=== PATIENT | male | born 1955 | race Caucasian/White ===

== ENCOUNTER → 2016-07-12 | Outpatient (REF) | payer OTHER ==
[2016-07-12 17:51] LABS: MEAN CORPUSCULAR HEMOGLOBIN 31.7 pg (27.0-33.0); MEAN CORPUSCULAR HGB CONC 34.3 g/dl (32.0-36.5); MEAN CORPUSCULAR VOLUME 92.5 fl (80.0-96.0); RED CELL DISTRIBUTION WIDTH 12.3 % (11.5-14.5); WHITE BLOOD COUNT 4.9 K/mm3 (4.0-10.0)
[2016-07-12 17:54] LABS: ALBUMIN 4.1 GM/DL (3.2-5.2); ALBUMIN/GLOBULIN RATIO 1.17 (1.00-1.93); ALKALINE PHOSPHATASE 70 U/L (45-117); ALT/SGPT 24 U/L (12-78); ANION GAP 6 MEQ/L (8-16); AST/SGOT 20 U/L (15-37); BILIRUBIN,TOTAL 0.4 MG/DL (0.2-1.0); BLOOD UREA NITROGEN 12 MG/DL (7-18); CALCIUM LEVEL 8.7 MG/DL (8.8-10.2); CARBON DIOXIDE LEVEL 27 MEQ/L (21-32); CHLORIDE LEVEL 104 MEQ/L (98-107); CHOLESTEROL LEVEL 200 MG/DL (<200); CREATININE FOR GFR 0.99 MG/DL (0.70-1.30); FREE T4 0.88 NG/DL (0.76-1.46); GLOMERULAR FILTRATION RATE > 60.0 (>49); GLUCOSE, FASTING 85 MG/DL (80-110); POTASSIUM SERUM 4.9 MEQ/L (3.5-5.1); SODIUM LEVEL 137 MEQ/L (136-145); TOTAL PROTEIN 7.6 GM/DL (6.4-8.2); TRIGLYCERIDES LEVEL 90 MG/DL (<150)
== END ==
LOC: M SFHCLERA 14:40
PROVIDERS: ATTEND Family Medicine
DX: I10 Essential (primary) hypertension (principal)

== ENCOUNTER → 2016-07-12 | Outpatient (CLI) | payer OTHER ==
--- NOTE | 2016-07-12 15:31 | REP ---
Clinical: Lower back pain. Technique: AP, lateral, bilateral oblique and coned-down views. Findings: AP view demonstrates chronic dextroconvex scoliosis with asymmetric multilevel disc space narrowing and osteophytosis (left greater than right). No acute fracture / compression injury. Chronic retrolisthesis at the L3-4 level of approximately 7 mm is appreciated. Impression: Advanced multilevel degenerative changes. Signed by Sterling Albright MD 07/12/2016 03:24 P
== END ==
LOC: M LRY 14:43
PROVIDERS: ATTEND Family Medicine
DX: M51.36 Other intervertebral disc degeneration, lumbar region (principal)

== ENCOUNTER → 2016-08-19 | Outpatient (CLI) | payer OTHER ==
--- NOTE | 2016-08-19 09:10 | REP ---
MR LUMBAR SPINE WITHOUT CONTRAST: HISTORY: Back pain. Decreased signal on T2-weighted images is present in the lumbar intervertebral discs. The discs are decreased in height. These findings are consistent with disc degeneration. A diffuse disc bulge is present at the L1-2 level. There is minimal compression of the thecal sac. There is hypertrophy of the posterior articulating facets. The L1 nerves exit the neural foramina without compression. A diffuse disc bulge is present at the L2-3 level. There is minimal compression of the thecal sac. There is hypertrophy of the posterior articulating facets. The L2 nerves exit the neural foramina without compression. A diffuse disc bulge is present at the L3-4 level. There are 4 mm of retrolisthesis of L3 on 4. There is minimal compression of the thecal sac. There is hypertrophy of the posterior articulating facets. The L3 nerves exit the neural foramina without compression. A diffuse disc bulge is present at the L4-5 level. There is hypertrophy of the ligamenta flava and posterior articulating facets. There are 3 mm of grade 1 spondylolisthesis of L4 and 5. These findings produce minimal central canal stenosis. There is compression of the left L4 nerve in the neural foramen. The right L4 nerve exits the neural foramen without compression. A diffuse disc bulge is present at the L5-S1 level. There is minimal compression of the thecal sac. There is hypertrophy of the posterior articulating facets. There are 2 mm of grade 1 spondylolisthesis of L5 on S1. There is compression of the right L5 nerve in the neural foramen. The left L5 nerve exits the neural foramen without compression. The conus medullaris is normal in appearance terminating at the level of the T12-L1 intervertebral disc. Increased signal intensity on T2-weighted images is present in the endplates of the L2-S1 vertebral bodies. This represents degenerative change. There is scoliosis convex to the right. IMPRESSION: 1. Diffuse disc bulges at the L1-2 and L2-3 levels with minimal thecal sac compression. 2. Diffuse disc bulge and retrolisthesis at the L3-4 level with minimal thecal sac compression. 3. Minimal central canal stenosis at the L4-5 level secondary to disc bulge, ligamentous and facet hypertrophy and grade 1 spondylolisthesis. There is compression of the left L4 nerve in the neural foramen. 4. Diffuse disc bulge at the L5-S1 level with minimal thecal sac compression. There is grade 1 spondylolisthesis of L5 on S1. There is compression of the right L5 nerve in the neural foramen. Signed by Abel Jimenez MD 08/19/2016 09:15 A
== END ==
LOC: M RAD 06:46
PROVIDERS: ATTEND Family Medicine
DX: M51.36 Other intervertebral disc degeneration, lumbar region (principal); M51.37 Other intervertebral disc degeneration, lumbosacral region; M43.10 Spondylolisthesis, site unspecified

== ENCOUNTER → 2016-10-25 | Outpatient (REF) | payer OTHER ==
[2016-10-25 12:10] LABS: BASO # 0.1 K/mm3 (0.0-0.2); BASO % 1.1 % (0.0-1.0); EOS # 0.4 K/mm3 (0.0-0.50); EOS % 7.1 % (0.0-3.0); LARGE UNSTAINED CELL # 0.1 K/mm3 (0.0-0.4); LYMPH # 1.6 K/mm3 (1.5-4.5); LYMPH % 30.8 % (24.0-44.0); MEAN CORPUSCULAR HEMOGLOBIN 32.4 pg (27.0-33.0); MEAN CORPUSCULAR HGB CONC 34.6 g/dl (32.0-36.5); MEAN CORPUSCULAR VOLUME 93.7 fl (80.0-96.0); MONO # 0.4 K/mm3 (0.0-0.8); MONO % 7.3 % (0.0-5.0); NEUTROPHILS # 2.7 K/mm3 (1.8-7.7); NEUTROPHILS % 51.7 % (36.0-66.0); PLATELET COUNT, AUTOMATED 229 k/mm3 (150-450); RED CELL DISTRIBUTION WIDTH 12.6 % (11.5-14.5); WHITE BLOOD COUNT 5.2 K/mm3 (4.0-10.0)
[2016-10-25 12:43] LABS: ALBUMIN 3.8 GM/DL (3.2-5.2); ALBUMIN/GLOBULIN RATIO 1.19 (1.00-1.93); ALKALINE PHOSPHATASE 67 U/L (45-117); ALT/SGPT 24 U/L (12-78); ANION GAP 7 MEQ/L (8-16); AST/SGOT 16 U/L (15-37); BILIRUBIN,TOTAL 0.3 MG/DL (0.2-1.0); BLOOD UREA NITROGEN 11 MG/DL (7-18); CALCIUM LEVEL 8.7 MG/DL (8.8-10.2); CARBON DIOXIDE LEVEL 26 MEQ/L (21-32); CHLORIDE LEVEL 106 MEQ/L (98-107); CREATININE FOR GFR 0.93 MG/DL (0.70-1.30); GLOMERULAR FILTRATION RATE > 60.0 (>49); GLUCOSE, FASTING 143 MG/DL (80-110); POTASSIUM SERUM 4.2 MEQ/L (3.5-5.1); SODIUM LEVEL 139 MEQ/L (136-145)
== END ==
LOC: M LABDRAW1 10:54
PROVIDERS: ATTEND Orthopaedic Surgery
DX: M47.896 Other spondylosis, lumbar region (principal)

== ENCOUNTER → 2017-06-20 | Outpatient (REF) | payer OTHER ==
[2017-06-20 12:00] LABS: BASO # 0.1 10^3/uL (0.0-0.2); EOS # 0.2 10^3/uL (0.0-0.50); EOS % 3.6 % (0.0-3.0); HEMATOCRIT 45.3 % (42.0-52.0); HEMOGLOBIN 15.5 g/dl (14.0-18.0); IMMATURE GRANULOCYTE # 0.1 10^3/uL (0-0); LYMPH # 1.4 10^3/uL (1.5-4.5); LYMPH % 24.3 % (24.0-44.0); MEAN CORPUSCULAR HEMOGLOBIN 31.3 pg (27.0-33.0); MEAN CORPUSCULAR HGB CONC 34.2 g/dl (32.0-36.5); MEAN CORPUSCULAR VOLUME 91.3 fl (80.0-96.0); MONO # 0.5 10^3/uL (0.0-0.8); MONO % 9.1 % (0.0-5.0); NEUTROPHILS # 3.5 10^3/uL (1.8-7.7); PLATELET COUNT, AUTOMATED 252 10^3/uL (150-450); RED BLOOD COUNT 4.96 10^6/uL (4.30-6.10); RED CELL DISTRIBUTION WIDTH 12.2 % (11.5-14.5); WHITE BLOOD COUNT 5.8 10^3/uL (4.0-10.0)
[2017-06-20 12:21] LABS: BLOOD UREA NITROGEN 7 MG/DL (7-18)
[2017-06-20 12:21] LABS: GLOMERULAR FILTRATION RATE > 60.0 (>49)
== END ==
LOC: M LABDRAW1 09:56
DX: M47.896 Other spondylosis, lumbar region (principal)

== ENCOUNTER → 2017-08-01 | Outpatient (CLI) | payer OTHER | LOC: M PAIN 09:30 | DX: M53.3 Sacrococcygeal disorders, not elsewhere classified (principal); G89.29 Other chronic pain; M48.061 Spinal stenosis, lumbar region without neurogenic claudication; I10 Essential (primary) hypertension; Z79.899 Other long term (current) drug therapy | CPT/HCPCS: G0463 ==

== ENCOUNTER → 2017-09-19 | Outpatient (CLI) | payer OTHER | LOC: M PAIN 09:30 | DX: M47.817 Spondylosis without myelopathy or radiculopathy, lumbosacral region (principal); G89.29 Other chronic pain; I10 Essential (primary) hypertension; Z79.899 Other long term (current) drug therapy | CPT/HCPCS: G0463 ==

== ENCOUNTER → 2017-10-31 | Outpatient (CLI) | payer OTHER | LOC: M PAIN 08:45 | DX: M47.817 Spondylosis without myelopathy or radiculopathy, lumbosacral region (principal); G89.29 Other chronic pain; I10 Essential (primary) hypertension; Z79.891 Long term (current) use of opiate analgesic; Z79.899 Other long term (current) drug therapy | CPT/HCPCS: G0463 ==

== ENCOUNTER → 2018-02-13 | Outpatient (CLI) | payer OTHER | LOC: M PAIN 09:00 | DX: M47.817 Spondylosis without myelopathy or radiculopathy, lumbosacral region (principal); G89.29 Other chronic pain; I10 Essential (primary) hypertension; Z79.899 Other long term (current) drug therapy | CPT/HCPCS: G0463 ==

== ENCOUNTER → 2018-04-17 | Outpatient (CLI) | payer OTHER | LOC: M PAIN 08:30 | DX: M47.817 Spondylosis without myelopathy or radiculopathy, lumbosacral region (principal); G89.29 Other chronic pain; I10 Essential (primary) hypertension; Z79.899 Other long term (current) drug therapy | CPT/HCPCS: G0463 ==

== ENCOUNTER → 2018-08-21 | Outpatient (REF) | payer OTHER ==
[2018-08-21 11:29] LABS: HEMOGLOBIN 15.5 g/dl (13.5-17.5); MEAN CORPUSCULAR HGB CONC 33.7 g/dl (32.0-36.5); PLATELET COUNT, AUTOMATED 266 10^3/uL (150-450); WHITE BLOOD COUNT 4.2 10^3/uL (4.0-10.0)
[2018-08-21 12:05] LABS: HEMOGLOBIN A1c 5.9 %
[2018-08-21 12:09] LABS: ALBUMIN 4.3 GM/DL (3.2-5.2); ALT/SGPT 26 U/L (12-78); BILIRUBIN,TOTAL 0.5 MG/DL (0.2-1.0); BLOOD UREA NITROGEN 10 MG/DL (7-18); CALCIUM LEVEL 8.7 MG/DL (8.8-10.2); CARBON DIOXIDE LEVEL 29 MEQ/L (21-32); CHLORIDE LEVEL 104 MEQ/L (98-107); CHOLESTEROL LEVEL 222 MG/DL (<200); CHOLESTEROL RISK RATIO 4.625 (<5); CREATININE FOR GFR 0.84 MG/DL (0.70-1.30); GLOMERULAR FILTRATION RATE > 60.0 (>49); GLUCOSE, FASTING 92 MG/DL (70-100); HDL CHOLESTEROL 48 MG/DL (>40); LDL CHOLESTEROL 142 MG/DL (<100); NON-HDL-C 174 MG/DL; POTASSIUM SERUM 4.3 MEQ/L (3.5-5.1); SODIUM LEVEL 139 MEQ/L (136-145); THYROID STIMULATING HORMONE 0.764 uIU/ML (0.358-3.740); TOTAL PROTEIN 7.6 GM/DL (6.4-8.2); TRIGLYCERIDES LEVEL 160 MG/DL (<150)
[2018-08-21 12:45] LABS: CREATININE, URINE 39.7 MG/DL; MALB URINE SIEMENS < 5.0 MG/L; MAU/CREAT RATIO 12.5 MCG/MG (0.0-30.0)
== END ==
LOC: M SFHCLERA 09:46
PROVIDERS: ATTEND Family Medicine
DX: I10 Essential (primary) hypertension (principal)

== ENCOUNTER → 2019-03-05 | Outpatient (REF) | payer OTHER ==
[2019-03-05 21:18] LABS: ALBUMIN 4.2 GM/DL (3.2-5.2); BILIRUBIN,DIRECT 0.2 MG/DL (0.0-0.2); BILIRUBIN,TOTAL 0.6 MG/DL (0.2-1.0); CHOLESTEROL RISK RATIO 3.153 (<5); TOTAL PROTEIN 7.4 GM/DL (6.4-8.2)
== END ==
LOC: M SFHCLERA 16:39
PROVIDERS: ATTEND Family Medicine
DX: E78.5 Hyperlipidemia, unspecified (principal)

== ENCOUNTER → 2020-04-14 | Outpatient (CLI) | payer OTHER ==
[2020-04-14 12:28] LABS: BASO # 0.1 10^3/uL (0.0-0.2); BASO % 0.6 % (0.0-1.0); EOS # 0.1 10^3/uL (0.0-0.5); EOS % 1.8 % (0.0-3.0); HEMATOCRIT 47.2 % (42.0-52.0); HEMOGLOBIN 15.8 g/dl (13.5-17.5); LYMPH # 1.4 10^3/uL (1.5-5.0); LYMPH % 17.3 % (24.0-44.0); MEAN CORPUSCULAR HEMOGLOBIN 30.9 pg (27.0-33.0); MEAN CORPUSCULAR HGB CONC 33.5 g/dl (32.0-36.5); MEAN CORPUSCULAR VOLUME 92.4 fl (80.0-96.0); MONO # 0.8 10^3/uL (0.0-0.8); MONO % 10.4 % (0.0-5.0); NEUTROPHILS # 5.4 10^3/uL (1.5-8.5); NEUTROPHILS % 69.5 % (36.0-66.0); PLATELET COUNT, AUTOMATED 277 10^3/uL (150-450); RED BLOOD COUNT 5.11 10^6/uL (4.30-6.10); WHITE BLOOD COUNT 7.8 10^3/uL (4.0-10.0)
[2020-04-14 13:03] LABS: BLOOD UREA NITROGEN 10 MG/DL (7-18); CALCIUM LEVEL 9.7 MG/DL (8.8-10.2); CARBON DIOXIDE LEVEL 31 MEQ/L (21-32); CHLORIDE LEVEL 100 MEQ/L (98-107); CHOLESTEROL LEVEL 169 MG/DL (<200); CHOLESTEROL RISK RATIO 2.283 (<5); GLOMERULAR FILTRATION RATE > 60.0 (>49); GLUCOSE, FASTING 99 MG/DL (70-100); HDL CHOLESTEROL 74 MG/DL (>40); LDL CHOLESTEROL 79 MG/DL (<100); NON-HDL-C 95 MG/DL; POTASSIUM SERUM 3.9 MEQ/L (3.5-5.1); SODIUM LEVEL 137 MEQ/L (136-145); TRIGLYCERIDES LEVEL 79 MG/DL (<150)
[2020-04-14 14:19] LABS: HEMOGLOBIN A1c 5.5 %
== END ==
LOC: M WUC 10:23
PROVIDERS: ATTEND Family Medicine
DX: R73.01 Impaired fasting glucose (principal); E78.5 Hyperlipidemia, unspecified; I10 Essential (primary) hypertension

== ENCOUNTER → 2020-09-04 | Outpatient (CLI) | payer OTHER ==
[2020-09-04 13:21] LABS: BASO # 0.1 10^3/uL (0.0-0.2); BASO % 1.1 % (0.0-1.0); EOS # 0.2 10^3/uL (0.0-0.5); EOS % 2.3 % (0.0-3.0); HEMATOCRIT 45.1 % (42.0-52.0); HEMOGLOBIN 15.5 g/dl (13.5-17.5); LYMPH # 1.2 10^3/uL (1.5-5.0); LYMPH % 13.7 % (24.0-44.0); MEAN CORPUSCULAR HEMOGLOBIN 32.8 pg (27.0-33.0); MEAN CORPUSCULAR HGB CONC 34.4 g/dl (32.0-36.5); MEAN CORPUSCULAR VOLUME 95.3 fl (80.0-96.0); MONO # 0.7 10^3/uL (0.0-0.8); MONO % 7.6 % (2.0-8.0); NEUTROPHILS # 6.4 10^3/uL (1.5-8.5); NEUTROPHILS % 73.7 % (36.0-66.0); PLATELET COUNT, AUTOMATED 360 10^3/uL (150-450); RED BLOOD COUNT 4.73 10^6/uL (4.30-6.10); WHITE BLOOD COUNT 8.7 10^3/uL (4.0-10.0)
[2020-09-04 16:31] LABS: ALBUMIN 3.8 GM/DL (3.2-5.2); ALT/SGPT 34 U/L (12-78); BILIRUBIN,TOTAL 0.5 MG/DL (0.2-1.0); BLOOD UREA NITROGEN 8 MG/DL (7-18); CALCIUM LEVEL 9.7 MG/DL (8.8-10.2); CARBON DIOXIDE LEVEL 25 MEQ/L (21-32); CHLORIDE LEVEL 97 MEQ/L (98-107); CREATININE FOR GFR 0.82 MG/DL (0.70-1.30); FOLATE > 24.0 NG/ML; GLOMERULAR FILTRATION RATE > 60.0 (>49); GLUCOSE, FASTING 97 MG/DL (70-100); POTASSIUM SERUM 4.3 MEQ/L (3.5-5.1); SODIUM LEVEL 133 MEQ/L (136-145); VITAMIN B12 LEVEL 712 PG/ML
[2020-09-12 11:09] LABS: VITAMIN B1 LEVEL WHOLE BLOOD 269.7 nmol/L (66.5-200.0)
== END ==
LOC: M WUC 09:42
PROVIDERS: ATTEND Family Medicine
DX: R56.9 Unspecified convulsions (principal); Z09 Encounter for follow-up examination after completed treatment for conditions other than malignant neoplasm; Z72.89 Other problems related to lifestyle; F43.21 Adjustment disorder with depressed mood; Z63.4 Disappearance and death of family member; Z86.79 Personal history of other diseases of the circulatory system; Z86.39 Personal history of other endocrine, nutritional and metabolic disease

== ENCOUNTER → 2020-12-23 | Outpatient (CLI) | payer OTHER ==
[~2020-12-23] MED LIST: ATOR1TAB21 PO; B-1100TA2 PO; B12-1CHW PO; FOLI1TAB11 PO; HYDR-3490 PO; KEPP1TAB2 PO
== END ==
LOC: M RAD 09:00
PROVIDERS: ATTEND Nurse Practitioner Family
DX: K40.90 Unilateral inguinal hernia, without obstruction or gangrene, not specified as recurrent (principal)

== ENCOUNTER → 2021-02-23 | Outpatient (CLI) | payer OTHER ==
[~2021-02-23] MED LIST changes: -KEPP1TAB2 PO
--- NOTE | 2021-02-24 16:53 | ECGEPIP ---
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 Electronically Signed on 02-24-2021 16:53:02 EDT by Moises Kevin
== END ==
LOC: M EKG 14:39
PROVIDERS: ATTEND Anesthesiology
DX: Z01.818 Encounter for other preprocedural examination (principal); E78.00 Pure hypercholesterolemia, unspecified

== ENCOUNTER → 2021-02-27 | Outpatient (CLI) | payer OTHER | LOC: M LABSMTC 09:27 | PROVIDERS: ATTEND Anesthesiology | DX: Z01.812 Encounter for preprocedural laboratory examination (principal); Z20.822 Contact with and (suspected) exposure to COVID-19 ==

== ENCOUNTER 2021-03-04 11:29 | Day surgery (SDC) | payer OTHER ==
[~2021-03-04] VITALS: Ht 180.3 cm; Wt 74.8 kg
[~2021-03-04 11:29] MED LIST changes: +CelecoXIB 400 MG CAP PO ONE; +LIDOCAINE 1% MDV 20ML VIAL SQ PRN; +LIDOCAINE 2% 100MG/5ML SDV (FOR ANES.) As Ordered ONE; +LR 1,000 ML IV ONE; +MIDAZOLAM INJ 2MG/2ML VIAL (J2250 PER 1MG) As Ordered ONE; +ONDANSETRON 4MG/2ML VIAL As Ordered ONE; +ROCURONIUM BROMIDE 50 MG/5 ML VIAL As Ordered ONE; +SUGAMMADEX SODIUM 500 MG/5 ML VIAL (BRIDION) As Ordered ONE; +ceFAZolin SOD 2 GM in IV 1 EA IV ONE; +dexameTHASONE 4 MG/ML 1ML VIAL (J1100 PER 1MG) As Ordered ONE; +fentaNYL 250 MCG/5 ML INJECTION (J3010) As Ordered ONE; +propofoL 200 MG/20 ML VIAL As Ordered ONE
--- OUTSIDE RECORDS SUMMARY | 2021-03-04 11:34 | CCD | Continuity of Care Document ---
Author Author SIMÓN ELENA, Narciso SMITH Organization Unknown Address [address] [facility] [address] [place] [address] Phone [phone] Care Team Providers Care Youth Worker Name Role Phone Ruthy Chakraborty AUTM AUTM Unavailable Abel Infante M.D. AUTM [phone] Problems Active Problems Provider Date Essential hypertension Tony Rainey MD Onset: 021 Social History Type Date Description Comments Sex Unknown ETOH Use Currently consumes alcohol on we ekends Tobacco Use Start: Unknown Denies Smoking Recreational Drug Use Current Drug User marijuan a 1-4 times a week for pain management Allergies and adverse reactions Description No Known Drug Allergies Medications Active Medications SIG Qnty Indications Ordering Provide r Date Stanton 5-325mg Tablets 1 tabs by mouth every 6 hours as needed for pain after surgery 14tabs K40.90 Tony Rainey MD 02/27/2021 Atorvastatin Calcium 20mg Tablets Take 1 Tablet By Mouth Once A Day Unknown Folic Acid 1mg Tablets Take One Tablet By Mouth Every Day Unknown Hydrochlorothiazide 25mg Tablets Take One Tablet By Mouth Every Day Unknown HM Super Vitamin B12 2500mcg Chewt abs 1 qd Unknown Vitamin B1 100mg Tablets 1 by mouth every day Unknown Immunizations Description No Information Available Vital Signs Date Vital Result Comment 01/01/2021 1:32pm BP Systolic 137 mmHg BP Diastolic 82 mmHg Heart Rate 79 /min Body Temperature 98.3 F Height 71 inches 5'11" Weight 159.38 lb BMI (Body Mass Index) 22.2 kg/m2 [place] Body Weight 172 lb Weight 72.293 kg BSA (Body Surface Area) 1.91 m2 Results Description No Information Available Procedures Date Code Description Status 01/01/2021 65023 Office/Outpatient New Moderate M DM 45-59 Minutes Completed Medical Devices Description No Information Available Encounters Type Date Location Provider Dx Diagnosis Office Visit 01/01/2021 1:30p [facility] Blaze Rainey MD K40.90 Unil inguinal hernia, w/o ob st or gangr, not spcf as recur Assessments Date Code Description Provider 01/01/2021 K40.90 Left inguinal hernia Tony mahan MD Plan of Treatment Future Appointment(s):* 03/18/2021 10:15 am - TEJAS Mcdaniel at [facility] * 03/04/2021 1:45 pm - Tony Rainey MD at [facility] 01/01/2021 - Tony Rainey MD* K40.90 Left inguinal hernia* Comments:* 1. Discussed with patient the pathophysiology of hernia formation as well as the rationale for operative repair: prevent incarceration and avoid emergent surgery. His imaging study shows (pelvic ultrasound) shows a reducible fat- containing inguinal hernia on the left side. He desires repair of the hernia. He has minimal numbness mostly discomfort when it protrudes out but there is no documented episodes of incarceration. We discussed operative therapy and nonoperative therapy (watchful waiting). Likewise, we discussed the different options for repair including laparoscopic and open hernia repair.2. Recommend robotic assisted laparosocopic repair of the inguinal hernia via transabdominal preperitoneal approach. Risks and benefits discussed with patient including risks of bleeding, recurrence, postop pain, and injury to nearby structures including blood vessels and spermatic structures. All concerns and questions addressed at this time including postoperative care. He has agreed to proceed. Our plan is to perform a robotic-assisted laparoscopic inguinal hernia repair in hisright side via transabdominal preperitoneal approach (EMERSON). This is expected as outpatient surgery. This done under general anesthesia. My experience with the repair is that this minimizes postoperative pain and time to recovery for full activity. Patient has agreed to proceed. Functional Status Description No Information Available Mental Status Description No Information Available Referrals Refer to Reason for Referral Status Appt Date Tony Rainey MD LEFT INGUINAL HERNIA Scheduled 12/21 6 [facility] [address] [place], [place] [address] [phone]
--- OUTSIDE RECORDS SUMMARY | 2021-03-04 11:34 | CCD ---
Author Author [facility] Organization [facility] Address Unknown Phone Unavailable Care Team Providers Care Freight Clerk Name Role Phone Zina, Ruthy Unavailable PROBLEMS Type Condition ICD9-CM Code OYV84-ES Code Onset Dates Condition S tatus W/U Status Risk SNOMED Code Notes Problem Other chronic pain G89.29 Active confirmed 8 9943524 Problem Essential hypertension I10 Active confirmed 13239860 Problem Sacroiliac joint pain M53.3 Active confirmed 784133763 Problem Spondylosis of lumbosacral joint M47.817 Active confirmed 900999507 Problem Influenza vaccination declined by patient Z28.21 Active confirmed 184017928 Problem Erectile dysfunction, unspecified erectile dysfunction typ e N52.9 Active confirmed 733373084 Problem Degenerative lumbar spinal stenosis M48.061 Acti ve confirmed 497911464 Problem Grief F43.21 Active confirmed 271567680 Problem 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 Active confirmed 582241054 Problem Colon cancer screening Z12.11 Active confirmed 845958560 Problem Dyslipidemia E78.5 Active confirmed 6205891 07 Problem Grieving F43.21 Active confirmed 172726275 Problem Adjustment disorder, unspecified type F43.20 Ac tive confirmed 54437585 ALLERGIES No Known Allergies ENCOUNTERS from 1955 to 2020-12-24 Encounter Location Date Provider Diagnosis [facility] [address] [phone] [place] [address] Dec, Ruthy Izaguirre Unilateral recurrent inguina l hernia without obstruction or gangrene K40.91 IMMUNIZATIONS Vaccine Route Administration Date Status Influenza 18 yrs & older Flublok IM Intramuscular Mar 05, 2019 Administered Influenza Pharmacy Given Unknown Apr 03, 2018 Adminis tered Zoster 50mcg/0.5mL Shingrix Unknown May 27, 2019 Admi nistered Zoster 50mcg/0.5mL Shingrix Unknown Mar 12, 2019 Admi nistered TDAP 0.5mL (Boostrix) IM Intramuscular Mar 05, 2019 Administe red Influenza 6mo & up Fluzone Unknown Mar 21, 2017 Admin istered SOCIAL HISTORY Tobacco Use: Social History Observation Description Date Details (start date - stop date) Never Smoker Sex Assigned At : Social History Observation Description Sex Assigned At Unknown Audit Question Answer Notes Total Score: 4 Interpretation: Alcohol Education Language: Question Answer Notes Languages spoken: Yakut Evangelical: Question Answer Notes Evangelical 33 None Drug and Alcohol Question Answer Notes Total Score: 0 Interpretation: No problems reported Alcohol Screening: Question Answer Notes Did you have a drink containing alcohol in the past year? Ye s Points 0 Interpretation Negative How often did you have six or more drinks on one occas ion in the past year? Never (0 points) How many drinks did you have on a typica l day when you were drinking in the past year? 1 or 2 (0 points) How often did you have a drink containing alcohol in t he past year? Never (0 points) Tobacco Use: Question Answer Notes Are you a: never smoker REASON FOR REFERRAL from 1955 to 2020-12-24 Reason left inguinal hernia Diagnosis 1 Unilateral recurrent inguina l hernia without obstruction or gangrene (K40.91) Referral Organization [facility] Referring Provider First Name Ruthy Referring Provider Last Name Zina Referring Provider Specialty Family Medicine Referred Provider Tha Friedman Eduardo Referred Provider Specialty General Surgery Referral Priority Routine VITAL SIGNS No information MEDICATIONS Medication SIG (Take, Route, Frequency, Duration) Notes Start Da te End Date Status Atorvastatin Calcium 20 MG 1 tablet Orally Once a day for 90 Active Folic Acid 1 MG 1 tablet Orally Daily Active Tylenol Arthritis Pain Orally As needed Active Viagra 50 MG 1 tablet as needed Orally Once a day for 14 days May, Not-Taking Hydrochlorothiazide 25 MG TAKE 1 TABLET BY MOUTH ONCE DAILY for 90 Active hydroCHLOROthiazide 25 mg 1 tablet Orally Once a day Active Vitamin B Complex 100mg-1000mg 1 tab Orally Daily Active PROCEDURES No Information RESULTS No Results REASON FOR VISIT US results MEDICAL (GENERAL) HISTORY Type Description Date Medical History HTN, goal 140/90 Medical History low back pain s/p injury Medical History hyperlipidemia Medical History seizure secondary to alcohol Medical History grief, passed Surgical History No Surgical history information Hospitalization History seizure, dehydration 08/27/2020 Goals Section No Information Health Concerns No Information MEDICAL EQUIPMENT No Information MENTAL STATUS No Information FUNCTIONAL STATUS No Information ASSESSMENTS Encounter Date Diagnosis Assessment Notes Treatment Notes Treatm ent Clinical Notes Dec, Unilateral recurrent inguina l hernia without obstruction or gangrene (ICD-10 - K40.91) PLAN OF TREATMENT Referrals Referral Date Details left inguinal hernia, Daniel Rainey SMP Next Appt Details Provider Name:Abel Infante, 2020-12-29 07:30:00 AM, [address] [facility], , [place], [address], Insurance Providers Payer Name Payer Address Payer Phone Insured Name Patient Relati onship to Insured Coverage Start Date Coverage End Date [facility] [address] [place] [id number] Ana DUTTA I self
--- OUTSIDE RECORDS SUMMARY | 2021-03-04 11:34 | CCD ---
Author Author [facility] Organization [facility] Address Unknown Phone Unavailable Care Team Providers Care Furnace Room Supervisor Name Role Phone Ruthy Izaguirre Unavailable PROBLEMS Type Condition ICD9-CM Code BKL31-OH Code Onset Dates Condition S tatus W/U Status Risk SNOMED Code Notes Problem Other chronic pain G89.29 Active confirmed 8 7089891 Problem Essential hypertension I10 Active confirmed 53938011 Problem Sacroiliac joint pain M53.3 Active confirmed 137944986 Problem Spondylosis of lumbosacral joint M47.817 Active confirmed 335415579 Problem Influenza vaccination declined by patient Z28.21 Active confirmed 500866118 Problem Erectile dysfunction, unspecified erectile dysfunction typ e N52.9 Active confirmed 868061452 Problem Degenerative lumbar spinal stenosis M48.061 Acti ve confirmed 118673715 Problem Grief F43.21 Active confirmed 108520319 Problem 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 Active confirmed 713450518 Problem Colon cancer screening Z12.11 Active confirmed 222887194 Problem Dyslipidemia E78.5 Active confirmed 9970660 07 Problem Grieving F43.21 Active confirmed 189018468 Problem Adjustment disorder, unspecified type F43.20 Ac tive confirmed 20537250 ALLERGIES No Known Allergies ENCOUNTERS from 1955 to 2020-12-03 Encounter Location Date Provider Diagnosis [facility] [address] [phone] [place] [address] Nov, 2020 Ruthy De Guzmanllister Mass of left inguinal region R19.09 IMMUNIZATIONS Vaccine Route Administration Date Status Influenza Pharmacy Given Unknown Apr 03, 2018 Adminis tered Influenza 18 yrs & older Flublok IM Intramuscular Mar 05, 2019 Administered Zoster 50mcg/0.5mL Shingrix Unknown May 27, 2019 [...] Education Language: Question Answer Notes Languages spoken: Azerbaijani Buddhism: Question Answer Notes Buddhism 33 None Drug and Alcohol Question Answer [...] you a: never smoker REASON FOR REFERRAL No Information VITAL SIGNS Weight 160.2 lbs Nov, Height 71 in Nov, BMI 22.34 kg/m2 Nov, Heart Rate 75 /min Nov, Respiratory Rate 17 /min Nov, Temperature 98.8 degrees Fahrenheit Nov, Oximetry 96 Nov, Blood pressure systolic 154 mm Hg Nov, Blood pressure diastolic 93 mm Hg Nov, MEDICATIONS Medication SIG (Take, Route, Frequency, Duration) [...] Information RESULTS No Results REASON FOR VISIT bump just below waist MEDICAL (GENERAL) HISTORY Type Description Date Medical [...] Notes Treatment Notes Treatm ent Clinical Notes Nov, Mass of left inguinal region (ICD-10 - R19.09) Patients exam and sxs consistent with left inguinal hernia. Will get US to further eval. If hernia discovered will send to gen surg for further eval. Discussed supportive care. ER for new or worsening sxs. Patient educated on diagnosis, medications, treatments, and expected outcomes. Patient educated on risks, SE/AE, benefits, alternatives of regimen. Discussed emergent signs and symptoms and to seek emergency medical attention if they occur. Patient voiced understanding and had all questions answered. PLAN OF TREATMENT Treatment Notes Assessment Notes Clinical Notes Mass of left inguinal region Patients exam and sxs con sistent with left inguinal hernia. Will get US to further eval. If hernia discovered will send to gen surg for further eval. Discussed supportive care. ER for new or worsening sxs. Patient educated on diagnosis, medications, treatments, and expected outcomes. Patient educated on risks, SE/AE, benefits, alternatives of regimen. Discussed emergent signs and symptoms and to seek emergency medical attention if they occur. Patient voiced understanding and had all questions answered. Treatment Notes Test Name Order Date [facility] NON-OB COMPLETE 2020-12-02 Next Appt Details Provider Name:Abel Romo Infante, 2020-12-29 07:30:00 AM, [address] [facility], , [place], [address], Insurance Providers Payer Name Payer Address Payer Phone Insured Name Patient Relati onship to Insured Coverage Start Date Coverage End Date [facility] [address] [place] [address] Ana DUTTA I self
--- OUTSIDE RECORDS SUMMARY | 2021-03-04 11:34 | CCD ---
Author Author [facility] Organization [facility] Address Unknown Phone Unavailable Care Team Providers Care Home Health Travel Ot Name Role Phone Arelis Abel Unavailable PROBLEMS Type Condition ICD9-CM Code MCU18-CE Code Onset Dates Condition S tatus W/U Status Risk SNOMED Code Notes Problem Other chronic pain G89.29 Active confirmed 8 1371307 Problem Essential hypertension I10 Active confirmed 19557835 Problem Sacroiliac joint pain M53.3 Active confirmed 240593127 Problem Spondylosis of lumbosacral joint M47.817 Active confirmed 418209325 Problem Influenza vaccination declined by patient Z28.21 Active confirmed 010308097 Problem Erectile dysfunction, unspecified erectile dysfunction typ e N52.9 Active confirmed 008349209 Problem Degenerative lumbar spinal stenosis M48.061 Acti ve confirmed 281213708 Problem Grief F43.21 Active confirmed 464560445 Problem 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 Active confirmed 663300804 Problem Colon cancer screening Z12.11 Active confirmed 609578432 Problem Dyslipidemia E78.5 Active confirmed 5640635 07 Problem Grieving F43.21 Active confirmed 271628836 Problem Adjustment disorder, unspecified type F43.20 Ac tive confirmed 38714409 ALLERGIES No Known Allergies ENCOUNTERS from 1955 to 2021-01-01 Encounter Location Date Provider Diagnosis [facility] [id number] [place] [address] [place] [address] Dec, Abel Infante IMMUNIZATIONS Vaccine Route Administration Date Status Influenza [...] Education Language: Question Answer Notes Languages spoken: Northern Irish Moravian: Question Answer Notes Moravian 33 None Drug and Alcohol Question Answer [...] REASON FOR REFERRAL No Information VITAL SIGNS No information MEDICATIONS Medication SIG [...] Information RESULTS No Results REASON FOR VISIT Call Back MEDICAL (GENERAL) HISTORY Type Description Date Medical History HTN, goal 140/90 Medical History low back pain s/p injury Medical History hyperlipidemia Medical History seizure secondary to alcohol Medical History grief, passed Surgical History No Surgical history information Hospitalization History seizure, dehydration 08/27/2020 Goals Section No Information Health Concerns No Information MEDICAL EQUIPMENT No Information MENTAL STATUS No Information FUNCTIONAL STATUS No Information ASSESSMENTS No Information PLAN OF TREATMENT No Information Insurance Providers Payer Name Payer Address Payer Phone Insured Name Patient Relati onship to Insured Coverage Start Date Coverage End Date [facility] [address] [place] [id number] Ana DUTTA I self
--- OUTSIDE RECORDS SUMMARY | 2021-03-04 11:34 | CCD ---
Author Author [facility] Organization [facility] Address Unknown Phone Unavailable Care Team Providers Care Accountant Cost Name Role Phone Abel Infante Unavailable PROBLEMS Type Condition ICD9-CM Code [id number] Code Onset Dates Condition S tatus W/U Status Risk SNOMED Code Notes Problem Other chronic pain G89.29 Active confirmed 8 5571942 Problem Essential hypertension I10 Active confirmed 98186918 Problem Sacroiliac joint pain M53.3 Active confirmed 148840094 Problem Spondylosis of lumbosacral joint M47.817 Active confirmed 191773378 Problem Influenza vaccination declined by patient Z28.21 Active confirmed 022718883 Problem Erectile dysfunction, unspecified erectile dysfunction typ e N52.9 Active confirmed 201277160 Problem Degenerative lumbar spinal stenosis M48.061 Acti ve confirmed 928123257 Problem Grief F43.21 Active confirmed 354671912 Problem 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 Active confirmed 723414832 Problem Colon cancer screening Z12.11 Active confirmed 879862171 Problem Dyslipidemia E78.5 Active confirmed 4403399 07 Problem Grieving F43.21 Active confirmed 696923500 Problem Adjustment disorder, unspecified type F43.20 Ac tive confirmed 12071082 ALLERGIES No Known Allergies ENCOUNTERS from 1955 to 2021-03-02 Encounter Location Date Provider Diagnosis [facility] [address] [address] [phone] [place] [address] 27 Jan, 2021 Abel Infante Pre-op exam Z01.818 ; Left i nguinal hernia K40.90 and Encounter for immunization Z23 IMMUNIZATIONS Vaccine Route Administration Date Status Influenza Pharmacy Given Unknown Apr 03, 2018 Adminis tered Influenza 18 yrs & older Flublok IM Intramuscular Feb 16, 2021 Administered Influenza 18 yrs & older Flublok IM [...] Education Language: Question Answer Notes Languages spoken: Nepali Orthodox: Question Answer Notes Orthodox 33 None Drug and Alcohol Question Answer [...] FOR REFERRAL No Information VITAL SIGNS Weight 162.8 lbs Jan, Height 71 in Jan, BMI 22.70 kg/m2 Jan, Heart Rate 46 /min Jan, Respiratory Rate 17 /min Jan, Temperature 98.0 degrees Fahrenheit Jan, Oximetry 99 Jan, Blood pressure systolic 132 mm Hg Jan, Blood pressure diastolic 83 mm Hg Jan, MEDICATIONS Medication SIG (Take, Route, Frequency, Duration) Notes Start Da te End Date Status Vitamin B Complex 100mg-1000mg 1 tab Orally Daily Active Viagra 50 MG 1 tablet as needed Orally Once a day for 14 days May, Not-Taking Atorvastatin Calcium 20 MG 1 tablet Orally Once a day for 90 Active hydroCHLOROthiazide 25 mg 1 tablet Orally Once a day Active Folic Acid 1 MG 1 tablet Orally Daily Active Tylenol Arthritis Pain Orally As needed Active PROCEDURES from 1955 to 2021-03-02 Procedure Date Ordered Result Body Site Imm: Flublok Quadrivalent 18 years & older 0.5mL IM Influenza 10-02-27 N/A RESULTS No Results REASON FOR VISIT RA LIH Repair, surgery 03/04/21 MEDICAL (GENERAL) HISTORY Type Description Date Medical History HTN, goal 140/90 Medical History low back pain s/p injury Medical History hyperlipidemia Medical 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 Cardiovascular: Able to perform 4 METS without any symptoms, chest pain, shortness of breath. Patient's overal cardiac risk low and surgery low cardiac risk. No further recommendations at this time. Respiratory: No history of asthma/ COPD, inhaler use. No further recommendations at this time. Renal: No history of chronic kidney disease/ renal disease. No further recommendations at this time. Pysch: Denies any feeling down/ depressed, loss of interest. No history of depression. No further recommendations at this time. Medications: Discussed to hold hydrochlorothiazide on the day of surgery. Can resume the next day unless recommended by surgeon. Does not take low dose aspirin on daily basis, no need to hold/ resume at this time. No further recommendations at this time. Labs/ tests: No labs/ tests to review at this time. Chronic pain: No history of chronic pain. No further recommendations at this time. Patient has been optimized for sugery at this time. Jan, Left inguinal hernia (ICD-10 - K40.90) see preop exam Jan, Encounter for immunization (ICD-10 - Z23) Patient Educated with: Flu Recombinant [id number] (Flu Recombinant [id number]) Asked about flu shot for this season. Have available. Consented. Administered. PLAN OF TREATMENT Treatment Notes Assessment Notes Clinical Notes Pre-op exam Patient preop for Ro bot assisted left inguinal hernia repair.Cardiovascular: Able to perform 4 METS without any symptoms, chest pain, shortness of breath. Patient's overal cardiac risk low and surgery low cardiac risk. No further recommendations at this time.Respiratory: No history of asthma/ COPD, inhaler use. No further recommendations at this time.Renal: No history of chronic kidney disease/ renal disease. No further recommendations at this time.Pysch: Denies any feeling down/ depressed, loss of interest. No history of depression. No further recommendations at this time.Medications: Discussed to hold hydrochlorothiazide on the day of surgery. Can resume the next day unless recommended by surgeon. Does not take low dose aspirin on daily basis, no need to hold/ resume at this time. No further recommendations at this time.Labs/ tests: No labs/ tests to review at this time.Chronic pain: No history of chronic pain. No further recommendations at this time.Patient has been optimized for sugery at this time. Left inguinal hernia see preop exam Encounter for immunization Patient Educated with: Flu Recombinant [id number] (Flu Recombinant [id number]) Asked about flu shot for this season. Shaw ve available. Consented. Administered. Next Appt Details 2-3 mth after surgery Reason: Insurance Providers Payer Name Payer Address Payer Phone Insured Name Patient Relati onship to Insured Coverage Start Date Coverage End Date [facility] [address] [place] [address] Ana DUTTA I self
--- OUTSIDE RECORDS SUMMARY | 2021-03-04 11:34 | CCD ---
Author Author [facility] Organization [facility] Address Unknown Phone Unavailable Care Team Providers Care Cv Rn Name Role Phone Arelis Abel Unavailable PROBLEMS Type Condition ICD9-CM Code CUK99-CU Code Onset Dates Condition S tatus W/U Status Risk SNOMED Code Notes Problem Other chronic pain G89.29 Active confirmed 8 5492192 Problem Essential hypertension I10 Active confirmed 64487711 Problem Sacroiliac joint pain M53.3 Active confirmed 168208451 Problem Spondylosis of lumbosacral joint M47.817 Active confirmed 212959182 Problem Influenza vaccination declined by patient Z28.21 Active confirmed 447497354 Problem Erectile dysfunction, unspecified erectile dysfunction typ e N52.9 Active confirmed 182050355 Problem Degenerative lumbar spinal stenosis M48.061 Acti ve confirmed 080426370 Problem Grief F43.21 Active confirmed 004915717 Problem 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 Active confirmed 111275348 Problem Colon cancer screening Z12.11 Active confirmed 141937902 Problem Dyslipidemia E78.5 Active confirmed 0564865 07 Problem Grieving F43.21 Active confirmed 873778355 Problem Adjustment disorder, unspecified type F43.20 Ac tive confirmed 64647910 ALLERGIES No Known Allergies ENCOUNTERS from 1955 to 2021-01-01 Encounter Location Date Provider Diagnosis [facility] [id number] [place] [address] [place] [address] Dec, Abel Infante IMMUNIZATIONS Vaccine Route Administration [...] Education Language: Question Answer Notes Languages spoken: [place] Faith: Question Answer Notes Faith 33 None Drug and Alcohol Question Answer [...] Information RESULTS No Results REASON FOR VISIT n/s appt 12/29 MEDICAL (GENERAL) HISTORY Type Description Date Medical [...] Insured Coverage Start Date Coverage End Date [facility] [address] [place] [id number] Ana DUTTA I self
--- OUTSIDE RECORDS SUMMARY | 2021-03-04 11:34 | CCD ---
Author Author [facility] Organization [facility] Address Unknown Phone Unavailable Care Team Providers Care Supervisor Edging Name Role Phone Abel Infante Unavailable PROBLEMS Type Condition ICD9-CM Code DNL29-JY Code Onset Dates Condition S tatus W/U Status Risk SNOMED Code Notes Problem Other chronic pain G89.29 Active confirmed 8 2538788 Problem Essential hypertension I10 Active confirmed 23129457 Problem Sacroiliac joint pain M53.3 Active confirmed 767321769 Problem Spondylosis of lumbosacral joint M47.817 Active confirmed 639753590 Problem Influenza vaccination declined by patient Z28.21 Active confirmed 240042665 Problem Erectile dysfunction, unspecified erectile dysfunction typ e N52.9 Active confirmed 490905097 Problem Degenerative lumbar spinal stenosis M48.061 Acti ve confirmed 283369936 Problem Grief F43.21 Active confirmed 790045646 Problem 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 Active confirmed 631771227 Problem Colon cancer screening Z12.11 Active confirmed 705214306 Problem Dyslipidemia E78.5 Active confirmed 2978711 07 Problem Grieving F43.21 Active confirmed 082759654 Problem Adjustment disorder, unspecified type F43.20 Ac tive confirmed 28664340 ALLERGIES No Known Allergies ENCOUNTERS from 1955 to 2020-12-29 Encounter Location Date Provider Diagnosis [facility] [id number] [place] [address] [place] [address] Aug, Abel Infante IMMUNIZATIONS Vaccine Route Administration Date [...] Education Language: Question Answer Notes Languages spoken: Bruneian Mandaen: Question Answer Notes Mandaen 33 None Drug and Alcohol Question Answer [...] Information RESULTS No Results REASON FOR VISIT [place] MEDICAL (GENERAL) HISTORY Type Description Date Medical [...] Insured Coverage Start Date Coverage End Date [facility] [address] [place] [id number] Ana DUTTA I self
--- OUTSIDE RECORDS SUMMARY | 2021-03-04 11:34 | CCD | Continuity of Care Document ---
Author Author SIMÓN ELENA, Narciso SMITH Organization Unknown Address [address] [facility] [address] [place] [address] Phone [phone] Care Team Providers Care Catalyst Concentration Operator Name Role Phone Ruthy Chakraborty AUTM AUTM Unavailable Abel Infante M.D. AUTM [phone] Problems Active Problems Provider Date Essential hypertension Tony Rainey MD Onset: 021 Social History Type Date Description Comments Sex Unknown ETOH Use Currently consumes alcohol on we ekends Tobacco Use Start: Unknown Denies Smoking Recreational Drug Use Current Drug User marijuan a 1-4 times a week for pain management Allergies, Adverse Reactions, Alerts Description No Known Drug Allergies Medications Active Medications SIG Qnty Indications Ordering Provide r Date Atorvastatin Calcium 20mg Tablets Take 1 Tablet [...] lb BMI (Body Mass Index) 22.2 kg/m2 [place] Body Weight 172 lb Weight 72.293 kg BSA (Body Surface Area) 1.91 m2 Results Description No Information Available Procedures Description No Information Available Medical Devices Description No Information Available Encounters Description No Information Available Assessments Description No Information Available Plan of Treatment No Information Available Functional Status Description No Information Available Mental Status Description No Information Available Referrals Refer to Reason for Referral Status Appt Date Tony Rainey MD LEFT INGUINAL HERNIA Scheduled 12/[address] [place], [place] [id number] [phone]
--- OUTSIDE RECORDS SUMMARY | 2021-03-04 11:36 | CCD ---
Author Author [facility] Organization [facility] Address Unknown Phone Unavailable Care Team Providers Care Boat Joiner Name Role Phone Steff Yang MD Unavailable Unavailable Steff Yang MD Unavailable Unavailable Steff Yang MD Unavailable Unavailable SimvazquezscSteff naqvi MD Unavailable Unavailable SimvazquezscSteff naqvi MD Unavailable Unavailable ValentinscSteff naqvi MD Unavailable Unavailable Steff Yang MD Unavailable Unavailable Steff Yang MD Unavailable Unavailable Steff Yang MD Unavailable Unavailable SimSteff hoyt MD Unavailable Unavailable SimioneSteff mackenzie MD Unavailable Unavailable SimioneSteff mackenzie MD Unavailable Unavailable Steff Yang MD Unavailable Unavailable Steff Yang MD Unavailable Unavailable Steff Yang MD Unavailable Unavailable Steff Yang MD Unavailable Unavailable Steff Yang MD Unavailable Unavailable SengioneSteff mackenzie MD Unavailable Unavailable Steff Yang MD Unavailable Unavailable Steff Yang MD Unavailable Unavailable Steff Yang MD Unavailable Unavailable SimionescSteff naqvi MD Unavailable Unavailable SimionescSteff naqvi MD Unavailable Unavailable Steff Yang MD Unavailable Unavailable Steff Yang MD Unavailable Unavailable Steff Yang MD Unavailable Unavailable Steff Yang MD Unavailable Unavailable Steff Yang MD Unavailable Unavailable Steff Yagn MD Unavailable Unavailable Steff Yang MD Unavailable Unavailable Steff Yang MD Unavailable Unavailable Steff Yang MD Unavailable Unavailable Steff Yang MD Unavailable Unavailable Steff Yang MD Unavailable Unavailable Steff Yang MD Unavailable Unavailable BARTha ABRAHAM MD Unavailable Unavailable BARFATMATAUGATha MD Unavailable Unavailable BARFATMATAUGATha MD Unavailable Unavailable BARFATMATAUGATha MD Unavailable Unavailable Tha GR MD Unavailable Unavailable Tha GR MD Unavailable Unavailable JULIETUGATha MD Unavailable Unavailable Tha GR MD Unavailable Unavailable JULIETUGATha MD Unavailable Unavailable JULIETUGATha MD Unavailable Unavailable Tha GR MD Unavailable Unavailable Tha GR MD Unavailable Unavailable BARFATMATAUGATha MD Unavailable Unavailable BARTha ABRAHAM MD Unavailable Unavailable JULIETUGATha MD Unavailable Unavailable Tha GR MD Unavailable Unavailable Tha GR MD Unavailable Unavailable Tha GR MD Unavailable Unavailable Tha GR MD Unavailable Unavailable Tha GR MD Unavailable Unavailable Tha GR MD Unavailable Unavailable Tha GR MD Unavailable Unavailable Tha GR MD Unavailable Unavailable Tha GR MD Unavailable Unavailable Tha GR MD Unavailable Unavailable Tha GR MD Unavailable Unavailable Tha GR MD Unavailable Unavailable Tha GR MD Unavailable Unavailable Tha GR MD Unavailable Unavailable Tha GR MD Unavailable Unavailable Tha GR MD Unavailable Unavailable Tha GR MD Unavailable Unavailable BARFATMATAUGATha MD Unavailable Unavailable BARAYUGATha MD Unavailable Unavailable YENNI RUSSELL MD Unavailable Unavailable YENNI RUSSELL MD Unavailable Unavailable YENNI RUSSELL MD Unavailable Unavailable YENNI RUSSELL MD Unavailable Unavailable Otite, Deng Alfaro Unavailable Unavailable Otite, Deng Alfaro Unavailable Unavailable Otite, Deng Dominic Unavailable Unavailable Re-disclosure Warning The records that you are about to access may contain information from federally-assisted alcohol or drug abuse programs. If such information is present, then the following federally mandated warning applies: This information has been disclosed to you from records protected by federal confidentiality rules (42 CFR part 2). The federal rules prohibit you from making any further disclosure of this information unless further disclosure is expressly permitted by the written consent of the person to whom it pertains or as otherwise permitted by 42 CFR part 2. A general authorization for the release of medical or other information is NOT sufficient for this purpose. The Federal rules restrict any use of the information to criminally investigate or prosecute any alcohol or drug abuse patient.The records that you are about to access may contain highly sensitive health information, the redisclosure of which is protected by Article 27-F of the [facility] Public Health law. If you continue you may have access to information: Regarding HIV / AIDS; Provided by facilities licensed or operated by the [facility] Office of Mental Health; or Provided by the [facility] Office for People With Developmental Disabilities. If such information is present, then the following [facility] mandated warning applies: This information has been disclosed to you from confidential records which are protected by state law. State law prohibits you from making any further disclosure of this information without the specific written consent of the person to whom it pertains, or as otherwise permitted by law. Any unauthorized further disclosure in violation of state law may result in a fine or intermediate sentence or both. A general authorization for the release of medical or other information is NOT sufficient authorization for further disc losure. Allergies and Adverse Reactions Type Description Substance Reaction Status Data Source(s ) Propensity to adverse reactions NO KNOWN ALLERGIES NO KNOWN ALLERGIES [facility] Family History Family Member Name Family Member Gender Family Member Status Date o f Status Description Data Source(s) Unknown Male Problem MEDENT ([facility]) Encounters Encounter Providers Location Date Indications Data Source(s ) [place] [address] [facility] [address] 02/16/2021 12:00:00 AM EDT eCW1 ([facility]) Outpatient Attender: SARAH Mcclure/Srinivasa/ Dwaine 01/01/2021 01:30:00 PM EDT [facility] ([facility]) Unknown [address] [facility] [address] 12/31/2020 12:00:00 AM EDT eCW1 ([facility]) Unknown [address] [facility] [address] 12/30/2020 12:00:00 AM EDT eCW1 ([facility]) Unknown [address] [facility] [address] 12/24/2020 12:00:00 AM EDT eCW1 ([facility]) Outpatient [address] [facility] [address] 12/02/2020 12:00:00 AM EDT eCW1 ([facility]) Unknown [address] [facility] [address] 11/28/2020 12:00:00 AM EDT eCW1 ([facility]) Outpatient [address] [facility] [address] 09/29/2020 12:00:00 AM EDT eCW1 ([facility]) Unknown [address] [facility] [address] 09/10/2020 12:00:00 AM EDT eCW1 ([facility]) Outpatient [address] [facility] [address] 09/04/2020 12:00:00 AM EDT eCW1 ([facility]) Unknown [address] [facility] [address] 09/04/2020 12:00:00 AM EDT eCW1 ([facility]) Unknown [address] [facility] [address] 08/28/2020 12:00:00 AM EDT eCW1 ([facility]) Inpatient Attender: Claudine Escudero DAttender: YENNI RUSSELL MDAttender: Dominic OtiteAdmitter: Dominic OtiteReferrer: Dominic Otite A-2020 12:00:00 AM EDT - 08/27/2020 02:48:00 PM EDT Unspecified convulsions [facility] Unspecified convulsions Patient discharged. Unknown [address] [facility] [address] 06/18/2020 12:00:00 AM EST eCW1 ([facility]) Outpatient [address] [facility] [address] 06/16/2020 12:00:00 AM EST eCW1 ([facility]) Outpatient [address] [facility] [address] 04/14/2020 12:00:00 AM EST eCW1 ([facility]) Unknown [address] [facility] [address] 03/24/2020 12:00:00 AM EST eCW1 ([facility]) Immunizations Vaccine Date Status Description Data Source(s) influenza, recombinant, quadrIvalent,injectable, prese rvative free 02/16/2021 09:27:00 AM EDT completed eCW1 ([facility]) COVID-19 VACCINE Moderna 10/03/2020 12:00:00 AM EDT completed [facility] Vaccine Series Complete: YESThis Data wa s Submitted to [facility] Via [employer] [place]. COVID-19 VACCINE Moderna 09/05/2020 12:00:00 AM EDT completed [facility] Vaccine Series Complete: NOThis Data was Submitted to [facility] [employer] [place]. INFLUENZA VIRUS VACCINE QUADRIVALENT (6 MOS AN D UP) 02/25/2020 12:00:00 AM EDT completed [facility] Medications Medication Brand Name Start Date Product Form Dose Route Admi nistrative Instructions Pharmacy Instructions Status Indications Reaction Description Data Source(s) Acetaminophen 325 MG / Hydrocodone Bitartrate 5 MG Ora l Tablet 5-325 mg HYDROCODONE/ACETAMINOPHEN 02/27/2021 12:00:00 AM EDT tablet 14 TAKE ONE TABLET BY MOUTH EVERY 6 HOURS NEEDED FOR PAIN AFTER SURGERY MAXIMUM DAILY DOSE = 4 TABLETS TAKE ONE TABLET BY MOUTH EVERY 6 HOURS A S NEEDED FOR PAIN AFTER SURGERY MAXIMUM DAILY DOSE = 4 TABLETS SOLD: 03/02/2021 [facility] Acetaminophen 325 MG / Hydrocodone Bitartrate 5 MG Oral Tabl et [Mission] Mission 02/27/2021 12:00:00 AM EDT ORAL active MEDENT ([facility], ) 25 mg 01/27/2021 12:00:00 AM EDT tablet 30 TAKE ONE TABLET BY MOUTH EVERY DAY TAKE ONE TABLET BY MOUTH EVERY DAY SOLD: 01/30/2021 [facility] 25 mg 01/27/2021 12:00:00 AM EDT tablet 30 TAKE ONE TABLET BY MOUTH EVERY DAY TAKE ONE TABLET BY MOUTH EVERY DAY SOLD: 03/02/2021 [facility] 1 mg 12/26/2020 12:00:00 AM EDT tablet 30 TAKE ONE TABLET BY MOUTH EVERY DAY TAKE ONE TABLET BY MOUTH EVERY DAY SOLD: 03/02/2021 [facility] 1 mg 12/26/2020 12:00:00 AM EDT tablet 30 TAKE ONE TABLET BY MOUTH EVERY DAY TAKE ONE TABLET BY MOUTH EVERY DAY SOLD: 01/30/2021 [facility] 1 mg 12/26/2020 12:00:00 AM EDT tablet 30 TAKE ONE TABLET BY MOUTH EVERY DAY TAKE ONE TABLET BY MOUTH EVERY DAY SOLD: 12/29/2020 [facility] atorvastatin 20 MG Oral Tablet ATORVASTATIN CALCIUM 11/28/2020 1 2:00:00 AM EDT tablet 30 TAKE 1 TABLET BY MOUTH ONCE A DAY TAKE 1 TABLET BY MOUTH ONCE A DAY SOLD: 12/29/2020 [facility] atorvastatin 20 MG Oral Tablet ATORVASTATIN CALCIUM 11/28/2020 1 2:00:00 AM EDT tablet 30 TAKE 1 TABLET BY MOUTH ONCE A DAY TAKE 1 TABLET BY MOUTH ONCE A DAY SOLD: 03/02/2021 [facility] atorvastatin 20 MG Oral Tablet ATORVASTATIN CALCIUM 11/28/2020 1 2:00:00 AM EDT tablet 30 TAKE 1 TABLET BY MOUTH ONCE A DAY TAKE 1 TABLET BY MOUTH ONCE A DAY SOLD: 01/30/2021 [facility] atorvastatin 20 MG Oral Tablet ATORVASTATIN CALCIUM 11/28/2020 1 2:00:00 AM EDT tablet 30 TAKE 1 TABLET BY MOUTH ONCE A DAY TAKE 1 TABLET BY MOUTH ONCE A DAY SOLD: 12/01/2020 [facility] 25 mg 10/27/2020 12:00:00 AM EDT tablet 30 TAKE ONE TABLET BY MOUTH EVERY DAY TAKE ONE TABLET BY MOUTH EVERY DAY SOLD: 12/29/2020 [facility] 25 mg 10/27/2020 12:00:00 AM EDT tablet 30 TAKE ONE TABLET BY MOUTH EVERY DAY TAKE ONE TABLET BY MOUTH EVERY DAY SOLD: 10/28/2020 [facility] 25 mg 10/27/2020 12:00:00 AM EDT tablet 30 TAKE ONE TABLET BY MOUTH EVERY DAY TAKE ONE TABLET BY MOUTH EVERY DAY SOLD: 11/27/2020 [facility] 50 mg 09/29/2020 12:00:00 AM EDT tablet 4 TAKE 1 TABLET BY MOUTH ONCE A DAY NEEDED FOR 14 DAYS TAKE 1 TABLET BY MOUTH ONCE A DAY NEEDED FOR 14 DAY S SOLD: 09/30/2020 [facility] 1 mg 08/28/2020 12:00:00 AM EDT tablet 30 TAKE ONE TABLET BY MOUTH EVERY DAY TAKE ONE TABLET BY MOUTH EVERY DAY SOLD: 11/27/2020 [facility] 1 mg 08/28/2020 12:00:00 AM EDT tablet 30 TAKE ONE TABLET BY MOUTH EVERY DAY TAKE ONE TABLET BY MOUTH EVERY DAY SOLD: 09/26/2020 [facility] Folic Acid 1 MG Oral Tablet Folic Acid 1 MG Oral Table t (FOLVITE) Folic Acid 1 MG Oral Tablet (FOLVITE) 08/28/2020 12:00:00 AM EDT 1 mg Oral active Take 1 tablet by mouth daily [facility] 1 mg 08/28/2020 12:00:00 AM EDT tablet 30 TAKE ONE TABLET BY MOUTH EVERY DAY TAKE ONE TABLET BY MOUTH EVERY DAY SOLD: 10/28/2020 [facility] 1 mg 08/28/2020 12:00:00 AM EDT tablet 30 TAKE ONE TABLET BY MOUTH EVERY DAY TAKE ONE TABLET BY MOUTH EVERY DAY SOLD: 08/28/2020 [facility] Vitamin B 12 1 MG Oral Tablet Cyanocobalamin 1000 MCG Oral Tablet Cyanocobalamin 1000 MCG Oral Tablet 08/28/2020 12:00:00 AM EDT 1000 ug Oral active Take 1 tablet by mouth daily [facility] Thiamine 100 MG Oral Tablet Thiamine HCl 100 MG Oral T ablet (B-1) Thiamine HCl 100 MG Oral Tablet (B-1) 08/27/2020 12:00:00 AM EDT 100 mg Oral active Take 1 tablet by mouth daily [facility] atorvastatin 20 MG Oral Tablet atorvastatin (LIPITOR) tablet 20 mg atorvastatin (LIPITOR) tablet 20 mg 08/26/2020 09:00:00 PM EDT 20 mg Oral active 20 mg, Oral, Every evening, First dose on Tue08/26/20 at 2100, For 30 days [facility] Medication administered onsite gadobutrol (GADAVIST) contrast injection 7.5 mL [id number] 08/26/2020 06:00:00 PM EDT 0.1 mL/kg Intravenous completed 7.5 mL (rounded from 7.92 mL = 0.1 mL/kg 79.2 kg), Intravenous, 1 TIME IMAGING, Tue08/26/20 at 1800, For 1 dose
Do not mix or administer in the same IV line with other medications.
[facility] Medication administered onsite Hydrochlorothiazide 25 MG Oral Tablet hy drochlorothiazide (HYDRODIURIL) tablet 25 mg hydrochlorothiazide (HYDRODIURIL) tablet 25 mg 08/26/2020 10 :00:00 AM EDT 25 mg Oral active 25 mg, Oral, Elly ly Standard, First dose on Tue08/26/20 at 1000, For 30 days [facility] Medication administered onsite thiamine (B-1) 500 mg in sodium chloride 0.9 % 50 mL IVPB 08/25/2020 06:00:00 PM EDT 500 mg Intravenous completed 50 0 mg, Intravenous, Administer over 30 Minutes, Every 8 hours, First dose (after last reorder) on Tue08/25/20 at 1800, For 2 doses [facility] Medication administered onsite Levetiracetam 750 MG Oral Tablet levETIRAcetam (KEPPRA ) tablet 1,500 mg levETIRAcetam (KEPPRA) tablet 1,500 mg 08/25/2020 09:00:00 AM EDT 1500 mg Oral aborted 1,500 mg, Oral , 2 Times Daily, First dose on Tue08/25/20 at 0900, For 30 days [facility] Medication administered onsite Folic Acid 1 MG Oral Tablet folic acid (FOLVITE) table t 1 mg folic acid (FOLVITE) tablet 1 mg 08/25/2020 09:00:00 AM EDT 1 mg Oral active 1 mg, Oral, Daily Standard, First dose on Tue08/25/20 at 0900, For 30 days [facility] Medication administered onsite Vitamin B 12 1 MG Oral Tablet vitamin B-12 (CYANOCOBAL ALANIS) tablet 1,000 mcg vitamin B-12 (CYANOCOBALAMIN) tablet 1,000 mcg 08/25/2020 09:00:00 AM EDT 1000 ug Oral active 1,000 mcg, Oral, Daily Standard, First dose on Tue08/25/20 at 0900, For 30 days [facility] Medication administered onsite thiamine (B-1) 500 mg in sodium chloride 0.9 % 50 mL IVPB 08/25/2020 09:00:00 AM EDT 500 mg Intravenous completed 50 0 mg, Intravenous, Administer over 30 Minutes, Once, Tue08/25/20 at 0900, For 1 dose [facility] Medication administered onsite potassium chloride (K-DUR) dissolvable tablet 40 mEq [id number] 08/25/2020 06:00:00 AM EDT 40 meq Oral completed 40 mEq, Oral, Once, Tue08/25/20 at 0600, For 1 dose
May be dissolved in water for patients with a G-Tube or unable to swallow. If concern for clogging G-Tube, may contact Pharmacy to switch formulation to a powder packet.
[facility] Medication administered onsite sodium chloride 0.9 % bolus 1,000 mL 8462-1858-10 08/24/2020 11:15: 00 AM EDT 1000 mL Intravenous completed 1,000 mL , Intravenous, Once, [place] 08/24/20 at 1115, For 1 dose [facility] Medication administered onsite pantoprazole 4 MG/ML Injectable Solution pantoprazole (PROTONIX) injection 40 mg pantoprazole (PROTONIX) injection 40 mg 08/24/2020 09:00:00 AM EDT 40 mg Intravenous active 40 mg, Intrav enous, Daily Standard, First dose on 08/24/20 at 0900, For 30 days [facility] Medication administered onsite 0.4 ML Enoxaparin sodium 100 MG/ML Prefi lled Syringe enoxaparin sodium (LOVENOX) injection 40 mg enoxaparin sodium (LOVENOX) injection 40 mg 08/24/2020 09:00:00 AM EDT 40 mg Subcutaneous active 40 mg, Subcutaneous, Daily Standard, First dose on 08/24/20 at 0900, For 30 days [facility] Medication administered onsite dexmedetomidine (PRECEDEX) in NaCl 0.9 % infusion 4 mcg/mL 1 [id number] 08/24/2020 08:15:00 AM EDT ug/kg/h Intravenous aborted 0.1-1.5 mcg/kg/hr 75.3 kg (1.8825-28.2375 mL/hr, rounded to 1.9-28.2 mL/hr), Intravenous, at 1.9- 28.2 mL/hr, Continuous, Starting 08/24/20 at 0815, For 30 days
Starting dose = 0.2 mcg/kg/hrTitrate to maintain RASS of 0 to -1
[facility] Medication administered onsite fentaNYL (SUBLIMAZE) (PF) injection 25 mcg [id number] 08/24/2020 07:30:00 AM EDT 25 ug Intravenous completed 25 mcg, Intravenous, Once, 08/24/20 at 0730, For 1 dose [facility] Medication administered onsite Potassium Chloride 0.1 MEQ/ML Injectable Solution potassium chloride 10 mEq in 100 mL IVPB (premix) potassium chloride 10 mEq in 100 mL IVPB (premix) 08/24/2020 06:00:00 AM EDT 10 meq Intravenous completed 10 mEq, Intravenous, Administer over 60 Minutes, Every 1 hour, First dose on 08/24/20 at 0600, For 4 doses [facility] Medication administered onsite dextrose 5 %-0.9 % sodium chloride infusion [id number] 08/24/2020 12:00:00 AM EDT Intravenous aborted at 1 00 mL/hr, Intravenous, Continuous, Starting 08/24/20 at 0000, For 30 days [facility] Medication administered onsite fentaNYL (SUBLIMAZE) (PF) injection 25 mcg [id number] 08/23/2020 09:04:39 PM EDT 25 ug Intravenous aborted 25 m cg, Intravenous, Every 3 hours PRN, Sedation, Starting 08/23/20 at 2104, For 1 day [facility] Medication administered onsite Levetiracetam 15 MG/ML Injectable Soluti on levETIRAcetam (KEPPRA) 1,500 mg in sodium chloride 100 mL (15 mg/mL) infusion (premix) levETIRAcetam (KEPPRA) 1,500 mg in sodium chloride 100 mL (15 mg/mL) infusion (premix) 08/23/2020 09:00:00 PM EDT 1500 mg Intravenous aborted 1,50 0 mg, Intravenous, at 400 mL/hr, 2 Times Daily, First dose on 08/23/20 at 2100, For 30 days [facility] Medication administered onsite dextrose 50 % IV solution 25 mL [id number] 08/23/2020 08:38:54 PM E DT 25 mL Intravenous active 25 mL, Intrav enous, PRN, Other, blood glucose <55, Starting 08/23/20 at 2037, For 30 days
Not for midline administration.
[facility] Medication administered onsite Glucagon 1 MG Injection glucagon (human recombinant) ( GLUCAGEN) injection 1 mg glucagon (human recombinant) (GLUCAGEN) injection 1 mg 08/23/2020 08:38:54 PM EDT 1 mg Intramuscular active 1 mg, Intramuscular, PRN, for glucose <55 without IV access, Starting 08/23/20 at 2037, For 30 days [facility] Medication administered onsite Glucose 0.417 MG/MG Oral Gel glucose (GLUTOSE) 40 % or al gel 15 g glucose (GLUTOSE) 40 % oral gel 15 g 08/23/2020 08:38:54 PM EDT 15 g Oral active 15 g, Oral, PRN, Low blood s ugar, for gluose 55-69 mg/dl and able to take PO, Starting 08/23/20 at 2037, For 30 days [facility] Medication administered onsite NaCl infusion 0.9 % [id number] 08/23/2020 07:00:00 PM EDT Intravenous aborted at 75 mL/hr, Intrave nous, Continuous, Starting 08/23/20 at 1900, For 30 days [facility] Medication administered onsite iohexol (OMNIPAQUE) 300 MG/ML contrast injection 100 mL [id number] 08/23/2020 05:15:00 PM EDT 100 mL Given by IV completed 100 mL, Given by IV, 1 TIME IMAGING, 08/23/20 at 1715, For 1 dose [facility] Medication administered onsite iohexol (OMNIPAQUE) 350 MG/ML contrast injection 75 mL [id number] 08/23/2020 05:15:00 PM EDT 75 mL Given by IV completed 75 mL, Given by IV, 1 TIME IMAGING, 08/23/20 at 1715, For 1 dose [facility] Medication administered onsite fentaNYL (SUBLIMAZE) (PF) injection 50 mcg [id number] 08/23/2020 04:45:00 PM EDT 50 ug Intravenous completed 50 mcg, Intravenous, Once, 08/23/20 at 1645, For 1 dose [facility] Medication administered onsite propofol (DIPRIVAN) infusion 1,000 mg/100 mL [id number] 08/23/2020 04:45:00 PM EDT ug/kg/min Intravenous aborted 1 0-80 mcg/kg/min 77.1 kg (4.626-37.008 mL/hr, rounded to 4.6-37 mL/hr), Intravenous, at 4.6-37 mL/hr, Continuous, Starting 08/23/20 at 1645, For 30 days
Starting dose = 10 mcg/kg/minIncrease by 5-10 mcg/kg/minMax Dose = 80 mcg/kg/minStart dose at 20, notify if drop in BP
[facility] Medication administered onsite 50 ML Magnesium Sulfate 40 MG/ML Injecti on magnesium sulfate infusion 2 g/50 mL (premix) magnesium sulfate infusion 2 g/50 mL (premix) 08/24/19 04:45:00 PM EDT 2 g Intravenous completed 2 g, Intravenous, Administer over 30 Minutes, Once, 08/23/20 at 1645, For 1 dose [facility] Medication administered onsite 25 mg 08/01/2020 12:00:00 AM EST tablet 30 TAKE 1 TABLET BY MOUTH ONCE DAILY TAKE 1 TABLET BY MOUTH ONCE DAILY SOLD: 09/30/2020 [facility] 25 mg 08/01/2020 12:00:00 AM EST tablet 30 TAKE 1 TABLET BY MOUTH ONCE DAILY TAKE 1 TABLET BY MOUTH ONCE DAILY SOLD: 09/02/2020 [facility] 25 mg 08/01/2020 12:00:00 AM EST tablet 30 TAKE 1 TABLET BY MOUTH ONCE DAILY TAKE 1 TABLET BY MOUTH ONCE DAILY SOLD: 08/03/2020 [facility] 50 mg 06/19/2020 12:00:00 AM EST tablet 3 TAKE ONE TABLET BY MOUTH EVERY DAY NEEDED TAKE ONE TABLET BY MOUTH EVERY DAY NEEDED SOLD: 06/21/2020 [facility] sildenafil 50 MG Oral Tablet [Viagra] Viagra 50 MG Viagra 50 MG 06/16/2020 12:00:00 AM EST 1.0 {tablet_as_needed} suspended Viagra 50 MG eCW1 ([facility]) sildenafil 50 MG Oral Tablet [Viagra] Viagra 50 MG Viagra 50 MG 06/16/2020 12:00:00 AM EST 1.0 {tablet_as_needed} active Viagra 50 MG eCW1 ([facility]) sildenafil 50 MG Oral Tablet [Viagra] Viagra 50 MG Viagra 50 MG 06/16/2020 12:00:00 AM EST 1.0 {tablet_as_needed} suspended Viagra 50 MG eCW1 ([facility]) sildenafil 50 MG Oral Tablet [Viagra] Viagra 50 MG Viagra 50 MG 06/16/2020 12:00:00 AM EST 1.0 {tablet_as_needed} suspended Viagra 50 MG eCW1 ([facility]) sildenafil 50 MG Oral Tablet [Viagra] Viagra 50 MG Viagra 50 MG 06/16/2020 12:00:00 AM EST 1.0 {tablet_as_needed} active Viagra 50 MG eCW1 ([facility]) sildenafil 50 MG Oral Tablet [Viagra] Viagra 50 MG Viagra 50 MG 06/16/2020 12:00:00 AM EST 1.0 {tablet_as_needed} suspended Viagra 50 MG eCW1 ([facility]) sildenafil 50 MG Oral Tablet [Viagra] Viagra 50 MG Viagra 50 MG 06/16/2020 12:00:00 AM EST 1.0 {tablet_as_needed} active Viagra 50 MG eCW1 ([facility]) sildenafil 50 MG Oral Tablet [Viagra] Viagra 50 MG Viagra 50 MG 06/16/2020 12:00:00 AM EST 1.0 {tablet_as_needed} active Viagra 50 MG eCW1 ([facility]) sildenafil 50 MG Oral Tablet [Viagra] Viagra 50 MG Viagra 50 MG 06/16/2020 12:00:00 AM EST 1.0 {tablet_as_needed} suspended Viagra 50 MG eCW1 ([facility]) sildenafil 50 MG Oral Tablet [Viagra] Viagra 50 MG Viagra 50 MG 06/16/2020 12:00:00 AM EST 1.0 {tablet_as_needed} suspended Viagra 50 MG eCW1 ([facility]) sildenafil 50 MG Oral Tablet [Viagra] Viagra 50 MG Viagra 50 MG 06/16/2020 12:00:00 AM EST 1.0 {tablet_as_needed} suspended Viagra 50 MG eCW1 ([facility]) sildenafil 50 MG Oral Tablet [Viagra] Viagra 50 MG Viagra 50 MG 06/16/2020 12:00:00 AM EST 1.0 {tablet_as_needed} active Viagra 50 MG eCW1 ([facility]) sildenafil 50 MG Oral Tablet [Viagra] Viagra 50 MG Viagra 50 MG 06/16/2020 12:00:00 AM EST 1.0 {tablet_as_needed} suspended Viagra 50 MG eCW1 ([facility]) 25 mg 05/05/2020 12:00:00 AM EST tablet 30 TAKE 1 TABLET BY MOUTH ONCE DAILY TAKE 1 TABLET BY MOUTH ONCE DAILY SOLD: 07/04/2020 [facility] 25 mg 05/05/2020 12:00:00 AM EST tablet 30 TAKE 1 TABLET BY MOUTH ONCE DAILY TAKE 1 TABLET BY MOUTH ONCE DAILY SOLD: 05/05/2020 [facility] 25 mg 05/05/2020 12:00:00 AM EST tablet 30 TAKE 1 TABLET BY MOUTH ONCE DAILY TAKE 1 TABLET BY MOUTH ONCE DAILY SOLD: 06/02/2020 [facility] atorvastatin 20 MG Oral Tablet ATORVASTATIN CALCIUM 03/06/2020 1 2:00:00 AM EDT tablet 30 TAKE ONE TABLET BY MOUTH EVERY D AY TAKE ONE TABLET BY MOUTH EVERY DAY SOLD: 05/05/2020 [facility] atorvastatin 20 MG Oral Tablet ATORVASTATIN CALCIUM 03/06/2020 1 2:00:00 AM EDT tablet 30 TAKE ONE TABLET BY MOUTH EVERY D AY TAKE ONE TABLET BY MOUTH EVERY DAY SOLD: 03/07/2020 [facility] atorvastatin 20 MG Oral Tablet ATORVASTATIN CALCIUM 03/06/2020 1 2:00:00 AM EDT tablet 30 TAKE ONE TABLET BY MOUTH EVERY D AY TAKE ONE TABLET BY MOUTH EVERY DAY SOLD: 09/30/2020 [facility] atorvastatin 20 MG Oral Tablet ATORVASTATIN CALCIUM 03/06/2020 1 2:00:00 AM EDT tablet 30 TAKE ONE TABLET BY MOUTH EVERY D AY TAKE ONE TABLET BY MOUTH EVERY DAY SOLD: 06/02/2020 [facility] atorvastatin 20 MG Oral Tablet ATORVASTATIN CALCIUM 03/06/2020 1 2:00:00 AM EDT tablet 30 TAKE ONE TABLET BY MOUTH EVERY D AY TAKE ONE TABLET BY MOUTH EVERY DAY SOLD: 04/07/2020 [facility] atorvastatin 20 MG Oral Tablet ATORVASTATIN CALCIUM 03/06/2020 1 2:00:00 AM EDT tablet 30 TAKE ONE TABLET BY MOUTH EVERY D AY TAKE ONE TABLET BY MOUTH EVERY DAY SOLD: 08/03/2020 [facility] atorvastatin 20 MG Oral Tablet ATORVASTATIN CALCIUM 03/06/2020 1 2:00:00 AM EDT tablet 30 TAKE ONE TABLET BY MOUTH EVERY D AY TAKE ONE TABLET BY MOUTH EVERY DAY SOLD: 09/02/2020 [facility] atorvastatin 20 MG Oral Tablet ATORVASTATIN CALCIUM 03/06/2020 1 2:00:00 AM EDT tablet 30 TAKE ONE TABLET BY MOUTH EVERY D AY TAKE ONE TABLET BY MOUTH EVERY DAY SOLD: 10/28/2020 [facility] atorvastatin 20 MG Oral Tablet ATORVASTATIN CALCIUM 03/06/2020 1 2:00:00 AM EDT tablet 30 TAKE ONE TABLET BY MOUTH EVERY D AY TAKE ONE TABLET BY MOUTH EVERY DAY SOLD: 07/04/2020 [facility] 25 mg 01/31/2020 12:00:00 AM EDT tablet 30 TAKE 1 TABLET BY MOUTH ONCE DAILY TAKE 1 TABLET BY MOUTH ONCE DAILY SOLD: 02/04/2020 [facility] 25 mg 01/31/2020 12:00:00 AM EDT tablet 30 TAKE 1 TABLET BY MOUTH ONCE DAILY TAKE 1 TABLET BY MOUTH ONCE DAILY SOLD: 04/07/2020 [facility] 25 mg 01/31/2020 12:00:00 AM EDT tablet 30 TAKE 1 TABLET BY MOUTH ONCE DAILY TAKE 1 TABLET BY MOUTH ONCE DAILY SOLD: 03/04/2020 [facility] atorvastatin 20 MG Oral Tablet ATORVASTATIN CALCIUM 09/01/2019 1 2:00:00 AM EDT tablet 30 TAKE ONE TABLET BY MOUTH EVERY D AY TAKE ONE TABLET BY MOUTH EVERY DAY SOLD: 01/03/2020 [facility] atorvastatin 20 MG Oral Tablet ATORVASTATIN CALCIUM 09/01/2019 1 2:00:00 AM EDT tablet 30 TAKE ONE TABLET BY MOUTH EVERY D AY TAKE ONE TABLET BY MOUTH EVERY DAY SOLD: 02/04/2020 [facility] 25 mg 08/03/2019 12:00:00 AM EDT tablet 30 TAKE 1 TABLET BY MOUTH ONCE A DAY TAKE 1 TABLET BY MOUTH ONCE A DAY SOLD: 01/03/2020 [facility] Insurance Providers Payer name Policy type / Coverage type Policy ID Covered democrat ID Covered democrat's relationship to brady Policy Brady Plan Information [facility] [id number] Self [id number] ANSI-Not a Secondary Insurance [id number] ANSI-Not a Secondary Insurance [id number] ANSI-Not a Secondary Insurance [id number] ANSI-Not a Secondary Insurance [id number] ANSI-Not a Secondary Insurance [id number] ANSI-Not a Secondary Insurance [id number] ANSI-Not a Secondary Insurance [id number] ANSI-Not a Secondary Insurance [id number] ANSI-Not a Secondary Insurance [id number] ANSI-Not a Secondary Insurance [id number] ANSI-Not a Secondary Insurance [id number] ANSI-Not a Secondary Insurance [id number] ANSI-Not a Secondary Insurance [id number] MVP (pr) Commercial [id number] Self [id number] MVP (pr) Commercial [id number] Self [id number] MVP (pr) Commercial [id number] Self [id number] MVP (pr) Commercial [id number] Self [id number] [facility] [id number] SP [id number] [employer] WORK COMP [id number] SP [id number] [employer] LUIS ALBERTO WORK COMP [id number] SP [id number] SELF PAY UNAVAILABLE SP UNAVAILA BLE [employer] WORK COMP [id number] SP [id number] [facility] [id number] SP [id number] [facility] [id number] SP [id number] Problems, Conditions, and Diagnoses Code Display Name Description Problem Type Effective Dates Data Source(s) R56.9 Unspecified convulsions Unspecified convulsions Diagno sis 08/23/2020 04:13:00 PM EDT [facility] [id number] Essential hypertension Essential hypertension Problem 01/01/2021 12:00:00 AM EDT MEDENT ([facility], ) F43.21 [id number] Grief Problem 09/04/2020 12:00:00 AM ED T eCW1 ([facility]) N52.9 [id number] Erectile dysfunction, unspecifie d erectile dysfunction type Problem 06/16/2020 12:00:00 AM EST eCW1 ([facility]) Surgeries/Procedures Procedure Description Date Indications Data Source(s) Imm: Flublok Quadrivalent 18 years & older 0.5mL IM Influenz a 02/16/2021 12:00:00 AM EDT eCW1 ([facility]) OFFICE OUTPATIENT NEW 45 MINUTES 01/01/2021 12:00:00 A M EDT MEDENT ([facility], ) BLOOD COUNT COMPLETE AUTO&AUTO DIFRNTL WBC COUNT <td>C BC AND DIFFERENTIAL</td><td>Routine</td><td>08/27/2020 3:15 AM EDT</td><td></td><td> </td> 08/27/2020 03:15:00 AM [facility] MRI SPINAL CANAL CERVICAL W/O & W/CONTR MATRL <td>MR C ERVICAL SPINE WITH AND WITHOUT CONTRAST 35123</td><td>Routine</td><td>08/26/2020 6:46 PM EDT</td><td></td><td></td> 08/26/2020 06:46:56 PM EDT [facility] MRI BRAIN BRAIN STEM W/O &W/CONTRAST MATERIAL <td>MR B RAIN WITH AND WITHOUT CONTRAST 48382</td><td>Pending Discharge</td><td>08/26/2020 6:46 PM EDT</td><td></td><td> </td> 08/26/2020 06:46:08 PM [facility] BLOOD COUNT COMPLETE AUTO&AUTO DIFRNTL WBC COUNT <td>C BC AND DIFFERENTIAL</td><td>Routine</td><td>08/26/2020 4:19 AM EDT</td><td></td><td> </td> 08/26/2020 04:19:00 AM [facility] BASIC METABOLIC PANEL CALCIUM TOTAL <td>BASIC METABOLI C PANEL</td><td>Routine</td><td>08/26/2020 4:19 AM EDT</td><td></td><td> </td> 08/26/2020 04:19:00 AM [facility] BLOOD COUNT COMPLETE AUTO&AUTO DIFRNTL WBC COUNT <td>C BC AND DIFFERENTIAL</td><td>Routine</td><td>08/25/2020 3:43 AM EDT</td><td></td><td> </td> 08/25/2020 03:43:00 AM [facility] PHOSPHORUS INORGANIC <td>PHOSPHORUS LEVEL</td><td >Routine</td><td>08/25/2020 3:43 AM EDT</td><td></td><td> </td> 08/25/2020 03:43:00 AM [facility] MAGNESIUM <td>MAGNESIUM LEVEL</td><td> Routine</td><td>08/25/2020 3:43 AM EDT</td><td></td><td> </td> 08/25/2020 03:43:00 AM [facility] CYANOCOBALAMIN VITAMIN B-12 <td>VITAMIN B12</td><td>Ro utine</td><td>08/25/2020 3:43 AM EDT</td><td></td><td> </td> 08/25/2020 03:43:00 AM [facility] BASIC METABOLIC PANEL CALCIUM TOTAL <td>BASIC METABOLI C PANEL</td><td>Routine</td><td>08/25/2020 3:43 AM EDT</td><td></td><td> </td> 08/25/2020 03:43:00 AM [facility] POCT GLUCOSE, DOCKED <td>POCT GLUCOSE, DOCKED</td ><td>Routine</td><td>08/24/2020 3:32 PM EDT</td><td></td><td> </td> 08/24/2020 03:32:00 PM [facility] GLUCOSE QUANTITATIVE BLOOD XCPT REAGENT STRIP <td>POCT GLUCOSE, DOCKED</td><td>Routine</td><td>08/24/2020 1:40 PM EDT</td><td></td><td> </td> 08/24/2020 01:40:00 PM [facility] CREATINE KINASE TOTAL <td>CK</td><td>Routine</td>< td>08/24/2020 11:34 AM EDT</td><td></td><td> </td> 08/24/2020 11:34:00 AM [facility] EKG 12-LEAD - CMAXX REPORT <td>EKG 12-LEAD - CMAXX REPORT</td><td></td><td>08/24/2020 10:40 AM EDT</td><td></td><td></td> 08/24/2020 10:40:45 AM [facility] EKG 12-LEAD - CMAXX REPORT <td>EKG 12-LEAD - CMAXX REPORT</td><td></td><td>08/24/2020 10:40 AM EDT</td><td></td><td></td> 08/24/2020 10:40:45 AM [facility] EKG 12-LEAD <td>EKG 12-LEAD</td><td>Rout ine</td><td>08/24/2020 10:40 AM EDT</td><td></td><td> </td> 08/24/2020 10:40:45 AM [facility] GLUCOSE QUANTITATIVE BLOOD XCPT REAGENT STRIP <td>POCT GLUCOSE, DOCKED</td><td>Routine</td><td>08/24/2020 8:53 AM EDT</td><td></td><td> </td> 08/24/2020 08:53:00 AM [facility] XR CHEST FRONTAL ONLY 80094 <td>XR CHEST FRONTAL ONLY 44116</td><td>Routine</td><td>08/24/2020 4:37 AM EDT</td><td></td><td> </td> 08/24/2020 04:37:00 AM [facility] GLUCOSE QUANTITATIVE BLOOD XCPT REAGENT STRIP <td>POCT GLUCOSE, DOCKED</td><td>Routine</td><td>08/24/2020 4:06 AM EDT</td><td></td><td> </td> 08/24/2020 04:06:00 AM [facility] BLOOD COUNT COMPLETE AUTO&AUTO DIFRNTL WBC COUNT <td>C BC AND DIFFERENTIAL</td><td>Routine</td><td>08/24/2020 3:49 AM EDT</td><td></td><td> </td> 08/24/2020 03:49:00 AM [facility] PHOSPHORUS INORGANIC <td>PHOSPHORUS LEVEL</td><td >Routine</td><td>08/24/2020 3:49 AM EDT</td><td></td><td> </td> 08/24/2020 03:49:00 AM [facility] MAGNESIUM <td>MAGNESIUM LEVEL</td><td> Routine</td><td>08/24/2020 3:49 AM EDT</td><td></td><td> </td> 08/24/2020 03:49:00 AM [facility] BASIC METABOLIC PANEL CALCIUM TOTAL <td>BASIC METABOLI C PANEL</td><td>Routine</td><td>08/24/2020 3:49 AM EDT</td><td></td><td> </td> 08/24/2020 03:49:00 AM [facility] GLUCOSE QUANTITATIVE BLOOD XCPT REAGENT STRIP <td>POCT GLUCOSE, DOCKED</td><td>Routine</td><td>08/24/2020 2:12 AM EDT</td><td></td><td> </td> 08/24/2020 02:12:00 AM [facility] GLUCOSE QUANTITATIVE BLOOD XCPT REAGENT STRIP <td>POCT GLUCOSE, DOCKED</td><td>Routine</td><td>08/23/2020 11:46 PM EDT</td><td></td><td> </td> 08/23/2020 11:46:00 PM [facility] HEMOGLOBIN GLYCOSYLATED A1C <td>HEMOGLOBIN A1C</td><td>Routine</td><td>08/23/2020 8:56 PM EDT</td><td></td><td> </td> 08/23/2020 08:56:00 PM [facility] GLUCOSE QUANTITATIVE BLOOD XCPT REAGENT STRIP <td>POCT GLUCOSE, DOCKED</td><td>Routine</td><td>08/23/2020 8:43 PM EDT</td><td></td><td> </td> 08/23/2020 08:43:00 PM [facility] DRUGS OF ABUSE, URINE <td>DRUGS OF ABUSE, URINE</t d><td>STAT</td><td>08/23/2020 5:29 PM EDT</td><td></td><td> </td> 08/23/2020 05:29:00 PM [facility] URNLS DIP STICK/TABLET REAGENT AUTO MICROSCOPY <td>URI NALYSIS WITH MICROSCOPIC</td><td>STAT</td><td>08/23/2020 5:29 PM EDT</td><td></td><td> </td> 08/23/2020 05:29:00 PM [facility] EKG 12-LEAD - CMAXX REPORT <td>EKG 12-LEAD - CMAXX REPORT</td><td></td><td>08/23/2020 5:24 PM EDT</td><td></td><td></td> 08/23/2020 05:24:40 PM [facility] EKG 12-LEAD - CMAXX REPORT <td>EKG 12-LEAD - CMAXX REPORT</td><td></td><td>08/23/2020 5:24 PM EDT</td><td></td><td></td> 08/23/2020 05:24:40 PM [facility] EKG 12-LEAD <td>EKG 12-LEAD</td><td>STAT </td><td>08/23/2020 5:24 PM EDT</td><td></td><td> </td> 08/23/2020 05:24:40 PM [facility] CALCIUM IONIZED <td>CALCIUM, IONIZED</td><td >Routine</td><td>08/23/2020 5:20 PM EDT</td><td></td><td> </td> 08/23/2020 05:20:00 PM [facility] AMMONIA <td>AMMONIA LEVEL</td><td>Ro utine</td><td>08/23/2020 5:20 PM EDT</td><td></td><td> </td> 08/23/2020 05:20:00 PM [facility] CT ANGIOGRAPHY NECK W/CONTRAST/NONCONTRAST <td>CT JAKI OGRAPHY NECK 87594</td><td>CODE</td><td>08/23/2020 5:15 PM EDT</td><td></td><td> </td> 08/23/2020 05:15:00 PM [facility] CT ANGIOGRAPHY HEAD W/CONTRAST/NONCONTRAST <td>CT JAKI OGRAPHY HEAD 61433</td><td>CODE</td><td>08/23/2020 5:15 PM EDT</td><td></td><td> </td> 08/23/2020 05:15:00 PM [facility] CT THORAX W/CONTRAST MATERIAL <td>CT THORAX WITH CONTR AST 49667</td><td>CODE</td><td>08/23/2020 5:15 PM EDT</td><td></td><td> </td> 08/23/2020 05:15:00 PM [facility] CT MAXILLOFACIAL W/O CONTRAST MATERIAL <td>CT MAXILLOF ACIAL WITHOUT CONTRAST 44511</td><td>CODE</td><td>08/23/2020 5:15 PM EDT</td><td></td><td> </td> 08/23/2020 05:15:00 PM [facility] CT ABDOEN & PELVIS W/CONTRAST MATERIAL <td>CT ABDOMEN PELVIS WITH CONTRAST 36921</td><td>CODE</td><td>08/23/2020 5:15 PM EDT</td><td></td><td> </td> 08/23/2020 05:15:00 PM [facility] CT LUMBAR SPINE W/O CONTRAST MATERIAL <td>CT LUMBAR SP INE WITHOUT CONTRAST 85099</td><td>STAT</td><td>08/23/2020 5:15 PM EDT</td><td></td><td> </td> 08/23/2020 05:15:00 PM [facility] CT THORACIC SPINE W/O CONTRAST MATERIAL <td>CT THORACI C SPINE WITHOUT CONTRAST 27458</td><td>CODE</td><td>08/23/2020 5:15 PM EDT</td><td></td><td> </td> 08/23/2020 05:15:00 PM [facility] CT CERVICAL SPINE W/O CONTRAST MATERIAL <td>CT CERVICA L SPINE WITHOUT CONTRAST 86019</td><td>CODE</td><td>08/23/2020 5:15 PM EDT</td><td></td><td> </td> 08/23/2020 05:15:00 PM [facility] RESPIRATORY PATHOGEN PANEL <td>RESPIRATORY PATHOGEN PANEL</td><td>Routine</td><td>08/23/2020 4:43 PM EDT</td><td></td><td> </td> 08/23/2020 04:43:00 PM [facility] COVID-19 PCR <td>COVID-19 PCR</td><td>Rou brenda</td><td>08/23/2020 4:43 PM EDT</td><td></td><td> </td> 08/23/2020 04:43:00 PM [facility] XR CHEST FRONTAL ONLY 80591 <td>XR CHEST FRONTAL ONLY 65214</td><td>STAT</td><td>08/23/2020 4:40 PM EDT</td><td></td><td> </td> 08/23/2020 04:40:30 PM [facility] THROMBOPLASTIN TIME PARTIAL PLASMA/WHOLE BLOOD <td>PAR TIAL THROMBOPLASTIN TIME (PTT)</td><td>STAT</td><td>08/23/2020 4:33 PM EDT</td><td></td><td> </td> 08/23/2020 04:33:00 PM [facility] ACETAMINOPHEN, RANDOM <td>ACETAMINOPHEN, RANDOM</t d><td>STAT</td><td>08/23/2020 4:33 PM EDT</td><td></td><td> </td> 08/23/2020 04:33:00 PM [facility] ETHYL ALCOHOL LEVEL <td>ETHYL ALCOHOL LEVEL</td> <td>STAT</td><td>08/23/2020 4:33 PM EDT</td><td></td><td> </td> 08/23/2020 04:33:00 PM [facility] TROPONIN QUANTITATIVE <td>POCT ISTAT TROPONIN</td> <td>Routine</td><td>08/23/2020 4:33 PM EDT</td><td></td><td> </td> 08/23/2020 04:33:00 PM [facility] PROTHROMBIN TIME <td>PROTIME INR</td><td>STAT </td><td>08/23/2020 4:33 PM EDT</td><td></td><td> </td> 08/23/2020 04:33:00 PM [facility] BLOOD COUNT COMPLETE AUTO&AUTO DIFRNTL WBC COUNT <td>C BC AND DIFFERENTIAL</td><td>Routine</td><td>08/23/2020 4:33 PM EDT</td><td></td><td> </td> 08/23/2020 04:33:00 PM [facility] TROPONIN QUANTITATIVE <td>TROPONIN T</td><td>Routi ne</td><td>08/23/2020 4:33 PM EDT</td><td></td><td> </td> 08/23/2020 04:33:00 PM [facility] THYROID STIMULATING HORMONE TSH <td>TSH</td><td>Routin e</td><td>08/23/2020 4:33 PM EDT</td><td></td><td> </td> 08/23/2020 04:33:00 PM [facility] THYROXINE TOTAL <td>T4</td><td>Routine</td>< td>08/23/2020 4:33 PM EDT</td><td></td><td> </td> 08/23/2020 04:33:00 PM [facility] MAGNESIUM <td>MAGNESIUM LEVEL</td><td> Routine</td><td>08/23/2020 4:33 PM EDT</td><td></td><td> </td> 08/23/2020 04:33:00 PM [facility] SALICYLATE LEVEL <td>SALICYLATE LEVEL</td><td >STAT</td><td>08/23/2020 4:33 PM EDT</td><td></td><td> </td> 08/23/2020 04:33:00 PM [facility] HEPATIC FUNCTION PANEL <td>HEPATIC FUNCTION PANEL A</td><td>STAT</td><td>08/23/2020 4:33 PM EDT</td><td></td><td> </td> 08/23/2020 04:33:00 PM [facility] BASIC METABOLIC PANEL CALCIUM TOTAL <td>BASIC METABOLI C PANEL</td><td>STAT</td><td>08/23/2020 4:33 PM EDT</td><td></td><td> </td> 08/23/2020 04:33:00 PM [facility] BASIC METABOLIC PANEL CALCIUM IONIZED <td>POCT ISTAT CHEM8</td><td>Routine</td><td>08/23/2020 4:31 PM EDT</td><td></td><td> </td> 08/23/2020 04:31:00 PM [facility] BLOOD GASES ANY COMBINATION PH PCO2 PO2 CO2 HCO3 <td>P OCT ISTAT VBG/LAC</td><td>Routine</td><td>08/23/2020 4:28 PM EDT</td><td></td><td> </td> 08/23/2020 04:28:00 PM [facility] EKG 12 LEAD (UNSOLICITED COMPUTER ORDER) <td>EKG 12 LE AD (UNSOLICITED COMPUTER ORDER)</td><td>Routine</td><td>08/23/2020 4:22 PM EDT</td><td></td><td></td> 08/23/2020 04:22:38 PM [facility] EKG 12-LEAD - CMAXX REPORT <td>EKG 12-LEAD - CMAXX REPORT</td><td></td><td>08/23/2020 4:22 PM EDT</td><td></td><td></td> 08/23/2020 04:22:38 PM [facility] EKG 12-LEAD - CMAXX REPORT <td>EKG 12-LEAD - CMAXX REPORT</td><td></td><td>08/23/2020 4:22 PM EDT</td><td></td><td></td> 08/23/2020 04:22:38 PM [facility] EKG 12-LEAD <td>EKG 12-LEAD</td><td>Rout ine</td><td>08/23/2020 4:22 PM EDT</td><td></td><td> </td> 08/23/2020 04:22:38 PM [facility] Results ID Date Data Source [id number] 09/04/2020 08:50:20 AM [facility] Name Value Range Interpretation Code Description Data Aylin rce(s) Supporting Document(s) Discharge Summary [facility] KCZCKv1qHcGKVcXw99/YQZhoDAQts0JmBXyaRSx1ZZhcLXVlY6ZoEJP8aV3oNLR2HTrTFhFjPyZfMAK8 lbm [file] DI/HAeBySBL/Elie/J4CetULlh/6lQH68irFaZGMuVqup6nFskGyvAMGc6YiVIMyFSpXKIi78jgSSAXYi +cxXgQWCC8quVh5IRhpdVhj11JMOvpF5bJc4kUwiOIJrm8xfFhaHVXMppFKXGcKCuxIhwn0eEUTGKeW5 QrzjCl7TDr5xDvDzcOPOKyEdwGLk+7JrmFf9Me0X55 Gfu3qGRwyT9K/8MNle1Fqumjn0nARBO5JRZ9T90w+U8hD6Tm0D9p+6jF47sMf5Ywyx/Mgjtlw6j5dAvM O9Vg7iv/8BP0C55VdPI5rVFXJBhyHZk6jrwlcSqVOPa525dpxByrywf56O2/Ymt4sslCmM2+aDMnBqV8 zdu6D0jFH3XGzveInMFHpL+kryqdtjJyHmfLd8G [file] UodvRaMgQRa0KgVgNgNkDF7LWu9IAgW7ACP4aJQeBv7OZbUlEPXFDnRnSJ2WWRs= ID Date Data Source VITAMIN B1 LEVEL WHOLE BLOOD 09/04/2020 12:00:00 AM EDT eCW1 ([facility]) Name Value Range Interpretation Code Description Data Aylin rce(s) Supporting Document(s) 269.7 66.5-200.0 VITAMIN B1 LEVEL WHOLE BL OOD eCW1 ([facility]) ID Date Data Source VITB12 & FOL 09/04/2020 12:00:00 AM EDT eCW1 ([facility]) Name Value Range Interpretation Code Description Data Aylin rce(s) Supporting Document(s) 712 VITAMIN B12 LEVEL eCW1 ([facility]) > 24.0 FOLATE eCW1 ([facility]) ID Date Data Source METHYLMALONIC ACID 09/04/2020 12:00:00 AM EDT eCW1 ([facility]) Name Value Range Interpretation Code Description Data Aylin rce(s) Supporting Document(s) METHYLMALONIC ACID eCW1 ([facility]) ID Date Data Source HOMOCYSTEINE SERUM 09/04/2020 12:00:00 AM EDT eCW1 ([facility]) Name Value Range Interpretation Code Description Data Aylin rce(s) Supporting Document(s) HOMOCYSTEINE SERUM eCW1 ([facility]) ID Date Data Source Comprehensive Metabolic Profile (CMP) 09/04/2020 12:00:00 AM EDT eCW1 ([facility]) Name Value Range Interpretation Code Description Data Aylin rce(s) Supporting Document(s) 97 70-100 GLUCOSE, FASTING eCW1 ([facility]) > 60.0 >49 GLOMERULAR FILTRATION RATE eCW 1 ([facility]) 0.82 0.70-1.30 CREATININE FOR GFR eCW1 ([facility]) 8 7-18 BLOOD UREA NITROGEN eCW1 ([facility]) 133 136-145 SODIUM LEVEL eCW1 ([facility]) 97 98-107 CHLORIDE LEVEL eCW1 ([facility]) 4.3 3.5-5.1 POTASSIUM SERUM eCW1 ([facility]) 25 21-32 CARBON DIOXIDE LEVEL eCW1 ([facility]) 20 7-37 AST/SGOT eCW1 ([facility]) 9.7 8.8-10.2 CALCIUM LEVEL eCW1 ([facility]) 0.5 0.2-1.0 BILIRUBIN,TOTAL eCW1 ([facility]) 7.0 6.4-8.2 TOTAL PROTEIN eCW1 ([facility]) 70 45-117 ALKALINE PHOSPHATASE eCW1 ([facility]) 34 12-78 ALT/SGPT eCW1 ([facility]) 3.8 3.2-5.2 ALBUMIN eCW1 ([facility]) 1.2 ALBUMIN/GLOBULIN RATIO eCW1 ([facility]) ID Date Data Source CBC with Differential 09/04/2020 12:00:00 AM EDT eCW1 ([facility] Name Value Range Interpretation Code Description Data Aylin rce(s) Supporting Document(s) 8.7 4.0-10.0 WHITE BLOOD COUNT eCW1 ([facility]) 4.73 4.30-6.10 RED BLOOD COUNT eCW1 ([facility]) 15.5 13.5-17.5 HEMOGLOBIN eCW1 ([facility]) 45.1 42.0-52.0 HEMATOCRIT eCW1 ([facility]) 95.3 80.0-96.0 MEAN CORPUSCULAR VOLUME e CW1 ([facility]) 34.4 32.0-36.5 MEAN CORPUSCULAR HGB CONC eCW1 ([facility]) 32.8 27.0-33.0 MEAN CORPUSCULAR HEMOGLOB IN eCW1 ([facility]) 360 150-450 PLATELET COUNT, AUTOMATED eCW1 ([facility]) 11.8 11.5-14.5 RED CELL DISTRIBUTION WID TH eCW1 ([facility]) 13.7 24.0-44.0 LYMPH % eCW1 ([facility]) 7.6 2.0-8.0 MONO % eCW1 ([facility]) 73.7 36.0-66.0 NEUTROPHILS % eCW1 ([facility]) 2.3 0.0-3.0 EOS % eCW1 ([facility]) 1.1 0.0-1.0 BASO % eCW1 ([facility]) 6.4 1.5-8.5 NEUTROPHILS # eCW1 ([facility]) 0.7 0.0-0.8 MONO # eCW1 ([facility]) 1.2 1.5-5.0 LYMPH # eCW1 ([facility]) 0.2 0.0-0.5 EOS # eCW1 ([facility]) 0.1 0.0-0.2 BASO # eCW1 ([facility]) ID Date Data Source [id number] 08/27/2020 04:22:50 PM EDT [facility] MR CERVICAL SPINE WITH AND WITHOUT CONTR AST [id number] RESULTInterpreted by:Umesh Matthew MD08/26/2020 5:52 PM MR CERVICAL SPINE WITH AND WITHOUT CONTRAST [id number] CLINICAL INFORMATION: [facility] findings concerning for cervical spinal lesion ADDITIONAL CLINICAL INFORMATION: None.TECHNIQUE: Multiplanar multi-sequential imaging of the cervical spine was performed with and without intravenous administration of contrast.COMPARISON: CT cervical spine dated 08/23/2020.FINDINGS: Reversal of the normal cervical lordosis. There are severe multilevel degenerative changes throughout the cervical spine, worst at the levels of C5-C6 and C6-C7, including facet arthropathy and disc bulging, causing multilevel spinal canal stenosis and neuroforaminal narrowing as described below. There is grade 1 anterolisthesis of C2 on C3, measuring 2 mm, and C4 on C5. There is diffuse decrease of height of the cervical vertebrae. Discogenic bone marrow changes at the levels of C5-C6.INDIVIDUAL LEVELS:C2-C3: Mild spinal canal stenosis and mild left neuroforaminal narrowing.C3-C4: Mild spinal canal stenosis, mild right and moderate left neuroforaminal narrowing. C4-C5: Moderate spinal canal stenosis and [id number] bilateral neuroforaminal narrowing.C5-C6: Moderate spinal canal stenosis and moderate to severe bilateral neural foraminal narrowing.C6-C7: Mild spinal canal stenosis, severe right and moderate left neuroforaminal narrowing.C7-T1: No disc herniation, spinal canal or neuroforaminal narrowing.The spinal cord is normal in signal and morphology. There is no abnormal enhancement within the spinal cord.IMPRESSION:1. Moderate multilevel degenerative changes throughout the cervical spine, worst at the level of C5-C6.2. Moderate spinal canal stenosis at the level of C5-C6, less severe at the other levels.3. Multilevel neuroforaminal narrowing as described above.4. No abnormal spinal cord signal.This document has been electronically signed by ANT Matthew on 08/27/2020 4:20 PM Name Value Range Interpretation Code Description Data Aylin rce(s) Supporting Document(s) ID Date Data Source [id number] 08/27/2020 10:59:22 AM EDT [facility] Name Value Range Interpretation Code Description Data Aylin rce(s) Supporting Document(s) Consultation [facility] PKLLVb0fUnDEWjTh73/FHRzuJNChk0EbVNevZPt1YPrwTNXjO8AyBVZ8fB3uUHG5PPcEYsDmZlHhRJY2 lbm [file] REVIVAL CLERK+NTVXrV7Wt6ggnL8iSo4BhUh2x49P3g7FYIoo84g [file] TWnwjPUkqVihDJEDGcC0TJm5RBelVCYVCt7Z ID Date Data Source [id number] 08/27/2020 03:46:43 AM EDT [facility] Name Value Range Interpretation Code Description Data Aylin e(s) Supporting Document(s) Leukocytes [#/volume] in Blood by Automated count 9.2 10*3/uL 4-10 [facility] Erythrocytes [#/volume] in Blood by Automated count 4.64 10*6/uL 4.6- 6.1 [facility] Hemoglobin [Mass/volume] in Blood 15.3 g/dL 13.5-18 [facility] Hematocrit [Volume Fraction] of Blood by Automated count 45.1 % 4 1-53 [facility] Erythrocyte mean corpuscular volume [Entitic volume] by Auto mated count 97.1 fL 80-96 H [facility] Erythrocyte mean corpuscular hemoglobin [Entitic mass] by Automated count 32.9 pg 27-33 [facility] Erythrocyte mean corpuscular hemoglobin concentration [Mass/volume] by Autom[facility] 33.9 g/[facility].0[facility] width [Ratio] by Automated count 13.2 % 11.5-14.5 [facility] Platelets [#/volume] in Blood by Automated count 204 10*3/uL 150-400 [facility] Differential cell count method - Blood [facility] Neutrophils/100 leukocytes in Blood by Automated count 79 % [facility] Lymphocytes/100 leukocytes in Blood by Automated count 8 % [facility] Monocytes/100 leukocytes in Blood by Automated count 10 % [facility] Eosinophils/100 leukocytes in Blood by Automated count 1 % [facility] Basophils/100 leukocytes in Blood by Automated count 2 % [facility] Neutrophils [#/volume] in Blood by Automated count 7.26 10*3/uL 1.8-7 .0 H [facility] Lymphocytes [#/volume] in Blood by Automated count 0.78 10*3/uL 1.2-4 .0 L [facility] Monocytes [#/volume] in Blood by Automated count 0.96 10*3/uL 0-0.8 H [facility] Eosinophils [#/volume] in Blood by Automated count 0.09 10*3/uL 0-0.5 [facility] Basophils [#/volume] in Blood by Automated count 0.15 10*3/uL 0-0.2 [facility] Nucleated erythrocytes/100 leukocytes [Ratio] in Blood by Automated count 0 /100{WBCs} 0-0 [facility] ID Date Data Source [id number] 08/26/2020 10:05:58 PM EDT [facility] MR BRAIN WITH AND WITHOUT CONTRAST [id number] FINAL RESULTInterpreted by:Sosa Lamar MDINDICATION: Apnea, unresponsive, seizure, evaluation for meningeal enhancement requested.COMPARISONS: CTA head and neck 08/23/2020.TECHNIQUE: Multiplanar, multisequence MR evaluation of the brain was performed both before and after the administration of IV gadolinium contrast. FINDINGS: No midline shift. Midline structures are intact. No extra-axial fluid collection or hematoma. Increased T2 and FLAIR signal radiating from the periventricular white matter along the medullary venules appears linear in mo rphology. Scattered subcortical T2 and FLAIR changes are also noted.The ventricles, cisterns, and subarachnoid spaces are normal in size. No areas of restricted diffusion to suggest acute infarct. No areas of abnormal susceptibility. Normal intracranial vascular flow voids. The regions of the sella, pituitary, and pontomedullary junctions are normal.Following the administration of IV contrast, there are no areas of abnormal enhancement. The left maxillary sinus is smaller than the right and opacified, and the left orbital floor is prolapsed inferiorly. The findings are suggestive of silent sinus syndrome. There is partial opacification of the anterior ethmoid air cells bilaterally. There is partial opacification of the right mastoid air cells.IMPRESSION:1. No imaging evidence of acute intracranial pathology. There is no evidence of meningeal enhancement or elsewhere within the brain.2. Nonspecific periventricular and subcortical white matter changes. Clinical correlation to exclude demyelinating disease is recommended.3. Sinus and mastoid disease.This document has been electronically signed by Zoila Mills MD on 08/26/2020 10:03 PM Name Value Range Interpretation Code Description Data Aylin rce(s) Supporting Document(s) ID Date Data Source [id number] 08/26/2020 01:11:12 PM EDT [facility] Name Value Range Interpretation Code Description Data Aylin rce(s) Supporting Document(s) Consultation [facility] XTGJEf2qVmEGOhUz89/JKApvWQJtw6MwNVvoJLp2QFqoYBIdC8FvYLL8tD2uADK3NOcWDyWiHzCtATE8 lbm [file] AgICAgICAgICAgICAgICAgICAgICAgICAgICAgICAgICAgICAgICAgICAgICAgICAgICAgICAgICAgIC LnJSWqRBKqQFOqWFTtCDSrYBBnWLNfKUYiPWBlQVSnFKUxAFFeKZ6BCSDsJGScNCMlQWHeFAKoHZOzAE AgICAgICAgICAgICAgICAgICAgICAgICAgICAgICAg UKRsQJRvEAZuBIGcTBZrRAHaNOMwUPKgGBTnIHZsCEIrOXZcYUDxZECbNXSpCTZuNF5STSMyJZEsBVCa ICAgICAgICAgICAgICAgICAgICAgICAgICAgICAgICAgICAgICAgICAgICAgICAgICAgICAgICAgICAg ICAgICAgICAgICAgICAgICAgICAgICAgICAgICAgIA 0KICAgICAgICAgICAgICAgICAgICAgICAgICAgICAgICAgICAgICAgICAgICAgICAgICAgICAgICAgIC AaPNKtSOCvUNUxQYIvHRFgHLUmLLYyOMJqPPBnZBChQSVpAGKlNZNcMQ9AKJWeQZJiXXDnDTGiVDKoDG AgICAgICAgICAgICAgICAgICAgICAgICAgICAgICAg GEGpJVLlGWWuGPPmAWPlGCFqCGKaZOLlKOFvBOBuGRCsPHAyWLShORLhPBZzWDFrQVWbEK8TBSSjZDWx ICAgICAgICAgICAgICAgICAgICAgICAgICAgICAgICAgICAgICAgICAgICAgICAgICAgICAgICAgICAg ICAgICAgICAgICAgICAgICAgICAgICAgICAgICAgIC KlCI6NCKNgBWErCQAjAEBgFKNhNASsRUUuULFiJPWbWGBxJZZiFSOfZJVnORAhGXRoCHRiUIWhHBGaZR AaBJDzCDYzUPGeIGGjDTTrIAEaHZByKAWdAUSeXSUgZPFvBJVhAPHgBVPmDB6QOSUnIKYqBFCaJDZkEE AgICAgICAgICAgICAgICAgICAgICAgICAgICAgICAg EVCoBMRnGSKeCALaHZKnCHIwDZVlACPgYDNeXZDlDMOrKDFbDVBgOJHyHZJkNOYoUDSdSMBhQF4YNQTw ICAgICAgICAgICAgICAgICAgICAgICAgICAgICAgICAgICAgICAgICAgICAgICAgICAgICAgICAgICAg ICAgICAgICAgICAgICAgICAgICAgICAgICAgICAgIC FhBTLlIX3RZXTeNJXeEZAsOPXrGYJrULXtATKjPIRqCXOkZEEdETHeHNRvMGAtHOWvDQZjXJZcKAQiTQ AvOWCeSSNuDJEoYKFvYEFqXTLqRYCgJKKqVQAzJMRaTRDqBKRmCKKcSOOcDGGvGL1BKX61iDTym9Q7HC YwLB9bkwy/Da8OSRuynvDuuMMzFV5HQvEsFN3svt9V MeAePK6qpm3YSGnJSfUmJ3M7pRYiNQBsAWYKBmGyY66bICjeBq03BClpXNVaSmJcCDw0Vg4EEbCfH5bw ICLfThJ2KXClQhJzHUfrYE5Je0KfkQXvUZr+Bl6HFB0bn9JuSPsuBKEvYH3zzk8CVOfKBiPnA5QiyiS4 IXR7DLRzYj5WKUOlCWPyhADbZLWuMIJJBqEcC9SwyS 75APXCCe3+ZBxgisLvJzyRRbJ2ZBWmv8VzKYp5EO0AZVFnHJh0nCYrM72tv1MypIDpGlrpZuFuirIeHG NWeVSmrpQvXU0XPTX2GCVpEf7vCXDcZSEkJpZ5XUMFSR5XUUKsGXKqiTJlHDLuYWHVYY6UHRclADK0TZ PdaoEtxYFgVLrePU3HSAQjxbPrSBVxYMONHMy+Pg0K UW0vw2NtWNibTiFgGM5lsi4XYOjKDmJpB9C6nBQbM5H4ETbwEt2KVUJtPYRyPSQzMDVIKZqsFC5PQK4j epC3QY3KnQNkBFGcMBYzsIYqRGs3I00awKUcNVwvEI5ESBD+Sameer+Pb0DLMBuHXBwGOSnBcGnVUJQVpRd G0JjB1PHr6BoP2OpRE19wDjmrfJkGUwfEP6WMI9bKR UnOFOVVH2JdSBynU3hzvKcWTZjXJYHQnWeU84fwGBuYGByZMIsXVVhJt9ZCKOvQ6CttiFgwCbfxmZfRF OnIXTPFY6QOOujlzGjtFXihSotLQ12aHrmCI9BKh3OZwFdVO2grx3NfHXvFq4FJEKzXy6AIUYzTIShVM DtMWH8XMDjByWjDUwiJCPyDDPwARH9JIQzNPXpKD0D FnVgRGMnJGD0OSVzEVWwRCMjxi7UPIDtHULsZhK4RpEqNHAcYLRdQHvuKZRgOGCnZBW0KQNnVFUsZK2Q OeCdCGXiQSQaFpQdFTSoUQCejg9ZWLBmIFRnEvW9CQGgGPAyTIAeXEbkELZvRRBuDDa1ZSPtPBAbFP6S LpPpCQZjGAYrFSMfFGTtIZLcfj1YLIVsBJUbVoU4WY HkBBGtGHYdFYcvPQReGIO2NBPoGBScXMCbSR5QBkMtYDGuTSX6OmQgCMOmBVVrwf5JLKOcJCKwPZhoYs EcWWWyIVDySGemIIPrYEP9NeA6GHTtCPGoLB3RAtQuWZPeASA1GcFjAVGkWLQokq6KHQBdTQHzKbcsRT VuTUEuFJEmAPbxKLPsLKL5FJf8IPSmEIAkJF8DSgWq ZCloTQXTMps8ZFlqX5u8EFSkGp7UJ4Yem1CrEQUzZRSLPKnnEX1eivEuAUUcNz5GD0kIMss8VfKrHmvl LQr2CaarHjP5QnJqMTQ1HaMkF7Y1AQN1He9gKMJxPDSgT7L3PqGaF9L4EaBbVOK0BOFuEbTqEpdpKah7 SuMaCA5IWk0MXbF9XCH4zKNwGq7GZkAtXK2ZGAERO7LQMz== ID Date Data Source [id number] 08/26/2020 05:14:47 AM EDT [facility] Name Value Range Interpretation Code Description Data Aylin rce(s) Supporting Document(s) Leukocytes [#/volume] in Blood by Automated count 7.2 10*3/uL 4-10 [facility] Erythrocytes [#/volume] in Blood by Automated count 4.18 10*6/uL 4.6- 6.1 L [facility] Hemoglobin [Mass/volume] in Blood 13.8 g/dL 13.5-18 [facility] Hematocrit [Volume Fraction] of Blood by Automated count 40.9 % 4 1-53 L [facility] Erythrocyte mean corpuscular volume [Entitic volume] by Auto mated count 97.9 fL 80-96 H [facility] Erythrocyte mean corpuscular hemoglobin [Entitic mass] by Automated count 33.0 pg 27-33 [facility] Erythrocyte mean corpuscular hemoglobin concentration [Mass/volume] by Automated count 33.7 g/dL 32.0-36.0 [facility] width [Ratio] by Automated count 13.4 % 11.5-14.5 [facility] Platelets [#/volume] in Blood by Automated count 190 10*3/uL 150-400 [facility] Differential cell count method - Blood [facility] Neutrophils/100 leukocytes in Blood by Automated count 75 % [facility] Lymphocytes/100 leukocytes in Blood by Automated count 13 % [facility] Monocytes/100 leukocytes in Blood by Automated count 10 % [facility] Eosinophils/100 leukocytes in Blood by Automated count 2 % [facility] Basophils/100 leukocytes in Blood by Automated count 0 % [facility] Neutrophils [#/volume] in Blood by Automated count 5.47 10*3/uL 1.8-7 .0 [facility] Lymphocytes [#/volume] in Blood by Automated count 0.92 10*3/uL 1.2-4 .0 L [facility] Monocytes [#/volume] in Blood by Automated count 0.69 10*3/uL 0-0.8 [facility] Eosinophils [#/volume] in Blood by Automated count 0.12 10*3/uL 0-0.5 [facility] Basophils [#/volume] in Blood by Automated count 0.03 10*3/uL 0-0.2 [facility] Nucleated erythrocytes/100 leukocytes [Ratio] in Blood by Automated count 0 /100{WBCs} 0-0 [facility] ID Date Data Source [id number] 08/26/2020 05:29:53 AM EDT [facility] Name Value Range Interpretation Code Description Data Aylin rce(s) Supporting Document(s) Bicarbonate [Moles/volume] in Serum 23 mmol/L 22-29 [facility] Chloride [Moles/volume] in Serum or Plasma 103 mmol/L 98-107 [facility] Creatinine [Mass/volume] in Serum or Plasma 0.68 mg/dL 0.70-1.20 [facility] Glucose [Mass/volume] in Serum or Plasma 91 mg/dL 70-140 [facility] Potassium [Moles/volume] in Serum or Plasma 3.5 mmol/L 3.4-5.1 [facility] Sodium [Moles/volume] in Serum or Plasma 136 mmol/L 136-145 [facility] Urea nitrogen [Mass/volume] in Serum or Plasma 8 mg/dL 8-23 [facility] Anion gap 3 in Serum or Plasma 10 mmol/L 8-15 [facility] Osmolality of Serum or Plasma by calculation 281 mosm/kg 275-300 [facility] Creatinine/Urea nitrogen [Mass Ratio] in Serum or Plasma 12 [facility] Calcium [Mass/volume] in Serum or Plasma 8.6 mg/dL 8.8-10.2 L [facility] Glomerular filtration rate/1.73 sq M pre dicted among non-blacks [Volume Rate/Area] in Serum or Plasma by Creatinine-based formula (MDRD) >6 0 [facility] Glomerular filtration rate/1.73 sq M pre dicted among blacks [Volume Rate/Area] in Serum or Plasma by Creatinine-based formula (MDRD) >60 [facility] ID Date Data Source [id number] 08/25/2020 06:37:02 PM EDT [facility] Name Value Range Interpretation Code Description Data Aylin rce(s) Supporting Document(s) Consultation [facility] SFNVPi9mWcPFUgGr59/RJTroGMSos1VjTOkqYXj3UGmsMUNcE2HfIGM8jQ7eENP4UOoNFeThOhPbFBL9 [facility] YdYxfGIbZkHHLeXibZVdWyVKshDlsdtOGmIY0QoOK8AVWaE48tGZQiHPRhR2UvZSNlQkj+Jh3RZZQouR HpTF8CUlmV6U4fM+NIEv9+7a1KZy49m7vjqY205nupQhLALnVF9MBr8Y+AQZcdKcvZ1Xhecc8/E6rW/E og5oYkEbmoAFf0C2M2j7cxInL/09uL1HjOAJJ69+JAKE [file] [id number]+UnyDubxWS/[place]+rD2APkMq0NZuIB1d11FxqsS2l/82VKynOfgqIdBpwyIz+0W7OvZ xPtY3NIBLimvwy7oO7btPFs2jnT/DLyVrykMy/yGMT XrHSiDJoSsgZtO0dmi0NdlKSsVqHgVCHO+a7be3rcq6Vxc2qZcwkKacNMSf1AaeeL2tSXt8PGyeJaZJT PTP7su94Iy+ARsHiqLrt3gd1FEfs543V0xq59lbqTLnLYcqaLeLXiXWP3t1Q33o7kVwRX/npj46l9fob 8yeXguoXlyAkPUB908w6FEr3d8/xSAnXPYpH0Db2Dk dpGkBhlxCmZOalBcJh+uFzyhKVmOe9C+3cg3ASlT5egWSgQpCCFZppwDrBnR+kMykwsIyx53+kBEhyDa kCS8IE9htzfIcnNNOMi0DCG9auNr71Rehi4E9vGPlLmvk7he/QOkZU3k8aqFSszpMFRKknEabKt2LV0J eH0ebuljuEvyD6rJlT1hmsKN91dx6EmyqVR9I3ni0j KAd0BLPlRTXyqONVZyUVg3uJEPbHv54uiggXshnfiu789IkzEElTUYW9KrOsSfQuz8CbrNM2b83PwIKA i/eQFSiKNDxEV+3t82dwalfkRblMKFvUoRg5yMQGpteoVfirWG1OhbAvO/WM0JDlD6OC5b3VBaMMrNhV EpxuCmohrUALa+AE0dQKHwGVGEPIMNhnEKMU2nTNya nRsnBoHdzhhAzSqEKT6UFCDaUrhoRCK3uTD/gzut82J5OqLq2Sa0bj//Gdk+c++/LOD0Jenoynm2H8q/ 7PL1/wm8nogG303Umf28/f+9TqSwYC+fvVLzqFfjL3B/0OAlQcI6SFodVSFghPRrPuFfLYI74eKYBoLO J5IYGYJq2TdfQEJVZJCG5ek3hdVZSQVTVrGFOJBSwH [file] KOMVXsL9ZdR6PIkmVJCLAa4D ID Date Data Source [id number] 08/25/2020 02:46:05 PM EDT [facility] Name Value Range Interpretation Code Description Data Aylin rce(s) Supporting Document(s) Consultation [facility] ACPHSg2kEaQQSiCy07/YDBooLIXxk5NjYGioQZf4FUkiLKWyA2ZcSER3lL1zJGY5ZYqGTrRiPtVbHFV7 lbm [file] carter+U6+/9N2/J+2y3/amB6W0kU8b/Grlng7zVoLgpHM+WhYmJxhMzX6KTViTcI7I/sd3M/FJVwdl7uwLB Snqeq+Yl2a8/iVWiuIHM7xlS8nqbIpOZi8PCG5Qmvp9QG235hn9x8YL8to1T3e1/b6HO/QeQyeC67EnG 5uUpIwsr2IZ+xZxVt8aowfA5Q3z81+k4inP2ogHJ3r 2X3qlYZY+br1W+Fg3ZNA2p+T02NOFXphYwb8LRq4rO6bj9UQ2pZ0bEpL5+XM6hZHi6mrnfT6dhP55T20 hkaeSOa2zBiy7kT+unz2CUlimrwZnd0A0DRsya2HwwgCjEc3hOaZ6tQhd6JOxfytP23un1S5U9t4Os+B 4hoHtbrxkGau06b/hu/MELuENcsNh8mNxU19yh1o13 dT+0uzoMc/IJ+6+9M7cfbMafWeY1lBEUlwuNVwZhMQM1N2m9ZyrRKSlzZTJW9oHXIpVP08vUzZxrv1Mb 1s3dBf4J1FaXHPmUpK38uzAo+FfvIT+AFNh/4OPOQjlpGfUa9aqZTjha12ghroV2huI0ryrRwpd8Pm5W pjl2lNHS8qo7suryUdzClOxMJ+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 [file] AgICAgICAgICAgICAgICAgICAgICAgICAgICAgICAg ICAgICAgICAgICAgICAgICAgDQogICAgICAgICAgICAgICAgICAgICAgICAgICAgICAgICAgICAgICAg ICAgICAgICAgICAgICAgICAgICAgICAgICAgICAgICAgICAgICAgICAgICAgICAgICAgICAgICAgICAg DQogICAgICAgICAgICAgICAgICAgICAgICAgICAgIC AgICAgICAgICAgICAgICAgICAgICAgICAgICAgICAgICAgICAgICAgICAgICAgICAgICAgICAgICAgIC AgICAgICAgICAgDQogICAgICAgICAgICAgICAgICAgICAgICAgICAgICAgICAgICAgICAgICAgICAgIC AgICAgICAgICAgICAgICAgICAgICAgICAgICAgICAg ICAgICAgICAgICAgICAgICAgICAgDQogICAgICAgICAgICAgICAgICAgICAgICAgICAgICAgICAgICAg ICAgICAgICAgICAgICAgICAgICAgICAgICAgICAgICAgICAgICAgICAgICAgICAgICAgICAgICAgICAg ICAgDQogICAgICAgICAgICAgICAgICAgICAgICAgIC AgICAgICAgICAgICAgICAgICAgICAgICAgICAgICAgICAgICAgICAgICAgICAgICAgICAgICAgICAgIC AgICAgICAgICAgICAgDQogICAgICAgICAgICAgICAgICAgICAgICAgICAgICAgICAgICAgICAgICAgIC AgICAgICAgICAgICAgICAgICAgICAgICAgICAgICAg ICAgICAgICAgICAgICAgICAgICAgICAgDQogICAgICAgICAgICAgICAgICAgICAgICAgICAgICAgICAg ICAgICAgICAgICAgICAgICAgICAgICAgICAgICAgICAgICAgICAgICAgICAgICAgICAgICAgICAgICAg ICAgICAgDQogICAgICAgICAgICAgICAgICAgICAgIC AgICAgICAgICAgICAgICAgICAgICAgICAgICAgICAgICAgICAgICAgICAgICAgICAgICAgICAgICAgIC AgICAgICAgICAgICAgICAgDQogICAgICAgICAgICAgICAgICAgICAgICAgICAgICAgICAgICAgICAgIC AgICAgICAgICAgICAgICAgICAgICAgICAgICAgICAg UFFlJAAmODNtCPYqXNGhSVSyROElYRWcQXWaPNl1Z8ahRAAyQJUfUO8zSYl3Uk7+IOgQKqVqLAK2yxOg jD3ZDL4np4ZjUTtfDYFpu8LvFYv9IC3VAIRiCRavMK0OTTxeac7WSCUbYPNyhZLNm1aqQtHnZDZ8ZCIv OgxwAP1MSKSaX5svpmMmYFUlLZQVONtcSRMQGPpwES KLHLHdNKYpYvMrHyKjHPBlNJ8QFHVcK711tuJmNK7ZDj3KJdAeLD5jyi0LClKfAKGuLmzAVly2OSaeWV 7DeDRkvCPnISIvYNKUSkCjR6mwf4ZpZpCnJYWAHEpvDE1Cg7DmbOEtDUr+Ql0KOL8ta1NvPSxkWANyPC 2ylo2QUImYWwWfZ1ZooQfgODTlarW2oZRiNZU9EVKw eE9ugVNgEPDLkMDdIFGUSAACHNE5SDJtAC6dWUTkFIArHvM0DQFASK2VTJVxTSUbbVQwCONkYSCUHT9M OXkwVLW5AZVylmZtaWBhYIdgUN8UDAKhlsMhEyAtHSOFQEu+Pm3WDA1pf5HhQYpuQdPfYX5hbz3MMLoR HyZzL8P9aFOwP3R2ACteVm0KGTFlLVQyRnobNBJUHZ diWL5MSX6rygC2WH3IbKWqUSEpBDJcvPWoYLk8V23hnZZpVOzrPW2BAOZ+Sameer+Rf5BEPAwLFXaZIIqDy VkFJROQfUiO1ZqU6VBn0XxQ6OhSV87tUjiawEwBQvaZL5QNO9gUGRhZCFEKP4YbTArdS4tkgOyYZIhJP PRCtVdP08ebDVoPUWcARM6TWErBk2CKZUqF3XxhoBm lYxlchOrETBuMPHAON4HEQfmrkGecKNqyCyrUX19hJlzOS9WHd7UMeAfTI9ltu5RjPGtEm2UQEHwQc1L NLDfMUFxXRLuXBY2JTMhOdDjWWvkELEuHGCtOHJ1OVXbNOCgMU0NYyJaBCSqHnPdILEkOCVeFRWfyh6K GPKrIEOjBrw8LyKtLRTtRUCuMJjfSHQeWKYwJEF1RR AmUIWoBB6ISdXuERFfUEAuOAFnHGWjPZCqcw2WEQMbSUEaXSTqWXXoHIJzSWQsVYauPRFkUKO6ZBSqRT UbWXRpSR3IOiKdVZKbCGnrXBFeHDJeNFBzhz8KTFSvAABiEUjyTHOtPCTyRVTnGBlpSYEwNTNtKYB9UZ TyUANcGG9TReLmVVNhHMPdCObdYHYpBQVuxh9RXIJi VGKvEgTsOQYtHPUrZDNxCBsvLLWaFTG0OxhrSQKhJANqJE6OLgJdXEVyZEs1VRHaRMGfSXEzkn3SRTUk LBGxUDf4TyFlOCStYFLcGXepQESeKPWwSLEtKWVdREZoDP2FJhSvAVJrMjMmHtCqESUgDFKvcf3VBCYz APUcDyN1RWOkBKCdHYNuTAljYKQbFTViVbu2JDYsBS WkLV8IPpDmARDdNcS5OHOjLKWdIMCgyu3RSALwVAScHyy7RHYvOPFeTCHgDMuzWYKcGKQ6Kph0RREzCR IsLT4BPyWuRAKeRqN7AKjtHKSgUIApgj2OANHgYMEuROvcHdMmXQVhXUMxRIydAWIgLQP9TPxlDVJwOI ZtDO7HKlJeHRLvEqO0XaApLHLsYNQavf9WAEHhXFPr KrPdKBSoRWNjWQIsCEwyPPAtEVR1KTv6OJXxOBSxEV1TWqWxAXLhLvQ9TMTyEDAbIOXqnh1JESFaBUWk JKN6KCEtCJBnBNZiXBtzNCDeBYZ7FYBdFOReCFAxET3MKcVkHJFbQykqYSYtHEUiVOIerj9TjOSvkBpg ar5TYNyUWa7UwAheUZDmXWkgTb3grIFlWeOjMFWYTw 2KhcByZALiMXUREAcyROOvUDL0FxniNWp0MlKkRFtcZ2XkHYRaLeXtYeDkSBEqVbLtLeD8GjHiKCGaOg UwJMTgXND6JKX3YLGoB3IyBKG2DYF0M0R+PE1rMNs+Ya0Lp5VrowF2yuVfNJrsNRKyDR9IRGQHX5BKSm == ID Date Data Source [id number] 08/25/2020 01:45:12 PM EDT [facility] Name Value Range Interpretation Code Description Data Aylin rce(s) Supporting Document(s) Consultation [facility] QQKCXl7fFgTAXjQv35/CRPzyVKWye5XrMWygKBp3VRycSFCuQ9JsXOE8dS6tBGH8ZPqLIpXdSoLtRNY1 lbm [file] kpJKN1UsM3SQWmTZCdS3TpNaH6YX0vABLZTn2+QYodeBWfvBndQPEPQkI3ZHD0HGejUYCZZb3G ID Date Data Source [id number] 08/25/2020 09:09:53 AM EDT [facility] Name Value Range Interpretation Code Description Data Aylin rce(s) Supporting Document(s) [facility] BVSCEx7vMuODXjTac2WlOvJrSDSlBG4dime2N4O0fYWoS9BowKFma0wfL9KpG6JbLZRqKTLFZG7QfBDc jb2 [file] swIVN4Rr1NiuOkMCHkICJBKl8Nu677YHElQMXWHgb+UemexBJjlRfbTCILIeCvZzQSSQHMM0O= ID Date Data Source [id number] 08/25/2020 09:09:43 AM EDT [facility] Name Value Range Interpretation Code Description Data Aylin rce(s) Supporting Document(s) [facility] CJWEWi5xGxLDVyMyt8TzLeNyMARcZZ2rdqx7F4G4lNQfB7JrmCVig3kmG2DgS2OdOTMbDPOPPK1EhHWb jb2 [file] B/7+++e/fwv/17/+2//413/zH//TP0Off/7j//zXf/cf/5K/zSTp81/Sandie//2677n//5v/+X+/OPxN8/ /+mfU/T59++///lf/cFVJREincsCqgA3JX9lDo3JkZ UiUtONTcOhSY7Z32dsqiAvCI1M69rsfhJ/TE4j90mdi6l/LP9k32qzw7e/JH4t88rbh9x/FN3u95tav6 a/Qduk3n1Hy6t4r0Mb6k7y3Ea7zox5Cs7kCd6K55uIw0Q4GrFonO4Cgsb8o+HGin9Dfsx2n+ZEvw2Xhn n3y+TUpl9Dpzp7i+EQwl4ykih0b+NZe11cjkx6d+GX d7+8DRgdwS/tibi26x0Muv/etmO5lb7UxY/htgU5to7EbX/fevP6uf+TkYOn2whpF5N/Mt7L94eVp4h0 idManl5r/Jrdrwm/Zvdrwq/Z/Zrwa/8M9Lgwy34Uxv5r59Ujc/k89Kcxig93yzoiY50a5uoHI2s0kwJE 6n4t+LV+Kd7RC97mWh5597uKp9345lWpb233/Nrdrw 2//d/drwa3e/Nvzav/Nym5h/ZuaHU/PzMzc/nVxjp0o36lU1/TzUHfsh46pKugaYNb7r9NVZ+v aKhR3C49+Pn02A/GcKpEmQHz+hLIzGDO3C/OqQJkR+zLwIBl6ntUzOGsFP1ApIEaWNZkbSWQNVVkhwcA rY+vGTskR+dIlQmMiPMhFKE/nRJkJxIj/oWTwV1Uzm CAWK/EfHdJJGD48yINeoguCyk2Y/tzNovP9CVFzU+xIwAwGnZ9lNWZfjZ87ZKRk1TYseZITieIWSGoFk DxNaFU55g1A3dJ8nIKmA+dEuQvEiP+pFKF/lP89MLMv7KSlbjKQzSZLGMaOdEeHuQqm/u08g/PGTUkZ+ iLzQeNbHsbEXPveLJ2ZOEb+QPmya8ZhLVUFR/Kgaoa rSE34jGFOAi7yU4NCW1grRzffsI6O7vJ73KcO93oXioAYWflFCLAQNq5ySjgr61UtLhIH/BalsaeOA5j jFjvyoHaHckR+8PmK91fR0dPTBuwYARXMSk+tGps343V0H8ZE/ykcofeRH+wjFj/gpX7G3eN/5TzTY1l RXmTHMqyXOKIITeycJmtU22EAZZWJ/SkgoheRHCwnF nYtkBzWgao14qKUX+qOHlHpIf/SQUg/kxg2W3uO45GZZDsC/ekiph/VPWsj5jN3wMbKf8x36lNXS+qOH lHpIf/SQUg/uue8U9hW41AFPLzD/ekiph/HDKwm2lZ8mBlFt1o/8TEvQ/PCyTafsV2oMtWFPh70tNkMq u2bEqu0GEFxX/MLoUvLsS4kZ8cZ/ekiph/TSFwu4yI 8qVwSv8f27zNTQ+qOHlHpIf/SQUg/qnd3U4uS92AKJYcC/ekiph/CIWhn5zT7iLwGc2d77gMDE+qOHlH pIf/SQUg/ovo4Z3uE78KXNTaW/ekiph/XRWqs2iR1gJfMk0f20cBEM+qOHlHpIf/SQUg/iwp4N1vB25S NKPaQ/ekiph/KULbp4xG8wVoTw0p40bJBS+qOHlHpI f/SQUg/kbg7J2oP37EPOUcV/ekiph/STXuj7tF0gKrfEm6G+xpcskkWySTbIGQVfcowvURIlGSSDxEiM sPankE5l/VH6o/RH6Y/Sn0F/Lo7G4QwPd1R/Ax4R2CnVl5B/Gt8C4UlJp4D/Ft3V7LzFW9B/Rn+M/hj9 Zakb0Phek4Wugo5Og1y+GP0x+mP0x+iP0R+nP05/svp digital ad sales 44/XH64/TH6Y/TH6c/Tn+c/dKr5fAG5C/TH6c/QX+C/hU6KiwL4LmmT3HclM1Di3C+BP0J+hP0J+hP0J +gP5P+TPoz6c+kP5P+TPoz6c+kP5P+TPoz6c+kP5P+TPoz6c+kP4v+LPqz6M+iP4v+LPqz6M+iP4v+LP qz6M+iP4v+LPqz6M+iP5v+bPqz6c+mP5v+bPqz6c+m P5v+bPqz6c+mP5v+bPqz6c+mP5lm/i2Qe2PTAbeOjrSZO1wQNvhFpZPfyr7v4Jb8qrTtk+vTpten+SfN P2n+SfNPmn/S/JPmnzT/lSwfhZ4l/dTy2RRNQo7oHSS38QDPOENxJHSHacXZGDI9MGJNUZjZHzQ3xWKx HL6ZWXPH8iUGVVQcWU2HggDM7HL1IYCTZMeETUS8gR ZFJI7RAVNB5jHYGYJmQSbMczaWcNI8uANNCPrOY2P9nTLVAQ5qPKFE4qMIWNQrPNEPlbzXdQQ4pLLLkY [file] /2u4+utkt43pP3o3/30CVm8z8//+Op84579usU//ir dx++/vTz79/r1w615/3HL9+/e/gw9kGJM3/93cUcfhPn4197K/zyq4kvE8T54OB6+p07061+fPGPH7/4 +i/02H5Sj2/ff/bN199+9e51SR++/OupMd980kl5g8/13e69Gl26/9kXb7/56pvP/vPbt59+/Pjuw/u/ cJiWffvNNx8+f/fhq/tw466587/8odflun/5G9897/ 0lLcCfE558/aHvsij6ek6Dp7/+6w1H1sFuZo/tQb9xDxt0Gr1o++++/LSQ6DH2//wwi0vA5t0hu/P21T fv//6sn5ahN9a52v77y8/hALftfh/gsz/99K+///Mff/yXt3/+P2+//f0f/vDDn//84w9/+Ju3z3/46f c//uHtn/5TW//0129/+ult/Fp/6Pf4T4u0E8+5/unX /+F+eFrSfVDRP/7x1//Gs+8TMn6EG/6es6W88MuZWh4wZ/9mQZ26ZhZ+2+gkVqvk9mEy1dwiPE/nto7r Dd7ic87Vt5cb+uw13d+sQz5I46/cP/jw47/++Bqee6w+eXv7x0+/++Lt/qz5288S7e1bg0Rh/ub+Sw5q jTP/6onrNXF/9p2Z29vwDIt1O6m7dAw/9sef/v1v3/ 78w7//+EHvv45lm5HL1/5FK2j2KIoL8/XLox/w2w9vv//p33/88//5Wobmkx6J+ZcOX7d//PLwB/yHD9 +9/cv/fF387//00y+I24RkiyU8BFJM/cPHX//Dx9/nMs2ZgFa2ze6r/ezoPrpeJvL+xRy/ZXcJN0uXuY RZYWa/vKqDffurD7/6+PbD//7x3/7jU/PcuN5+9en3 f/+ru+2V20n2zpm/58//9Ne/+PW5EV//9Smp7rP3X/SzH/6x7483x2//8NMv/w7Q8k2i//TL/z83ya4/ /PN//O8zhB/+9Kc/vfWhx7Xevw54x849pnaT/N4NBw/BjX/88Xf//aff/+51eZ+8tTuaY//se653Qz/9 t39/Tbl/+eTDu2/vxseXb5ce0G1+0xsqU5lfu9/wdX a/I///X3c8WDJktDa/+8N/+/Eynl7lB95gl4iBetPsxGOi5htHbluo6y6My9Iz9fEUi4EbRyrsJm7I7O 3Zr5fDxldddpi3+tln33z//aNzCrjf4lgnnXM/H/DPqY0FFD9xr6OiDKCyScBtIA1cmmpqGZGvBV7jev w2P1OimNfuNXdXMHCqLq6ljVUeZY4KDHG7UExcARMw QEEnS1QivF0oR37xyMTzPmDgMPMUMR6WcpD4LVY3HWQ4CVAkDuOmOVCbHA20GXPzDPDOOk5sjwXhFvkV HqVqQO4euak2S1U3kONaY053gAhsfdByHS2Rx3UkhHSjAV4HzNLjwQHoNACaNNDgO4wwn7PfIMwgMCIM Bz1nthOeKwyQMrOtCC3skrj1T0V3qEmfusTmVOWWAC esTcfzKI9usVfiwulbH1SegQSjSQJkY8GvIOWbj00GZDOzLHsLRtBnGkPkBCM0CButWUbmWiRmZKTrGP UmZOCvRM2DjOCtUVEdJBGUZPknCtlbHHVqrT9xmOECt0LxXLTIJgPWBJVJOE6YOGTKENN1SOS0QYsfVD 1WfMJdQHE5PSfJLLGGLNvDFEaoAfCwq3E7LXUjE2Ik PYPfbmHlRFFCJUtfJvxrZO9jfOtyqyvvM8ZzxZPqZWQCEOMcRTXxLBSrHOLyZ0Soy7T5Q8HvMHgQBMLB DCwWGKbrHxM7w94bmbOLIHAoGDAmPR4+QG5wb6QkUn0HHMOhZS9wquh5DU1DvBLoVA6EBHagucGfP9yl btJlDmJjDHXMIS3pJ5FwfQ93TWT+RzIzMN7zsfp9ws YoIjTrKDTcSCFyPGUyTZigVDPvYQOsPWXgETJ1PPS2XKHwXhIzVEUbExxjUHhkZXDbQJJqfaBZXCBqPI L5VvRmIlGqYGHlWBJrNUmjGSOzUDF4WDxdPSNpQBRlIP8rDwSqAENjNOTgNBOdBzI1ChNaBmCZFNWyKW AzVNFaWoBtIBQnHQHyWRxaLAXzAUTmIJr6GSUfTKTg XZ6vHnLgPOWcXUKiLSWxAGLqTCCkjxUDLLAaBQKpIXJ5VYLxTRCvDFZoJSmaRFEcVDBnHPQ7OQJkILCg NE3sLbMxIXLkMZB5DeCfLOTrQYTfrwINUIEtKKWcSGE1HLAwGOHtAUGlQXqcWVCvRGWfKjB2SIUxZUGr SL3wCkDjKDMmRWL4IQVoRQSqLWCvviOZYYStSQAlZH d1VbNhAMNvIBKbQMkbVLBzCFGaBLerPMTyLBAeLR5oOqKaDOKtNKRdEJChERSsRHPekzXNGJXxIWWuGH N2AgRiMJNcNNZuJVesBCIkGNQpJDJ7XCHoBTAcOD9fCaNeBCZtMlS3YtIjCJGxLMNybcKXQWLeTOMnQE SyUQKhDYAaFDMgPPovHIJpCPAbQlE6YNZtJDXyOD6l WmUrDNNwYWX1WHUdESCmDUHjqpXIGUPfUEWsKIAfDKO5EMBzLWHhEAz2loAviHGwJcp0Rp3FxAtpQCN7 Ab7PulRhDIEuNRZULu1Ov104WTVzRGGTKsi+LvzabKDxtBgfABXYWjc4DRMMEGPRR8E= ID Date Data Source [id number] 08/25/2020 09:09:29 AM EDT [facility] Name Value Range Interpretation Code Description Data Aylin rce(s) Supporting Document(s) [facility] QOOBLp9eJmSBPrEjf4ItOoYwLMMiWB4ucvd8P6P4pLLgN3CfkAVqz0jjK4AtI2QuHVPbUSTBTZ1GyAGx jb2 [file] AN/L7VllcU1kiT3fMu5JNaOJHyh9KLusNeAkR9yVoqup2zH2KKG+6JoTzf2k0Joa94R84J7lBgSX+Annamaria XIn7n8pBaUthQeRX9pv1bABo775MDsHecjpmlOb3XdrKPrAZIyycm8gZl9KXNyBOmNYkYnWSwHY9eycZ Pa4Qrd3JwNLLMIamFj7ozCx2b+cxB+PVnmTYMewYdg 1FqySZ8zNBxwHQ+h2ekv81m+9YoVVB87rvK12L7dbXBWj7av4y5Y0SajGuhDCDJRvMtL1LslIbVwZBxw Fplqr8ucLyEO+oKae2a4rnpWy/b6PuY954yHrii9j2gZI8R0bIqYJzirlpd6oH5/4KVa8s2oXl/9/Xuy ehngzVaoC9mL5bdMVJZV41SjmPNGUX2NARKDZAqYai XVxvanbQrex3mj944odOZ/54ROdgFjerkVRMtkJYZf7tmq+ox/7dR+J5sX+3ScMLtyelqokq0D9J04Q2 HfbOLkb/xv5u/1987onh4SwSUw2QtRaqipDnHM2sC041YK1QsxwdRnKqBT3g4+2V+4803LsNC067Kn9K 518U0+Kq3MKFf2xkw1gd3shR6+0vi/X88u7KlOVl45 cDLjZ6uxfvRS4jTY3W2Z/hZpiJFpG6F1ipw/0D7v+7tN9dz+2ctCKVpyqselJ7JEH9rbi+Kf+AqOXiu8 ezXXz3+WnC973TBzD3U9zFoMdFAhM++4UjVoCI1euCjdH8b0XQWvoIQ4uFzV8/d/HdmDlRTI+X4QPz+n I8zc9+jwi39lgpnlkbeosaqvzyllOnjfDDs0DiGRbY 0ImM0qTo+O6JTiO++0r0EomaRaSajx4LMVwiO4SIyje7IJuh0xNx6+cxnpoiTpAiu2e1Ut7nuzWH3dWg 9p5e2eY0x2i7uX0KZPxHukQ+G/Q8fmfAKp+H9WewbBdvswaSb++w+p152v4B0b63+f0FkgBZ9EoSoI/s Mt/ZEYm8ID/wGrdzkCAfiu9O88Dbq7RyRc26hM9yjx /wKb29BNB1z484b92jj/juU+Z6dy/24Z5maarxB3AHBbxPCvW0XWN+024h6vz4tH4+/1ibozevaw7s2X fp0b399iskpDMMa/t610+vd/48dz1C1UoF8flI24VvsOeS5xHRdRV4uyFWp6h8rpj3+zu+29/x3f6O7/ Z2vIeU555+direct sales representative/qSlaHfS38pU6/O0N0Cm6dk/jdZv+ [file] NjXewKvj1iI1xD0wpWoBMiTWANKXTdTfJz6xjB/Juan Pablo x3zeT4mTEgfgEXvOl3rRdS6ktw3dFP6pEoaJI6PLcpP3uuy/NcwMy0oLhiElFpN2wQ3EEmvIsCxcXsMR /ZLu5U8xsAEgh/XR7YwCF4RjdDXwPcZFtm14WdESgWJvIZa4FrxxSocRkq+Wc86z1zQNsMHLtJi9Y94S vmsgvOS7r5Qv0DaEKDoiJ0PRZ6s6m9G6Tymi45UD3d EVlENhHMKysfS/UfJy1Y6lNnvV4+xbgi40lgTy+UkjTwb174zgUNm8gEdaVkoppuW2jpM+xcd1Y+luje O+CiIWApfRZqLjR2DGH7n9epur9084qE+QilUhM9EDFyVPvIQf4L+ZzmjHvtMyP4NZNxrUgzQksWhSff QTNsHhsCblaW58G7ofvwK2g1uKj1HFqhl88nrbykuz XRh8VwlAgoBi7gPE996zrmxNxyrkQs1IcrjFw4dwslJeqR4gkKiNPTtKrlz+WJBXzchTt5JE3aQ/F+NJ 8YJ8O6Xaar1euYFGHnjXKVf7UqK9sOSQkgs7xezyQfLF2R+RmNqM4w76uKKclFmCwdoO33dCGtBmQdeX Pv6jAUTGw8SJ4n1XjfKw2QQSA5ipTyI+TeHY4ihXuq W+xCe8Z3KZmUDAdZjpaUr/L3GuUI4MG5I+OEWiihrrWSqGpITdwCEB4C17XQoVLnA4aDSyASGWSCjOum GvGWUxMe1gjP7ezwcPY575CgY7finK5pGP0bYA3c5aBWgURpMlgS5sWZXeHhRS4Ku0NX63azsjkrUDfP RMpCpZQuW2pWmPem3deT13oxD9H0LOmLcVXheQdxVl wDVsBNCGSYIQtWILJY2RX4eN5cBUhPHaGUST0LchLRI1ljrNsbw3OLSMPwP3J+llMpNvxcO/B7LXkaGe wV75bWh+GO9J5of6QzN3SDLmdU8HsMsEUpkDovKDFLeGZx8h7SQaSTNIcYbOtwHsVu2wUaidyodIK8G9 U+lkd4kO//3kgj40jZcduWci3Sa//0m/L292+f/++3 c06r3W7T2MZ8L3/+4fOnD7/6z2//3mEaMz2//xL/8win+cevv/jh3abKdH75x/h28/zTVX/24dff/ex2 Cn57K+MLsy/t6a5n07NR/7//4dM/v/3w6+8/f/y61b2AG9/6+rnL25e93Whg12s00yyqA//zzz5+96sP X/2y2cg93jt/gC1003r08u2+/u7rj7/10D8XIygxw8 eR7+7urlwKeeBX+/rTD9+/ff7w5S//+epX46961De3//b151++/Zcfvv/4486eG785k04/8/G/f/z+Py eo1u7uFI/9i1gsogv4J/0r36reitq94Hyy374r0HgHQ/2g3IvmoYerc9021QgWhi8+9+k/KKbEY3/69t P3v/745df/4xim187//Awv25cwa5/+74zkgVv15RmB 376e+ZvXw//0fI/k5S/tu2+/+kxYM9019b8kUv/5H/st3wh8mnbhz/v4m6+/fT32xy//8fu3D7/58PU3 H60ydee/4KS7+twnffnnP/3b7//yxx//9e1//K+33/z+D3/47V/+8uNv//Bz56157I8+/+Yc3g2vN0F0 L3//9uc/vbWf95/2g54wFJaOS6N58Su/qB5ktVNXpn 2Pf/z0Q6wUhAxY1BkUn/hD7IovVFpR1/XL/w+xD35ceU/H5X2QvYtVxvRv+29Y/prxFxlJvrltcnO4Vq /gd7ypq1i+aizPgnP/4bsf/+4Ak2xgW11y9tfYJ81/5dunj5/emdcj/iEEuh4y3HyHIwFXBTZ781U+/u YShE3Gbrxg6JxvwE3n+b/58U///g9vf/ntv//4rvhX H/bqrRs4b/7415+XitYU296MW+Cvv3v7/Z/+/ce//D9/c/cq/gemqeD2zMfeg1+WfrB/+u77t3/9n697 //2f//ST0i9f9D+TWmHG1d+ff/5Pn3/Fp6gaF69r+HgXP19e1P/Qo0Xe/5j9Jzf/YI7I12rV533v6nVE iu8c0600+e23/++Pf/3br+Y4k7V59LYC//izO/zP67 sb7e1//eVf/v4n/z7v4Ve//sB106eheL/+9n/+7rd//f1v//ST84+l5/X7P/30/OdDmtcf/rbkqmkV5Q s///aEB7xlo+DnYb/58+++7ELpz3FOIvYf//zj7/6vP/3+d6/b++Lle8gUb87jL8/9of/+2e7lWz7js/ j+49f/xw/rzcotgcfx3Jx+9le/+vjp8/dfsFu7+8r/ /V/xyTN7bwII/vb//OZxtN12519Tv11gXwI+FuO7x5HZ/lMfq7bwCcI5/Orzq/W751b3r4u/+K08B544 3jNtU41DN5026A+fXv+6i6xhQsM4GfL/Y03tMqWZKY7qu6PqNXPaUfLaVB9ttkwuPMKzQV8nnnf7R3Ky xKmwXDxBQDIeGc1kwDXdHR6SXQY1CDraUHXjMIJbF7 YlfO7qA33ssXKjIlRlLGYJJB0TbhK8NXD0AQW6JFXaLaObBBYoBT24EPWxZKZHJh1dgfUjLljKLwZkXF 5cstl8H1K1iJFqW972yKqnspHtXE2Lk1SikGGsYE0LqLNggLMlACZeKTMtT6tah5LwGXozYTRUFt7klp QlCryQSfZaNJ4ejrj1C6T4oKpadfYzCLVJOVybRlyd MF8utAsxxqcaC2GnaLOvJYTeN9MnHWXau49TPPAeOYfDBvLnCtNrDYI5AKxhNBgqTdZcVSOdWMNgSGMl CE9QsBGwCOVeGWXGSYsbYjifWOWavF5efLBUy1JfQBFYIaJPYANCNM3LLODHTEY6ECE6XAqaOZ1FxAFe QWS2SLqHUWDPSRyDHRavEzKvm1B2HZMoV1PcOUNatc IhWFYXUWarEnbwJO6qoHcfrmquM3CovKTxVXRISHUeEOGpAWHpREEqN8Lop4B3N7YzVGxKECGSDItWGW iiAnQ1k55lyiBEQESaUHCgNA5+TJ0nr1UlAd3AHVCfRT0gpro8TS3HvDWbZJ4CJTmuluBvK6ybwpMxMf DjWSPBMW4rY7GzgU17UFF+EzIiRG8sncs1gtHjXtUe BLBcVWLzIKPjEZdqTDRoGBXwXDQnJST3LLQ3FGPsUtRhEEWvZqPuKPQkCEQcCHYcqcFTOGZzXLF5PZfj WqPbFSGsJUHuYIwbEWMfTRtdVQi0XIKeTHJqAU5cSrWgKWIwZCCaEXXbVpY3XoJiGhWISUFtNMHsFISy DtRzAVLwNUIvFTzqLNMgTOQnGWy2YONbUUQhYU1yYk OoZJJgRDLuSIQzWNWzXYPredFYAYPeVKEpSFR3VTVdAISlKIRfYMitPAWuGDMvTVR1UVRmUFPbIX6cAn HvAHXkAJT6JsApMHSrEAEersWYRUDtAFEbQMV6XBWyLKPcJZBiJRvjLXHsICEeLwV9LHIcTPAyDD2uMt BaBEOaHFU1BQLbOLYxXTRlauNUONCxXMRoCSz9MmYy HQPhGIIcQWzfWJGjCCPpHUwtNULjTNFqAL0cMlBjMWTeQKUjAQAnUVKuHZCfhyHCCLKoHQUrQLO5QsBc FSZrRKHmABkuQBGfXWTjMHA3PBFgLERfFV8bEcZjCSPbDpU7FXKoXLWlXXMyrkYDHQWfAJOqUIZoFJAt IAErFZLjROwlFGDeOWNsYsE6XGKcZXVaKU8iHhInKJ HcDOZ4SMZdZZMsOFXdrdDFQKJlVZWzBQFtXCM3UUDzZMSnRTb0jsHzuFFzOuz8Hm5XlSwqERU1Ob1Dqb YkFYPhLEWLAh4Za092KMEoOJPUHvp+FchehIWueUhtBGEEOzLwQQyCFHJQT0O= ID Date Data Source [id number] 08/25/2020 04:05:00 AM EDT [facility] Name Value Range Interpretation Code Description Data Aylin e(s) Supporting Document(s) Leukocytes [#/volume] in Blood by Automated count 6.8 10*3/uL 4-10 [facility] Erythrocytes [#/volume] in Blood by Automated count 4.14 10*6/uL 4.6- 6.1 L [facility] Hemoglobin [Mass/volume] in Blood 13.7 g/dL 13.5-18 [facility] Hematocrit [Volume Fraction] of Blood by Automated count 40.8 % 4 1-53 L [facility] Erythrocyte mean corpuscular volume [Entitic volume] by Auto mated count 98.4 fL 80-96 H [facility] Erythrocyte mean corpuscular hemoglobin [Entitic mass] by Automated count 33.0 pg 27-33 [facility] Erythrocyte mean corpuscular hemoglobin concentration [Mass/volume] by Automated count 33.6 g/dL 32.0-36.0 [facility] Erythrocyte distribution width [Ratio] by Automated count 13.5 % 11.5-14.5 [facility] Platelets [#/volume] in Blood by Automated count 194 10*3/uL 150-400 [facility] Differential cell count method - Blood [facility] Neutrophils/100 leukocytes in Blood by Automated count 70 % [facility] Lymphocytes/100 leukocytes in Blood by Automated count 19 % [facility] Monocytes/100 leukocytes in Blood by Automated count 9 % [facility] Eosinophils/100 leukocytes in Blood by Automated count 1 % [facility] Basophils/100 leukocytes in Blood by Automated count 1 % [facility] Neutrophils [#/volume] in Blood by Automated count 4.80 10*3/uL 1.8-7 .0 [facility] Lymphocytes [#/volume] in Blood by Automated count 1.29 10*3/uL 1.2-4 .0 [facility] Monocytes [#/volume] in Blood by Automated count 0.59 10*3/uL 0-0.8 [facility] Eosinophils [#/volume] in Blood by Automated count 0.09 10*3/uL 0-0.5 [facility] Basophils [#/volume] in Blood by Automated count 0.04 10*3/uL 0-0.2 [facility] Nucleated erythrocytes/100 leukocytes [Ratio] in Blood by Automated count 0 /100{WBCs} 0-0 [facility] ID Date Data Source [id number] 08/25/2020 04:23:43 AM EDT [facility] Name Value Range Interpretation Code Description Data Aylin rce(s) Supporting Document(s) Magnesium [Mass/volume] in Serum or Plasma 2.3 mg/dL 1.6-2.4 [facility] ID Date Data Source [id number] 08/25/2020 04:23:43 AM [facility] Name Value Range Interpretation Code Description Data Aylin rce(s) Supporting Document(s) Phosphate [Mass/volume] in Serum or Plasma 2.7 mg/dL 2.5-4.5 [facility] ID Date Data Source [id number] 08/25/2020 05:07:43 AM [facility] Name Value Range Interpretation Code Description Data Aylin rce(s) Supporting Document(s) Bicarbonate [Moles/volume] in Serum 22 mmol/L 22-29 [facility] Chloride [Moles/volume] in Serum or Plasma 106 mmol/L 98-107 [facility] Confirmed Creatinine [Mass/volume] in Serum or Plasma 0.73 mg/dL 0.70-1.20 [facility] Glucose [Mass/volume] in Serum or Plasma 82 mg/dL 70-140 [facility] Potassium [Moles/volume] in Serum or Plasma 3.5 mmol/L 3.4-5.1 [facility] Confirmed Sodium [Moles/volume] in Serum or Plasma 136 mmol/L 136-145 [facility] Confirmed Urea nitrogen [Mass/volume] in Serum or Plasma 7 mg/dL 8-23 [facility] Anion gap 3 in Serum or Plasma 9 mmol/L 8-15 [facility] Confirmed Osmolality of Serum or Plasma by calculation 279 mosm/kg 275-300 [facility] Confirmed Creatinine/Urea nitrogen [Mass Ratio] in Serum or Plasma 9 [facility] Calcium [Mass/volume] in Serum or Plasma 8.3 mg/dL 8.8-10.2 [facility] Glomerular filtration rate/1.73 sq M pre dicted among non-blacks [Volume Rate/Area] in Serum or Plasma by Creatinine-based formula (MDRD) >6 0 [facility] Glomerular filtration rate/1.73 sq M pre dicted among blacks [Volume Rate/Area] in Serum or Plasma by Creatinine-based formula (MDRD) >60 [facility] ID Date Data Source [id number] 08/25/2020 07:02:34 AM [facility] Value Range Interpretation Code Description Data Aylin rce(s) Supporting Document(s) Cobalamin (Vitamin B12) [Mass/volume] in Serum or Plasma 190 pg/ml 2 11-946 L [facility] ID Date Data Source [id number] 08/30/2020 05:05:56 PM [facility] Value Range Interpretation Code Description Data Aylin rce(s) Supporting Document(s) Thiamine [Moles/volume] in Blood 125.9 nmol/L 66.5-200.0 [facility] (NOTE)This test was developed and its pe rformance characteristicsdetermined by [facility]. It has not been cleared or approvedby the Food and Drug Administration.Performed At: [facility] [id number] Sanjai MD Ph:[phone] ID Date Data Source [id number] 08/24/2020 03:35:09 PM EDT [facility] Name Value Range Interpretation Code Description Data Aylin rce(s) Supporting Document(s) Glucose [Mass/volume] in Capillary blood by Glucometer 94 mg/dL 70- 140 [facility] ID Date Data Source [id number] 08/24/2020 03:08:19 PM EDT [facility] Name Value Range Interpretation Code Description Data Aylin rce(s) Supporting Document(s) ED Provider Note [facility] YEALLz2hCtCQBpMf12/JCHmgSXIzh2OdEJwjHGe8LVybJRJjS5HsWHR3zZ7qCNS5LXzNXhQcBqFzABJ6 lbm [file] Sameer+Dz8AGFFlGNXzVEGcUvBqYIZBVsGtX8JhL3RRw3BmE8MuVO51vZkpukFdASiaQX8PMW9vRCVqMBUT ML4HoWRqyV5dyeZfBlRfWNZUDoSwQ26tkHEhATQnAUX9ZVXuYk0BHQHdK2TlsgNdmQnedaIjJDVwENCB BT1PQXtyxnQelJQdwKgbHG53qNwkWB7NYv5LAkSkTD 3zul6FsLBgUf7URLR1EO6PBOLsUFQhODXpQQG6ZKHeHxXsWKhlLBZyIMSjPKR5PSGaRIUwSG7EIeIgHW UqFQB1EMGbCCSsOYDrbg5QIAQuDBE3GwBhTVHmCGSrHFYcSIdqTFUwRFRkLGH6VJXmSPLbYT7TOgWzUN VsKXUdQSFcMJUpTZSvqv5HZPJdLNAbLpXpRfLnJAAn PILkTWlnNEGhPQL5BNWtOGOwMDBhSQ3ZCiPnPZMnASFiGZIvNFDnDPVzhd0OIDHyDDMrIIC3IKYiZOAb ALYcIDudPSSmFZD6Svs9RGSxVVEyID6BQaQwLUUaRNZ3JnnjXBPfGWAoic9CIFGrWNZaSnM7KTElQHHf KQMkBSlhUYBeFTL5NxIuRLDnAHUjXU1STnMxYJYjVR Z5PLzrNWZuSESxxo3EUYYsKTVlSDf6EPRfKGPhSANbMTevWQCwGLR0MNkzHCQfKJVdYG0PCoVlIAYrXo L2PwLeDYFqGCFwkn3RRXCkYQXjJGe3AbSqRJExACBbORzaLDGqJPEgYlt7RMLbUPWoYO3DXbLlSAYrNi V0LGHbXCDmUPHzhz9LYYZzCAIeDMu7MoKxXPHuDAGs KWnnCJZnQRT4WZVtFRSaDOYsGP8AUgIeUCOvSbBnKiIkYMNrPZXmvs3EOUCbZPKnJtO6JqTwTORwHMDc PBvrKSUlFJJ7LOr7QLCdMLImWR1CTyGiHSYcEsB3WTTnSQDdLYQtgx3VOIKpCOVzMyR9NhZkKQOlLKBh VYcbUTMdPOJ7TYH5PWDqIZIvMY6NLvMmMWZkTkljLo TsRFJzXHMrkl4TPHSnQMTwXIZ5UkWpQCHgQIBrGHdqHEVbAPG6Mzg2XZOtUABzII0FZlMcZWMpWst7BL QvNYSwYLPjtt0SEWBrSFZ0FSWuXhAtTTSkJIZfYRleQQKnPKFoWfctFVWcGVPyJQ2TDwGaATLkEME6MZ ppYRKdUBJkjn9ZERLeAZU6TnC5PNHpDOSxHNKlEAfe ORDmVEAzFyX8KFOzCSCwNZ6LPcOaCPAqPNW5VsVfVUOhNSIxup3JIAPnUEO1HtqoSDJsWDQbROBxDVlt NVJxWEVmTNq1PNBsQWGfDQ1YRqSoXHXkRYDrPwReLSCsHNOthk2EWYDoNJW5VzD7TRLfJZKfELFeAFey JTZlZJNtQAI6OSAcJADgUN3SNvKuMNBkIRT6UhWhYA PvBKEfhu7TIBBpMPA5DkagArAyBNByQBUzNHgrDRHgIJYqYIgdSFGxVTLdJI3YSrVxVSPnUUReURYrJQ VlZIVqri6SyMGirGpicf4WXCrQWl2GvUtsBFG7KUeoYy9tfYN6NmJxGGPXMw3VwvAhAUBtVGHMSYfgKF RtZMVbJeNfUKRuFRX6HGl7XoIuSnYhVCJjDVF7AHLn GrA4HrQ4JZPqDJC0QOR9CqUlSMTtFKGjWwSlHoT6INPtWwC2GJo+HF7uPZn+Aq3Wq3NzizE5gtHxRIw2 HEF0YM4TBSYTM8XGIm== ID Date Data Source [id number] 08/24/2020 06:02:16 AM T [facility] Name Value Range Interpretation Code Description Data Aylin rce(s) Supporting Document(s) Bicarbonate [Moles/volume] in Serum 24 mmol/L 22- [facility] Confirmed Chloride [Moles/volume] in Serum or Plasma 98 mmol/L 98-107 [facility] Creatinine [Mass/volume] in Serum or Plasma 0.89 mg/dL 0.70-1.20 [facility] Glucose [Mass/volume] in Serum or Plasma 96 mg/dL 70-140 [facility] Potassium [Moles/volume] in Serum or Plasma 3.0 mmol/L 3.4-5.1 L [facility] Sodium [Moles/volume] in Serum or Plasma 137 mmol/L 136-145 [facility] Urea nitrogen [Mass/volume] in Serum or Plasma 11 mg/dL 8-23 [facility] Anion gap 3 in Serum or Plasma 16 mmol/L 8-15 H [facility] Confirmed Osmolality of Serum or Plasma by calculation 284 mosm/kg 275-300 [facility] Creatinine/Urea nitrogen [Mass Ratio] in Serum or Plasma 12 [facility] Calcium [Mass/volume] in Serum or Plasma 8.8 mg/dL 8.8-10.2 [facility] QA FLAGS AND/OR RANGES MODIFIED BY DEMOG RAPHIC UPDATE ON 08/24 AT 1503 Glomerular filtration rate/1.73 sq M pre dicted among non-blacks [Volume Rate/Area] in Serum or Plasma by Creatinine-based formula (MDRD) >6 0 [facility] Glomerular filtration rate/1.73 sq M pre dicted among blacks [Volume Rate/Area] in Serum or Plasma by Creatinine-based formula (MDRD) >60 [facility] ID Date Data Source [id number] 08/24/2020 05:03:52 AM EDT [facility] Name Value Range Interpretation Code Description Data Aylin rce(s) Supporting Document(s) Leukocytes [#/volume] in Blood by Automated count 11.9 10*3/uL 4-10 H [facility] Erythrocytes [#/volume] in Blood by Automated count 4.47 10*6/uL 4.6- 6.1 L [facility] Hemoglobin [Mass/volume] in Blood 14.5 g/dL 13.5-18 [facility] Hematocrit [Volume Fraction] of Blood by Automated count 43.0 % 4 1-53 [facility] Erythrocyte mean corpuscular volume [Entitic volume] by Auto mated count 96.3 fL 80-96 H [facility] Erythrocyte mean corpuscular hemoglobin [Entitic mass] by Automated count 32.4 pg 27-33 [facility] Erythrocyte mean corpuscular hemoglobin concentration [Mass/volume] by Automated count 33.6 g/dL 32.0-36[facility] width [Ratio] by Automated count 13.6 % 11.5-14.5 [facility] Platelets [#/volume] in Blood by Automated count 219 10*3/uL 150-400 [facility] Differential cell count method - Blood [facility] Neutrophils/100 leukocytes in Blood by Automated count 78 % [facility] Lymphocytes/100 leukocytes in Blood by Automated count 11 % [facility] Monocytes/100 leukocytes in Blood by Automated count 10 % [facility] Eosinophils/100 leukocytes in Blood by Automated count 1 % [facility] Basophils/100 leukocytes in Blood by Automated count 0 % [facility] Neutrophils [#/volume] in Blood by Automated count 9.28 10*3/uL 1.8-7 .0 H [facility] Lymphocytes [#/volume] in Blood by Automated count 1.34 10*3/uL 1.2-4 .0 [facility] Monocytes [#/volume] in Blood by Automated count 1.21 10*3/uL 0-0.8 H [facility] Eosinophils [#/volume] in Blood by Automated count 0.06 10*3/uL 0-0.5 [facility] Basophils [#/volume] in Blood by Automated count 0.03 10*3/uL 0-0.2 [facility] Nucleated erythrocytes/100 leukocytes [Ratio] in Blood by Automated count 0 /100{WBCs} 0-0 [facility] ID Date Data Source [id number] 08/24/2020 08:07:47 AM [facility] Name Value Range Interpretation Code Description Data Aylin rce(s) Supporting Document(s) Magnesium [Mass/volume] in Serum or Plasma 2.8 mg/dL 1.6-2.4 [facility] QA FLAGS AND/OR RANGES MODIFIED BY DEMOG RAPHIC UPDATE ON 08/24 AT 1503 ID Date Data Source [id number] 08/24/2020 08:07:47 AM [facility] Name Value Range Interpretation Code Description Data Aylin rce(s) Supporting Document(s) Phosphate [Mass/volume] in Serum or Plasma 3.3 mg/dL 2.5-4.5 [facility] ID Date Data Source [id number] 08/23/2020 05:21:12 PM EDT [facility] Name Value Range Interpretation Code Description Data Aylin rce(s) Supporting Document(s) Acetaminophen [Mass/volume] in Serum or Plasma 5.7 ug/mL 10.0-30.0 L [facility] ID Date Data Source [id number] 08/23/2020 05:21:12 PM [facility] Name Value Range Interpretation Code Description Data Aylin rce(s) Supporting Document(s) Bicarbonate [Moles/volume] in Serum 16 mmol/L 22-29 L [facility] Chloride [Moles/volume] in Serum or Plasma 95 mmol/L 98-107 L [facility] Creatinine [Mass/volume] in Serum or Plasma 1.17 mg/dL 0.70-1.20 [facility] Glucose [Mass/volume] in Serum or Plasma 211 mg/dL 70-140 H [facility] Potassium [Moles/volume] in Serum or Plasma 4.7 mmol/L 3.4-5.1 [facility] Hemolyzed Sodium [Moles/volume] in Serum or Plasma 136 mmol/L 136-145 [facility] Urea nitrogen [Mass/volume] in Serum or Plasma 12 mg/dL 8-23 [facility] Anion gap 3 in Serum or Plasma 25 mmol/L 8-15 H [facility] Osmolality of Serum or Plasma by calculation 288 mosm/kg 275-300 [facility] Creatinine/Urea nitrogen [Mass Ratio] in Serum or Plasma 10 [facility] Calcium [Mass/volume] in Serum or Plasma 9.3 mg/dL 8.8-10.2 [facility] QA FLAGS AND/OR RANGES MODIFIED BY DEMOG RAPHIC UPDATE ON 08/24 AT 1503 Glomerular filtration rate/1.73 sq M pre dicted among non-blacks [Volume Rate/Area] in Serum or Plasma by Creatinine-based formula (MDRD) >6 0 [facility] Glomerular filtration rate/1.73 sq M pre dicted among blacks [Volume Rate/Area] in Serum or Plasma by Creatinine-based formula (MDRD) >60 [facility] ID Date Data Source [id number] 08/23/2020 05:21:12 PM [facility] Name Value Range Interpretation Code Description Data Aylin rce(s) Supporting Document(s) Ethanol [Mass/volume] in Serum or Plasma Negative [facility] ID Date Data Source [id number] 08/23/2020 05:21:12 PM [facility] Value Range Interpretation Code Description Data Aylin rce(s) Supporting Document(s) Magnesium [Mass/volume] in Serum or Plasma 2.5 mg/dL 1.6-2.4 H [facility] QA FLAGS AND/OR RANGES MODIFIED BY DEMOG RAPHIC UPDATE ON 08/24 AT 1503 ID Date Data Source [id number] 08/23/2020 05:10:52 PM [facility] Value Range Interpretation Code Description Data Aylin rce(s) Supporting Document(s) Prothrombin time (PT) 12.5 s 12.5-14.9 [facility] INR in Platelet poor plasma by Coagulation assay 0.93 [facility] Routine intensity oral anticoagulation I NR is typically 2.0-3.0. Target INR must be clinically individualized. ID Date Data Source [id number] 08/23/2020 05:10:52 PM [facility] Value Range Interpretation Code Description Data Aylin rce(s) Supporting Document(s) aPTT in Platelet poor plasma by Coagulation assay 23.4 s 24.0-33. 0 L [facility] ID Date Data Source [id number] 08/23/2020 05:21:12 PM [facility] Value Range Interpretation Code Description Data Aylin rce(s) Supporting Document(s) Salicylates [Mass/volume] in Serum or Plasma 3.0-30.0 L [facility] ID Date Data Source [id number] 08/23/2020 05:21:12 PM [facility] Value Range Interpretation Code Description Data Aylin rce(s) Supporting Document(s) Albumin [Mass/volume] in Serum or Plasma by Bromocresol green (BCG) dye binding method 4.8 g/[facility] Bil[facility].total [Mass/volume] in Serum or Plasma 0.9 mg/dL <1.2 [facility] Bilirubin.direct [Mass/volume] in Serum or Plasma <0.3 [facility] Hemolyzed Alkaline phosphatase [Enzymatic activity/volume] in Serum or Plasma 67 U/L 40-129 [facility] Aspartate aminotransferase [Enzymatic activity/volume] in Serum or Plasma 43 U/L <40 H [facility] Hemolyzed Alanine aminotransferase [Enzymatic activity/volume] in Seru m or Plasma 27 U/L <41 [facility] Hemolyzed Protein [Mass/volume] in Serum or Plasma 7.4 g/dL 6.4-8.3 [facility] ID Date Data Source [id number] 08/23/2020 05:21:12 PM [facility] Name Value Range Interpretation Code Description Data Aylin rce(s) Supporting Document(s) Thyroxine (T4) [Mass/volume] in Serum or Plasma 6.9 ug/dl 4.5-11.7 [facility] ID Date Data Source [id number] 08/23/2020 05:41:44 PM [facility] Value Range Interpretation Code Description Data Aylin rce(s) Supporting Document(s) Troponin T.cardiac [Mass/volume] in Serum or Plasma <0.01 [facility] ID Date Data Source [id number] 08/23/2020 05:21:12 PM [facility] Value Range Interpretation Code Description Data Aylin rce(s) Supporting Document(s) Thyrotropin [Units/volume] in Serum or Plasma 0.949 u[IU]/mL 0.270-4. 200 [facility] ID Date Data Source [id number] 08/23/2020 05:04:31 PM [facility] Value Range Interpretation Code Description Data Aylin rce(s) Supporting Document(s) Leukocytes [#/volume] in Blood by Automated count 12.0 10*3/uL 4-10 H [facility] Erythrocytes [#/volume] in Blood by Automated count 4.86 10*6/uL 4.6- 6.1 [facility] Hemoglobin [Mass/volume] in Blood 15.8 g/dL 13.5-18 [facility] Hematocrit [Volume Fraction] of Blood by Automated count 48.3 % 4 1-53 [facility] Erythrocyte mean corpuscular volume [Entitic volume] by Auto mated count 99.4 fL 80-96 H [facility] Erythrocyte mean corpuscular hemoglobin [Entitic mass] by Automated count 32.5 pg 27-33 [facility] Erythrocyte mean corpuscular hemoglobin concentration [Mass/volume] by Automated count 32.7 g/dL 32.0-36.0 [facility] width [Ratio] by Automated count 13.4 % 11.5-14.5 [facility] Platelets [#/volume] in Blood by Automated count 258 10*3/uL 150-400 [facility] Differential cell count method - Blood [facility] Neutrophils/100 leukocytes in Blood by Automated count 92 % [facility] Lymphocytes/100 leukocytes in Blood by Automated count 4 % [facility] Monocytes/100 leukocytes in Blood by Automated count 3 % [facility] Eosinophils/100 leukocytes in Blood by Automated count 0 % [facility] Basophils/100 leukocytes in Blood by Automated count 1 % [facility] Neutrophils [#/volume] in Blood by Automated count 11.05 10*3/uL 1.8- 7.0 H [facility] Lymphocytes [#/volume] in Blood by Automated count 0.42 10*3/uL 1.2-4 .0 L [facility] Monocytes [#/volume] in Blood by Automated count 0.41 10*3/uL 0-0.8 [facility] Eosinophils [#/volume] in Blood by Automated count 0.01 10*3/uL 0-0.5 [facility] Basophils [#/volume] in Blood by Automated count 0.06 10*3/uL 0-0.2 [facility] Nucleated erythrocytes/100 leukocytes [Ratio] in Blood by Automated count 0 /100{WBCs} 0-0 [facility] ID Date Data Source Basic Metabolic Profile (BMP) 04/14/2020 12:00:00 AM EST eCW 1 ([facility]) Name Value Range Interpretation Code Description Data Aylin rce(s) Supporting Document(s) 10 7-18 BLOOD UREA NITROGEN eCW1 ([facility]) 99 70-100 GLUCOSE, FASTING eCW1 ([facility]) 0.90 0.70-1.30 CREATININE FOR GFR eCW1 ([facility]) > 60.0 >49 GLOMERULAR FILTRATION RATE eCW 1 ([facility]) 137 136-145 SODIUM LEVEL eCW1 ([facility]) 31 21-32 CARBON DIOXIDE LEVEL eCW1 ([facility]) 100 98-107 CHLORIDE LEVEL eCW1 ([facility]) 3.9 3.5-5.1 POTASSIUM SERUM eCW1 ([facility]) 9.7 8.8-10.2 CALCIUM LEVEL eCW1 ([facility]) ID Date Data Source LIPID PANEL (CARDIAC RISK) 04/14/2020 12:00:00 AM EST eCW1 ( [facility]) Name Value Range Interpretation Code Description Data Aylin rce(s) Supporting Document(s) Cholesterol [Moles/volume] in Serum or Plasma 169 <200 CHOLESTEROL LEVEL eCW1 ([facility]) Cholesterol in HDL [Moles/volume] in Serum or Plasma 74 >40 HDL CHOLESTEROL eCW1 ([facility]) Triglyceride [Mass/volume] in Serum or Plasma by calculation 79 <150 TRIGLYCERIDES LEVEL eCW1 ([facility]) 2.283 <5 CHOLESTEROL RISK RATIO eCW1 ([facility] [facility] [place]) Cholesterol in LDL [Mass/volume] in Serum or Plasma by calculation 79 <100 LDL CHOLESTEROL eCW1 ([facility]) 95 NON-HDL-C eCW1 ([facility]) ID Date Data Source [id number] 04/14/2020 12:00:00 AM EST eCW1 ([facility]) Name Value Range Interpretation Code Description Data Aylin rce(s) Supporting Document(s) Hemoglobin A1c/Hemoglobin.total in Blood 5.5 HEMOGLOBIN A1c eCW1 ([facility]) Procedure Social History Code Duration Value Status Description Data Source(s ) Smoking 02/16/2021 12:00:00 AM EDT Never Smoker completed Never S moker eCW1 ([facility]) Smoking 12/02/2020 12:00:00 AM EDT Never Smoker completed Never S moker eCW1 ([facility]) Smoking 12/02/2020 12:00:00 AM EDT Never Smoker completed Never S moker eCW1 ([facility]) Smoking 12/02/2020 12:00:00 AM EDT Never Smoker completed Never S moker eCW1 ([facility]) Smoking 12/02/2020 12:00:00 AM EDT Never Smoker completed Never S moker eCW1 ([facility]) Smoking 12/02/2020 12:00:00 AM EDT Never Smoker completed Never S moker eCW1 ([facility]) Smoking 09/29/2020 12:00:00 AM EDT Never Smoker completed Never S moker eCW1 ([facility]) Smoking 09/29/2020 12:00:00 AM EDT Never Smoker completed Never S moker eCW1 ([facility]) Smoking 09/04/2020 12:00:00 AM EDT Never Smoker completed Never S moker eCW1 ([facility]) Smoking 09/04/2020 12:00:00 AM EDT Never Smoker completed Never S moker eCW1 ([facility]) Smoking 08/23/2020 12:00:00 AM EDT Unknown if ever smoked comp leted Unknown if ever smoked [facility] Smoking 06/16/2020 12:00:00 AM EST Never Smoker completed Never S moker eCW1 ([facility]) Smoking 06/16/2020 12:00:00 AM EST Never Smoker completed Never S moker eCW1 ([facility]) Smoking 06/16/2020 12:00:00 AM EST Never Smoker completed Never S moker eCW1 ([facility]) Smoking 04/14/2020 12:00:00 AM EST Never Smoker completed Never S moker eCW1 ([facility]) Vital Signs ID Date Data Source UNK Name Value Range Interpretation Code Description Data Source(s) Body weight 162.8 [lb_av] 162.8 [lb_av] eCW1 ([facility]) Respiratory rate 17 /min 17 /min eCW1 ([facility]) Body temperature 98.0 [degF] 98.0 [degF] eCW1 ( [facility]) Heart rate 46 /min 46 /min eCW1 ([facility]) Systolic blood pressure 132 mm[Hg] 132 mm[Hg] e CW1 ([facility]) Diastolic blood pressure 83 mm[Hg] 83 mm[Hg] eCW1 ([facility]) Body height 71 [in_i] 71 [in_i] eCW1 ([facility]) Body mass index (BMI) [Ratio] 22.70 kg/m2 22.70 kg/m2 eCW1 ([facility]) Systolic blood pressure 137 mm[Hg] 137 mm[Hg] M EDENT ([facility]) Diastolic blood pressure 82 mm[Hg] 82 mm[Hg] MEDENT ([facility]) Body temperature 98.3 [degF] 98.3 [degF] MEDENT ([facility]) Heart rate 79 /min 79 /min MEDENT (Health system) Body height 71 [in_i] 71 [in_i] MEDENT ([facility]) 5'11" Body weight 159.38 [lb_av] 159.38 [lb_av] MEDEN T ([facility]) Body mass index (BMI) [Ratio] 22.2 kg/m2 22.2 k g/m2 [facility] ([facility]) [place] body weight 172 [lb_av] 172 [lb_av] MEDEN T ([facility]) Body weight 72.293 kg 72.293 kg [facility] ([facility]) Body surface area Derived from formula 1.91 m2 1.91 m2 [facility] ([facility]) Body weight 160.2 [lb_av] 160.2 [lb_av] eCW1 ([facility]) Body height 71 [in_i] 71 [in_i] eCW1 ([facility]) Body mass index (BMI) [Ratio] 22.34 kg/m2 22.34 kg/m2 eCW1 ([facility]) Heart rate 75 /min 75 /min eCW1 ([facility]) Respiratory rate 17 /min 17 /min eCW1 ([facility]) Body temperature 98.8 [degF] 98.8 [degF] eCW1 ( [facility]) Systolic blood pressure 154 mm[Hg] 154 mm[Hg] e CW1 ([facility]) Diastolic blood pressure 93 mm[Hg] 93 mm[Hg] eCW1 ([facility]) Body weight 169.6 [lb_av] 169.6 [lb_av] eCW1 ([facility]) Body height 71 [in_i] 71 [in_i] eCW1 ([facility]) Body mass index (BMI) [Ratio] 23.65 kg/m2 23.65 kg/m2 eCW1 ([facility]) Heart rate 57 /min 57 /min eCW1 ([facility]) Respiratory rate 17 /min 17 /min eCW1 ([facility]) Body temperature 98.1 [degF] 98.1 [degF] eCW1 ( [facility]) Systolic blood pressure 129 mm[Hg] 129 mm[Hg] e CW1 ([facility]) Diastolic blood pressure 81 mm[Hg] 81 mm[Hg] eCW1 ([facility]) Body weight 175 [lb_av] 175 [lb_av] eCW1 ([facility]) Body height 71 [in_i] 71 [in_i] eCW1 ([facility]) Body mass index (BMI) [Ratio] 24.40 kg/m2 24.40 kg/m2 eCW1 ([facility]) Heart rate 61 /min 61 /min eCW1 ([facility]) Respiratory rate 16 /min 16 /min eCW1 ([facility]) Body temperature 97.9 [degF] 97.9 [degF] eCW1 ( [facility]) Systolic blood pressure 151 mm[Hg] 151 mm[Hg] e CW1 ([facility]) Diastolic blood pressure 81 mm[Hg] 81 mm[Hg] eCW1 ([facility]) Body weight 184 [lb_av] 184 [lb_av] eCW1 ([facility]) Body height 71 [in_i] 71 [in_i] eCW1 ([facility]) Heart rate 58 /min 58 /min eCW1 ([facility]) Respiratory rate 16 /min 16 /min eCW1 ([facility]) Body mass index (BMI) [Ratio] 25.66 kg/m2 25.66 kg/m2 eCW1 ([facility]) Body temperature 99.0 [degF] 99.0 [degF] eCW1 ( [facility]) Systolic blood pressure 128 mm[Hg] 128 mm[Hg] e CW1 ([facility]) Diastolic blood pressure 83 mm[Hg] 83 mm[Hg] eCW1 ([facility]) Body weight 185 [lb_av] 185 [lb_av] eCW1 ([facility]) Body height 71 [in_i] 71 [in_i] eCW1 ([facility]) Body mass index (BMI) [Ratio] 25.80 kg/m2 25.80 kg/m2 eCW1 ([facility]) Heart rate 65 /min 65 /min eCW1 ([facility]) Respiratory rate 16 /min 16 /min eCW1 ([facility]) Body temperature 97.7 [degF] 97.7 [degF] eCW1 ( [facility]) Systolic blood pressure 156 mm[Hg] 156 mm[Hg] e CW1 ([facility]) Diastolic blood pressure 93 mm[Hg] 93 mm[Hg] eCW1 ([facility]) ID Date Data Source [id number] 09/04/2020 08:50:20 AM [facility] Name Value Range Interpretation Code Description Data Source(s) WEIGHT RECORDED 174.6 lb 174.6 lb [facility] WEIGHT RECORDED 166.01 lb 166.01 lb [facility] Body height Measured 70 in 70 in [facility] Patient Treatment Plan of Care Planned Activity Planned Date Details Description Data Source (s) Vitamin B 12 1 MG Oral Tablet 08/28/2020 12:00:00 AM [facility] Folic Acid 1 MG Oral Tablet 08/28/2020 12:00:00 AM [facility] Thiamine 100 MG Oral Tablet 08/27/2020 12:00:00 AM [facility] dextrose 50 % IV solution 25 mL 08/23/2020 08:38:54 PM [facility] Glucagon 1 MG Injection 08/23/2020 08:38:54 PM [facility] Glucose 0.417 MG/MG Oral Gel 08/23/2020 08:38:54 PM [facility] sildenafil 50 MG Oral Tablet [Viagra] 06/16/2020 12:00:00 AM EST eCW1 ([facility]) sildenafil 50 MG Oral Tablet [Viagra] 06/16/2020 12:00:00 AM EST eCW1 ([facility]) sildenafil 50 MG Oral Tablet [Viagra] 06/16/2020 12:00:00 AM EST eCW1 ([facility]) sildenafil 50 MG Oral Tablet [Viagra] 06/16/2020 12:00:00 AM EST eCW1 ([facility]) sildenafil 50 MG Oral Tablet [Viagra] 06/16/2020 12:00:00 AM EST eCW1 ([facility])
[2021-03-04] MEDS ORDERED: LIDOCAINE 1% SDV 30ML VIAL As Ordered ONE (13:11)
[2021-03-04] MEDS ORDERED: BUPIVACAINE HCL 0.25% 30ML VIAL As Ordered ONE (13:12)
[2021-03-04] MEDS ORDERED: ACETAMINOPHEN 1000MG 100ML IV BTL (OFIRMEV) (J0131 PER 10MG) As Ordered ONE (13:49)
[2021-03-04] MEDS ORDERED: ROCURONIUM BROMIDE 50 MG/5 ML VIAL As Ordered ONE (14:38)
[2021-03-04] MEDS ORDERED: PHENYLephrine 500MCG 5ML (100MCG/ML) SYRINGE As Ordered ONE (14:42)
[2021-03-04] MEDS ORDERED: LR 1,000 ML IV SCH (15:50)
[2021-03-04] MEDS ORDERED: hydrALAZINE 20MG/ML 1ML VIAL (J0360 PER 20MG) IV PRN (15:50)
[2021-03-04] MEDS ORDERED: ONDANSETRON 4MG/2ML VIAL IV PRN (15:50)
[2021-03-04] MEDS ORDERED: PERCOCET 5MG/325MG TAB PO PRN (15:50)
[2021-03-04] MEDS ORDERED: fentaNYL 100 MCG/2 ML INJECTION (J3010) IV PRN (15:50)
[2021-03-04] MEDS: oxyCODONE 5MG TAB PO PRN ×2 (15:50→16:21)
[2021-03-04] MEDS ORDERED: KETOROLAC 30 MG/ML 1ML VIAL IV PRN (15:50)
[2021-03-04] MEDS ORDERED: METOCLOPRAMIDE INJ 10MG/2ML VIAL (J2765 PER 1) IV PRN (15:50)
[2021-03-04 18:00] VITALS: BP 136/77
--- NOTE | 2021-03-09 05:02 | ROOPDOC ---
[facility] Report Of Operation Report of Operation DATE OF PROCEDURE: 03/04/21 PREPROCEDURE DIAGNOSES: Left inguinal hernia. POSTPROCEDURE DIAGNOSES: Large Left Inguinal Hernia with incarcerated sigmoid colon. PROCEDURE PERFORMED: Robotic assisted laparoscopic transabdominal preperitoneal repair of indirect left inguinal hernia with placement of 17 x 12 cm mid weight polypropylene mesh (XL 3 DMax mid). SURGEON: Tony Rainey MD VENTILATING ENGINEER: ARCHANA Dorsey Ms. assisted me with placement of ports, management of the instruments and robotic arms on the field while I was at the surgeon's console including exchange of instruments, placement of mesh and sutures and the removal, closing of the port sites ANESTHESIA: General endotracheal anesthesia. ESTIMATED BLOOD LOSS: Approximately 20 mL. COMPLICATIONS: None. REMARKS: 66-year-old male with about a 3-month history of discomfort associated with the bulging on his left groin area. He desires repair of his left inguinal hernia. He has had no prior repairs. FINDINGS: Moderate to large sized opening at the internal ring over the left inguinal area containing sigmoid colon which was partially incarcerated at the outlet of the canal, easily reduced with external manipulation. SPECIMENS REMOVED: PROCEDURE NOTE: An extra large 17 x 12 cm mid weight polypropylene mesh (3D max mid XL) was used to cover the inguinal hernia. DESCRIPTION OF PROCEDURE: Patient received 2 g of Ancef IV preoperatively for wound prophylaxis. Patient was brought to the operating room, placed supine on the operating table. Compression boots placed in both lower extremities for DVT prophylaxis. After adequate general anesthesia started, he was positioned on the table with both arms tucked. A fitzgerald catheter placed without difficulty. His abdomen and groin/pelvic area then prepped and draped in the usual sterile fashion. We paused for a surgical timeout using both pre-incision safety checklist to verify correct patient, procedure site and additional clinical information prior to beginning the procedure Entry to the abdomen done through a small incision about 5 cms above the umbilical skin cleft. A Veress needle is inserted on a controlled fashion. CO2 insufflation started to pressure 15 mmHg. Using the same incision a 8 mm robotic trocar then placed under direct vision of laparoscope. The insertion site was inspected for injury and none was found. Patient was then positioned on a mild Trendelenburg position. Two working ports placed to the right and left of the camera trocar along the same line 10 -12 cms apart. The da Moiz robot tower was then positioned in place and the trocars docked to the robotic arms. I then unscrubbed and took control of the camera and the laparoscopic instruments at the surgeon's console. A Forced bipolar forceps with bipolar cautery and A laparoscopic scissor with unipolar cautery was used. An ilioinguinal nerve block was also performed. Operative Findings: On diagnostic laparoscopy, about a 3 cm opening noted over the internal ring on the left side containing sigmoid colon. The sigmoid colon was reduced back into the abdominal cavity but has multiple adhesions to the hernia sac that needed to be taken apart to fully reduce this into the abdomen. The peritoneum was opened up about 7 cms above the superior edge of the fascial defect of the inguinal hernia starting at the medial umbilical ligament (divided) going laterally towards the level of the anterior superior iliac spine. This was then dissected mostly bluntly away from the abdominal wall. Both the lateral side and medial side were bluntly opened up. Medially this was extended to past the symphysis pubis and 2 cms inferior to the pubic tubercle .A small but bulky cord lipoma is found and reduced. The fat within the canal was reduced into the preperitoneum and dissection was extended inferiorly to the femoral space. Laterally this was extended in the same plane and along the same depth as the space of Bogros. On approaching the inguinal hernia defect the hernia sac was completely dissected off the testicular structures with concommitant reduction of a bulky cord lipoma. The testicular vessels and vas deferens remained largely in placed with their investing fascia mostly intact with minimal manipulation of the cord structures. He has a large and redundant inguinal hernia sac which was fully reduced back into the abdomen. Both these structures were promptly identified and from the hernia sac. A After freeing up the hernia sac, the bridging fibrous structures off the medial space of retzius and lateral space of bogros were connected with parietalization of the vas deferens. I tested the flap to make sure there is adequate space for placement of mesh without lifting or clam shelling of the mesh. After fully dissecting the preperitoneal space, we checked for adequate hemostasis. I chose a 17 x 12 cms 3D max mid weight polypropylene mesh to cover the wide defect at the internal ring. This was then delivered intra-abdominally through one of the trochars. In a controlled fashion this was positioned into the preperitoneal space with the medial side towards the pubic tubercle past the sympyisis pubis and the marked center of the mesh abutting the inferior epigastric vessels as it approaches the internal ring. The mesh was then carefully unfolded and positioned in place with adequate overlap around the internal ring to cover the hernia defects. After proper placement, this was secured at several points at the symphysis pubis, Gee's ligament and superiorly at the medial portion to the rectus muscle/transversalis fascia. I again tested closing the flap making sure that the mesh remains intact without movement or clam shelling. The peritoneal flap was then closed with a running suture of 30V LOC starting laterally going medially with tacking of the extra hernia sac towards the umbilical ligament. I then surveyed the abdomen and pelvis for any signs of injury. Once satisfied I scrubbed back in. The instruments were removed. The abdomen was deflated. All ports were removed. The skin incisions were closed with 4-0 Monocryl in subcuticular fashion. The incisions were covered with Dermabond. The port sites were again infiltrated with local anesthesia. TONY RAINEY MD Mar 09, 2021 05:02
== END 2021-03-04 18:05 | disposition home or self-care (01) ==
LOC: M SDC 11:29
PROVIDERS: ATTEND Surgery
DX: K40.90 Unilateral inguinal hernia, without obstruction or gangrene, not specified as recurrent (principal); I10 Essential (primary) hypertension; E78.00 Pure hypercholesterolemia, unspecified; F12.10 Cannabis abuse, uncomplicated; Z79.899 Other long term (current) drug therapy
CPT/HCPCS: 49650; C1781; J0131; J0690; J1100; J1885; J2250; J2370; J2405; J3010; S2900

== ENCOUNTER 2021-03-28 06:46 | Emergency (ER) | payer OTHER ==
[~2021-03-28] VITALS: Ht 180.3 cm; Wt 86.4 kg
[~2021-03-28 06:46] MED LIST changes: -CelecoXIB 400 MG CAP PO ONE; -LIDOCAINE 1% MDV 20ML VIAL SQ PRN; -LIDOCAINE 2% 100MG/5ML SDV (FOR ANES.) As Ordered ONE; -LR 1,000 ML IV ONE; -MIDAZOLAM INJ 2MG/2ML VIAL (J2250 PER 1MG) As Ordered ONE; -ONDANSETRON 4MG/2ML VIAL As Ordered ONE; -ROCURONIUM BROMIDE 50 MG/5 ML VIAL As Ordered ONE; -SUGAMMADEX SODIUM 500 MG/5 ML VIAL (BRIDION) As Ordered ONE; -ceFAZolin SOD 2 GM in IV 1 EA IV ONE; -dexameTHASONE 4 MG/ML 1ML VIAL (J1100 PER 1MG) As Ordered ONE; -fentaNYL 250 MCG/5 ML INJECTION (J3010) As Ordered ONE; -propofoL 200 MG/20 ML VIAL As Ordered ONE
--- OUTSIDE RECORDS SUMMARY | 2021-03-28 06:52 | CCD | Continuity of Care Document ---
Author Author SIMÓN ELENA, Narciso SMITH Organization Unknown Address [address] [facility] [address] [place] [address] Phone [phone] Care Team Providers Care Slide Fastener Chain Assembler Name Role Phone Ruthy Chakraborty AUTM AUTM Unavailable Abel Infante M.D. AUTM [phone] Problems Active Problems Provider Date Essential hypertension [...] SIG Qnty Indications Ordering Provide r Date Malcolm 5-325mg Tablets 1 tabs by mouth every [...] Available Vital Signs Date Vital Result Comment 03/18/2021 10:31am BP Systolic 126 mmHg BP Diastolic 75 mmHg Heart Rate 47 /min Body Temperature 97.4 F Height 71 inches 5'11" Weight 168.12 lb BMI (Body Mass Index) 23.4 kg/m2 [place] Body Weight 172 lb Weight 76.261 kg BSA (Body Surface Area) 1.96 m2 01/01/2021 1:32pm BP Systolic 137 mmHg BP Diastolic 82 mmHg Heart Rate 79 /min Body Temperature 98.3 F Height 71 inches 5'11" Weight 159.38 lb BMI (Body Mass Index) 22.2 kg/m2 [place] Body Weight 172 lb Weight 72.293 kg BSA (Body Surface Area) 1.91 m2 Results Description No Information Available Procedures Date Code Description Status 03/04/2021 94029 Lap Inguinal Hernia Repair Compl eted 01/01/2021 45284 Office/Outpatient New Moderate M DM 45-59 Minutes Completed Medical Devices Description No Information Available Encounters Type Date Location Provider Dx Diagnosis Office Visit 03/18/2021 10:15a [facility] TEJAS Sewell K40.90 Unil inguinal hernia, w/o obst or gangr, not spcf as recur Z48.815 Encntr for surgical aftcr fo llowing surgery on the dgstv sys Office Visit 01/01/2021 1:30p [facility] Blaze Rainey MD K40.90 Unil inguinal hernia, w/o ob st or gangr, not spcf as recur Assessments Date Code Description Provider 03/18/2021 K40.90 Left inguinal hernia TEJAS Lindquist 03/18/2021 Z48.815 Encounter for surgic al aftercare following surgery on the digestive system TEJAS Mcdaniel 03/04/2021 K40.30 Unilateral inguinal hernia, with obstruction, without gangrene, not specified as recurrent Tony Rainey MD 01/01/2021 K40.90 Left inguinal hernia Tony mahan MD Plan of Treatment No Information Available Functional Status Description No Information Available Mental Status Description No Information Available Referrals Refer to Reason for Referral Status Appt Date Tony Rainey MD LEFT INGUINAL HERNIA Scheduled 12/21 [address] [id number] [phone]
--- OUTSIDE RECORDS SUMMARY | 2021-03-28 06:52 | CCD | Continuity of Care Document ---
Author Author Narciso HAMMOND SD Organization Unknown Address [address] [facility], [address] [place] [address] Phone [phone] Care Team Providers Care Snowmaker Name Role Phone Ruthy Chakraborty AUTM AUTM Unavailable Abel Infante M.D. AUTM [phone] Problems Active Problems Provider Date Essential hypertension [...] SIG Qnty Indications Ordering Provide r Date [place] 5-325mg Tablets 1 tabs by mouth every [...] lb BMI (Body Mass Index) 23.4 kg/m2 [place] Body Weight 172 lb Weight 76.261 kg BSA (Body Surface Area) 1.96 m2 01/01/2021 1:32pm BP Systolic 137 mmHg BP Diastolic 82 mmHg Heart Rate 79 /min Body Temperature 98.3 F Height 71 inches 5'11" Weight 159.38 lb BMI (Body Mass Index) 22.2 kg/m2 [place] Body Weight 172 lb Weight 72.293 kg BSA (Body Surface Area) 1.91 m2 Results Description No Information Available Procedures Date Code Description Status 01/01/2021 75617 Office/Outpatient New Moderate M DM 45-59 Minutes Completed Medical Devices Description No Information Available Encounters Type Date Location Provider Dx Diagnosis Office Visit 01/01/2021 1:30p [facility] Edu blanca Rainey MD K40.90 Unil inguinal hernia, w/o [...] MD LEFT INGUINAL HERNIA Scheduled 12/21 [address] [facility] [address] [place] [address] [phone]
--- OUTSIDE RECORDS SUMMARY | 2021-03-28 06:52 | CCD ---
Continuity of Care Document (CCD) Created on: 03/19/2021 LuzmariaNarciso landeros External Reference #: [id number] : [id number] Sex: Male Author Author Narciso HAMMOND [place] Organization Unknown Address [address] [facility], [address] [place] [address] Phone [phone] Care Team Providers Care Chief Innovation Officer Name Role Phone Ruthy Chakraborty AUTM [phone] AUTM Unavailable Abel Infante M.D. AUTM [phone] Problems Active Problems Provider Date Essential hypertension [...] SIG Qnty Indications Ordering Provide r Date [place] 5-325mg Tablets 1 tabs by mouth every [...] lb BMI (Body Mass Index) 23.4 kg/m2 [place] Body Weight 172 lb Weight 76.261 kg BSA (Body Surface Area) 1.96 m2 01/01/2021 1:32pm BP Systolic 137 mmHg BP Diastolic 82 mmHg Heart Rate 79 /min Body Temperature 98.3 F Height 71 inches 5'11" Weight 159.38 lb BMI (Body Mass Index) 22.2 kg/m2 [place] Body Weight 172 lb Weight 72.293 kg BSA (Body Surface Area) 1.91 m2 Results Description No Information Available Procedures Date Code Description Status 01/01/2021 85309 Office/Outpatient New Moderate M DM 45-59 Minutes Completed Medical Devices Description No Information Available Encounters Type Date Location Provider Dx Diagnosis Office Visit 03/18/2021 10:15a [facility] TEJAS Sewell K40.90 Unil inguinal hernia, w/o obst or gangr, not spcf as recur Z48.815 Encntr for surgical aftcr fo llowing surgery on the dgstv sys Office Visit 01/01/2021 1:30p [facility] Blaze Rainey MD K40.90 Unil inguinal hernia, w/o ob st or gangr, not spcf as recur Assessments Date Code Description Provider 03/18/2021 K40.90 Left inguinal hernia TEJAS Lindquist 03/18/2021 Z48.815 Encounter for surgic al aftercare following surgery on the digestive system TEJAS Mcdaniel 01/01/2021 K40.90 Left inguinal hernia Tony mahan MD Plan of Treatment No Information Available Functional Status Description No Information Available Mental Status Description No Information Available Referrals Refer to Reason for Referral Status Appt Date Tony Rainey MD LEFT INGUINAL HERNIA Scheduled 12/21 [address] [facility] [address] [place] [address] [phone]
--- OUTSIDE RECORDS SUMMARY | 2021-03-28 06:53 | CCD ---
Author Author [facility] Organization [facility] Address Unknown Phone Unavailable Care Team Providers Care Vacuum Tank Tender Name Role Phone Steff Yang MD Unavailable Unavailable SimionescSteff naqvi MD Unavailable Unavailable SimionescSteff naqvi MD Unavailable Unavailable SimionescSteff naqvi MD Unavailable Unavailable SimionescSteff naqvi MD Unavailable Unavailable SimionescSteff naqvi MD Unavailable Unavailable Steff Yang MD Unavailable Unavailable SimionescSteff naqvi MD Unavailable Unavailable SimioneSteff mackenzie MD Unavailable Unavailable SimionescSteff naqvi MD Unavailable Unavailable SimionescSteff naqvi MD Unavailable Unavailable SimionescSteff naqvi MD Unavailable Unavailable SimioneSteff mackenzie MD Unavailable Unavailable Steff Yang MD Unavailable Unavailable Steff Yang MD Unavailable Unavailable SimionescSteff naqvi MD Unavailable Unavailable SimioneSteff mackenzie MD Unavailable Unavailable SimionescSteff naqvi MD Unavailable Unavailable SimionescSteff naqvi MD Unavailable Unavailable SimionescSteff naqvi MD Unavailable Unavailable SimSteff hoyt MD Unavailable Unavailable SimionescSteff naqvi MD Unavailable Unavailable SimionescSteff naqvi MD Unavailable Unavailable Simionescu, E Claudine MD Unavailable Unavailable Steff Yang MD Unavailable Unavailable Steff Yang MD Unavailable Unavailable Steff Yang MD Unavailable Unavailable Steff Yang MD Unavailable Unavailable Steff Yang MD Unavailable Unavailable Steff Yang MD Unavailable Unavailable Steff Yang MD Unavailable Unavailable Steff Yang MD Unavailable Unavailable Steff Yang MD Unavailable Unavailable Steff Yang MD Unavailable Unavailable Steff Yang MD Unavailable Unavailable BARTha ABRAHAM MD Unavailable Unavailable Tha GR MD Unavailable [...] MD Unavailable Unavailable JULIETUGATha MD Unavailable Unavailable BARAYUGATha MD Unavailable Unavailable Tha GR MD Unavailable Unavailable YVONNEYENNI Artis MD Unavailable Unavailable YVONNEYENNI MD Unavailable Unavailable YVONNEYENNI Artis MD Unavailable Unavailable YVONNEYENNI MD Unavailable Unavailable Looney, L Enid RPA Unavailable Unavailable Looney, L Enid RPA Unavailable Unavailable Looney, L Enid RPA Unavailable Unavailable Looney, L Enid RPA Unavailable Unavailable Looney, L Enid RPA Unavailable Unavailable Looney, L Enid RPA Unavailable Unavailable Looney, L Enid RPA Unavailable Unavailable Looney, L Enid RPA Unavailable Unavailable Looney, L Enid RPA Unavailable Unavailable Looney, L Enid RPA Unavailable Unavailable Looney, L Enid RPA Unavailable Unavailable Looney, L Enid RPA Unavailable Unavailable Looney, L Enid RPA Unavailable Unavailable Looney, L Enid RPA Unavailable Unavailable Looney, L Enid RPA Unavailable Unavailable Looney, L Enid RPA Unavailable Unavailable Looney, L Enid RPA Unavailable Unavailable Looney, L Enid RPA Unavailable Unavailable Looney, L Enid RPA Unavailable Unavailable Looney, L Enid RPA Unavailable Unavailable Looney, L Enid RPA Unavailable Unavailable Looney, L Enid RPA Unavailable Unavailable Looney, L Enid RPA Unavailable Unavailable Looney, L Enid RPA Unavailable Unavailable Looney, L Enid RPA Unavailable Unavailable Looney, L Enid RPA Unavailable Unavailable Looney, L Enid RPA Unavailable Unavailable Looney, L Enid RPA Unavailable Unavailable Looney, L Enid RPA Unavailable Unavailable Looney, L Enid RPA Unavailable Unavailable Looney, L Enid RPA Unavailable Unavailable Looney, L Enid RPA Unavailable Unavailable Otite, Deng Fadar Unavailable Unavailable Otite, Deng Fadar Unavailable Unavailable Otite, Deng Fadar Unavailable Unavailable Re-disclosure Warning The records that [...] is protected by Article 27-F of the [facility] Public Health law. If you continue you may have access to information: Regarding HIV / AIDS; Provided by facilities licensed or operated by the [facility] Office of Mental Health; or Provided by the [facility] Office for People With Developmental Disabilities. If such information is present, then the following [facility] mandated warning applies: This information has been [...] law may result in a fine or assisted sentence or both. A general authorization for the release of medical or other information is NOT sufficient authorization for further disc losure. Allergies and Adverse Reactions Type Description Substance Reaction Status Data Source(s ) Propensity to adverse reactions NO KNOWN ALLERGIES NO KNOWN ALLERGIES [facility] Family History Family Member Name Family Member Gender Family Member Status Date o f Status Description Data Source(s) Unknown Male Problem MEDENT ([facility]) Encounters Encounter Providers Location Date Indications Data Source(s ) Office Visit Attender: Enid Mcclure/Kylee/Césra/R eindl 03/18/2021 10:15:00 AM EDT [facility] [place] [address] [address] 02/16/2021 12:00:00 AM EDT eCW1 (Critical access hospital) Outpatient Attender: SARAH Mcclure/Kylee/César/ Reindl 01/01/2021 01:30:00 PM EDT [facility] ([facility] [place] [address] [address] 12/31/2020 12:00:00 AM EDT eCW1 (Critical access hospital) [place] [address] [address] 12/30/2020 12:00:00 AM EDT [facility] [place] [address] [address] 12/24/2020 12:00:00 AM EDT eCW1 ([facility]) [place] [address] [address] 12/02/2020 12:00:00 AM EDT eCW1 ([facility]) [place] [address] [address] 11/28/2020 12:00:00 AM EDT eCW1 ([facility]) [place] [address] [address] 09/29/2020 12:00:00 AM EDT eCW1 ([facility]) [place] [address] [address] 09/10/2020 12:00:00 AM EDT eCW1 ([facility]) [place] [address] [address] 09/04/2020 12:00:00 AM EDT eCW1 ([facility]) [place] [address] [address] 09/04/2020 12:00:00 AM EDT eCW1 ([facility]) [place] [address] [address] 08/28/2020 12:00:00 AM EDT eCW1 ([facility]) Inpatient Attender: Claudine Escudero DAttender: YENNI RUSSELL MDAttender: Dominic BecerraiteAdmitter: Dominic BecerraiteReferrer: Dominic Hernandez 07A-09G 2020 12:00:00 AM EDT - 08/27/2020 02:48:00 PM EDT Unspecified convulsions [facility] Unspecified convulsions Patient discharged. [place] [address] [address] 06/18/2020 12:00:00 AM EST [facility] [place] [address] [address] 06/16/2020 12:00:00 AM EST eCW1 (Critical access hospital) [place] [address] [address] 04/14/2020 12:00:00 AM EST eCW1 (Critical access hospital) [place] [address] [address] 03/24/2020 12:00:00 AM EST eCW1 (Critical access hospital) Immunizations Vaccine Date Status Description Data Source(s) influenza, recombinant, quadrIvalent,injectable, prese rvative free 02/16/2021 09:27:00 AM EDT completed eCW1 ([facility]) COVID-19 VACCINE Moderna 10/03/2020 12:00:00 AM EDT completed NYSIIS Vaccine Series Complete: YESThis Data wa s Submitted to [facility] [employer]. COVID-19 VACCINE Moderna 09/05/2020 12:00:00 AM EDT completed NYSIIS Vaccine Series Complete: NOThis Data was Submitted to [facility] [employer]. INFLUENZA VIRUS VACCINE QUADRIVALENT (6 MOS AN [...] DAILY DOSE = 4 TABLETS SOLD: 03/02/2021 [facility] Acetaminophen 325 MG / Hydrocodone Bitartrate 5 MG Oral Tabl et [Baldwin] Baldwin 02/27/2021 12:00:00 AM EDT ORAL active [facility] ([facility]) 25 mg 01/27/2021 12:00:00 AM EDT tablet [...] active Take 1 tablet by mouth daily [facility] 1 mg 08/28/2020 12:00:00 AM EDT [...] active Take 1 tablet by mouth daily [facility] Thiamine 100 MG Oral Tablet Thiamine HCl 100 MG Oral T ablet (B-1) Thiamine HCl 100 MG Oral Tablet (B-1) 08/27/2020 12:00:00 AM EDT 100 mg Oral active [facility] Oral Tablet atorvastatin (LIPITOR) tablet 20 mg atorvastatin (LIPITOR) tablet 20 mg 08/26/2020 09:00:00 PM EDT 20 mg Oral active 20 mg, Oral, Every evening, First dose on Tue08/26/20 at 2100, For 30 days [facility] Medication administered onsite gadobutrol (GADAVIST) contrast injection 7.5 mL [id number] 08/26/2020 06:00:00 PM EDT 0.1 mL/kg Intravenous completed 7.5 mL (rounded from 7.92 mL = 0.1 mL/kg 79.2 kg), Intravenous, 1 TIME IMAGING, Tue08/26/20 at 1800, For 1 dose
Do not mix or administer in the same IV line with other medications.
[facility] Medication administered onsite Hydrochlorothiazide 25 MG Oral Tablet hy drochlorothiazide (HYDRODIURIL) tablet 25 mg hydrochlorothiazide (HYDRODIURIL) tablet 25 mg 08/26/2020 10 :00:00 AM EDT 25 mg Oral active 25 mg, Oral, Elly ly Standard, First dose on Tue08/26/20 at 1000, For 30 days [facility] Medication administered onsite thiamine (B-1) 500 mg in sodium chloride 0.9 % 50 mL IVPB 08/25/2020 06:00:00 PM EDT 500 mg Intravenous completed 50 0 mg, Intravenous, Administer over 30 Minutes, Every 8 hours, First dose (after last reorder) on Tue08/25/20 at 1800, For 2 doses [facility] Medication administered onsite Levetiracetam 750 MG Oral Tablet levETIRAcetam (KEPPRA ) tablet 1,500 mg levETIRAcetam (KEPPRA) tablet 1,500 mg 08/25/2020 09:00:00 AM EDT 1500 mg Oral aborted 1,500 mg, Oral , 2 Times Daily, First dose on Tue08/25/20 at 0900, For 30 days [facility] Medication administered onsite Folic Acid 1 MG Oral Tablet folic acid (FOLVITE) table t 1 mg folic acid (FOLVITE) tablet 1 mg 08/25/2020 09:00:00 AM EDT 1 mg Oral active 1 mg, Oral, Daily Standard, First dose on Tue08/25/20 at 0900, For 30 days [facility] Medication administered onsite Vitamin B 12 1 MG Oral Tablet vitamin B-12 (CYANOCOBAL ALANIS) tablet 1,000 mcg vitamin B-12 (CYANOCOBALAMIN) tablet 1,000 mcg 08/25/2020 09:00:00 AM EDT 1000 ug Oral active 1,000 mcg, Oral, Daily Standard, First dose on Tue08/25/20 at 0900, For 30 days [facility] Medication administered onsite thiamine (B-1) 500 mg in sodium chloride 0.9 % 50 mL IVPB 08/25/2020 09:00:00 AM EDT 500 mg Intravenous completed 50 0 mg, Intravenous, Administer over 30 Minutes, Once, Tue08/25/20 at 0900, For 1 dose [facility] Medication administered onsite potassium chloride (K-DUR) dissolvable tablet 40 mEq 72173-1 [id number] 08/25/2020 06:00:00 AM EDT 40 meq Oral completed 40 mEq, Oral, Once, Tue08/25/20 at 0600, For 1 dose
May be dissolved in water for patients with a G-Tube or unable to swallow. If concern for clogging G-Tube, may contact Pharmacy to switch formulation to a powder packet.
[facility] Medication administered onsite sodium chloride 0.9 % bolus 1,000 mL [id number] 08/24/2020 11:15: 00 AM EDT 1000 mL Intravenous completed 1,000 mL , Intravenous, Once, [place] 08/24/20 at 1115, For 1 dose [facility] Medication administered onsite pantoprazole 4 MG/ML Injectable Solution pantoprazole (PROTONIX) injection 40 mg pantoprazole (PROTONIX) injection 40 mg 08/24/2020 09:00:00 AM EDT 40 mg Intravenous active 40 mg, Intrav enous, Daily Standard, First dose on Tue08/24/20 at 0900, For 30 days [facility] Medication administered onsite 0.4 ML Enoxaparin sodium 100 MG/ML Prefi lled Syringe enoxaparin sodium (LOVENOX) injection 40 mg enoxaparin sodium (LOVENOX) injection 40 mg 08/24/2020 09:00:00 AM EDT 40 mg Subcutaneous active 40 mg, Subcutaneous, Daily Standard, First dose on Tue08/24/20 at 0900, For 30 days [facility] Medication administered onsite dexmedetomidine (PRECEDEX) in NaCl 0.9 % infusion 4 mcg/mL 1 [id number] 08/24/2020 08:15:00 AM EDT ug/kg/h Intravenous aborted 0.1-1.5 mcg/kg/hr 75.3 kg (1.8825-28.2375 mL/hr, rounded to 1.9-28.2 mL/hr), Intravenous, at 1.9- 28.2 mL/hr, Continuous, Starting 08/24/20 at 0815, For 30 days
Starting dose = 0.2 mcg/kg/hrTitrate to maintain RASS of 0 to -1
[facility] Medication administered onsite fentaNYL (SUBLIMAZE) (PF) injection 25 mcg [id number] 08/24/2020 07:30:00 AM EDT 25 ug Intravenous completed 25 mcg, Intravenous, Once, [place] 08/24/20 at 0730, For 1 dose [facility] Medication administered onsite Potassium Chloride 0.1 MEQ/ML Injectable Solution potassium chloride 10 mEq in 100 mL IVPB (premix) potassium chloride 10 mEq in 100 mL IVPB (premix) 08/24/2020 06:00:00 AM EDT 10 meq Intravenous completed 10 mEq, Intravenous, Administer over 60 Minutes, Every 1 hour, First dose on [place] 08/24/20 at 0600, For 4 doses [facility] Medication administered onsite dextrose 5 %-0.9 % sodium chloride infusion [id number] 08/24/2020 12:00:00 AM EDT Intravenous aborted at 1 00 mL/hr, Intravenous, Continuous, Starting [place] 08/24/20 at 0000, For 30 days [facility] Medication administered onsite fentaNYL (SUBLIMAZE) (PF) injection 25 mcg [id number] 08/23/2020 09:04:39 PM EDT 25 ug Intravenous aborted 25 m cg, Intravenous, Every 3 hours PRN, Sedation, Starting 08/23/20 at 2104, For 1 day [facility] Medication administered onsite Levetiracetam 15 MG/ML Injectable Soluti on levETIRAcetam (KEPPRA) 1,500 mg in sodium chloride 100 mL (15 mg/mL) infusion (premix) levETIRAcetam (KEPPRA) 1,500 mg in sodium chloride 100 mL (15 mg/mL) infusion (premix) 08/23/2020 09:00:00 PM EDT 1500 mg Intravenous aborted 1,50 0 mg, Intravenous, at 400 mL/hr, 2 Times Daily, First dose on 08/23/20 at 2100, For 30 days [facility] Medication administered onsite dextrose 50 % IV solution 25 mL [id number] 08/23/2020 08:38:54 PM E DT 25 mL Intravenous active 25 mL, Intrav enous, PRN, Other, blood glucose <55, Starting 08/23/20 at 2037, For 30 days
Not for midline administration.
[facility] Medication administered onsite Glucagon 1 MG Injection glucagon (human recombinant) ( GLUCAGEN) injection 1 mg glucagon (human recombinant) (GLUCAGEN) injection 1 mg 08/23/2020 08:38:54 PM EDT 1 mg Intramuscular active 1 mg, Intramuscular, PRN, for glucose <55 without IV access, Starting 08/23/20 at 2037, For 30 days [facility] Medication administered onsite Glucose 0.417 MG/MG Oral Gel glucose (GLUTOSE) 40 % or al gel 15 g glucose (GLUTOSE) 40 % oral gel 15 g 08/23/2020 08:38:54 PM EDT 15 g Oral active 15 g, Oral, PRN, Low blood s ugar, for gluose 55-69 mg/dl and able to take PO, Starting 08/23/20 at 2037, For 30 days [facility] Medication administered onsite NaCl infusion 0.9 % [id number] 08/23/2020 07:00:00 PM EDT Intravenous aborted at 75 mL/hr, Intrave nous, Continuous, Starting 08/23/20 at 1900, For 30 days [facility] Medication administered onsite iohexol (OMNIPAQUE) 300 MG/ML contrast injection 100 mL [id number] 08/23/2020 05:15:00 PM EDT 100 mL Given by IV completed 100 mL, Given by IV, 1 TIME IMAGING, 08/23/20 at 1715, For 1 dose [facility] Medication administered onsite iohexol (OMNIPAQUE) 350 MG/ML contrast injection 75 mL [id number] 08/23/2020 05:15:00 PM EDT 75 mL Given by IV completed 75 mL, Given by IV, 1 TIME IMAGING, 08/23/20 at 1715, For 1 dose [facility] Medication administered onsite fentaNYL (SUBLIMAZE) (PF) injection 50 mcg [id number] 08/23/2020 04:45:00 PM EDT 50 ug Intravenous completed 50 mcg, Intravenous, Once, 08/23/20 at 1645, For 1 dose [facility] Medication administered onsite propofol (DIPRIVAN) infusion 1,000 mg/100 mL [id number] 08/23/2020 04:45:00 PM EDT ug/kg/min Intravenous aborted 1 0-80 mcg/kg/min 77.1 kg (4.626-37.008 mL/hr, rounded to 4.6-37 mL/hr), Intravenous, at 4.6-37 mL/hr, Continuous, Starting 08/23/20 at 1645, For 30 days
Starting dose = 10 mcg/kg/minIncrease by 5-10 mcg/kg/minMax Dose = 80 mcg/kg/minStart dose at 20, notify if drop in BP
[facility] Medication administered onsite 50 ML Magnesium Sulfate 40 MG/ML Injecti on magnesium sulfate infusion 2 g/50 mL (premix) magnesium sulfate infusion 2 g/50 mL (premix) 08/24/19 04:45:00 PM EDT 2 g Intravenous completed 2 g, Intravenous, Administer over 30 Minutes, Once, 08/23/20 at 1645, For 1 dose [facility] Medication administered onsite 25 mg 08/01/2020 [...] 1.0 {tablet_as_needed} suspended Viagra 50 MG eCW1 ([facility]) sildenafil 50 MG Oral Tablet [Viagra] Viagra 50 MG Viagra 50 MG 06/16/2020 12:00:00 AM EST 1.0 {tablet_as_needed} active Viagra 50 MG eCW1 ([facility]) sildenafil 50 MG Oral Tablet [Viagra] Viagra 50 MG Viagra 50 MG 06/16/2020 12:00:00 AM EST 1.0 {tablet_as_needed} suspended Viagra 50 MG eCW1 ([facility]) sildenafil 50 MG Oral Tablet [Viagra] Viagra 50 MG Viagra 50 MG 06/16/2020 12:00:00 AM EST 1.0 {tablet_as_needed} suspended Viagra 50 MG eCW1 ([facility]) sildenafil 50 MG Oral Tablet [Viagra] Viagra 50 MG Viagra 50 MG 06/16/2020 12:00:00 AM EST 1.0 {tablet_as_needed} active Viagra 50 MG eCW1 ([facility]) sildenafil 50 MG Oral Tablet [Viagra] Viagra 50 MG Viagra 50 MG 06/16/2020 12:00:00 AM EST 1.0 {tablet_as_needed} suspended Viagra 50 MG eCW1 ([facility]) sildenafil 50 MG Oral Tablet [Viagra] Viagra 50 MG Viagra 50 MG 06/16/2020 12:00:00 AM EST 1.0 {tablet_as_needed} active Viagra 50 MG eCW1 ([facility]) sildenafil 50 MG Oral Tablet [Viagra] Viagra 50 MG Viagra 50 MG 06/16/2020 12:00:00 AM EST 1.0 {tablet_as_needed} active Viagra 50 MG eCW1 ([facility]) sildenafil 50 MG Oral Tablet [Viagra] Viagra 50 MG Viagra 50 MG 06/16/2020 12:00:00 AM EST 1.0 {tablet_as_needed} suspended Viagra 50 MG eCW1 ([facility]) sildenafil 50 MG Oral Tablet [Viagra] Viagra 50 MG Viagra 50 MG 06/16/2020 12:00:00 AM EST 1.0 {tablet_as_needed} suspended Viagra 50 MG eCW1 ([facility]) sildenafil 50 MG Oral Tablet [Viagra] Viagra 50 MG Viagra 50 MG 06/16/2020 12:00:00 AM EST 1.0 {tablet_as_needed} suspended Viagra 50 MG eCW1 ([facility]) sildenafil 50 MG Oral Tablet [Viagra] Viagra 50 MG Viagra 50 MG 06/16/2020 12:00:00 AM EST 1.0 {tablet_as_needed} active Viagra 50 MG eCW1 ([facility]) sildenafil 50 MG Oral Tablet [Viagra] Viagra 50 MG Viagra 50 MG 06/16/2020 12:00:00 AM EST 1.0 {tablet_as_needed} suspended Viagra 50 MG eCW1 ([facility]) 25 mg 05/05/2020 12:00:00 AM EST tablet [...] EVERY DAY SOLD: 02/04/2020 [facility] Insurance Providers Payer name Policy type / Coverage type Policy ID Covered constitution party ID Covered constitution party's relationship to brady Policy Brady Plan Information [facility] [id number] Self [id number] ANSI-Not a Secondary Insurance [id number] ANSI-Not a Secondary Insurance [id number] ANSI-Not a Secondary Insurance [id number] ANSI-Not a Secondary Insurance [id number] ANSI-Not a Secondary Insurance [id number] ANSI-Not a Secondary Insurance [id number] ANSI-Not a Secondary Insurance [id number] ANSI-Not a Secondary Insurance [id number] ANSI-Not a Secondary Insurance [id number] ANSI-Not a Secondary Insurance [id number] ANSI-Not a Secondary Insurance [id number] ANSI-Not a Secondary Insurance [id number] ANSI-Not a Secondary Insurance [id number] MVP (pr) Commercial [id number] Self [id number] MVP (pr) Commercial [id number] Self [id number] MVP (pr) Commercial [id number] Self [id number] MVP (pr) Commercial [id number] Self [id number] [facility] [id number] SP [id number] ITT Xeros WORK COMP [id number] SP [id number] ITT Xeros WORK COMP [id number] SP [id number] SELF PAY UNAVAILABLE SP UNAVAILA BLE ITT Xeros WORK COMP [id number] SP [id number] [facility] [id number] SP [id number] [facility] INSURANCE FUND [id number] SP [id number] Problems, Conditions, and Diagnoses Code Display Name Description Problem Type Effective Dates Data Source(s) R56.9 Unspecified convulsions Unspecified convulsions Diagno sis 08/23/2020 04:13:00 PM EDT [facility] [id number] Essential hypertension Essential hypertension Problem 01/01/2021 12:00:00 AM EDT [facility] ([facility], ) F43.21 [id number] Grief Problem 09/04/2020 12:00:00 AM ED T eCW ([facility]) N52.9 [id number] Erectile dysfunction, unspecifie d erectile dysfunction type Problem 06/16/2020 12:00:00 AM EST eCW ([facility]) Surgeries/Procedures Procedure Description Date Indications Data Source(s) Lap Inguinal Hernia Repair 03/04/2021 12:00:00 AM EDT [facility] ([facility], ) Imm: Flublok Quadrivalent 18 years & older 0.5mL IM Influenz a 02/16/2021 12:00:00 AM EDT [facility] (Critical access hospital) OFFICE OUTPATIENT NEW 45 MINUTES 01/01/2021 12:00:00 A M EDT [facility] ([facility], ) BLOOD COUNT COMPLETE AUTO&AUTO DIFRNTL WBC COUNT <td>C BC AND DIFFERENTIAL</td><td>Routine</td><td>08/27/2020 3:15 AM EDT</td><td></td><td> </td> 08/27/2020 03:15:00 AM EDT [facility] MRI SPINAL CANAL CERVICAL W/O & W/CONTR MATRL <td>MR C ERVICAL SPINE WITH AND WITHOUT CONTRAST [id number]</td><td>Routine</td><td>08/26/2020 6:46 PM EDT</td><td></td><td></td> 08/26/2020 06:46:[address] [facility] MRI BRAIN BRAIN STEM W/O &W/CONTRAST MATERIAL <td>MR B RAIN WITH AND WITHOUT CONTRAST [id number]</td><td>Pending Discharge</td><td>08/26/2020 6:46 PM EDT</td><td></td><td> </td> 08/26/2020 06:46:08 PM [facility] BLOOD COUNT COMPLETE AUTO&AUTO DIFRNTL WBC COUNT <td>C BC AND DIFFERENTIAL</td><td>Routine</td><td>08/26/2020 4:19 AM EDT</td><td></td><td> </td> 08/26/2020 04:19:00 AM [facility] BASIC METABOLIC PANEL CALCIUM TOTAL <td>BASIC METABOLI C PANEL</td><td>Routine</td><td>08/26/2020 4:19 AM EDT</td><td></td><td> </td> 08/26/2020 04:19:00 AM [facility] BLOOD COUNT COMPLETE AUTO&AUTO DIFRNTL WBC COUNT <td>C BC AND DIFFERENTIAL</td><td>Routine</td><td>08/25/2020 3:43 AM EDT</td><td></td><td> </td> 08/25/2020 03:43:00 AM [facility] PHOSPHORUS INORGANIC <td>PHOSPHORUS LEVEL</td><td >Routine</td><td>08/25/2020 3:43 AM EDT</td><td></td><td> </td> 08/25/2020 03:43:00 AM [facility] MAGNESIUM <td>MAGNESIUM LEVEL</td><td> Routine</td><td>08/25/2020 3:43 AM EDT</td><td></td><td> </td> 08/25/2020 03:43:00 AM [facility] CYANOCOBALAMIN VITAMIN B-12 <td>VITAMIN B12</td><td>Ro utine</td><td>08/25/2020 3:43 AM EDT</td><td></td><td> </td> 08/25/2020 03:43:00 AM [facility] BASIC METABOLIC PANEL CALCIUM TOTAL <td>BASIC METABOLI C PANEL</td><td>Routine</td><td>08/25/2020 3:43 AM EDT</td><td></td><td> </td> 08/25/2020 03:43:00 AM [facility] POCT GLUCOSE, DOCKED <td>POCT GLUCOSE, DOCKED</td ><td>Routine</td><td>08/24/2020 3:32 PM EDT</td><td></td><td> </td> 08/24/2020 03:32:00 PM [facility] GLUCOSE QUANTITATIVE BLOOD XCPT REAGENT STRIP <td>POCT GLUCOSE, DOCKED</td><td>Routine</td><td>08/24/2020 1:40 PM EDT</td><td></td><td> </td> 08/24/2020 01:40:00 PM [facility] CREATINE KINASE TOTAL <td>CK</td><td>Routine</td>< td>08/24/2020 11:34 AM EDT</td><td></td><td> </td> 08/24/2020 11:34:00 AM [facility] EKG 12-LEAD - CMAXX REPORT <td>EKG 12-LEAD - CMAXX REPORT</td><td></td><td>08/24/2020 10:40 AM EDT</td><td></td><td></td> 08/24/2020 10:40:45 AM [facility] EKG 12-LEAD - CMAXX REPORT <td>EKG 12-LEAD - CMAXX REPORT</td><td></td><td>08/24/2020 10:40 AM EDT</td><td></td><td></td> 08/24/2020 10:40:45 AM [facility] EKG 12-LEAD <td>EKG 12-LEAD</td><td>Rout ine</td><td>08/24/2020 10:40 AM EDT</td><td></td><td> </td> 08/24/2020 10:40:45 AM [facility] GLUCOSE QUANTITATIVE BLOOD XCPT REAGENT STRIP <td>POCT GLUCOSE, DOCKED</td><td>Routine</td><td>08/24/2020 8:53 AM EDT</td><td></td><td> </td> 08/24/2020 08:53:00 AM [facility] XR CHEST FRONTAL ONLY [id number] <td>XR CHEST FRONTAL ONLY 28096</td><td>Routine</td><td>08/24/2020 4:37 AM EDT</td><td></td><td> </td> 08/24/2020 04:37:00 AM [facility] GLUCOSE QUANTITATIVE BLOOD XCPT REAGENT STRIP <td>POCT GLUCOSE, DOCKED</td><td>Routine</td><td>08/24/2020 4:06 AM EDT</td><td></td><td> </td> 08/24/2020 04:06:00 AM [facility] BLOOD COUNT COMPLETE AUTO&AUTO DIFRNTL WBC COUNT <td>C BC AND DIFFERENTIAL</td><td>Routine</td><td>08/24/2020 3:49 AM EDT</td><td></td><td> </td> 08/24/2020 03:49:00 AM [facility] PHOSPHORUS INORGANIC <td>PHOSPHORUS LEVEL</td><td >Routine</td><td>08/24/2020 3:49 AM EDT</td><td></td><td> </td> 08/24/2020 03:49:00 AM [facility] MAGNESIUM <td>MAGNESIUM LEVEL</td><td> Routine</td><td>08/24/2020 3:49 AM EDT</td><td></td><td> </td> 08/24/2020 03:49:00 AM [facility] BASIC METABOLIC PANEL CALCIUM TOTAL <td>BASIC METABOLI C PANEL</td><td>Routine</td><td>08/24/2020 3:49 AM EDT</td><td></td><td> </td> 08/24/2020 03:49:00 AM [facility] GLUCOSE QUANTITATIVE BLOOD XCPT REAGENT STRIP <td>POCT GLUCOSE, DOCKED</td><td>Routine</td><td>08/24/2020 2:12 AM EDT</td><td></td><td> </td> 08/24/2020 02:12:00 AM [facility] GLUCOSE QUANTITATIVE BLOOD XCPT REAGENT STRIP <td>POCT GLUCOSE, DOCKED</td><td>Routine</td><td>08/23/2020 11:46 PM EDT</td><td></td><td> </td> 08/23/2020 11:46:00 PM [facility] HEMOGLOBIN GLYCOSYLATED A1C <td>HEMOGLOBIN A1C</td><td>Routine</td><td>08/23/2020 8:56 PM EDT</td><td></td><td> </td> 08/23/2020 08:56:00 PM [facility] GLUCOSE QUANTITATIVE BLOOD XCPT REAGENT STRIP <td>POCT GLUCOSE, DOCKED</td><td>Routine</td><td>08/23/2020 8:43 PM EDT</td><td></td><td> </td> 08/23/2020 08:43:00 PM [facility] DRUGS OF ABUSE, URINE <td>DRUGS OF ABUSE, URINE</t d><td>STAT</td><td>08/23/2020 5:29 PM EDT</td><td></td><td> </td> 08/23/2020 05:29:00 PM [facility] URNLS DIP STICK/TABLET REAGENT AUTO MICROSCOPY <td>URI NALYSIS WITH MICROSCOPIC</td><td>STAT</td><td>08/23/2020 5:29 PM EDT</td><td></td><td> </td> 08/23/2020 05:29:00 PM [facility] EKG 12-LEAD - CMAXX REPORT <td>EKG 12-LEAD - CMAXX REPORT</td><td></td><td>08/23/2020 5:24 PM EDT</td><td></td><td></td> 08/23/2020 05:24:40 PM [facility] EKG 12-LEAD - CMAXX REPORT <td>EKG 12-LEAD - CMAXX REPORT</td><td></td><td>08/23/2020 5:24 PM EDT</td><td></td><td></td> 08/23/2020 05:24:40 PM [facility] EKG 12-LEAD <td>EKG 12-LEAD</td><td>STAT </td><td>08/23/2020 5:24 PM EDT</td><td></td><td> </td> 08/23/2020 05:24:40 PM [facility] CALCIUM IONIZED <td>CALCIUM, IONIZED</td><td >Routine</td><td>08/23/2020 5:20 PM EDT</td><td></td><td> </td> 08/23/2020 05:20:00 PM [facility] AMMONIA <td>AMMONIA LEVEL</td><td>Ro utine</td><td>08/23/2020 5:20 PM EDT</td><td></td><td> </td> 08/23/2020 05:20:[address] [facility] [address] ANGIOGRAPHY NECK W/CONTRAST/NONCONTRAST <td>CT JAKI OGRAPHY NECK 65532</td><td>CODE</td><td>08/23/2020 5:15 PM EDT</td><td></td><td> </td> 08/23/2020 05:15:[address] [facility] [address] ANGIOGRAPHY HEAD W/CONTRAST/NONCONTRAST <td>CT JAKI OGRAPHY HEAD 79190</td><td>CODE</td><td>08/23/2020 5:15 PM EDT</td><td></td><td> </td> 08/23/2020 05:15:[address] [facility] [address] THORAX W/CONTRAST MATERIAL <td>CT THORAX WITH CONTR AST 81432</td><td>CODE</td><td>08/23/2020 5:15 PM EDT</td><td></td><td> </td> 08/23/2020 05:15:[address] [facility] [address] MAXILLOFACIAL W/O CONTRAST MATERIAL <td>CT MAXILLOF ACIAL WITHOUT CONTRAST 58535</td><td>CODE</td><td>08/23/2020 5:15 PM EDT</td><td></td><td> </td> 08/23/2020 05:15:[address] [facility] [address] ABDOEN & PELVIS W/CONTRAST MATERIAL <td>CT ABDOMEN PELVIS WITH CONTRAST 13793</td><td>CODE</td><td>08/23/2020 5:15 PM EDT</td><td></td><td> </td> 08/23/2020 05:15:[address] [facility] [address] LUMBAR SPINE W/O CONTRAST MATERIAL <td>CT LUMBAR SP INE WITHOUT CONTRAST 66510</td><td>STAT</td><td>08/23/2020 5:15 PM EDT</td><td></td><td> </td> 08/23/2020 05:15:[address] [facility] [address] THORACIC SPINE W/O CONTRAST MATERIAL <td>CT THORACI C SPINE WITHOUT CONTRAST 54572</td><td>CODE</td><td>08/23/2020 5:15 PM EDT</td><td></td><td> </td> 08/23/2020 05:15:[address] [facility] [address] CERVICAL SPINE W/O CONTRAST MATERIAL <td>CT CERVICA L SPINE WITHOUT CONTRAST 41491</td><td>CODE</td><td>08/23/2020 5:15 PM EDT</td><td></td><td> </td> 08/23/2020 05:15:00 PM [facility] RESPIRATORY PATHOGEN PANEL <td>RESPIRATORY PATHOGEN PANEL</td><td>Routine</td><td>08/23/2020 4:43 PM EDT</td><td></td><td> </td> 08/23/2020 04:43:00 PM [facility] COVID-19 PCR <td>COVID-19 PCR</td><td>Rou brenda</td><td>08/23/2020 4:43 PM EDT</td><td></td><td> </td> 08/23/2020 04:43:00 PM [facility] XR CHEST FRONTAL ONLY 47941 <td>XR CHEST FRONTAL ONLY 80347</td><td>STAT</td><td>08/23/2020 4:40 PM EDT</td><td></td><td> </td> 08/23/2020 04:40:30 PM [facility] THROMBOPLASTIN TIME PARTIAL PLASMA/WHOLE BLOOD <td>PAR TIAL THROMBOPLASTIN TIME (PTT)</td><td>STAT</td><td>08/23/2020 4:33 PM EDT</td><td></td><td> </td> 08/23/2020 04:33:00 PM [facility] ACETAMINOPHEN, RANDOM <td>ACETAMINOPHEN, RANDOM</t d><td>STAT</td><td>08/23/2020 4:33 PM EDT</td><td></td><td> </td> 08/23/2020 04:33:00 PM [facility] ETHYL ALCOHOL LEVEL <td>ETHYL ALCOHOL LEVEL</td> <td>STAT</td><td>08/23/2020 4:33 PM EDT</td><td></td><td> </td> 08/23/2020 04:33:00 PM [facility] TROPONIN QUANTITATIVE <td>POCT ISTAT TROPONIN</td> <td>Routine</td><td>08/23/2020 4:33 PM EDT</td><td></td><td> </td> 08/23/2020 04:33:00 PM [facility] PROTHROMBIN TIME <td>PROTIME INR</td><td>STAT </td><td>08/23/2020 4:33 PM EDT</td><td></td><td> </td> 08/23/2020 04:33:00 PM [facility] BLOOD COUNT COMPLETE AUTO&AUTO DIFRNTL WBC COUNT <td>C BC AND DIFFERENTIAL</td><td>Routine</td><td>08/23/2020 4:33 PM EDT</td><td></td><td> </td> 08/23/2020 04:33:00 PM [facility] TROPONIN QUANTITATIVE <td>TROPONIN T</td><td>Routi ne</td><td>08/23/2020 4:33 PM EDT</td><td></td><td> </td> 08/23/2020 04:33:00 PM [facility] THYROID STIMULATING HORMONE TSH <td>TSH</td><td>Routin e</td><td>08/23/2020 4:33 PM EDT</td><td></td><td> </td> 08/23/2020 04:33:00 PM [facility] THYROXINE TOTAL <td>T4</td><td>Routine</td>< td>08/23/2020 4:33 PM EDT</td><td></td><td> </td> 08/23/2020 04:33:00 PM [facility] MAGNESIUM <td>MAGNESIUM LEVEL</td><td> Routine</td><td>08/23/2020 4:33 PM EDT</td><td></td><td> </td> 08/23/2020 04:33:00 PM [facility] SALICYLATE LEVEL <td>SALICYLATE LEVEL</td><td >STAT</td><td>08/23/2020 4:33 PM EDT</td><td></td><td> </td> 08/23/2020 04:33:00 PM [facility] HEPATIC FUNCTION PANEL <td>HEPATIC FUNCTION PANEL A</td><td>STAT</td><td>08/23/2020 4:33 PM EDT</td><td></td><td> </td> 08/23/2020 04:33:00 PM [facility] BASIC METABOLIC PANEL CALCIUM TOTAL <td>BASIC METABOLI C PANEL</td><td>STAT</td><td>08/23/2020 4:33 PM EDT</td><td></td><td> </td> 08/23/2020 04:33:00 PM [facility] BASIC METABOLIC PANEL CALCIUM IONIZED <td>POCT ISTAT CHEM8</td><td>Routine</td><td>08/23/2020 4:31 PM EDT</td><td></td><td> </td> 08/23/2020 04:31:00 PM [facility] BLOOD GASES ANY COMBINATION PH PCO2 PO2 CO2 HCO3 <td>P OCT ISTAT VBG/LAC</td><td>Routine</td><td>08/23/2020 4:28 PM EDT</td><td></td><td> </td> 08/23/2020 04:28:00 PM [facility] EKG 12 LEAD (UNSOLICITED COMPUTER ORDER) <td>EKG 12 LE AD (UNSOLICITED COMPUTER ORDER)</td><td>Routine</td><td>08/23/2020 4:22 PM EDT</td><td></td><td></td> 08/23/2020 04:22:38 PM [facility] EKG 12-LEAD - CMAXX REPORT <td>EKG 12-LEAD - CMAXX REPORT</td><td></td><td>08/23/2020 4:22 PM EDT</td><td></td><td></td> 08/23/2020 04:22:38 PM EDT [facility] EKG 12-LEAD - CMAXX REPORT <td>EKG 12-LEAD - CMAXX REPORT</td><td></td><td>08/23/2020 4:22 PM EDT</td><td></td><td></td> 08/23/2020 04:22:38 PM EDT [facility] EKG 12-LEAD <td>EKG 12-LEAD</td><td>Rout ine</td><td>08/23/2020 4:22 PM EDT</td><td></td><td> </td> 08/23/2020 04:22:38 PM T [facility] Results ID Date Data Source [id number] 09/04/2020 08:50:20 AM EDT [facility] Name Value Range Interpretation Code Description Data Aylin rce(s) Supporting Document(s) Discharge Summary [facility] NWQSKg0iNqVLQgLd21/UNTvtXLMay8XlNQkaRCn9IUolOAFqM2UhHJU9cT9wOCJ7NFcBEzFwIhHkPJW6 lbm [file] DI/HAeBySBL/Elie/N3CmmZGhm/4tKK86gdJsIEWlNrwo0zOjiHkxFDXj0GrGOBaGXbPKZn88bkYBANQw +tvDsIEMP0uqNc8FMoleKhi62IYUhtU9kZi9rSuhPUJxy4yjLvrYEUHlxHFJTmDCycWcjs4eGAKUXqI7 ChmrSd5EWi5sUvCibRIRJvSoqPEb+3EkxXu1Tu8G57 Gez9jRKcpO3Z/4HDkk8Krlcek3bAYCA6OUS7Q17x+N3aG2Rx4O8o+4kV81fUr6Yhja/Xsgsvc5h8lByZ I7Gy2es/3US0H72NaFC6tJBMJWstBKa6kiqdaQzUMEc114vxyUlkrxv23I4/Api9hdzPhB6+aDMnBqV8 zdp6T1nRV8VDmdhQcJOFzM+fxdoanjNoHfiMh9K [file] XhhlTiPfJEy8MgAvEzOiPH1KMz0ZBmT2XRD3uNBiSs7QYoMzWKTADgIxEH7NCLj= ID Date Data Source VITAMIN B1 LEVEL WHOLE BLOOD 09/04/2020 12:00:00 AM EDT eCW1 ([facility]) Name Value Range Interpretation Code Description Data Aylin rce(s) Supporting Document(s) 269.7 66.5-200.0 VITAMIN B1 LEVEL WHOLE BL OOD eCW1 ([facility]) ID Date Data Source VITB12 & FOL 09/04/2020 12:00:00 AM EDT eCW1 ([facility]) Name Value Range Interpretation Code Description Data Aylin rce(s) Supporting Document(s) 712 VITAMIN B12 LEVEL eCW1 ([facility]) > 24.0 FOLATE eCW1 ([facility]) ID Date Data Source METHYLMALONIC ACID 09/04/2020 12:00:00 AM EDT eCW1 ([facility]) Name Value Range Interpretation Code Description Data Aylin rce(s) Supporting Document(s) METHYLMALONIC ACID eCW1 ([facility]) ID Date Data Source HOMOCYSTEINE SERUM 09/04/2020 12:00:00 AM EDT eCW1 ([facility]) Name Value Range Interpretation Code Description Data Aylin rce(s) Supporting Document(s) HOMOCYSTEINE SERUM eCW1 ([facility]) ID Date Data Source Comprehensive Metabolic Profile (CMP) 09/04/2020 12:00:00 AM EDT eCW1 ([facility]) Name Value Range Interpretation Code Description Data Aylin rce(s) Supporting Document(s) 97 70-100 GLUCOSE, FASTING eCW1 ([facility]) > 60.0 >49 GLOMERULAR FILTRATION RATE eCW 1 ([facility]) 0.82 0.70-1.30 CREATININE FOR GFR eCW1 ([facility]) 8 7-18 BLOOD UREA NITROGEN eCW1 ([facility]) 133 136-145 SODIUM LEVEL eCW1 ([facility]) 97 98-107 CHLORIDE LEVEL eCW1 ([facility]) 4.3 3.5-5.1 POTASSIUM SERUM eCW1 ([facility]) 25 21-32 CARBON DIOXIDE LEVEL eCW1 ([facility]) 20 7-37 AST/SGOT eCW1 ([facility]) 9.7 8.8-10.2 CALCIUM LEVEL eCW1 ([facility]) 0.5 0.2-1.0 BILIRUBIN,TOTAL eCW1 ([facility]) 7.0 6.4-8.2 TOTAL PROTEIN eCW1 ([facility]) 70 45-117 ALKALINE PHOSPHATASE eCW1 ([facility]) 34 12-78 ALT/SGPT eCW1 ([facility]) 3.8 3.2-5.2 ALBUMIN eCW1 ([facility]) 1.2 ALBUMIN/GLOBULIN RATIO eCW1 ([facility]) ID Date Data Source CBC with Differential 09/04/2020 12:00:00 AM EDT eCW1 ([facility]) Name Value Range Interpretation Code Description Data Aylin rce(s) Supporting Document(s) 8.7 4.0-10.0 WHITE BLOOD COUNT eCW1 ([facility]) 4.73 4.30-6.10 RED BLOOD COUNT eCW1 ([facility]) 15.5 13.5-17.5 HEMOGLOBIN eCW1 ([facility]) 45.1 42.0-52.0 HEMATOCRIT eCW1 ([facility]) 95.3 80.0-96.0 MEAN CORPUSCULAR VOLUME e CW1 ([facility]) 34.4 32.0-36.5 MEAN CORPUSCULAR HGB CONC eCW1 ([facility]) 32.8 27.0-33.0 MEAN CORPUSCULAR HEMOGLOB IN eCW1 ([facility]) 360 150-450 PLATELET COUNT, AUTOMATED eCW1 ([facility]) 11.8 11.5-14.5 RED CELL DISTRIBUTION WID TH eCW1 ([facility]) 13.7 24.0-44.0 LYMPH % eCW1 ([facility]) 7.6 2.0-8.0 MONO % eCW1 ([facility]) 73.7 36.0-66.0 NEUTROPHILS % eCW1 ([facility]) 2.3 0.0-3.0 EOS % eCW1 ([facility]) 1.1 0.0-1.0 BASO % eCW1 ([facility]) 6.4 1.5-8.5 NEUTROPHILS # eCW1 ([facility]) 0.7 0.0-0.8 MONO # eCW1 ([facility]) 1.2 1.5-5.0 LYMPH # eCW1 ([facility]) 0.2 0.0-0.5 EOS # eCW1 ([facility]) 0.1 0.0-0.2 BASO # eCW1 ([facility]) ID Date Data Source [id number] 08/27/2020 04:22:50 PM EDT [facility] MR CERVICAL SPINE WITH AND WITHOUT CONTR AST [id number] RESULTInterpreted by:Umesh Matthew MD08/26/2020 5:52 PM MR CERVICAL SPINE WITH AND WITHOUT CONTRAST [id number] CLINICAL INFORMATION: N findings concerning for cervical spinal lesion ADDITIONAL [...] narrowing. C4-C5: Moderate spinal canal stenosis and iuga-pj-ckwkukqy bilateral neuroforaminal narrowing.C5-C6: Moderate spinal canal stenosis [...] rce(s) Supporting Document(s) ID Date Data Source [id number] 08/27/2020 10:59:22 AM T [facility] Name Value Range Interpretation Code Description Data Aylin rce(s) Supporting Document(s) [facility] DKGPTv7yBgBHThVl33/RCYmlEQHwq9PwCQfpUXc8MJsgAITxE3VvIYN5wQ8mNLL2MObEIlWyOoUzINJ5 lbm [file] [employer]+IMKQtX5Mf6rsiA5uLo1JkZt9g99E3m3TBRue62f [file] CFmzwHHdgXvwJOLPSyT1JYd7WFwuGXLFAo0E ID Date Data Source [id number] 08/27/2020 03:46:43 AM EDT [facility] Name Value Range Interpretation Code Description Data Aylin rce(s) Supporting Document(s) Leukocytes [#/volume] in Blood by Automated count 9.2 10*3/uL 4-10 [facility] Erythrocytes [#/volume] in Blood by Automated count 4.64 10*6/uL 4.6- 6.1 [facility] Hemoglobin [Mass/volume] in Blood 15.3 g/dL 13.5-18 [facility] Hematocrit [Volume Fraction] of Blood by Automated count 45.1 % 4 1-53 [facility] Erythrocyte mean corpuscular volume [Entitic volume] by Auto mated count 97.1 fL 80-96 H [facility] Erythrocyte mean corpuscular hemoglobin [Entitic mass] by Automated count 32.9 pg 27-33 [facility] Erythrocyte mean corpuscular hemoglobin concentration [Mass/volume] by Automated [facility] 33.9 g/[facility] 32[facility] width [Ratio] by Automated count 13.2 % 11.5-14.5 [facility] Platelets [#/volume] in Blood by Automated count 204 10*3/uL 150-400 [facility] Differential cell count method - Blood [facility] Neutrophils/100 leukocytes in Blood by Automated count 79 % [facility] Lymphocytes/100 leukocytes in Blood by Automated count 8 % [facility] Monocytes/100 leukocytes in Blood by Automated count 10 % [facility] Eosinophils/100 leukocytes in Blood by Automated count 1 % [facility] Basophils/100 leukocytes in Blood by Automated count 2 % [facility] Neutrophils [#/volume] in Blood by Automated count 7.26 10*3/uL 1.8-7 .0 H [facility] Lymphocytes [#/volume] in Blood by Automated count 0.78 10*3/uL 1.2-4 .0 L [facility] Monocytes [#/volume] in Blood by Automated count 0.96 10*3/uL 0-0.8 H [facility] Eosinophils [#/volume] in Blood by Automated count 0.09 10*3/uL 0-0.5 [facility] Basophils [#/volume] in Blood by Automated count 0.15 10*3/uL 0-0.2 [facility] Nucleated erythrocytes/100 leukocytes [Ratio] in Blood by Automated count 0 /100{WBCs} 0-0 [facility] ID Date Data Source [id number] 08/26/2020 10:05:58 PM EDT [facility] MR BRAIN WITH AND WITHOUT CONTRAST [id number] FINAL RESULTInterpreted by:Sosa Lamar MDINDICATION: Apnea, unresponsive, [...] rce(s) Supporting Document(s) ID Date Data Source [id number] 08/26/2020 01:11:12 PM EDT [facility] Name Value Range Interpretation Code Description Data [facility] rce(s) Supporting Document(s) Consultation [facility] ATYDFb0rQeRHRiKp00/ZUSonJNJuk6LdFYncUDw1ZLclIJXhL0WfXWH4lT1nLVM6SJpTDaWoMzIzPCN1 lbm [file] AgICAgICAgICAgICAgICAgICAgICAgICAgICAgICAgICAgICAgICAgICAgICAgICAgICAgICAgICAgIC RwYBWgWGNwGOMqTJZbKSQlKUMxKOJlQQJaAARgVILgVSLyDPGbPK6MGMKyJERcJYUcCBLuUMFaLMPxVL AgICAgICAgICAgICAgICAgICAgICAgICAgICAgICAg WBJaCIApGLAiKAScWREvMAKyVDFhFCBjEXLgXGWwOJBlHPNoGWOrXZRyEHBnQHNuXX5XKHVwSHCvCBHt ICAgICAgICAgICAgICAgICAgICAgICAgICAgICAgICAgICAgICAgICAgICAgICAgICAgICAgICAgICAg ICAgICAgICAgICAgICAgICAgICAgICAgICAgICAgIA 0KICAgICAgICAgICAgICAgICAgICAgICAgICAgICAgICAgICAgICAgICAgICAgICAgICAgICAgICAgIC MdVADpKKJaPSTtVKXlNYAcGKPcNPOtBHPxUBLdAVApYZLwLWAhPEXyGT6CWKWeBFVrPVRlBDYrTWSyGF AgICAgICAgICAgICAgICAgICAgICAgICAgICAgICAg KHFcNBLmZZLvSQSfNWJeEYZkGHYaQKHbELJcDACqAWRkVPPtGIJmPKSfBTPpCDVqRCCuTG3CPYRfCKUq ICAgICAgICAgICAgICAgICAgICAgICAgICAgICAgICAgICAgICAgICAgICAgICAgICAgICAgICAgICAg ICAgICAgICAgICAgICAgICAgICAgICAgICAgICAgIC XzIY7FADXyUMEjEWPkZGKlQLFeOTBhSZOuSEObCXZuNGFzKXGzTFTdAZKpHSBcNOYnWLOzETWwSJSpCW XdTDWsPLVdHIZuTHDtTDJdGBYtGLGvBCGhUZNcOUKfZCGzZVBoTATmVVJdIV6WLYSeCAMtFLAsBZJjOB AgICAgICAgICAgICAgICAgICAgICAgICAgICAgICAg DHPnVJCqFODwAYBvPATfTNLzMOSoOPElFJHkGVZiEBNbCRPfZHNhZNXjGCCrJCEnHSVcNULkNR5SSXXi ICAgICAgICAgICAgICAgICAgICAgICAgICAgICAgICAgICAgICAgICAgICAgICAgICAgICAgICAgICAg ICAgICAgICAgICAgICAgICAgICAgICAgICAgICAgIC IfXFKpEL3JQKZyMWOqVZJqOSTqLJFlAUTkAHIlCEVmSRCxNIGlDXWcYRYcJFEpZQWpZJGlLEKnNBDyLZ MbESUiLJChSNUuEQZoPXFhNWPxABOlMZDlHCZsZYFiHMFlKFIwVPOaEXArOVOnWA7HBL13kSJps7N6JO YvJH4dyjn/Te0MIYrmwjNppYObBM5YHdCkHA2ubs6Y QiOnGC5oxk1VANkBNgGiB7P5zGHxGJYkUXQZPaNfD98nVJpeTw10ANpwYUAmThPaITi4Yf5KHeNeK6ct KGMoRoQ1FUFaTzWsMJeoWJ7Kd5MxzBWpOVp+Hn1CWH2ip8NmNKbtHFQbTF6clq0CUHhBJzSkP4NiccK7 DEG9JXUpMb1RSZPlFJUgzDZaLIWjVTIEKjKdW4EcnW 68JSPKDn1+PDqedfAeJqaLNqB2FKHde2SmWGh9MZ3ZKRGhQOw0pIHzW53yx2FggXGxItmjYhHsxwPoHQ LFtFPpkiDcMO9RUIM8EHDpBe5iTFNaBUVgYtD2VROPJG0UWLBpKDXuxHTkFJXtBLPHAM0VCXoxBMX2XQ KppxJiuJQrRGwqEF0VVZIsxnJeRDSxTTGENCs+Pg0K IF2xz0FuAIvgVlHlUY3rnc6RCGhLCzTqN6K1vWRkT2J4QPxpCl6NEMCjWTBeLAFpENRCJEtbNZ4ILQ6i seA7XC2ScQAwQEEtFEKisYLiZVc9A04wsUStASgrWC5NGQY+Sameer+Hj0OUEIsHTMwKXFyRaLzWIKWUgJu P7DcB1DBh6NuK3JbCN90bLgbbcIgPTmuCT7YHN8yQN LyZUXUYT4PdXKlpI7jxpNuVYEeMPXDGiEuK72jwJCeZPNfZHSmURDmPy0PCJAvF3AtedSdeQglbyQhAW MiLWRMYE3QGOvxrtVdeLHyyQpcYO24ePczMU1XBx5YZsVdPR3qlz3WqAXbOo8VRTLgMh9FRUNlADPoMX DnXQN5YTFiOwJdDDvmAAEbFDBnYEA2ERIvTWXnZJ2V BwIlJWDbQLH0XHMpQZAoNSAqqp9EDTGsTGJiVeY5EiVuJPQlWAXhGEuxZDLwUJFnXNC0UXNxUQTuOK3N ZkSnVLZiACGbHyPrUBGaQIHzvs5OYBNnBOGdRaM2JAFlPDXlGQVqYWrrPFPaOXLkSBh7NVWdSHHkKV4P FlMlELJiFTKzGEXgGFAnXCNtth4FDZLuTXWtVpU5QJ SfFRPnCLMhDXbjFEUfLPS1IQOkBJZhOHRcVF8HSyEhAMToCOX5YiFuXIRsVEWeig5SDWXlUJCdKEaxMf ZwCEVyQCMcETldBLJcDHA8OoP7ZPNaAZJjDY7OPbVjHSPsXWC9WpCwEDEgWSVsjo8VPXLcBZKtQccsFH DdHBIqMARkKNxsAWGbYAD1VYk3CYUkFBFgMO9QJyPl CHrhKVVOTsy3LDnmA1d9XUGdSd1LJ2Tfr2GmKBDlRZLXITfmPD3lcjJrCJLoFx5DW6mHTcg9SeYoKotn YLj3UgnmUlQ0UvMcSCM6IgZbZ6M3AXL2Cl3iMBZjJFImB9W0LoIvJ9V6TrBuMNY7OLSsTmXjCjxzNfz2 IwYjOC2JIo[id number]== ID Date Data Source [id number] 08/26/2020 05:14:47 AM EDT [facility] Name Value Range Interpretation Code Description Data Aylin rce(s) Supporting Document(s) Leukocytes [#/volume] in Blood by Automated count 7.2 10*3/uL 4-10 [facility] Erythrocytes [#/volume] in Blood by Automated count 4.18 10*6/uL 4.6- 6.1 L [facility] Hemoglobin [Mass/volume] in Blood 13.8 g/dL 13.5-18 [facility] Hematocrit [Volume Fraction] of Blood by Automated count 40.9 % 4 1-53 L [facility] Erythrocyte mean corpuscular volume [Entitic volume] by Auto mated count 97.9 fL 80-96 H [facility] Erythrocyte mean corpuscular hemoglobin [Entitic mass] by Automated count 33.0 pg 27-33 [facility] Erythrocyte mean corpuscular hemoglobin concentration [Mass/volume] by Automated count 33.7 g/[facility] distribution width [Ratio] by Automated count 13.4 % 11.5-14.5 [facility] Platelets [#/volume] in Blood by Automated count 190 10*3/uL 150-400 [facility] Differential cell count method - Blood [facility] Neutrophils/100 leukocytes in Blood by Automated count 75 % [facility] Lymphocytes/100 leukocytes in Blood by Automated count 13 % [facility] Monocytes/100 leukocytes in Blood by Automated count 10 % [facility] Eosinophils/100 leukocytes in Blood by Automated count 2 % [facility] Basophils/100 leukocytes in Blood by Automated count 0 % [facility] Neutrophils [#/volume] in Blood by Automated count 5.47 10*3/uL 1.8-7 .0 [facility] Lymphocytes [#/volume] in Blood by Automated count 0.92 10*3/uL 1.2-4 .0 [facility] [facility] Monocytes [#/volume] in Blood by Automated count 0.69 10*3/uL 0-0.8 [facility] Eosinophils [#/volume] in Blood by Automated count 0.12 10*3/uL 0-0.5 [facility] Basophils [#/volume] in Blood by Automated count 0.03 10*3/uL 0-0.2 [facility] Nucleated erythrocytes/100 leukocytes [Ratio] in Blood by Automated count 0 /100{WBCs} 0-0 [facility] ID Date Data Source [id number] 08/26/2020 05:29:53 AM EDT [facility] Name Value Range Interpretation Code Description Data Aylin rce(s) Supporting Document(s) Bicarbonate [Moles/volume] in Serum 23 mmol/L -29 [facility] Chloride [Moles/volume] in Serum or Plasma 103 mmol/L 98-107 [facility] Creatinine [Mass/volume] in Serum or Plasma 0.68 mg/dL 0.70-1.20 [facility] Glucose [Mass/volume] in Serum or Plasma 91 mg/dL 70-140 [facility] Potassium [Moles/volume] in Serum or Plasma 3.5 mmol/L 3.4-5.1 [facility] Sodium [Moles/volume] in Serum or Plasma 136 mmol/L 136-145 [facility] Urea nitrogen [Mass/volume] in Serum or Plasma 8 mg/dL 8-23 [facility] Anion gap 3 in Serum or Plasma 10 mmol/L 8-15 [facility] Osmolality of Serum or Plasma by calculation 281 mosm/kg 275-300 [facility] Creatinine/Urea nitrogen [Mass Ratio] in Serum or Plasma 12 [facility] Calcium [Mass/volume] in Serum or Plasma 8.6 mg/dL 8.8-10.2 [facility] Glomerular filtration rate/1.73 sq M pre dicted among non-blacks [Volume Rate/Area] in Serum or Plasma by Creatinine-based formula (MDRD) >6 0 [facility] Glomerular filtration rate/1.73 sq M pre dicted among blacks [Volume Rate/Area] in Serum or Plasma by Creatinine-based formula (MDRD) >60 [facility] ID Date Data Source [id number] 08/25/2020 06:37:02 PM EDT [facility] Name Value Range Interpretation Code Description Data Aylin rce(s) Supporting Document(s) Consultation [facility] VTXYQz6hEgHSDuOw79/YLHwsWMHpd1EuYGbjLCf4RWuxWPJyQ7EnSQT3zL9mPGY9LUpZFdKwUoKsQXO1 lbm PnCmgDHbEfSTNpQiwLIyTlWAiuUlzuiVFrCX6NeMU2DUWuR58lPMGmFBHiU3SlPEOcMfa+Ef4YSNTwiH OmFF4DSxeW2L3zV+NIEv9+9c0CJo49k1sqgE689vdiBbVGLaAF8AUm9B+QACmqJffQ5Ulyzn7/E6rW/E bx4wNzKcbyCWq6P6U1y4ekThO/59nU0RkZWJV38+JAKE [file] MWBUPiZ2MhK1YRotBZQVEk2R ID Date Data Source [id number] 08/25/2020 02:46:05 PM EDT [facility] Name Value Range Interpretation Code Description Data Aylin rce(s) Supporting Document(s) Consultation [facility] LJTBGv6pMfUSQwWh73/UAJepVFVql9SnABioGPw5BLgpQGVjH6LyOIS0bB1sQXX1ACtNUaNgExCvRCX5 lbm [file] carter+U6+/9N2/J+2y3/pwT6K9iT5b/Cbqgd6bEmJnqXA+ObRnBdqHfL6DPXpIhB6C/sd3M/UZBidi7uqRZ Snqeq+Yl2a8/tAOtyQOO9ylR4klfMvANy7RFR5Tbra9CP485xf3t3AV6ys6K5g1/b6HO/ZjGzvF47QtY 9yQwFdzv6XM+nYhKu7gdvfN6O6y21+j3zaD2caGO9c 4B1gcNPR+br1W+Lx1SVF9i+H90JMBGocFas3AFq9eH3ub1ZH1cC3iByG6+PI5vFNx8kqyiI9hmD85C70 hzfpACw0hPri9dH+led9CJvpgyiTrt4Z4RDjuc4PmjuIwKq2wLwV3zJyr0EArcydO40kl4N4I1b6Pp+B 2jjQwhvxgTvw85w/hu/IQZcFHbuGo4tXvZ41vs2s56 dT+0uzoMc/IJ+6+5T3jjrHtvZsN8dOKHyfoWCkLuZSS6Q2e1XaxYETxnYRMQ4bRGSeGM56vNyGnkw8Cf 4d5bQh4N3TcHHAzPdV64rmCb+FfvIT+AFNh/8EHLVrigIeRd1mkIAbhn06puxiF8kiU2drrSmbp2Mw7M dry8rXYZ1pb7kzxrDzgTbFpAX+MdLtstfvvK/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 [file] AgICAgICAgICAgICAgICAgICAgICAgICAgICAgICAg ICAgICAgICAgICAgICAgICAgDQogICAgICAgICAgICAgICAgICAgICAgICAgICAgICAgICAgICAgICAg ICAgICAgICAgICAgICAgICAgICAgICAgICAgICAgICAgICAgICAgICAgICAgICAgICAgICAgICAgICAg DQogICAgICAgICAgICAgICAgICAgICAgICAgICAgIC AgICAgICAgICAgICAgICAgICAgICAgICAgICAgICAgICAgICAgICAgICAgICAgICAgICAgICAgICAgIC AgICAgICAgICAgDQogICAgICAgICAgICAgICAgICAgICAgICAgICAgICAgICAgICAgICAgICAgICAgIC AgICAgICAgICAgICAgICAgICAgICAgICAgICAgICAg ICAgICAgICAgICAgICAgICAgICAgDQogICAgICAgICAgICAgICAgICAgICAgICAgICAgICAgICAgICAg ICAgICAgICAgICAgICAgICAgICAgICAgICAgICAgICAgICAgICAgICAgICAgICAgICAgICAgICAgICAg ICAgDQogICAgICAgICAgICAgICAgICAgICAgICAgIC AgICAgICAgICAgICAgICAgICAgICAgICAgICAgICAgICAgICAgICAgICAgICAgICAgICAgICAgICAgIC AgICAgICAgICAgICAgDQogICAgICAgICAgICAgICAgICAgICAgICAgICAgICAgICAgICAgICAgICAgIC AgICAgICAgICAgICAgICAgICAgICAgICAgICAgICAg ICAgICAgICAgICAgICAgICAgICAgICAgDQogICAgICAgICAgICAgICAgICAgICAgICAgICAgICAgICAg ICAgICAgICAgICAgICAgICAgICAgICAgICAgICAgICAgICAgICAgICAgICAgICAgICAgICAgICAgICAg ICAgICAgDQogICAgICAgICAgICAgICAgICAgICAgIC AgICAgICAgICAgICAgICAgICAgICAgICAgICAgICAgICAgICAgICAgICAgICAgICAgICAgICAgICAgIC AgICAgICAgICAgICAgICAgDQogICAgICAgICAgICAgICAgICAgICAgICAgICAgICAgICAgICAgICAgIC AgICAgICAgICAgICAgICAgICAgICAgICAgICAgICAg QARkFHQzDTMiQTQdSLAbBMVeXHRgBDKcTGXtOLc4I0neQCAyKTVjAR1fQLk6Tq2+BKbOAoElJNX9ykAd xQ0GDB3pw9WgQSnySQFhb5DbRPm2RH7NIPYxJZnmJB9KMRgwqp1QSUMwDJVxuDTPh0ilCsNoCWP0RNYf ThhzHQ9SADFsC8qmbxBxOKVpYJNSPFveIZQXFGkbLH NJWDEpCLQiJbPqDbCyACMnAW1GPKJpH107hcFmVE2YZf2NQeLbVY3yjy5FPrPrMBRwMpdLHtv6VYuhQC 9CmPRnmELbEZJgXIUHAuCwJ5mpf5WiCtGbNEMLKIkcCE1Po5LxqXBvMPj+Hg4TIT6da9UkLDjmWYQoKO 1zxp2QDMqVHjGhY9GtoMkbEXPzmyK6rQElCTY9BZEw tI0piPOzNCFSaNQwABLQAGAIARK1DHXnAZ8oSHJxXJDuJpP7ERNJWY8LVWFpOCVpcMRwNJCbMCMMOO1D AAnkFUG5SPMmasKisPKvWWnoUZ6UEEHofpTpXePbCWKAZHe+Hx2OGT4xv4XjNClkZfSgPB6jed5JZHaG TwZmE6Q9aEZvA2G5ECgjBs2MJDXqGCNeIjfmCYXWXA leKI2RFG9bccP2MT0FiUDoPSVbQLKgkKVxXCf5S01imBRbTOglSI4MMSH+Sameer+Lu0DRSAgYFVcTYRyPj GcPKPCIcDfL5QsI2TPl6QdT4DpGG14cAbnsaHdCOmoVJ2OWJ2fYXYvESIAED2AdIZujJ4hxxIbQRJfGH VFZaBhZ01owTZnYVLcZQT0UBPfPn5OGVZyN4LsljWr aFoybsMrJEBzPQBTPM8FPOjehiRxtQDfgIsmHY17eWtyFR8XAr8YQsLkNS7uez8CdCWzNm4BSLJkNb2I ZKIyGXIlEBZfSRD6EWJwOrWnVXkhKSOzTKFkBAR2NSUtQHCgDB0FEyRoXVFzZrEvPYBuKTNqOZNkhx6M LRQcXCYyCdy1BiDhFZVbOASeVXrjAWCpVPNtFAI5ND CjGPFtHI1XBfGeNDMtJJFcHPBqSGDzZQOpwm3FDIHkIZUsVGAcBAIeTISwGBRjHZloLIVsAYA5NOThOH GfVBBbVM8XLnCdVEOwLCqhETKtHESzDOAyer1DCEKlMKRbQQqzNEXiTKEeEVRuPKiqFJTxAKOiQXS4HU FxGRHtES1MRoRlOPIwDOTcIVhqHWShRYTfoz3LQLDx LQXbWlAsJHHfRSIiJDDzLVaaZBGpFAO4XilwKAReDDYiPS0SQqLbSGIxNZq5HVVjCDHzOAQzhs9AAIWc AAHqOKs4IdVrUMDxTNCjHPyrTZBiKECdQOPoOZGjMBAuLK2JIrHoJOAjVqAwWxIcRCJvAJXaxr7GVYOz HORkNiQ4YNOqSMQaZLOtWEntKALrVWQrRjb0ZMNcBH UzAD8ZKgQpDEJsPyT6BRZbKIVbMZDjrd2BQWZkFAEhRbc6ZPTqVSIfOLXcXRzlMCHwQZN1Mzn8KYSdMM CjNK3CXdNtDTZoJfC4YArdMXMbOEVhzd8XTDYxUIEwCVoeAvMxKQKsOIPbGGfkBTVqUWX3MBqrLDGdRW ZcQA9MZoLqEQOlEiC0SqXzGMXiBGFbma0QZUDkGQUd SuLiUAVfYCOjCIOuXTdeIUIaPVZ1JRo8XNTbCZEcRJ5MQbDlLSEyZpU5JZVlHEZsRJXskw3KJOXrUYIg BIH8BWDlMBFmDDDqEIupMIFcYCI1YAJlBJGzURGhDN4FSaMtBSFuWjlkNSIrPTYkLIWrit9QtLJduSfn mb4JWSuKJn3SfOnxCFYiJGnwTt9xmPDcMxNsSIPHVa 2NtrUdXTHqHAWXHKmlTCTqZAI5GawgLFr2NiPlOVspB0DrZPNtCyZoSuToRNYnDrAwDwU4FkClEUCkLk DlCEWvVVD2MWN2QNHmU2QvLPS4IUW3G1I+LO6pYSk+Cy6Dq7LdldM7tuMyWVsvDUQmTV9OPUFCI8MYJk == ID Date Data Source [id number] 08/25/2020 01:45:12 PM EDT [facility] Name Value Range Interpretation Code Description Data Aylin rce(s) Supporting Document(s) Consultation [facility] UDYNDk8sPdHWGeSd75/EMHdqRCFha8SzXQjfRQx9EOudRQMxI5SpXOK6sV9yOFX6DVhQSjWfWwWyIPH2 lbm [file] dfYJH6VtX7QTMnVFZjH1BjIaP2DR0sUCNQTy0+VJyzbNXihFwwVQEDTlF1ISI9AEmqVBUPSb8R ID Date Data Source [id number] 08/25/2020 09:09:53 AM EDT [facility] Name Value Range Interpretation Code Description Data Aylin rce(s) Supporting Document(s) [facility] HTDOEm4iXnFCXgWec9UlNpNhDNAtQP3khxd4W8E2iWBrS6LovDRad8lqA6MeS2LeCNVlDKAYYZ2GaPGg jb2 [file] yjGMI0Xu6PutEkTERlGTGBGf6Hl319RVYtXWITLvn+IxvfgTMbvQvcEYDNJyFsRuJNXCQBW5Z= ID Date Data Source [id number] 08/25/2020 09:09:43 AM EDT [facility] Name Value Range Interpretation Code Description Data Aylin rce(s) Supporting Document(s) [facility] DSIEUn8oAlXVFgPkd2OcZcSeZAMuGG2wdzb2D4C5gABqX2UqgEGxx9rdS9PpH7EuAOMdOQTGOT7EiZKp jb2 [file] B/7+++e/fwv/17/+2//413/zH//TP0Off/7j//zXf/cf/5K/zSTp81/Sandie//2677n//5v/+X+/OPxN8/ /+mfU/T59++///lf/mLSSCIifzyAziC3QQ2fJi0PvB EkQeNRFmDqDD9N96eppkYdMV0D40vucwP/DY9u15wbt8a/QQ5b86qgi2h/AM3d43ahu3q/XK3z95wnm9 a/Dton0n2Ok5c8k0Vb0a5m2Ie7gsq5Rn2nTq9A37yUv1X0NoJxsS0Sixt1v+KGpd7Takw5a+UTvr1Dvb n3y+RBxz4Hqwc6p+TBfx8djra0e+PIy99jloh7o+GX d7+8DRgdwS/uyyc21s1Mbw/fprP3mg3KsV/hsmR2al0ZgS/qhdT5ue+VdVEb9ypfF0M/Nn8K93jNt1j1 uhTgvg5a/Jrdrwm/Zvdrwq/Z/Zrwa/2F0Pslk29Efq9s32Twd/o82Zuwid63edvrG05t7wiAO2w0kvOH 6n4t+LV+Zq7EY13hEs3604mVq3439zUss201/Nrdrw 2//d/drwa3e/Nvzav/Nym5h/ZuaHU/PzMzc/dCfdx2m24aB9/LmNMmps75qIzwnEZl3e6AHQ+v oUvG9G34+Pn02A/GcKpEmQHz+nXPdAXU2N/OqQJkR+jOkAVm6xzMjZUnMI6NuYOfTMCikGKTDUAgphfQ rY+vGTskR+dIlQmMiPMhFKE/nRJkJxIj/sEHjS2Siy CAWK/QdApBNZR54bFQadfdIje0I/kaIwbX8IGHvY+rPyKmBiV2oHHPngV79DXCu3WXblXIDewTQCIoHc ObHdYI54h3Z5rH6yVKyI+dEuQvEiP+pFKF/aF16OHPe4IXtqnQGiUBOZXfQeTdBwJri/u08g/PGTUkZ+ jJxJiEiCbhCJYvbKK7MCQg+MRtmx6RdWKKBG/Kgaoa qXL24wAUNDz9xN7PRJ1otXnphdJ4D6hX79HgW31dSqeUNVkyZMQEWIa6hDodx85RrPoRY/EwaqbvEO9i jFjvyoHaHckR+5FuE62nK9oRWFhhFLDLVPu+gNwa485R5L1QX/ykcofeRH+wjFj/nwG1V2wJ/3RnWX1y WDaMQHhaIRYHXQsodYwsX38OYSHXG/SkgoheRHCwnF xYhlBsFrbs09jMTJ+qOHlHpIf/SQUg/cuq6V5jC82WXEIpG/ekiph/JJZdg0qR2aGzCt0a71dDQT+qOH lHpIf/SQUg/pvi7T5wU19GRXEuB/ekiph/YAXje7zA1eXnPx2l/8TEvQ/RTbFqatN2zReGURk50dQsTt u4zSzi4TPSpG/JZsMzZjN3bI5hQ/ekiph/KTUhe0zQ 2vHvLa9s82vHOJ+qOHlHpIf/SQUg/tyn5T8yV54UBUUdI/ekiph/VDSxk9lQ1bAhTs3u03bHJP+qOHlH pIf/SQUg/qhv8X3gX74RGIEzF/ekiph/YEVva1zR9kTgBl7a21iINY+qOHlHpIf/SQUg/tti7N1rU48W NKPaQ/ekiph/CBJrr3kD8cJlHp7f96uJNY+qOHlHpI f/SQUg/mud4M9hW85HVUSsQ/ekiph/LLGdd5bD7gFmwYz3G+xpcskkWySTbIGQVfcowvURIlGSSDxEiM kSiokM8w/VH6o/RH6Y/Sn0F/La7O5UcMt0B/Us7S7BwYd9T/Vc2E7KbPx2I/Le3D0PuXM8E/Rn+M/hj9 Byox8Rvlj2Crzs2Xx5n+GP0x+mP0x+iP0R+nP05/low pressure boiler tender 44/XH64/TH6Y/TH6c/Tn+c/gKm6qNC7I/TH6c/QX+C/gP6JhwO6IqrZ4AziP1Bh6W+BP0J+hP0J+hP0J +gP5P+TPoz6c+kP5P+TPoz6c+kP5P+TPoz6c+kP5P+TPoz6c+kP4v+LPqz6M+iP4v+LPqz6M+iP4v+LP qz6M+iP4v+LPqz6M+iP5v+bPqz6c+mP5v+bPqz6c+m P5v+bPqz6c+mP5v+bPqz6c+mP5lm/v3Et7WAXppAwzSJS9lJPumLaHCage3v3Ru7mePtp+vTpten+SfN P2n+SfNPmn/S/JPmnzT/rSaovC3c/jOc7ILVMc3bCKS27LTZSLRzHAPNcsLNYNJ7DEGXPPzTSaS7oHUj VQ8TNZAA7uRPIREvOF2VrsHY8BQ0HUCFUAxCWSQ8kR YQER9SJEBJ4kQGDKPiQGyKafxSfQV8jVADBUlRO7B1mSMXAP3dVDPJ5oLTNWJuELQZhasAlDL3yMILxM [file] /2u4+wvub34uI1g5/51HAq4t1//+Tt29543byP//ir dx++/vTz79/p6s064/3HL9+/e/mh1xUSP3/74kCahsDq6064L/mft3tbJ7K98XZ5+x49996+fPGPH7/4 +i/30X8Kn6/ff/bN199+9e51SR++/RsgEz066no7b4/32v81Ai91/9kXb7/56pvP/vPbt59+/Pjuw/u/ cJiWffvNNx8+f/fhq/cu938189/8odflun/3B1205/ 5gPzNxC268/kRspjw2at8Uz9/+5i8Z1sCrWa/hCh2yFjd1Kw7v++++/SCM0UR7//plw5cE4z2lj/P21T fv//2dr5zrS1o37e12c9/hALftfh/gsz/99K+///Mff/yXt3/+P2+//f0f/vDDn//84w9/+Ju3z3/46f c//uHtn/5TW//0129/+ult/Fp/5Uz5N5e0C0+5/unX /+F+eFrSfVDRP/7x1//Gs+0VGm8XL/3ej0O58JnXVl5fM/1tTZ23DqQ+2+rtVrmg5hJi5ykgGO/nto7r Qo6mr63Xe9so+uw13d+oIx1P51/cP/jw47/++Bqee6w+eXv7x0+/++Lt/zp1307X6m0rv3Pu/ub+Sw5q jTP/6onrNXF/6f8M51ccZFj6K0t9sGm/9sef/v1v3/ 78w7//+MGrx35ck7LV1/8UT9u1HRbP3/XLox/w2w9vv//p33/88//0Brxpgs5R+ZcOX7d//PLwB/yHD9 +9/cv/fF387//00y+M81GepgQ4VZTG/cPHX//Dx9/yMk4InCs8st0j/ezoPrpeJvL+xRy/DKfYG4nOlY RZYWa/vKqDffurD7/6+PbD//7x3/7jU/PcuN5+9en3 f/+ru+5Y11r8uaj/58//9Ne/+PW5EV//8Wxa3fZ6O/SzH/3j9300c9//8NMv/k8X7m2p//TL/z83ya4/ /PN//O8zhB/+9Kc/ouJpz0Xilb80i850aroT/N4NBw/BjX/88Xf//aff/+51eZ+8tTuaY//xj026Of/9 t39/Tbl/+eTDu2/qxftNz6sh0W2+3xmmI6pbc6/wdX a/I///X7j3AGBqtJh/+8N/+/Xths3qG48ir9pLkcGqiQDt1lnLqnil3g4Bd5Mi7zNJk7GaJgsjUd7L8E 5Na2lZinlfidm7+tln33z//jIwFxhu0rgtkXF/H/BMhJ8PNU1fa6BuDPUyHaWhLL7yvivyVJJnHO5ayv r6Q6UyvHkcBEsFQJXxQb7vuSPeJB6WRSS5YQzePFXv PBPjI0CcyP3xI42fbHOuTzVjQDJGSA0RqwU3LYD9VNH3UPPgJwEwRTRrPX61CWIiAQGDYn2axiUxGmbK ZqIaNN5jtgp0D6Z3tTNrC119nTrwonAdFL4Ci3BzjXFxDD2ShFOwfBTiBLFnKUMlY7evv9EnNBnlODWG Oz9cvdTsRrtXOkJaLL2gbnj6D3I4xGnpuoXxUFTMXD daRepjTI9lsZucccjfR3IykIBrBBAdP8RcIATcp30AOWTgEPlJFlOfQnQhONY2WTckXXmuJjGyUJLiMJ TkIPQoEI8BfZDsVDWzDRJMAMfmXynwNADceB6kwDBRe1AsZHCBPiFCPEKSHX6SQAZKAIK2JJJ5GDlgBS 5BgZXhNMA5NOvNJBIEWCkTHKshApWkw6B2ANNaF7Ie PZGojhFiTZUSFEouZhllJE2cvIrsgqvqL5AxtRJwXJBNPRMyTSVtZNDwCICbL0Zvm8U1P7GhDAwSWQGM EOsFZNolNbH7q31vbuZDKPMsQMCuPR8+YU0tq0ZcTp1QFKQzFT7iohn9BJ8YaOOxZM4YOHzdjcClS3kg bsYdTpMzQKIKPS8eA3JngE74ABS+OdRwED1chth7yj QvVaElCOIcLPGjOXQdNAphQLCnXSGgVBUpODY5NIM4NZVzBrKdZKLbBvajHJaaBAWeVZRcgsACBPHaDQ Z9QrOuOuItUEMsIOEfDJyoNROjFDE2RPprIKFzLAOqYR8tHzHjDACcXFDkVAWiDvY4MjYvWkQAZAFvVW TeKRMhClQqUXXwXSKcRQmsLWXbJDVwJJn3WZFqGEJk PT8iKgWrAWTcGMKsHSJaAYYrQHZmpgHHQOQoBGAoXHM8YROlIHLwBJZvXNyqEKSeXOEaEBW8CKPfZWYw GI2wOrFpOLMzFJD7JiEbTQQvFIBgptOXNRTrHULmCLP8TLXaAJAbSHJkWPedETBlFIKqDrW0IVLuGQNh VX7tNgLoLPAzYJG8RLLyTLCyRJRqtdZXWRIaBBTsDF q9LnHqORYeIGBoKNxvJFWzTGSaWYgpKMAsRZCgBX4hMeKfLFHwWOMoNBOcTOInINMohaGANROdFGVwYV I3QrVhUTTuWPEgNBzzTVMwVRFfOTD8USIqHAYgWG4uRnIiKAAlCeN5LrJvIAUuEULzxqJJIFKmDSCvHL TqDNZqGGHsCTRuMEgxHWOsORTfLbL3XVObDXBkQS0n HqJlGQPeFYL5ILTpECNsPFKfmlJCJCUlBGRvXVQxJUB7ECEaMSRiOHa0eoMovCQrDfd4De5DaSegAVE8 Pp3CghBxAHMeFNNYCf2Hv869AAJrWXURQup+IciphNVfdWrzMAYQZft8SDTAPBAXE3Z= ID Date Data Source [id number] 08/25/2020 09:09:29 AM EDT [facility] Name Value Range Interpretation Code Description Data Aylin rce(s) Supporting Document(s) [facility] SJSYJn4vHhCLYmDnl0FgEoHxOHDuWX8ifat9C2X1pKAjD6GvsSFbw2qvW2IwA2YhTBGeSRKEMZ1HdKIu jb2 [file] AN/V2JhlnL1tfN8xSm8QDyEIIph0PIxqJfQgH0qWlpjx7zO8VAY+3RmCbe7l2Rrm75C47E4vTeVX+Annamaria JYx3h1qAwBxwKmGI5az1xXQl535QTfGahsiwhOn8GygRWbAZLqvnu4iIk5BGQfRYzQUzItHRlGJ0tnuA Zs3Mug8OhBOXUIxlEv9jgNu5e+cxB+PVnmTYMewYdg 8QmtCU1eRUmmFK+x0hzo61f+5JqJHE09wuF08G7reZCKs8qx9y3T6OasBthJHXIPaXxU8SiyEoTmGRuy Qjkok1qoJqFK+qVdh5c7moyNl/d0WiK203oNwir8p5zYG6I5iZiHPdokway9mF2/0VFq8p8uLj/9/Xuy udzdsIrqK2zW6pmXZXTF68HtgFHKVE4RYURONJtPfd ICpytloSlaa0ha545nhBX/80HSbfGgvylJCJtbLOPe4eye+ox/7dR+J5sX+4MtQVjuhngtjz9B0L92S7 HfbOLkb/xv5u/0215qdi5QdCHn1QbLcbkcDbIO2oU317GX2FjzutHiYoMC0x6+2V+5388WfIG508Dy6X 518U0+Bt9PKNl7qxp0vd8ebI9+0vi/Y31a8PiALt58 dVUnH8anphAO2cMQ9X8X/cZrvTUnN9Q1qsl/0D7v+7tN9dz+3dgFJDukqkgvD0JPH8vhy+Kf+AqOXiu8 ezXXz3+DtR431LJvM1B0hBkZtRXnY++5PgVkKK4fiAbpZ6q4MSShkBC6kTiQ1/d/HdmDlRTI+X4QPz+n I8zc9+vfv44cvzcemlprsssufqpfImhuGEl0JnUPzC 4TaP8zYb+O6JTiO++5q1EgvrHkUrhn4YFHqcY1KKsph0WIed0lAh4+ekubwgHlWcw8p7Md1yshNA2jOi 1t2y0zD8x9e2fA6JWGdHugO+G/P8okiNZx+O1JkqqGkapexCc++w+f798o0V8s33+j6CvtIW2DpKfE/s Mt/IGBh0KI/tWrlelWZkem7W69Sdd4HgRs95fN4eoo /jNu70RJR1m482k22hl/juU+Z6dy/59E1rfmstG8KMHhlYQtX9JJV+248v3xm2jM8+/1pyjwiwvb5t8H lm7h407bcqhGQTd/t610+vd/98jj5I3AoY5ndC16EgyGcJ9qPGzGZ8yeUKm0r0vxu7+zu+29/x3f6O7/ X2bPoS388+dermatological surgeon/pVtgYhD31bS0/C7U2Dw1eg/jdZv+ [file] XhKbwXte8nW7yH6doCwLRjNFNZMCKkSaZt5gfT/Juan Pablo q8ydS8zXKnjaNXlAw3jQtR6ywl0yHM7lPelZN4VWgwK7vju/PdvBx3xJkfCvOnC2vZ5WLnsByIooHoRZ /JUi0P1ziHCzp/DZ2EhRI2KzdYPpWgDKfa78MuEXaRMzXUf5JnbkOtiMrb+Ml03w8gBSyZQVqOz4A59Y awziwKM0e7Qv9ReQLFlyM9QNW0d1m4S2Gpdo41MY0p EVlENhHMKysfS/TeYv4T1bQelI1+ibdw53emRx+YzxTsc682fwYQx1xXaiBakrqcS9usL+xcd1Y+luje O+TkOOGlgMGuJhP3QZB5x1crqy8452gM+QjcBpS2FTVaFGkOEr2T+ZqbdKzzSwE1MAMyqYxnIpkUcOhg LWPiBryOrtnY33N2hwumS9q1kCq3SGnbx47gveffif XAi7KmbVtmXc8kBG570zadgZvuoqCc9YglzUv1thhyNteR0kkSeFYVhLtvk+ZQNExqhCh0UH3bL/F+NJ 0VP1O7Ifpv8xsEFHXvmUVUm0YiS6yLCLjfu5wjbbDdUX2K+DlPyA4v32nYOxjBcIjjbT08rSQuYwAyfK Tc5wNNYPh6RN9m2HbnDs8YITF6mzUxR+NjAJ8alQqt W+gKj0W1ZVaYNZwWcijKr/R3AkCC6KW8V+YIGljrzxAFcMjJOerKGM9H28MPyLGaK2zHAcTCNDXXlCme PaGOHrVv3bcF2hxnvMK304BwC2vgrH2rJS8sXD4g8ePRbNMaDcyT7zYIVkEoPF5Rc1ZM66gbhtyfVPdL FMsBfPXsN0cGvFgs7ziG07adJ8G9PJkMoCLjwJvdCs qDFzTCCBRLSEiFMBVL8MB6pW1wSXzSRiZQMZ5StuTNH7bjjXevi0ELPKXxM6K+llMpNvxcO/G6QFllDu vY05bYf+GS8X7ey1CoJ9XKTilJ9UiSjWEgdOqyUVBLtDNd3b8CLrZKBRoGgMwiCjWr4zAckfveoSX2Y2 U+lkd4kO//5ttc34iEblzPnb6Cd//0m/L292+f/++3 j56k1M9E3RO6T1/+4fOnD7/6z2//6zYuJb3//xL/8win+cevv/fb0ojKlV38a/h28/zTVX/24dff/ex2 Cn57K+MLsy/q3e1b28BL/7//4dM/v/3w6+8/f/k40f8PW9/6+gfZ50w12Jns86o86ahvX//zzz5+96sP X/2a3gf31hk/qZ9974b51q8+/u7rj7/54Z4XEbzrd7 eR7+7urlwKeeBX+/rTD9+/ff7w5S//+peD39676Su7//b151++/Zcfvv/9574oH295d18/8/G/f/z+Py vm4i9cYK/3b9dhlvg5D/4g25mxhjb91Hcu301s1SyAN/9w5RueoLmfb9493AeAnm8+9+k/KKbEY3/69t P3v/745df/6sgg047//Eqm77bzf4/+69inpMs79RaH 376e+ZvXw//0fI/k5S/tu2+/+zzBQ4869j5cUp/5H/hf7bv9xnuuq/v4m6+/fT32xy//8fu3D7/58PU3 I59auem/4KS7+twnffnnP/3b7//yxx//9e1//K+33/z+D3/47V/+8uNv//Qf57516P3+/+Eh0p0oB2F2 L3//9uc/vbWf95/0i62vJVgOB0Q48Qq/hI9xdJNOkz 2Pf/l7E2dYlMrP2GnTl/zN2JrwHDuN2/XL/w+aS27kcT/X3P5CxOkIbxSk+29Y/txiKqgVqjwwdvZ6Zv /hl2pro0i+aizPgnP/4bsf/+6Ef0hjX90u9joAS16/5dunj5/emdcj/sFHcs6z3ObCRgZKCPP541V+/u WNnN7Fxbub7OzdjN9k+b/58U///g9vf/ntv//4rvhX H/tgxEu1g/7415+VnuAT652CC+Cvv3v7/Z/+/ce//D9/c/cq/japirQ3vJthb6+WfrB/+u77t3/9n697 //2f//ZV1t3e8S+QDeGN1k+ff/5Pn3/Ek5eiX13j+HfSY86b3E/Qo0Xe/5j9Jzf/YG6X36sM834v5gOR gx1x2953+e23/++Pf/3br+C8t7X09VKC//izO/zP67 sb7e1//eVf/v4n/z7v4Ve//nT782uooU/+9n/+7rd//f1v//ST84+l5/X7P/30/OdDmtcf/mrrlkvE9P s///gQB5hvn+DnYb/58+++5CIfk9SBMeEa//zj7/6vP/3+d6/b++Oib5rKq28oG5/9of/+1a6hUu8nc/ j+49f/xw/mylkjurjr4Ry+9le/+vjp8/dfsFu7+8r/ /V/buJY3qcVM/vb//KBcdZ93009Yz62nRtI+KxC5x9CZ/hUgo1niPfF4/Orzq/A589w3x0n/+S79Z360 3oKxZ15XY7648X+fXv+6n5ybAwD0QhV/I35tYrUAQM2jw0JpCFLsMzCmZL6yszelTSTgXW4lfgd3H1St kCseYRpWWVEdSx0seEHbLV1RCUV5DWyhBRRpNDAaD3 ZbkX2xV45adZNoHmUuEFWJOQ2SrbR8PRS1SRA3MKAyXtWrIFMzXE40RBUcCVTTOs4pxpEpParHXlWjWP 4zlkh2L0O2vXQbK804aYlposXcMA7Ly1VqiPUgBE1YeXNofACxPIHkVETtU1gvg9ChIWdaMTJOVq1age MtQhjZZsEbIW6ersz5E6H0oOuqfhSqLUOWJMbgOdjk CD8jmAwonjybU9QelCJqCJQdY0JbOCKlr12NAJYqAGiWWoXsThIdYPC3OTskHOhxHxXaRAYbOGRkGFLi DY9NoRYhDLLwXWROYTnaGijgYUBsjQ0ylECUp8SsMNZCKxLFLUAVVG8NYLUMCGE5UXS1PKvsMU5HlENb DXO8DAwQZKBZGYkGIVtjXfUqc0E7XHOjM0IhFCMmtw LcQVYRKPbsCcxjTE8isJuacdwtC9PwwJHhGADJIEIfWURoFVLpZJKrH3Hcg2Z9K1VrNRyISMLQBKlCPS uhZdU8e05cwfJSTKZuGOIkJX6+ON9yp4MfIc1DNQOiCS3llvx0WU5IdZOgUJ5BXVgmqfKfV3evocOmEs JgXBBEOF1aU3KreW28GNF+GpWcTO1qopj4vdLtXtHp IZVtPZTfBMLtOTnbBVEdZYTePTTiIXD5UCY5AEMrBvQeEKCyAzGdAPZtDUKnMEKxsySFFGVuDZJ1YMqk JwIfACRsITKmSUqmKJCsQUvpCQi4QBMeSYEtXW9yHrWoCODyQBTbWCZjPlH6VeThVyWHLMPuPKVsWNHf LjHhUYTxMIDsCMgdQKPiJBWeGVf4GSTqAVHlGE9bRi AfCPNrAQYrNBDjMYIeVXCnocSRDWSwGBWvOQO4QXDsRVDjSLRuSYxdMLYmOCTqSCU7JERzXNGvPY7xSz ZzAQYsWDT4TyRxZRXiGQJussYEPUUgMOTnRME4ZPMeWKIvCPAhIKedUHVpHJHpQjA7EOPcMYEaYS3cMx DcHMLsJBD7WCRiMKFeKHSarqCGHADhUXDhHJa7AaLm RUDpUDQqJYdqVSLpKMZqFRavPJWpZAVuIY3hQvUmREUgZQZeSFWzTQZbGLJmeoLKFJZjKSMsTIY3EgNg TFUuFFDmCQgvCZSiYTRpIMZ0NXQdHEVmAI8gWlBfHJQnAbC7SHBsKKCiZTDdxuPZEMBjTANpGWSaUYOi BIOhOKMrQHqsTYFuUMNqSwP2MUJzJNHzQV2eOrAkWR QsSSR1HPDoIEAuNSEbecKZVZVfKPHzIVEkXQS7BQOyOFOjIBq2xuFpiYQiCxx6Aj5MtAkuHSO7Jw3Exc DiNQGfPYPVAo0Ix252OWSlBKDYLtq+HraawKWqoXuwWMZVVeXlWLpUZXJEW5B= ID Date Data Source [id number] 08/25/2020 04:05:00 AM EDT [facility] Name Value Range Interpretation Code Description Data Aylin rce(s) Supporting Document(s) Leukocytes [#/volume] in Blood by Automated count 6.8 10*3/uL 4-10 [facility] Erythrocytes [#/volume] in Blood by Automated count 4.14 10*6/uL 4.6- 6.1 L [facility] Hemoglobin [Mass/volume] in Blood 13.7 g/dL 13.5-18 [facility] Hematocrit [Volume Fraction] of Blood by Automated count 40.8 % 4 1-53 L [facility] Erythrocyte mean corpuscular volume [Entitic volume] by Auto mated count 98.4 fL 80-96 H [facility] Erythrocyte mean corpuscular hemoglobin [Entitic mass] by Automated count 33.0 pg 27-33 [facility] Erythrocyte mean corpuscular hemoglobin concentration [Mass/volume] by Automated count 33.6 g/dL 32[facility]0-[facility] distribution width [Ratio] by Automated count 13.5 % 11.5-14.5 [facility] Platelets [#/volume] in Blood by Automated count 194 10*3/uL 150-400 [facility] Differential cell count method - Blood [facility] Neutrophils/100 leukocytes in Blood by Automated count 70 % [facility] Lymphocytes/100 leukocytes in Blood by Automated count 19 % [facility] Monocytes/100 leukocytes in Blood by Automated count 9 % [facility] Eosinophils/100 leukocytes in Blood by Automated count 1 % [facility] Basophils/100 leukocytes in Blood by Automated count 1 % [facility] Neutrophils [#/volume] in Blood by Automated count 4.80 10*3/uL 1.8-7 .0 [facility] Lymphocytes [#/volume] in Blood by Automated count 1.29 10*3/uL 1.2-4 .0 [facility] Monocytes [#/volume] in Blood by Automated count 0.59 10*3/uL 0-0.8 [facility] Eosinophils [#/volume] in Blood by Automated count 0.09 10*3/uL 0-0.5 [facility] Basophils [#/volume] in Blood by Automated count 0.04 10*3/uL 0-0.2 [facility] Nucleated erythrocytes/100 leukocytes [Ratio] in Blood by Automated count 0 /100{WBCs} 0-0 [facility] ID Date Data Source [id number] 08/25/2020 04:23:43 AM [facility] Name Value Range Interpretation Code Description Data Aylin rce(s) Supporting Document(s) Magnesium [Mass/volume] in Serum or Plasma 2.3 mg/dL 1.6-2.4 [facility] ID Date Data Source [id number] 08/25/2020 04:23:43 AM [facility] Name Value Range Interpretation Code Description Data Aylin rce(s) Supporting Document(s) Phosphate [Mass/volume] in Serum or Plasma 2.7 mg/dL 2.5-4.5 [facility] ID Date Data Source [id number] 08/25/2020 05:07:43 AM [facility] Name Value Range Interpretation Code Description Data Aylin rce(s) Supporting Document(s) Bicarbonate [Moles/volume] in Serum 22 mmol/L 22-29 [facility] Chloride [Moles/volume] in Serum or Plasma 106 mmol/L 98-107 [facility] Confirmed Creatinine [Mass/volume] in Serum or Plasma 0.73 mg/dL 0.70-1.20 [facility] Glucose [Mass/volume] in Serum or Plasma 82 mg/dL 70-140 [facility] Potassium [Moles/volume] in Serum or Plasma 3.5 mmol/L 3.4-5.1 [facility] Confirmed Sodium [Moles/volume] in Serum or Plasma 136 mmol/L 136-145 [facility] Confirmed Urea nitrogen [Mass/volume] in Serum or Plasma 7 mg/dL 8-23 L [facility] Anion gap 3 in Serum or Plasma 9 mmol/L 8-15 [facility] Confirmed Osmolality of Serum or Plasma by calculation 279 mosm/kg 275-300 [facility] Confirmed Creatinine/Urea nitrogen [Mass Ratio] in Serum or Plasma 9 [facility] Calcium [Mass/volume] in Serum or Plasma 8.3 mg/dL 8.8-10.2 L [facility] Glomerular filtration rate/1.73 sq M pre dicted among non-blacks [Volume Rate/Area] in Serum or Plasma by Creatinine-based formula (MDRD) >6 0 [facility] Glomerular filtration rate/1.73 sq M pre dicted among blacks [Volume Rate/Area] in Serum or Plasma by Creatinine-based formula (MDRD) >60 [facility] ID Date Data Source [id number] 08/25/2020 07:02:34 AM EDT [facility] Name Value Range Interpretation Code Description Data Aylin rce(s) Supporting Document(s) Cobalamin (Vitamin B12) [Mass/volume] in Serum or Plasma 190 pg/ml 2 11-946 L [facility] ID Date Data Source [id number] 08/30/2020 05:05:56 PM EDT [facility] Name Value Range Interpretation Code Description Data Aylin rce(s) Supporting Document(s) Thiamine [Moles/volume] in Blood 125.9 nmol/L 66.5-200.0 [facility] [facility] (NOTE)This test was developed and its pe rformance characteristicsdetermined by [employer]. It has not been cleared or approvedby the Food and Drug Administration.Performed At: [address] [id number] Nicole MD Ph:[phone] ID Date Data Source [id number] 08/24/2020 03:35:09 PM EDT [facility] Name Value Range Interpretation Code Description Data Aylin rce(s) Supporting Document(s) Glucose [Mass/volume] in Capillary blood by Glucometer 94 mg/dL 70- 140 [facility] ID Date Data Source [id number] 08/24/2020 03:08:19 PM EDT [facility] Value Range Interpretation Code Description Data Aylin rce(s) Supporting Document(s) ED Provider Note [facility] [id number]/[id number] lbm [file] Sameer+Uj8VWJZvXDXkEQEwLuGwJUTDHgIhF4FhQ3PIj3NlU9SxKA28oXehapLhEQajYD4MNH3cZNXxPOAF NH8NwOOkzS5fttVpTrIfGHSXLhMxY81dxVXiQDQiETO6MJPoLj7HRTFjB8YacyElfNhozsWaEPVzBJBF OO9EZUgmprWkeNVlvLowBH72iZggNE8DKz8XQmNuCM 8vey6VlLUxAl5FFID5IM2LOJSvSCHmHMAvPJQ7BXFvFvPdMXmeSSQkEPXyRES8LJTxNNNxTJ6QFdQtEH BnAVW9IHKxCPHvQJEwjg8PJZVsYBN8VfIhICJlKUUpUUZxNBweXSVdIHWsDCG6NLQmQWNrOF1JCjElLS UgIQRhTZFxYGGpRSZruw6NCCKiBGUkCbYfJgSmAIRy ROMvEPedGLObZUS8OJXnHSCbAQRiDV5DLeHyALMhYJUxVJAqYAUqAFPuaz8WLNGxTFMmGGP2MQTtZDFo QGPjHClpYHItBCA9Mnt5HXRsNYEyCY2TXvKkYFSmACT0WcryFBAeNXQxqw6GMYBbPMXyAaG8YYFlDPOi ZSQzVUzhXBZeNBA0ByWqQXFjPUPeZJ8YVyVxPZQxPT J1AJpeJVBvGUIjuc4OJLGvRYHtVGc8CDSbTIFpZTWgSSyiNWCwRWF2IYseHCMeLBNfGA7OIaXvKSKoNh N4BsGiFNExWSYvhc5NOEDrVLUbFCl7GpHqGOQrKCBwSZomTQSaWDCnSok1JBTkLBQsMY7LQqTrRGFmLo D9YXSlDYWwCHUbbo4PJPEiYEAtFEs4PxTiZYSqREWv ZRheFICyBMC9WXDqMKIyVMMyMC0WJyZxYNNvCtVmVdPyWBKhBQJcli1GUQSsVPZnUxB1XgTfIHIjMZAp FLnoGESmDWU1IOc3EQTxVMUpYX0VXlCnQAYeEfU6EYNsBNClJCByas3XJSQpKZBjXaY3MoQeJZMlLABe AAvuAEOkJMH6IOA1KVFeXQAoPD8GUpPnBTJeEfjgKp NbAPOqSJPyap2ZMLZcJNZpMVK2EcZjJEQzUUNoOSaaJWKwPTN3Rye1RBFkSDIzVE0EBkWiMRKqUkw7DK QcMMTxPWQifh6MPMSpNUJ7JWHjKgVcHSOxPJUyXDwhWLOxOYNxYtlvWHVgDTIsQT8GZdQeMWXpCCZ3GX ceZVWcBCKzpm4BADJhVAS3RxF2DNQhSBThVURiCTfn YHHkHWQeYaQ0DKEcPORcKZ9ITpYuBBPhFYD3TdEoBHVaKZDdsh4VAROcEVF3QqcsPHWkLRRoMGNkYZuc DEKkKNIwIZu6HHEfXFDkPS1FOpMhYCVeLORdCnPnBIBlQWDuxh7TOFCtLLY3SiX6SUQnQGJkADRcRIbd OZMfIZKgNIE0VDFlZUKxJR1GKfQsXENhNSO1JmPiGB ZrSIMizr2VNSGmWSO6HdkuDoOdUGYtLSDuYZkiAHOvHTTqAYlsDDEpCOMwCR6GNvEwGWVtONHbYXCyLL DjUANdxd9SiAKgfEjjwi8VHVlCVe7WbYrxPCO9VJblIm5cqDP9WdRuOWQXCg4NngSxQLAdFAEIYRrnTK ZaNQWeOaWuKTJlBRJ3YUa4TiKaJkKiXPGkBPU4PWXl VuG8VeI6HRWlYZU2GPE1TkZmHHOiGERyAzMiFkI6CODeWkU9JKt+GK9fIOd+Yi3Dr3CbuwL0mrIsPKk2 WWN7MF1UFRYBI0HWZh== ID Date Data Source [id number] 08/24/2020 06:02:16 AM EDT [facility] Name Value Range Interpretation Code Description Data Aylin rce(s) Supporting Document(s) Bicarbonate [Moles/volume] in Serum 24 mmol/L 22-29 [facility] Confirmed Chloride [Moles/volume] in Serum or Plasma 98 mmol/L 98-107 [facility] Creatinine [Mass/volume] in Serum or Plasma 0.89 mg/dL 0.70-1.20 [facility] Glucose [Mass/volume] in Serum or Plasma 96 mg/dL 70-140 [facility] Potassium [Moles/volume] in Serum or Plasma 3.0 mmol/L 3.4-5.1 L [facility] Sodium [Moles/volume] in Serum or Plasma 137 mmol/L 136-145 [facility] Urea nitrogen [Mass/volume] in Serum or Plasma 11 mg/dL 8-23 [facility] Anion gap 3 in Serum or Plasma 16 mmol/L 8-15 H [facility] Confirmed Osmolality of Serum or Plasma by calculation 284 mosm/kg 275-300 [facility] Creatinine/Urea nitrogen [Mass Ratio] in Serum or Plasma 12 [facility] Calcium [Mass/volume] in Serum or Plasma 8.8 mg/dL 8.8-10.2 [facility] QA FLAGS AND/OR RANGES MODIFIED BY DEM[employer] RAPHIC UPDATE ON 08/24 AT 1503 Glomerular filtration rate/1.73 sq M pre dicted among non-blacks [Volume Rate/Area] in Serum or Plasma by Creatinine-based formula (MDRD) >6 0 [facility] Glomerular filtration rate/1.73 sq M pre dicted among blacks [Volume Rate/Area] in Serum or Plasma by Creatinine-based formula (MDRD) >60 [facility] ID Date Data Source [id number] 08/24/2020 05:03:52 AM EDT [facility] Name Value Range Interpretation Code Description Data Aylin rce(s) Supporting Document(s) Leukocytes [#/volume] in Blood by Automated count 11.9 10*3/uL 4-10 H [facility] Erythrocytes [#/volume] in Blood by Automated count 4.47 10*6/uL 4.6- 6.1 L [facility] Hemoglobin [Mass/volume] in Blood 14.5 g/dL 13.5-18 [facility] Hematocrit [Volume Fraction] of Blood by Automated count 43.0 % 4 1-53 [facility] Erythrocyte mean corpuscular volume [Entitic volume] by Auto mated count 96.3 fL 80-96 H [facility] Erythrocyte mean corpuscular hemoglobin [Entitic mass] by Automated count 32.4 pg 27-33 [facility] Erythrocyte mean corpuscular hemoglobin concentration [Mass/volume] by Automated count 33.6 g/[facility] 32.0-[facility] distribution width [Ratio] by Automated count 13.6 % 11.5-14.5 [facility] Platelets [#/volume] in Blood by Automated count 219 10*3/uL 150-400 [facility] Differential cell count method - Blood [facility] Neutrophils/100 leukocytes in Blood by Automated count 78 % [facility] Lymphocytes/100 leukocytes in Blood by Automated count 11 % [facility] Monocytes/100 leukocytes in Blood by Automated count 10 % [facility] Eosinophils/100 leukocytes in Blood by Automated count 1 % [facility] Basophils/100 leukocytes in Blood by Automated count 0 % [facility] Neutrophils [#/volume] in Blood by Automated count 9.28 10*3/uL 1.8-7 .0 H [facility] Lymphocytes [#/volume] in Blood by Automated count 1.34 10*3/uL 1.2-4 .0 [facility] Monocytes [#/volume] in Blood by Automated count 1.21 10*3/uL 0-0.8 H [facility] Eosinophils [#/volume] in Blood by Automated count 0.06 10*3/uL 0-0.5 [facility] Basophils [#/volume] in Blood by Automated count 0.03 10*3/uL 0-0.2 [facility] Nucleated erythrocytes/100 leukocytes [Ratio] in Blood by Automated count 0 /100{WBCs} 0-0 [facility] ID Date Data Source [id number] 08/24/2020 08:07:47 AM [facility] Name Value Range Interpretation Code Description Data Aylin rce(s) Supporting Document(s) Magnesium [Mass/volume] in Serum or Plasma 2.8 mg/dL 1.6-2.4 H [facility] QA FLAGS AND/OR RANGES MODIFIED BY [employer] RAPHIC UPDATE ON 08/24 AT 1503 ID Date Data Source [id number] 08/24/2020 08:07:47 AM [facility] Value Range Interpretation Code Description Data Aylin rce(s) Supporting Document(s) Phosphate [Mass/volume] in Serum or Plasma 3.3 mg/dL 2.5-4.5 [facility] ID Date Data Source [id number] 08/23/2020 05:21:12 PM [facility] Value Range Interpretation Code Description Data Aylin rce(s) Supporting Document(s) Acetaminophen [Mass/volume] in Serum or Plasma 5.7 ug/mL 10.0-30.0 L [facility] ID Date Data Source [id number] 08/23/2020 05:21:12 PM [facility] Value Range Interpretation Code Description Data Aylin rce(s) Supporting Document(s) Bicarbonate [Moles/volume] in Serum 16 mmol/L 22-29 L [facility] Chloride [Moles/volume] in Serum or Plasma 95 mmol/L 98-107 L [facility] Creatinine [Mass/volume] in Serum or Plasma 1.17 mg/dL 0.70-1.20 [facility] Glucose [Mass/volume] in Serum or Plasma 211 mg/dL 70-140 H [facility] Potassium [Moles/volume] in Serum or Plasma 4.7 mmol/L 3.4-5.1 [facility] Hemolyzed Sodium [Moles/volume] in Serum or Plasma 136 mmol/L 136-145 [facility] Urea nitrogen [Mass/volume] in Serum or Plasma 12 mg/dL 8-23 [facility] Anion gap 3 in Serum or Plasma 25 mmol/L 8-15 H [facility] Osmolality of Serum or Plasma by calculation 288 mosm/kg 275-300 [facility] Creatinine/Urea nitrogen [Mass Ratio] in Serum or Plasma 10 [facility] Calcium [Mass/volume] in Serum or Plasma 9.3 mg/dL 8.8-10.2 [facility] QA FLAGS AND/OR RANGES MODIFIED BY [employer] UPDATE ON 08/24 AT 1503 Glomerular filtration rate/1.73 sq M pre dicted among non-blacks [Volume Rate/Area] in Serum or Plasma by Creatinine-based formula (MDRD) >6 0 [facility] Glomerular filtration rate/1.73 sq M pre dicted among blacks [Volume Rate/Area] in Serum or Plasma by Creatinine-based formula (MDRD) >60 [facility] ID Date Data Source [id number] 08/23/2020 05:21:12 PM T [facility] Value Range Interpretation Code Description Data Aylin rce(s) Supporting Document(s) Ethanol [Mass/volume] in Serum or Plasma Negative [facility] ID Date Data Source [id number] 08/23/2020 05:21:12 PM [facility] Value Range Interpretation Code Description Data Aylin rce(s) Supporting Document(s) Magnesium [Mass/volume] in Serum or Plasma 2.5 mg/dL 1.6-2.4 H [facility] QA FLAGS AND/OR RANGES MODIFIED BY [employer] UPDATE ON 08/24 AT 1503 ID Date Data Source [id number] 08/23/2020 05:10:52 PM [facility] Value Range Interpretation Code Description Data Aylin rce(s) Supporting Document(s) Prothrombin time (PT) 12.5 s 12.5-14.9 [facility] INR in Platelet poor plasma by Coagulation assay 0.93 [facility] Routine intensity oral anticoagulation I NR is typically 2.0-3.0. Target INR must be clinically individualized. ID Date Data Source [id number] 08/23/2020 05:10:52 PM EDT [facility] Value Range Interpretation Code Description Data Aylin rce(s) Supporting Document(s) aPTT in Platelet poor plasma by Coagulation assay 23.4 s 24.0-33. 0 L [facility] ID Date Data Source [id number] 08/23/2020 05:21:12 PM [facility] Value Range Interpretation Code Description Data Aylin rce(s) Supporting Document(s) Salicylates [Mass/volume] in Serum or Plasma 3.0-30.0 L [facility] ID Date Data Source [id number] 08/23/2020 05:21:12 PM [facility] Value Range Interpretation Code Description Data Aylin rce(s) Supporting Document(s) Albumin [Mass/volume] in Serum or Plasma by Bromocresol green (BCG) dye binding method 4.8 g/dL 3.5-5.2 [facility] Bilirubin.total [Mass/volume] in Serum or Plasma 0.9 mg/dL <1.2 [facility] Bilirubin.direct [Mass/volume] in Serum or Plasma <0.3 [facility] Hemolyzed Alkaline phosphatase [Enzymatic activity/volume] in Serum or Plasma 67 U/L 40-129 [facility] Aspartate aminotransferase [Enzymatic activity/volume] in Serum or Plasma 43 U/L <40 H [facility] Hemolyzed Alanine aminotransferase [Enzymatic activity/volume] in Seru m or Plasma 27 U/L <41 [facility] Hemolyzed Protein [Mass/volume] in Serum or Plasma 7.4 g/dL 6.4-8.3 [facility] ID Date Data Source [id number] 08/23/2020 05:21:12 PM T [facility] Value Range Interpretation Code Description Data Aylin rce(s) Supporting Document(s) Thyroxine (T4) [Mass/volume] in Serum or Plasma 6.9 ug/dl 4.5-11.7 [facility] ID Date Data Source [id number] 08/23/2020 05:41:44 PM [facility] Value Range Interpretation Code Description Data Aylin rce(s) Supporting Document(s) Troponin T.cardiac [Mass/volume] in Serum or Plasma <0.01 [facility] ID Date Data Source [id number] 08/23/2020 05:21:12 PM EDT [facility] Name Value Range Interpretation Code Description Data Aylin rce(s) Supporting Document(s) Thyrotropin [Units/volume] in Serum or Plasma 0.949 u[IU]/mL 0.270-4. 200 [facility] ID Date Data Source [id number] 08/23/2020 05:04:31 PM [facility] Name Value Range Interpretation Code Description Data Aylin rce(s) Supporting Document(s) Leukocytes [#/volume] in Blood by Automated count 12.0 10*3/uL 4-10 H [facility] Erythrocytes [#/volume] in Blood by Automated count 4.86 10*6/uL 4.6- 6.1 [facility] Hemoglobin [Mass/volume] in Blood 15.8 g/dL 13.5-18 [facility] Hematocrit [Volume Fraction] of Blood by Automated count 48.3 % 4 1-53 [facility] Erythrocyte mean corpuscular volume [Entitic volume] by Auto mated count 99.4 fL 80-96 [facility] Erythrocyte mean corpuscular hemoglobin [Entitic mass] by Automated count 32.5 pg 27-33 [facility] Erythrocyte mean corpuscular hemoglobin concentration [Mass/volume] by Automated count 32.7 g/dL 32.0-36.0 [facility] Erythrocyte distribution width [Ratio] by Automated count 13.4 % 11.5-14.5 [facility] Platelets [#/volume] in Blood by Automated count 258 10*3/uL 150-400 [facility] Differential cell count method - Blood [facility] Neutrophils/100 leukocytes in Blood by Automated count 92 % [facility] Lymphocytes/100 leukocytes in Blood by Automated count 4 % [facility] Monocytes/100 leukocytes in Blood by Automated count 3 % [facility] Eosinophils/100 leukocytes in Blood by Automated count 0 % [facility] Basophils/100 leukocytes in Blood by Automated count 1 % [facility] Neutrophils [#/volume] in Blood by Automated count 11.05 10*3/uL 1.8- 7.0 H [facility] Lymphocytes [#/volume] in Blood by Automated count 0.42 10*3/uL 1.2-4 .0 L [facility] Monocytes [#/volume] in Blood by Automated count 0.41 10*3/uL 0-0.8 [facility] Eosinophils [#/volume] in Blood by Automated count 0.01 10*3/uL 0-0.5 [facility] Basophils [#/volume] in Blood by Automated count 0.06 10*3/uL 0-0.2 [facility] Nucleated erythrocytes/100 leukocytes [Ratio] in Blood by Automated count 0 /100{WBCs} 0-0 [facility] ID Date Data Source Basic Metabolic Profile (BMP) 04/14/2020 12:00:00 AM EST eCW 1 ([facility]) Name Value Range Interpretation Code Description Data Aylin rce(s) Supporting Document(s) 10 7-18 BLOOD UREA NITROGEN eCW1 ([facility]) 99 70-100 GLUCOSE, FASTING eCW1 ([facility]) 0.90 0.70-1.30 CREATININE FOR GFR eCW1 ([facility]) > 60.0 >49 GLOMERULAR FILTRATION RATE eCW 1 ([facility]) 137 136-145 SODIUM LEVEL eCW1 ([facility]) 31 21-32 CARBON DIOXIDE LEVEL eCW1 ([facility]) 100 98-107 CHLORIDE LEVEL eCW1 ([facility]) 3.9 3.5-5.1 POTASSIUM SERUM eCW1 ([facility]) 9.7 8.8-10.2 CALCIUM LEVEL eCW1 ([facility]) ID Date Data Source LIPID PANEL (CARDIAC RISK) 04/14/2020 12:00:00 AM EST eCW1 ( [facility]) Name Value Range Interpretation Code Description Data Aylin rce(s) Supporting Document(s) Cholesterol [Moles/volume] in Serum or Plasma 169 <200 CHOLESTEROL LEVEL eCW1 ([facility]) Cholesterol in HDL [Moles/volume] in Serum or Plasma 74 >40 HDL CHOLESTEROL eCW1 ([facility]) Triglyceride [Mass/volume] in Serum or Plasma by calculation 79 <150 TRIGLYCERIDES LEVEL eCW1 ([facility]) 2.283 <5 CHOLESTEROL RISK RATIO eCW1 ([facility]) Cholesterol in LDL [Mass/volume] in Serum or Plasma by calculation 79 <100 LDL CHOLESTEROL eCW1 ([facility]) 95 NON-HDL-C eCW1 ([facility]) ID Date Data Source [id number] 04/14/2020 12:00:00 AM EST eCW1 ([facility]) Name Value Range Interpretation Code Description Data Aylin rce(s) Supporting Document(s) Hemoglobin A1c/Hemoglobin.total in Blood 5.5 HEMOGLOBIN A1c eCW1 ([facility]) Procedure Social History Code Duration Value Status Description Data Source(s ) Smoking 02/16/2021 12:00:00 AM EDT Never Smoker completed Never S moker eCW1 ([facility]) Smoking 12/02/2020 12:00:00 AM EDT Never Smoker completed Never S moker eCW1 ([facility]) Smoking 12/02/2020 12:00:00 AM EDT Never Smoker completed Never S moker eCW1 ([facility]) Smoking 12/02/2020 12:00:00 AM EDT Never Smoker completed Never S moker eCW1 ([facility]) Smoking 12/02/2020 12:00:00 AM EDT Never Smoker completed Never S moker eCW1 ([facility]) Smoking 12/02/2020 12:00:00 AM EDT Never Smoker completed Never S moker eCW1 ([facility]) Smoking 09/29/2020 12:00:00 AM EDT Never Smoker completed Never S moker eCW1 ([facility]) Smoking 09/29/2020 12:00:00 AM EDT Never Smoker completed Never S moker eCW1 ([facility]) Smoking 09/04/2020 12:00:00 AM EDT Never Smoker completed Never S moker eCW1 ([facility]) Smoking 09/04/2020 12:00:00 AM EDT Never Smoker completed Never S moker eCW1 ([facility]) Smoking 08/23/2020 12:00:00 AM EDT Unknown if ever smoked comp leted Unknown if ever smoked [facility] Smoking 06/16/2020 12:00:00 AM EST Never Smoker completed Never S moker eCW1 ([facility]) Smoking 06/16/2020 12:00:00 AM EST Never Smoker completed Never S moker eCW1 ([facility]) Smoking 06/16/2020 12:00:00 AM EST Never Smoker completed Never S moker eCW1 ([facility]) Smoking 04/14/2020 12:00:00 AM EST Never Smoker completed Never S moker eCW1 ([facility]) Vital Signs ID Date Data Source [id number] Name Value Range Interpretation Code Description Data Source(s) Systolic blood pressure 126 mm[Hg] 126 mm[Hg] M EDENT ([facility]) Diastolic blood pressure 75 mm[Hg] 75 mm[Hg] [facility] ([facility]) [place] body weight 172 [lb_av] 172 [lb_av[facility] Heart rate 47 /min 47 /min [facility] ([facility]) Body temperature 97.4 [degF] 97.4 [degF] [facility] ([facility]) Body height 71 [in_i] 71 [in_i] [facility] ([facility]) 5'11" Body weight 168.12 [lb_av] 168.12 [lb_av] MEDEN T ([facility]) Body mass index (BMI) [Ratio] 23.4 kg/m2 23.4 k g/m2 [facility] ([facility]) Body weight 76.261 kg 76.261 kg [facility] ([facility]) Body surface area Derived from formula 1.96 m2 1.96 m2 [facility] ([facility]) Body height 71 [in_i] 71 [in_i] W1 ([facility]) Body weight 162.8 [lb_av] 162.8 [lb_av] eCW1 ([facility]) Heart rate 46 /min 46 /min eCW1 ([facility]) Respiratory rate 17 /min 17 /min eCW1 ([facility]) Body mass index (BMI) [Ratio] 22.70 kg/m2 22.70 kg/m2 eCW1 ([facility]) Diastolic blood pressure 83 mm[Hg] 83 mm[Hg] eCW1 ([facility]) Body temperature 98.0 [degF] 98.0 [degF] eCW1 ( [facility]) Systolic blood pressure 132 mm[Hg] 132 mm[Hg] e CW1 ([facility]) Body temperature 98.3 [degF] 98.3 [degF] MEDENT ([facility]) Heart rate 79 /min 79 /min [facility] ([facility]) Body height 71 [in_i] 71 [in_i] [facility] ([facility]) 5'11" Body weight 159.38 [lb_av] 159.38 [lb_av] MEDEN T ([facility]) [place] body weight 172 [lb_av] 172 [lb_av] [facility] Body weight 72.293 kg 72.293 kg [facility] ([facility]) Body surface area Derived from formula 1.91 m2 1.91 m2 [facility] ([facility]) Body mass index (BMI) [Ratio] 22.2 kg/m2 22.2 k g/m2 [facility] ([facility]) Systolic blood pressure 137 mm[Hg] 137 mm[Hg] [facility]) Diastolic blood pressure 82 mm[Hg] 82 mm[Hg] [facility] ([facility]) Body weight 160.2 [lb_av] 160.2 [lb_av] eCW1 ([facility]) Body height 71 [in_i] 71 [in_i] eCW1 ([facility]) Body mass index (BMI) [Ratio] 22.34 kg/m2 22.34 kg/m2 W1 ([facility]) Heart rate 75 /min 75 /min eCW1 ([facility]) Respiratory rate 17 /min 17 /min eCW1 ([facility]) Body temperature 98.8 [degF] 98.8 [degF] eCW1 ( [facility]) Systolic blood pressure 154 mm[Hg] 154 mm[Hg] e CW1 ([facility]) Diastolic blood pressure 93 mm[Hg] 93 mm[Hg] eCW1 ([facility]) Body weight 169.6 [lb_av] 169.6 [lb_av] eCW1 ([facility]) Body height 71 [in_i] 71 [in_i] eCW1 ([facility]) Body mass index (BMI) [Ratio] 23.65 kg/m2 23.65 kg/m2 eCW1 ([facility]) Heart rate 57 /min 57 /min eCW1 ([facility]) Respiratory rate 17 /min 17 /min eCW1 ([facility]) Body temperature 98.1 [degF] 98.1 [degF] eCW1 ( [facility]) Systolic blood pressure 129 mm[Hg] 129 mm[Hg] e CW1 ([facility]) Diastolic blood pressure 81 mm[Hg] 81 mm[Hg] eCW1 ([facility]) Body weight 175 [lb_av] 175 [lb_av] eCW1 ([facility]) Body height 71 [in_i] 71 [in_i] eCW1 ([facility]) Body mass index (BMI) [Ratio] 24.40 kg/m2 24.40 kg/m2 eCW1 ([facility]) Heart rate 61 /min 61 /min eCW1 ([facility]) Respiratory rate 16 /min 16 /min eCW1 ([facility]) Body temperature 97.9 [degF] 97.9 [degF] eCW1 ( [facility]) Systolic blood pressure 151 mm[Hg] 151 mm[Hg] e CW1 ([facility]) Diastolic blood pressure 81 mm[Hg] 81 mm[Hg] eCW1 ([facility]) Heart rate 58 /min 58 /min eCW1 ([facility]) Respiratory rate 16 /min 16 /min eCW1 ([facility]) Body temperature 99.0 [degF] 99.0 [degF] eCW1 ( [facility]) Systolic blood pressure 128 mm[Hg] 128 mm[Hg] e CW1 ([facility]) Diastolic blood pressure 83 mm[Hg] 83 mm[Hg] eCW1 ([facility]) Body weight 184 [lb_av] 184 [lb_av] eCW1 ([facility]) Body height 71 [in_i] 71 [in_i] eCW1 ([facility]) Body mass index (BMI) [Ratio] 25.66 kg/m2 25.66 kg/m2 eCW1 ([facility]) Body weight 185 [lb_av] 185 [lb_av] eCW1 ([facility]) Body height 71 [in_i] 71 [in_i] eCW1 ([facility]) Body mass index (BMI) [Ratio] 25.80 kg/m2 25.80 kg/m2 eCW1 ([facility]) Heart rate 65 /min 65 /min eCW1 ([facility]) Respiratory rate 16 /min 16 /min eCW1 ([facility]) Body temperature 97.7 [degF] 97.7 [degF] eCW1 ( [facility]) Systolic blood pressure 156 mm[Hg] 156 mm[Hg] e CW1 ([facility]) Diastolic blood pressure 93 mm[Hg] 93 mm[Hg] eCW1 ([facility]) ID Date Data Source [id number] 09/04/2020 08:50:20 AM [facility] Name Value Range Interpretation Code Description Data Source(s) WEIGHT RECORDED 174.6 lb 174.6 lb [facility] WEIGHT RECORDED 166.01 lb 166.01 lb [facility] Body height Measured 70 in 70 in [facility] Patient Treatment Plan of Care Planned Activity Planned Date Details Description Data Source (s) Vitamin B 12 1 MG Oral Tablet 08/28/2020 12:00:00 AM [facility] Folic Acid 1 MG Oral Tablet 08/28/2020 12:00:00 AM [facility] Thiamine 100 MG Oral Tablet 08/27/2020 12:00:00 AM [facility] dextrose 50 % IV solution 25 mL 08/23/2020 08:38:54 PM [facility] Glucagon 1 MG Injection 08/23/2020 08:38:54 PM [facility] Glucose 0.417 MG/MG Oral Gel 08/23/2020 08:38:54 PM [facility] sildenafil 50 MG Oral Tablet [Viagra] 06/16/2020 12:00:00 AM EST eCW1 ([facility]) sildenafil 50 MG Oral Tablet [Viagra] 06/16/2020 12:00:00 AM EST eCW1 ([facility]) sildenafil 50 MG Oral Tablet [Viagra] 06/16/2020 12:00:00 AM EST eCW1 ([facility]) sildenafil 50 MG Oral Tablet [Viagra] 06/16/2020 12:00:00 AM EST eCW1 ([facility]) sildenafil 50 MG Oral Tablet [Viagra] 06/16/2020 12:00:00 AM EST eCW1 ([facility])
[2021-03-28] MEDS ORDERED: levETIRAcetam INJection 1,500 MG in D5W 100 ML IV ONE (07:40)
[2021-03-28 08:05] LABS: BASO # 0.1 10^3/uL (0.0-0.2); BASO % 1.3 % (0.0-1.0); EOS # 0.2 10^3/uL (0.0-0.5); EOS % 3.3 % (0.0-3.0); HEMATOCRIT 48.4 % (42.0-52.0); HEMOGLOBIN 16.3 g/dl (13.5-17.5); LYMPH # 1.2 10^3/uL (1.5-5.0); LYMPH % 19.6 % (24.0-44.0); MEAN CORPUSCULAR HEMOGLOBIN 32.4 pg (27.0-33.0); MEAN CORPUSCULAR HGB CONC 33.7 g/dl (32.0-36.5); MEAN CORPUSCULAR VOLUME 96.2 fl (80.0-96.0); MONO # 0.4 10^3/uL (0.0-0.8); NEUTROPHILS # 4.3 10^3/uL (1.5-8.5); PLATELET COUNT, AUTOMATED 240 10^3/uL (150-450); RED BLOOD COUNT 5.03 10^6/uL (4.30-6.10); WHITE BLOOD COUNT 6.3 10^3/uL (4.0-10.0)
--- NOTE | 2021-03-28 08:10 | REP ---
INDICATION: Altered Mental Status. COMPARISON: None. TECHNIQUE: AP portable seated chest FINDINGS: Lungs are well inflated. There is no pleural effusion, infiltrate, atelectasis or mass. The heart, mediastinal and hilar contours were normal. Mildly tortuous calcified aortic arch without aneurysm. Pulmonary arteries are mildly prominent centrally but symmetric. Airway is intact. The bony thorax shows no focal lesion. IMPRESSION: No acute cardiopulmonary change. <Electronically signed by Issa Brown > 03/28/21 [id number]
--- OUTSIDE RECORDS SUMMARY | 2021-03-28 08:18 | CCD ---
Author Author [facility] Organization [facility] Address Unknown Phone Unavailable Care Team Providers Care Assisted Living Home Director Name Role Phone Steff Yang MD Unavailable [...] L Enid RPA Unavailable Unavailable Looney, L Endi RPA Unavailable Unavailable Looney, L Enid RPA [...] Unavailable Otite, Deng Fadar Unavailable Unavailable Otite, Edng Fadar Unavailable Unavailable Re-disclosure Warning The records [...] is protected by Article 27-F of the [facility] Public Health law. If you continue you may have access to information: Regarding HIV / AIDS; Provided by facilities licensed or operated by the [facility] Office of Mental Health; or Provided by the [facility] Office for People With Developmental Disabilities. If such information is present, then the following [facility] mandated warning applies: This information has [...] law may result in a fine or correction sentence or both. A general authorization for the release of medical or other information is NOT sufficient authorization for further disc losure. Allergies and Adverse Reactions Type Description Substance Reaction Status Data Source(s ) Propensity to adverse reactions NO KNOWN ALLERGIES NO KNOWN ALLERGIES [facility] Family History Family Member Name Family Member Gender Family Member Status Date o f Status Description Data Source(s) Unknown Male Problem [facility] ([facility]) Encounters Encounter Providers Location Date Indications Data Source(s ) Office Visit Attender: Enid Mcclure/Kylee/César/R eindl 03/18/2021 10:15:00 AM EDT [facility] ([facility] [place] [address] [facility] [address] 02/16/2021 12:00:00 AM EDT eCW1 ([facility]) Outpatient Attender: SARAH Mcclure/Kylee/César/ Reindl 01/01/2021 01:30:00 PM EDT [facility] ([facility] [place] [address] [facility] [address] 12/31/2020 12:00:00 AM EDT eCW1 ([facility]) Unknown [address] [facility] [address] 12/30/2020 12:00:00 AM EDT [facility]CW1 ([facility] [place] [address] [facility] [address] 12/24/2020 12:00:00 AM EDT eCW1 ([facility] [place] [address] [facility] [address] 12/02/2020 12:00:00 AM EDT eCW1 ([facility]) Unknown [address] [facility] [address] 11/28/2020 12:00:00 AM EDT eCW1 ([facility]) [place]patient [address] [facility] [address] 09/29/2020 12:00:00 AM EDT eCW1 ([facility]) Unknown [address] [facility] [address] 09/10/2020 12:00:00 AM EDT eCW1 ([facility]) Outpatient [address] [facility] [address] 09/04/2020 12:00:00 AM EDT eCW1 ([facility]) Unknown [address] [facility] [address] 09/04/2020 12:00:00 AM EDT eCW1 ([facility]) Unknown [address] [facility] [address] 08/28/2020 12:00:00 AM EDT eCW1 ([facility]) Inpatient Attender: Claudine Escudero DAttender: YENNI RUSSELL MDAttender: Dominic BecerraiteAdmitter: Dominic BecerraiteReferrer: Dominic Hernandez [id number] 2020 12:00:00 AM EDT - 08/27/2020 02:48:00 PM EDT Unspecified convulsions [facility] Unspecified convulsions Patient discharged. Unknown [address] [facility] [address] 06/18/2020 12:00:00 AM EST [facility] [address] [facility] [address] 06/16/2020 12:00:00 AM EST eCW1 ([facility]) Outpatient [address] [facility] [address] 04/14/2020 12:00:00 AM EST eCW1 ([facility]) Unknown [address] [facility] [address] 03/24/2020 12:00:00 AM EST eCW1 ([facility]) Immunizations Vaccine Date Status Description Data Source(s) influenza, recombinant, quadrIvalent,injectable, prese rvative free 02/16/2021 09:27:00 AM EDT completed [facility] COVID-19 VACCINE Moderna 10/03/2020 12:00:00 AM EDT completed [facility]IS Vaccine Series Complete: YESThis Data wa s Submitted to [facility] Via [employer]. COVID-19 VACCINE Moderna 09/05/2020 12:00:00 AM EDT completed [facility]IS Vaccine Series Complete: NOThis Data was Submitted to [facility] Via [employer]. INFLUENZA VIRUS VACCINE QUADRIVALENT (6 MOS AN [...] Hydrocodone Bitartrate 5 MG Oral Tabl et [[place]] [place] 02/27/2021 12:00:00 AM EDT ORAL active [facility] ([facility]) 25 mg 01/27/2021 [...] active Take 1 tablet by mouth daily [facility] 1 mg 08/28/2020 12:00:00 AM EDT [...] active Take 1 tablet by mouth daily [facility] Thiamine 100 MG Oral Tablet Thiamine HCl 100 MG Oral T ablet (B-1) Thiamine HCl 100 MG Oral Tablet (B-1) 08/27/2020 12:00:00 AM EDT 100 mg Oral active Take [facility] MG Oral Tablet atorvastatin (LIPITOR) tablet 20 mg atorvastatin (LIPITOR) tablet 20 mg 08/26/2020 09:00:00 PM EDT 20 mg Oral active 20 mg, Oral, Every evening, First dose on Tue08/26/20 at 2100, For 30 days [facility] Medication administered onsite gadobutrol (GADAVIST) contrast injection 7.5 mL [id number] 08/26/2020 06:00:00 PM EDT 0.1 mL/kg Intravenous completed 7.5 mL (rounded from 7.92 mL = 0.1 mL/kg 79.2 kg), Intravenous, 1 TIME IMAGING, Tue08/26/20 at 1800, For 1 dose
Do not mix or administer in the same IV line with other medications.
[facility] Medication administered onsite Hydrochlorothiazide 25 MG Oral Tablet hy drochlorothiazide (HYDRODIURIL) tablet 25 mg hydrochlorothiazide (HYDRODIURIL) tablet 25 mg 08/26/2020 10 :00:00 AM EDT 25 mg Oral active 25 mg, Oral, Elly ly Standard, First dose on Tue08/26/20 at 1000, For 30 days [facility] Medication administered onsite thiamine (B-1) 500 mg in sodium chloride 0.9 % 50 mL IVPB 08/25/2020 06:00:00 PM EDT 500 mg Intravenous completed 50 0 mg, Intravenous, Administer over 30 Minutes, Every 8 hours, First dose (after last reorder) on Tue08/25/20 at 1800, For 2 doses [facility] Medication administered onsite Levetiracetam 750 MG Oral Tablet levETIRAcetam (KEPPRA ) tablet 1,500 mg levETIRAcetam (KEPPRA) tablet 1,500 mg 08/25/2020 09:00:00 AM EDT 1500 mg Oral aborted 1,500 mg, Oral , 2 Times Daily, First dose on Tue08/25/20 at 0900, For 30 days [facility] Medication administered onsite Folic Acid 1 MG Oral Tablet folic acid (FOLVITE) table t 1 mg folic acid (FOLVITE) tablet 1 mg 08/25/2020 09:00:00 AM EDT 1 mg Oral active 1 mg, Oral, Daily Standard, First dose on Tue08/25/20 at 0900, For 30 days [facility] Medication administered onsite Vitamin B 12 1 MG Oral Tablet vitamin B-12 (CYANOCOBAL ALANIS) tablet 1,000 mcg vitamin B-12 (CYANOCOBALAMIN) tablet 1,000 mcg 08/25/2020 09:00:00 AM EDT 1000 ug Oral active 1,000 mcg, Oral, Daily Standard, First dose on Tue08/25/20 at 0900, For 30 days [facility] Medication administered onsite thiamine (B-1) 500 mg in sodium chloride 0.9 % 50 mL IVPB 08/25/2020 09:00:00 AM EDT 500 mg Intravenous completed 50 0 mg, Intravenous, Administer over 30 Minutes, Once, Tue08/25/20 at 0900, For 1 dose [facility] Medication administered onsite potassium chloride (K-DUR) dissolvable tablet 40 mEq 35670-5 [id number] 08/25/2020 06:00:00 AM EDT 40 meq Oral completed 40 mEq, Oral, Once, Tue08/25/20 at 0600, For 1 dose
May be dissolved in water for patients with a G-Tube or unable to swallow. If concern for clogging G-Tube, may contact Pharmacy to switch formulation to a powder packet.
[facility] Medication administered onsite sodium chloride 0.9 % bolus 1,000 mL [id number] 08/24/2020 11:15: 00 AM EDT 1000 mL Intravenous completed 1,000 mL , Intravenous, Once, [place] 08/24/20 at 1115, For 1 dose [facility] Medication administered onsite pantoprazole 4 MG/ML Injectable Solution pantoprazole (PROTONIX) injection 40 mg pantoprazole (PROTONIX) injection 40 mg 08/24/2020 09:00:00 AM EDT 40 mg Intravenous active 40 mg, Intrav enous, Daily Standard, First dose on Tue08/24/20 at 0900, For 30 days [facility] Medication administered onsite 0.4 ML Enoxaparin sodium 100 MG/ML Prefi lled Syringe enoxaparin sodium (LOVENOX) injection 40 mg enoxaparin sodium (LOVENOX) injection 40 mg 08/24/2020 09:00:00 AM EDT 40 mg Subcutaneous active 40 mg, Subcutaneous, Daily Standard, First dose on Tue08/24/20 at 0900, For 30 days [facility] Medication administered onsite dexmedetomidine (PRECEDEX) in NaCl 0.9 % infusion 4 mcg/mL 1 [id number] 08/24/2020 08:15:00 AM EDT ug/kg/h Intravenous aborted 0.1-1.5 mcg/kg/hr 75.3 kg (1.8825-28.2375 mL/hr, rounded to 1.9-28.2 mL/hr), Intravenous, at 1.9- 28.2 mL/hr, Continuous, Starting 08/24/20 at 0815, For 30 days
Starting dose = 0.2 mcg/kg/hrTitrate to maintain RASS of 0 to -1
[facility] Medication administered onsite fentaNYL (SUBLIMAZE) (PF) injection 25 mcg [id number] 08/24/2020 07:30:00 AM EDT 25 ug Intravenous completed 25 mcg, Intravenous, Once, [place] 08/24/20 at 0730, For 1 dose [facility] Medication administered onsite Potassium Chloride 0.1 MEQ/ML Injectable Solution potassium chloride 10 mEq in 100 mL IVPB (premix) potassium chloride 10 mEq in 100 mL IVPB (premix) 08/24/2020 06:00:00 AM EDT 10 meq Intravenous completed 10 mEq, Intravenous, Administer over 60 Minutes, Every 1 hour, First dose on [place] 08/24/20 at 0600, For 4 doses [facility] Medication administered onsite dextrose 5 %-0.9 % sodium chloride infusion [id number] 08/24/2020 12:00:00 AM EDT Intravenous aborted at 1 00 mL/hr, Intravenous, Continuous, Starting [place] 08/24/20 at 0000, For 30 days [facility] Medication administered onsite fentaNYL (SUBLIMAZE) (PF) injection 25 mcg [id number] 08/23/2020 09:04:39 PM EDT 25 ug Intravenous aborted 25 m cg, Intravenous, Every 3 hours PRN, Sedation, Starting 08/23/20 at 2104, For 1 day [facility] Medication administered onsite Levetiracetam 15 MG/ML Injectable Soluti on levETIRAcetam (KEPPRA) 1,500 mg in sodium chloride 100 mL (15 mg/mL) infusion (premix) levETIRAcetam (KEPPRA) 1,500 mg in sodium chloride 100 mL (15 mg/mL) infusion (premix) 08/23/2020 09:00:00 PM EDT 1500 mg Intravenous aborted 1,50 0 mg, Intravenous, at 400 mL/hr, 2 Times Daily, First dose on 08/23/20 at 2100, For 30 days [facility] Medication administered onsite dextrose 50 % IV solution 25 mL [id number] 08/23/2020 08:38:54 PM E DT 25 mL Intravenous active 25 mL, Intrav enous, PRN, Other, blood glucose <55, Starting 08/23/20 at 2037, For 30 days
Not for midline administration.
[facility] Medication administered onsite Glucagon 1 MG Injection glucagon (human recombinant) ( GLUCAGEN) injection 1 mg glucagon (human recombinant) (GLUCAGEN) injection 1 mg 08/23/2020 08:38:54 PM EDT 1 mg Intramuscular active 1 mg, Intramuscular, PRN, for glucose <55 without IV access, Starting 08/23/20 at 2037, For 30 days [facility] Medication administered onsite Glucose 0.417 MG/MG Oral Gel glucose (GLUTOSE) 40 % or al gel 15 g glucose (GLUTOSE) 40 % oral gel 15 g 08/23/2020 08:38:54 PM EDT 15 g Oral active 15 g, Oral, PRN, Low blood s ugar, for gluose 55-69 mg/dl and able to take PO, Starting 08/23/20 at 2037, For 30 days [facility] Medication administered onsite NaCl infusion 0.9 % [id number] 08/23/2020 07:00:00 PM EDT Intravenous aborted at 75 mL/hr, Intrave nous, Continuous, Starting 08/23/20 at 1900, For 30 days [facility] Medication administered onsite iohexol (OMNIPAQUE) 300 MG/ML contrast injection 100 mL [id number] 08/23/2020 05:15:00 PM EDT 100 mL Given by IV completed 100 mL, Given by IV, 1 TIME IMAGING, 08/23/20 at 1715, For 1 dose [facility] Medication administered onsite iohexol (OMNIPAQUE) 350 MG/ML contrast injection 75 mL [id number] 08/23/2020 05:15:00 PM EDT 75 mL Given by IV completed 75 mL, Given by IV, 1 TIME IMAGING, 08/23/20 at 1715, For 1 dose [facility] Medication administered onsite fentaNYL (SUBLIMAZE) (PF) injection 50 mcg [id number] 08/23/2020 04:45:00 PM EDT 50 ug Intravenous completed 50 mcg, Intravenous, Once, 08/23/20 at 1645, For 1 dose [facility] Medication administered onsite propofol (DIPRIVAN) infusion 1,000 mg/100 mL [id number] 08/23/2020 04:45:00 PM EDT ug/kg/min Intravenous aborted 1 0-80 mcg/kg/min 77.1 kg (4.626-37.008 mL/hr, rounded to 4.6-37 mL/hr), Intravenous, at 4.6-37 mL/hr, Continuous, Starting 08/23/20 at 1645, For 30 days
Starting dose = 10 mcg/kg/minIncrease by 5-10 mcg/kg/minMax Dose = 80 mcg/kg/minStart dose at 20, notify if drop in BP
[facility] Medication administered onsite 50 ML Magnesium Sulfate 40 MG/ML Injecti on magnesium sulfate infusion 2 g/50 mL (premix) magnesium sulfate infusion 2 g/50 mL (premix) 08/24/19 04:45:00 PM EDT 2 g Intravenous completed 2 g, Intravenous, Administer over 30 Minutes, Once, 08/23/20 at 1645, For 1 dose [facility] Medication administered onsite 25 mg 08/01/2020 [...] 1.0 {tablet_as_needed} suspended Viagra 50 MG eCW1 ([facility]) sildenafil 50 MG Oral Tablet [Viagra] Viagra 50 MG Viagra 50 MG 06/16/2020 12:00:00 AM EST 1.0 {tablet_as_needed} active Viagra 50 MG eCW1 ([facility]) sildenafil 50 MG Oral Tablet [Viagra] Viagra 50 MG Viagra 50 MG 06/16/2020 12:00:00 AM EST 1.0 {tablet_as_needed} suspended Viagra 50 MG eCW1 ([facility]) sildenafil 50 MG Oral Tablet [Viagra] Viagra 50 MG Viagra 50 MG 06/16/2020 12:00:00 AM EST 1.0 {tablet_as_needed} suspended Viagra 50 MG eCW1 ([facility]) sildenafil 50 MG Oral Tablet [Viagra] Viagra 50 MG Viagra 50 MG 06/16/2020 12:00:00 AM EST 1.0 {tablet_as_needed} active Viagra 50 MG eCW1 ([facility]) sildenafil 50 MG Oral Tablet [Viagra] Viagra 50 MG Viagra 50 MG 06/16/2020 12:00:00 AM EST 1.0 {tablet_as_needed} suspended Viagra 50 MG eCW1 ([facility]) sildenafil 50 MG Oral Tablet [Viagra] Viagra 50 MG Viagra 50 MG 06/16/2020 12:00:00 AM EST 1.0 {tablet_as_needed} active Viagra 50 MG eCW1 ([facility]) sildenafil 50 MG Oral Tablet [Viagra] Viagra 50 MG Viagra 50 MG 06/16/2020 12:00:00 AM EST 1.0 {tablet_as_needed} active Viagra 50 MG eCW1 ([facility]) sildenafil 50 MG Oral Tablet [Viagra] Viagra 50 MG Viagra 50 MG 06/16/2020 12:00:00 AM EST 1.0 {tablet_as_needed} suspended Viagra 50 MG eCW1 ([facility]) sildenafil 50 MG Oral Tablet [Viagra] Viagra 50 MG Viagra 50 MG 06/16/2020 12:00:00 AM EST 1.0 {tablet_as_needed} suspended Viagra 50 MG eCW1 ([facility]) sildenafil 50 MG Oral Tablet [Viagra] Viagra 50 MG Viagra 50 MG 06/16/2020 12:00:00 AM EST 1.0 {tablet_as_needed} suspended Viagra 50 MG eCW1 ([facility]) sildenafil 50 MG Oral Tablet [Viagra] Viagra 50 MG Viagra 50 MG 06/16/2020 12:00:00 AM EST 1.0 {tablet_as_needed} active Viagra 50 MG eCW1 ([facility]) sildenafil 50 MG Oral Tablet [Viagra] Viagra 50 MG Viagra 50 MG 06/16/2020 12:00:00 AM EST 1.0 {tablet_as_needed} suspended Viagra 50 MG eCW1 ([facility]) 25 mg 05/05/2020 12:00:00 AM EST tablet [...] type / Coverage type Policy ID Covered republican ID Covered republican's relationship to brady Policy Brady Plan Information [facility] [id number] Self [id number] ANSI-Not a Secondary Insurance [id number] ANSI-Not a Secondary Insurance [id number] ANSI-Not a Secondary Insurance [id number] ANSI-Not a Secondary Insurance [id number] ANSI-Not a Secondary Insurance [id number] ANSI-Not a Secondary Insurance [id number] ANSI-Not a Secondary Insurance [id number] ANSI-Not a Secondary Insurance [id number] ANSI-Not a Secondary Insurance [id number] ANSI-Not a Secondary Insurance [id number] ANSI-Not a Secondary Insurance [id number] ANSI-Not a Secondary Insurance [id number] ANSI-Not a Secondary Insurance [id number] MVP (pr) Commercial [id number] Self [id number] MVP (pr) Commercial [id number] Self [id number] MVP (pr) Commercial [id number] Self [id number] MVP (pr) Commercial [id number] Self [id number] [employer] [facility] [facility] [id number] SP [id number] ITT Lang-8 WORK COMP [id number] SP [id number] ITT [employer] WORK COMP [id number] SP [id number] SELF PAY UNAVAILABLE SP UNAVAILA BLE ITT Lang-8 WORK COMP [id number] SP [id number] [employer] [facility] [id number] SP [id number] [facility] [employer] [id number] SP [id number] Problems, Conditions, and Diagnoses Code Display Name Description Problem Type Effective Dates Data Source(s) R56.9 Unspecified convulsions Unspecified convulsions Diagno sis 08/23/2020 04:13:00 PM EDT [facility] [id number] Essential hypertension Essential hypertension Problem 01/01/2021 12:00:00 AM EDT [facility] ([facility], ) F43.21 [id number] Grief Problem 09/04/2020 12:00:00 AM ED T eCW ([facility]) N52.9 [id number] Erectile dysfunction, unspecifie d erectile dysfunction type Problem 06/16/2020 12:00:00 AM EST eCW ([facility]) Surgeries/Procedures Procedure Description Date Indications Data Source(s) Lap Inguinal Hernia Repair 03/04/2021 12:00:00 AM EDT [facility] ([facility], ) Imm: Flublok Quadrivalent 18 years & older 0.5mL IM Influenz a 02/16/2021 12:00:00 AM EDT [facility] ([facility]) OFFICE OUTPATIENT NEW 45 MINUTES 01/01/2021 12:00:00 A M EDT [facility] ([facility], ) BLOOD COUNT COMPLETE AUTO&AUTO DIFRNTL WBC COUNT <td>C BC AND DIFFERENTIAL</td><td>Routine</td><td>08/27/2020 3:15 AM EDT</td><td></td><td> </td> 08/27/2020 03:15:00 AM EDT [facility] MRI SPINAL CANAL CERVICAL W/O & W/CONTR MATRL <td>MR C ERVICAL SPINE WITH AND WITHOUT CONTRAST [id number]</td><td>Routine</td><td>08/26/2020 6:46 PM EDT</td><td></td><td></td> 08/26/2020 06:46:56 PM EDT [facility] MRI BRAIN BRAIN STEM W/O &W/CONTRAST MATERIAL <td>MR B RAIN WITH AND WITHOUT CONTRAST [id number]</td><td>Pending Discharge</td><td>08/26/2020 6:46 PM EDT</td><td></td><td> </td> 08/26/2020 06:46:08 PM [facility] BLOOD COUNT COMPLETE AUTO&AUTO DIFRNTL WBC COUNT <td>C BC AND DIFFERENTIAL</td><td>Routine</td><td>08/26/2020 4:19 AM EDT</td><td></td><td> </td> 08/26/2020 04:19:00 AM [facility] BASIC METABOLIC PANEL CALCIUM TOTAL <td>BASIC METABOLI C PANEL</td><td>Routine</td><td>08/26/2020 4:19 AM EDT</td><td></td><td> </td> 08/26/2020 04:19:00 AM [facility] BLOOD COUNT COMPLETE AUTO&AUTO DIFRNTL WBC COUNT <td>C BC AND DIFFERENTIAL</td><td>Routine</td><td>08/25/2020 3:43 AM EDT</td><td></td><td> </td> 08/25/2020 03:43:00 AM [facility] PHOSPHORUS INORGANIC <td>PHOSPHORUS LEVEL</td><td >Routine</td><td>08/25/2020 3:43 AM EDT</td><td></td><td> </td> 08/25/2020 03:43:00 AM [facility] MAGNESIUM <td>MAGNESIUM LEVEL</td><td> Routine</td><td>08/25/2020 3:43 AM EDT</td><td></td><td> </td> 08/25/2020 03:43:00 AM [facility] CYANOCOBALAMIN VITAMIN B-12 <td>VITAMIN B12</td><td>Ro utine</td><td>08/25/2020 3:43 AM EDT</td><td></td><td> </td> 08/25/2020 03:43:00 AM [facility] BASIC METABOLIC PANEL CALCIUM TOTAL <td>BASIC METABOLI C PANEL</td><td>Routine</td><td>08/25/2020 3:43 AM EDT</td><td></td><td> </td> 08/25/2020 03:43:00 AM [facility] POCT GLUCOSE, DOCKED <td>POCT GLUCOSE, DOCKED</td ><td>Routine</td><td>08/24/2020 3:32 PM EDT</td><td></td><td> </td> 08/24/2020 03:32:00 PM [facility] GLUCOSE QUANTITATIVE BLOOD XCPT REAGENT STRIP <td>POCT GLUCOSE, DOCKED</td><td>Routine</td><td>08/24/2020 1:40 PM EDT</td><td></td><td> </td> 08/24/2020 01:40:00 PM [facility] CREATINE KINASE TOTAL <td>CK</td><td>Routine</td>< td>08/24/2020 11:34 AM EDT</td><td></td><td> </td> 08/24/2020 11:34:00 AM [facility] EKG 12-LEAD - CMAXX REPORT <td>EKG 12-LEAD - CMAXX REPORT</td><td></td><td>08/24/2020 10:40 AM EDT</td><td></td><td></td> 08/24/2020 10:40:45 AM [facility] EKG 12-LEAD - CMAXX REPORT <td>EKG 12-LEAD - CMAXX REPORT</td><td></td><td>08/24/2020 10:40 AM EDT</td><td></td><td></td> 08/24/2020 10:40:45 AM [facility] EKG 12-LEAD <td>EKG 12-LEAD</td><td>Rout ine</td><td>08/24/2020 10:40 AM EDT</td><td></td><td> </td> 08/24/2020 10:40:45 AM [facility] GLUCOSE QUANTITATIVE BLOOD XCPT REAGENT STRIP <td>POCT GLUCOSE, DOCKED</td><td>Routine</td><td>08/24/2020 8:53 AM EDT</td><td></td><td> </td> 08/24/2020 08:53:00 AM [facility] XR CHEST FRONTAL ONLY [id number] <td>XR CHEST FRONTAL ONLY 92433</td><td>Routine</td><td>08/24/2020 4:37 AM EDT</td><td></td><td> </td> 08/24/2020 04:37:00 AM [facility] GLUCOSE QUANTITATIVE BLOOD XCPT REAGENT STRIP <td>POCT GLUCOSE, DOCKED</td><td>Routine</td><td>08/24/2020 4:06 AM EDT</td><td></td><td> </td> 08/24/2020 04:06:00 AM [facility] BLOOD COUNT COMPLETE AUTO&AUTO DIFRNTL WBC COUNT <td>C BC AND DIFFERENTIAL</td><td>Routine</td><td>08/24/2020 3:49 AM EDT</td><td></td><td> </td> 08/24/2020 03:49:00 AM [facility] PHOSPHORUS INORGANIC <td>PHOSPHORUS LEVEL</td><td >Routine</td><td>08/24/2020 3:49 AM EDT</td><td></td><td> </td> 08/24/2020 03:49:00 AM [facility] MAGNESIUM <td>MAGNESIUM LEVEL</td><td> Routine</td><td>08/24/2020 3:49 AM EDT</td><td></td><td> </td> 08/24/2020 03:49:00 AM [facility] BASIC METABOLIC PANEL CALCIUM TOTAL <td>BASIC METABOLI C PANEL</td><td>Routine</td><td>08/24/2020 3:49 AM EDT</td><td></td><td> </td> 08/24/2020 03:49:00 AM [facility] GLUCOSE QUANTITATIVE BLOOD XCPT REAGENT STRIP <td>POCT GLUCOSE, DOCKED</td><td>Routine</td><td>08/24/2020 2:12 AM EDT</td><td></td><td> </td> 08/24/2020 02:12:00 AM [facility] GLUCOSE QUANTITATIVE BLOOD XCPT REAGENT STRIP <td>POCT GLUCOSE, DOCKED</td><td>Routine</td><td>08/23/2020 11:46 PM EDT</td><td></td><td> </td> 08/23/2020 11:46:00 PM [facility] HEMOGLOBIN GLYCOSYLATED A1C <td>HEMOGLOBIN A1C</td><td>Routine</td><td>08/23/2020 8:56 PM EDT</td><td></td><td> </td> 08/23/2020 08:56:00 PM [facility] [facility] QUANTITATIVE BLOOD XCPT REAGENT STRIP <td>POCT GLUCOSE, DOCKED</td><td>Routine</td><td>08/23/2020 8:43 PM EDT</td><td></td><td> </td> 08/23/2020 08:43:00 PM [facility] DRUGS OF ABUSE, URINE <td>DRUGS OF ABUSE, URINE</t d><td>STAT</td><td>08/23/2020 5:29 PM EDT</td><td></td><td> </td> 08/23/2020 05:29:00 PM [facility] URNLS DIP STICK/TABLET REAGENT AUTO MICROSCOPY <td>URI NALYSIS WITH MICROSCOPIC</td><td>STAT</td><td>08/23/2020 5:29 PM EDT</td><td></td><td> </td> 08/23/2020 05:29:00 PM [facility] EKG 12-LEAD - CMAXX REPORT <td>EKG 12-LEAD - CMAXX REPORT</td><td></td><td>08/23/2020 5:24 PM EDT</td><td></td><td></td> 08/23/2020 05:24:40 PM [facility] EKG 12-LEAD - CMAXX REPORT <td>EKG 12-LEAD - CMAXX REPORT</td><td></td><td>08/23/2020 5:24 PM EDT</td><td></td><td></td> 08/23/2020 05:24:40 PM [facility] EKG 12-LEAD <td>EKG 12-LEAD</td><td>STAT </td><td>08/23/2020 5:24 PM EDT</td><td></td><td> </td> 08/23/2020 05:24:40 PM [facility] CALCIUM IONIZED <td>CALCIUM, IONIZED</td><td >Routine</td><td>08/23/2020 5:20 PM EDT</td><td></td><td> </td> 08/23/2020 05:20:00 PM [facility] AMMONIA <td>AMMONIA LEVEL</td><td>Ro utine</td><td>08/23/2020 5:20 PM EDT</td><td></td><td> </td> 08/23/2020 05:20:[address] [facility] CT ANGIOGRAPHY NECK W/CONTRAST/NONCONTRAST <td>CT JAKI OGRAPHY NECK 60163</td><td>CODE</td><td>08/23/2020 5:15 PM EDT</td><td></td><td> </td> 08/23/2020 05:15:[address] [facility] CT ANGIOGRAPHY HEAD W/CONTRAST/NONCONTRAST <td>CT JAKI OGRAPHY HEAD 49541</td><td>CODE</td><td>08/23/2020 5:15 PM EDT</td><td></td><td> </td> 08/23/2020 05:15:[address] [facility] CT THORAX W/CONTRAST MATERIAL <td>CT THORAX WITH CONTR AST 45773</td><td>CODE</td><td>08/23/2020 5:15 PM EDT</td><td></td><td> </td> 08/23/2020 05:15:[address] [facility] [address] MAXILLOFACIAL W/O CONTRAST MATERIAL <td>CT MAXILLOF ACIAL WITHOUT CONTRAST 67155</td><td>CODE</td><td>08/23/2020 5:15 PM EDT</td><td></td><td> </td> 08/23/2020 05:15:[address] [facility] [address] ABDOEN & PELVIS W/CONTRAST MATERIAL <td>CT ABDOMEN PELVIS WITH CONTRAST 04450</td><td>CODE</td><td>08/23/2020 5:15 PM EDT</td><td></td><td> </td> 08/23/2020 05:15:[address] [facility] [address] LUMBAR SPINE W/O CONTRAST MATERIAL <td>CT LUMBAR SP INE WITHOUT CONTRAST 41401</td><td>STAT</td><td>08/23/2020 5:15 PM EDT</td><td></td><td> </td> 08/23/2020 05:15:[address] [facility] [address] THORACIC SPINE W/O CONTRAST MATERIAL <td>CT THORACI C SPINE WITHOUT CONTRAST 96710</td><td>CODE</td><td>08/23/2020 5:15 PM EDT</td><td></td><td> </td> 08/23/2020 05:15:[address] [facility] [address] CERVICAL SPINE W/O CONTRAST MATERIAL <td>CT CERVICA L SPINE WITHOUT CONTRAST 58814</td><td>CODE</td><td>08/23/2020 5:15 PM EDT</td><td></td><td> </td> 08/23/2020 05:15:00 PM [facility] RESPIRATORY PATHOGEN PANEL <td>RESPIRATORY PATHOGEN PANEL</td><td>Routine</td><td>08/23/2020 4:43 PM EDT</td><td></td><td> </td> 08/23/2020 04:43:00 PM [facility] COVID-19 PCR <td>COVID-19 PCR</td><td>Rou brenda</td><td>08/23/2020 4:43 PM EDT</td><td></td><td> </td> 08/23/2020 04:43:00 PM [facility] XR CHEST FRONTAL ONLY 11692 <td>XR CHEST FRONTAL ONLY 50895</td><td>STAT</td><td>08/23/2020 4:40 PM EDT</td><td></td><td> </td> 08/23/2020 04:40:30 PM [facility] THROMBOPLASTIN TIME PARTIAL PLASMA/WHOLE BLOOD <td>PAR TIAL THROMBOPLASTIN TIME (PTT)</td><td>STAT</td><td>08/23/2020 4:33 PM EDT</td><td></td><td> </td> 08/23/2020 04:33:00 PM [facility] ACETAMINOPHEN, RANDOM <td>ACETAMINOPHEN, RANDOM</t d><td>STAT</td><td>08/23/2020 4:33 PM EDT</td><td></td><td> </td> 08/23/2020 04:33:00 PM [facility] ETHYL ALCOHOL LEVEL <td>ETHYL ALCOHOL LEVEL</td> <td>STAT</td><td>08/23/2020 4:33 PM EDT</td><td></td><td> </td> 08/23/2020 04:33:00 PM [facility] TROPONIN QUANTITATIVE <td>POCT ISTAT TROPONIN</td> <td>Routine</td><td>08/23/2020 4:33 PM EDT</td><td></td><td> </td> 08/23/2020 04:33:00 PM [facility] PROTHROMBIN TIME <td>PROTIME INR</td><td>STAT </td><td>08/23/2020 4:33 PM EDT</td><td></td><td> </td> 08/23/2020 04:33:00 PM [facility] BLOOD COUNT COMPLETE AUTO&AUTO DIFRNTL WBC COUNT <td>C BC AND DIFFERENTIAL</td><td>Routine</td><td>08/23/2020 4:33 PM EDT</td><td></td><td> </td> 08/23/2020 04:33:00 PM [facility] TROPONIN QUANTITATIVE <td>TROPONIN T</td><td>Routi ne</td><td>08/23/2020 4:33 PM EDT</td><td></td><td> </td> 08/23/2020 04:33:00 PM [facility] THYROID STIMULATING HORMONE TSH <td>TSH</td><td>Routin e</td><td>08/23/2020 4:33 PM EDT</td><td></td><td> </td> 08/23/2020 04:33:00 PM [facility] THYROXINE TOTAL <td>T4</td><td>Routine</td>< td>08/23/2020 4:33 PM EDT</td><td></td><td> </td> 08/23/2020 04:33:00 PM [facility] MAGNESIUM <td>MAGNESIUM LEVEL</td><td> Routine</td><td>08/23/2020 4:33 PM EDT</td><td></td><td> </td> 08/23/2020 04:33:00 PM [facility] SALICYLATE LEVEL <td>SALICYLATE LEVEL</td><td >STAT</td><td>08/23/2020 4:33 PM EDT</td><td></td><td> </td> 08/23/2020 04:33:00 PM [facility] HEPATIC FUNCTION PANEL <td>HEPATIC FUNCTION PANEL A</td><td>STAT</td><td>08/23/2020 4:33 PM EDT</td><td></td><td> </td> 08/23/2020 04:33:00 PM [facility] BASIC METABOLIC PANEL CALCIUM TOTAL <td>BASIC METABOLI C PANEL</td><td>STAT</td><td>08/23/2020 4:33 PM EDT</td><td></td><td> </td> 08/23/2020 04:33:00 PM [facility] BASIC METABOLIC PANEL CALCIUM IONIZED <td>POCT ISTAT CHEM8</td><td>Routine</td><td>08/23/2020 4:31 PM EDT</td><td></td><td> </td> 08/23/2020 04:31:00 PM [facility] BLOOD GASES ANY COMBINATION PH PCO2 PO2 CO2 HCO3 <td>P OCT ISTAT VBG/LAC</td><td>Routine</td><td>08/23/2020 4:28 PM EDT</td><td></td><td> </td> 08/23/2020 04:28:00 PM [facility] EKG 12 LEAD (UNSOLICITED COMPUTER ORDER) <td>EKG 12 LE AD (UNSOLICITED COMPUTER ORDER)</td><td>Routine</td><td>08/23/2020 4:22 PM EDT</td><td></td><td></td> 08/23/2020 04:22:38 PM [facility] EKG 12-LEAD - CMAXX REPORT <td>EKG 12-LEAD - CMAXX REPORT</td><td></td><td>08/23/2020 4:22 PM EDT</td><td></td><td></td> 08/23/2020 04:22:38 PM EDT [facility] EKG 12-LEAD - CMAXX REPORT <td>EKG 12-LEAD - CMAXX REPORT</td><td></td><td>08/23/2020 4:22 PM EDT</td><td></td><td></td> 08/23/2020 04:22:38 PM EDT [facility] EKG 12-LEAD <td>EKG 12-LEAD</td><td>Rout ine</td><td>08/23/2020 4:22 PM EDT</td><td></td><td> </td> 08/23/2020 04:22:38 PM T [facility] Results ID Date Data Source [id number] 09/04/2020 08:50:20 AM EDT [facility] Name Value Range Interpretation Code Description Data Aylin rce(s) Supporting Document(s) Discharge Summary [facility] MCUODs5qBsHYExYb47/GWGueFWJoz5WxQBfaHEu7LRuqWKJzT4RnOHN6qH6jNRO0JExCSrWxQwKnMRR2 lbm [file] DI/HAeBySBL/Elie/Z5FhdUHud/1cRJ90xqJrKWTnKzfn9qYbsSmnGVDe4AuWBCyIRrWFSa07rkYGGAOz +ruRpVPJR9smVv3XBbxgUdp33UHFddG2vCp6eJioBDHya6pnLrfNZDOidXBXPoNXjeBsoj6kPKYEPcO3 BqhcWd6ELe3tEvHduYAJAxClcZLq+4AzrFp2Jl9U36 Dak0qBEgcU1R/7BEwy6Qhzqxd1oOVIF8WBD3B27n+A4eD4Rq2G3l+6wS45eMy1Nrog/Grvkoa9g7gJgM L6Pa6lj/1HQ4U69FrTZ2kNNGBKnsTRe7thbvvAlVWBh181ukeRqlzrs61B3/Dip7bwrXuC0+aDMnBqV8 zda0A3iEQ8RLuorJlMNGjE+ydajimtIiMvbFa6U [file] dGE+DQogICAgICAgICAgICAgICAgICAgICAgICAgIC AgICAgICAgICAgICAgICAgICAgICAgICAgICAgICAgICAgICAgICAgICAgICAgICAgICAgICAgICAgIC AgICAgICAgICAgICAgDQogICAgICAgICAgICAgICAgICAgICAgICAgICAgICAgICAgICAgICAgICAgIC AgICAgICAgICAgICAgICAgICAgICAgICAgICAgICAg ICAgICAgICAgICAgICAgICAgICAgICAgDQogICAgICAgICAgICAgICAgICAgICAgICAgICAgICAgICAg ICAgICAgICAgICAgICAgICAgICAgICAgICAgICAgICAgICAgICAgICAgICAgICAgICAgICAgICAgICAg ICAgICAgDQogICAgICAgICAgICAgICAgICAgICAgIC AgICAgICAgICAgICAgICAgICAgICAgICAgICAgICAgICAgICAgICAgICAgICAgICAgICAgICAgICAgIC AgICAgICAgICAgICAgICAgDQogICAgICAgICAgICAgICAgICAgICAgICAgICAgICAgICAgICAgICAgIC AgICAgICAgICAgICAgICAgICAgICAgICAgICAgICAg ICAgICAgICAgICAgICAgICAgICAgICAgICAgDQogICAgICAgICAgICAgICAgICAgICAgICAgICAgICAg ICAgICAgICAgICAgICAgICAgICAgICAgICAgICAgICAgICAgICAgICAgICAgICAgICAgICAgICAgICAg ICAgICAgICAgDQogICAgICAgICAgICAgICAgICAgIC AgICAgICAgICAgICAgICAgICAgICAgICAgICAgICAgICAgICAgICAgICAgICAgICAgICAgICAgICAgIC AgICAgICAgICAgICAgICAgICAgDQogICAgICAgICAgICAgICAgICAgICAgICAgICAgICAgICAgICAgIC AgICAgICAgICAgICAgICAgICAgICAgICAgICAgICAg ICAgICAgICAgICAgICAgICAgICAgICAgICAgICAgDQogICAgICAgICAgICAgICAgICAgICAgICAgICAg ICAgICAgICAgICAgICAgICAgICAgICAgICAgICAgICAgICAgICAgICAgICAgICAgICAgICAgICAgICAg ICAgICAgICAgICAgDQogICAgICAgICAgICAgICAgIC AgICAgICAgICAgICAgICAgICAgICAgICAgICAgICAgICAgICAgICAgICAgICAgICAgICAgICAgICAgIC MdKWMoMIFjMSHkVCKnGAFdMJGfKOOfNNu6B2rlSKFbUMGhLE4kYGv1Ay5+ZFtAPoWdHNM6akFbyV7OWE 3gj6BwLUnnRFDgw9MtTKd8VO4JFSJdJDicCA2QJBjs go0SHTRvAEOfiBSVg9wnCsGqZVM3VGSvWrijNV4IVUGcI6rplkVxFVAdUKOFOIczDTZCZDmpSPPLHRRr RWXgXmNjJhByHNQcSFNaBZKUYRU2ENUsNvXeLZVlLFGqWW3LZMEsP926hcKzNC1NYe5KCnWlHJ8nms1H YrwvSAKvTzeHVei0NFoqZC1MrCBloLXrCXQxOQTNTz BiC4dqr1JmCepoCPOVXQsyBS0Td7VpzFRhNVq+Ng5JGN8ld2VnGEwtZWOyEE0fjm2DTVxCUyWdE5PxiD iaKJKmc1ZcBUOjITIMgX7zYEE2BPV0ZFbrjNEhGQGbQ6aenL7oQSOyrIwyKYLfCGZuSE42SlDqUwRrBV F8VQclPL7hBEizUD1AYJI5VPgvJQAnSHAkT7lKFxXe EWOyZwDchEyzRL0QKiJiH4QgvaOziXAbFBTnXZIWNx5+DTmyfdPbOnnSAoVaVKGyi7AhRYy3WH1JKXCj AOfaCI0JDXTeiR9dUDdnNB1JXrIdVrOeKLXTOsCyI11ljWYmESa9E2BvLwDtJPAwCybsUAMeIMieVfNj ZXMgWyBdDQogID4+ID4+REkxGT1QZNfnydOhAZTgWp 8AUCEqNBUjDX1qNKQxPMPqW7S2dZogDICLRvAeU1qztxibLD7hINPtK932iVlowpDyUDF5QWSuOn5NET AkFHK2IUYczZOaYtldJJDVQWvwXU2JaENxXLH0mM9oRTcqTWAhMBQbX4aGQdLdnPixVU07aFbybfXknN BdDQo+Qr3EYU7ke0RdEAv3hrJwOLaiTCIuFCrtMVDu IUWpANEqRRK9UZA3BCVREfElORNoEMZyWTmvSCDbSJSaoj6MZTNyDVAjInoyVPHuBWUpCYTfPQuoEGGi EIY8DJQ7BUJoEQPeMQ6VBfUlPMVwHYKyUAuxWCVxNXOdud1KYEGkXRRwWNL5OYZkJCEwETTfAXroBFGw MYK6Khx1RTEuRCJiFK6MYlYuRQRcLOayMGLkJNShQP Tfjw9AQEEvDWGkYHUkVRDeOJTkMIDcGNtsKEGqQROqSJH9ZDUyODLiVG3CIyPhDSVbABHnWHhoKWEqNC Dwfl9CDEMfIWDwIvX1QeMjAMFzNRNgLLwfWJGkZCW9Uwd6SGGvVDCiXX6ZSpSwFHDtMdHkVuTfZARoNV Vuqq4VWAFeCPFjFqNsVESdIWGhYICuVTmcZVZiHIG0 WXY3OELbCBXhWX9GPcSqFJZiAaSjFAPrIDGeIDSyzs8UXHVrYUDyIGRpPWAqGBNeBCKeWWyqAWZrULB6 WuZ2YBFcPNJlVL8WEyOzPSWtIjH6BVFeMGBdKKFqas1XJYEyFRGoCCp2QmDzMTAqSQKsKXevWLKvKMMn ZZDrDYRvQLVcBN3JTaCfIAPcJbQxJWogUZGoPWVyhe 8UNZQeFHCnWrRdHfXxVEDkZIJxURctEZSnWLFlArzeYGSwSGSpSH6ACnOmJKAkIoK5ASKyNHQuJQJbnz 4CTBJfODZcFiR5NXSoTKHhZPZmVIacPMJsZTQ5UBt2KJSgHBSeNU2FQwMvIVHaYwX1HrCeXIEuFAFnzh 0KOTTsFKQkOZL2NjEqISNeGSYlKGsnUHLqOQS7Cfc4 QRWjJBKiWW7EGwUiXRmkGQQCJqm0UUbdC0t3NKZzGF4JW7Upp5EiEdQtBOAIEXcnNH1fhnPwFDYwQs3X I5dYSnrwCLX3KJSoIcPzYUF6XYE1PTWsKQI8WGWdUys9CFHjRu0vOTX0MGBrVjKnN5HfHNspCmNkVhEy LrkhUnXiZPk8CiBsExHxEM2XRu0EWmE3XBI7mWVjJc0WLeFdQFLJSvKsYZ6TGHa= ID Date Data Source VITAMIN B1 LEVEL WHOLE BLOOD 09/04/2020 12:00:00 AM EDT eCW1 ([facility]) Name Value Range Interpretation Code Description Data Aylin rce(s) Supporting Document(s) 269.7 66.5-200.0 VITAMIN B1 LEVEL WHOLE BL OOD eCW1 ([facility]) ID Date Data Source VITB12 & FOL 09/04/2020 12:00:00 AM EDT [facility] Name Value Range Interpretation Code Description Data Aylin rce(s) Supporting Document(s) 712 VITAMIN B12 LEVEL eCW1 ([facility]) > 24.0 FOLATE [facility]CW[facility] ID Date Data Source METHYLMALONIC ACID 09/04/2020 12:00:00 AM EDT eCW1 ([facility] Name Value Range Interpretation Code Description Data Aylin rce(s) Supporting Document(s) METHYLMALONIC ACID eCW1 ([facility]) ID Date Data Source HOMOCYSTEINE SERUM 09/04/2020 12:00:00 AM EDT eCW1 ([facility] Name Value Range Interpretation Code Description Data Aylin rce(s) Supporting Document(s) HOMOCYSTEINE SERUM eCW1 ([facility]) ID Date Data Source Comprehensive Metabolic Profile (CMP) 09/04/2020 12:00:00 AM EDT eCW1 ([facility]) Name Value Range Interpretation Code Description Data Aylin rce(s) Supporting Document(s) 97 70-100 GLUCOSE, FASTING eCW1 ([facility]) > 60.0 >49 GLOMERULAR FILTRATION RATE eCW 1 ([facility]) 0.82 0.70-1.30 CREATININE FOR GFR eCW1 ([facility]) 8 7-18 BLOOD UREA NITROGEN eCW1 ([facility]) 133 136-145 SODIUM LEVEL eCW1 ([facility]) 97 98-107 CHLORIDE LEVEL eCW1 ([facility]) 4.3 3.5-5.1 POTASSIUM SERUM eCW1 ([facility]) 25 21-32 CARBON DIOXIDE LEVEL eCW1 ([facility]) 20 7-37 AST/SGOT eCW1 ([facility] 9.7 8.8-10.2 CALCIUM LEVEL eCW1 ([facility]) 0.5 0.2-1.0 BILIRUBIN,TOTAL eCW1 ([facility]) 7.0 6.4-8.2 TOTAL PROTEIN eCW1 ([facility]) 70 45-117 ALKALINE PHOSPHATASE eCW1 ([facility]) 34 12-78 ALT/SGPT eCW1 ([facility] 3.8 3.2-5.2 ALBUMIN eCW1 ([facility]) 1.2 ALBUMIN/GLOBULIN RATIO eCW1 ([facility]) ID Date Data Source CBC with Differential 09/04/2020 12:00:00 AM EDT eCW1 ([facility]) Name Value Range Interpretation Code Description Data Aylin rce(s) Supporting Document(s) 8.7 4.0-10.0 WHITE BLOOD COUNT eCW1 ([facility]) 4.73 4.30-6.10 RED BLOOD COUNT eCW1 ([facility]) 15.5 13.5-17.5 HEMOGLOBIN eCW1 ([facility]) 45.1 42.0-52.0 HEMATOCRIT eCW1 ([facility]) 95.3 80.0-96.0 MEAN CORPUSCULAR VOLUME e CW1 ([facility]) 34.4 32.0-36.5 MEAN CORPUSCULAR HGB CONC eCW1 ([facility]) 32.8 27.0-33.0 MEAN CORPUSCULAR HEMOGLOB IN eCW1 ([facility]) 360 150-450 PLATELET COUNT, AUTOMATED eCW1 ([facility]) 11.8 11.5-14.5 RED CELL DISTRIBUTION WID TH eCW1 ([facility]) 13.7 24.0-44.0 LYMPH % eCW1 ([facility] 7.6 2.0-8.0 MONO % eCW1 ([facility]) 73.7 36.0-66.0 NEUTROPHILS % eCW1 ([facility]) 2.3 0.0-3.0 EOS % eCW1 ([facility]) 1.1 0.0-1.0 BASO % eCW1 ([facility]) 6.4 1.5-8.5 NEUTROPHILS # eCW1 ([facility]) 0.7 0.0-0.8 MONO # eCW1 ([facility] 1.2 1.5-5.0 LYMPH # eCW1 ([facility]) 0.2 0.0-0.5 EOS # eCW1 ([facility]) 0.1 0.0-0.2 BASO # eCW1 ([facility] ID Date Data Source [id number] 08/27/2020 04:22:50 PM EDT [facility] MR CERVICAL SPINE WITH AND WITHOUT CONTR AST [id number] RESULTInterpreted by:Umesh Matthew MD08/26/2020 5:52 PM MR CERVICAL SPINE WITH AND WITHOUT CONTRAST [id number] CLINICAL INFORMATION: N findings concerning for cervical [...] narrowing. C4-C5: Moderate spinal canal stenosis and qczx-ub-hyywcwls bilateral neuroforaminal narrowing.C5-C6: Moderate spinal canal stenosis [...] rce(s) Supporting Document(s) ID Date Data Source [id number] 08/27/2020 10:59:22 AM T [facility] Name Value Range Interpretation Code Description Data Aylin rce(s) Supporting Document(s) [facility] QPEYKs6gItWICzNq51/IVTlcXDJcy3LlLTzzYJu5XRboZTXzI0UmUKL0rX1zTDO6MRsVMjTjDnQqEGY7 lbm [file] [employer]+IABHpF6Ak0pkqH3cDp9FrPh6d27K9x5QISjl73v [file] [id number] ID Date Data Source [id number] 08/27/2020 03:46:43 AM EDT [facility] Name Value Range Interpretation Code Description Data Aylin rce(s) Supporting Document(s) Leukocytes [#/volume] in Blood by Automated count 9.2 10*3/uL 4-10 [facility] Erythrocytes [#/volume] in Blood by Automated count 4.64 10*6/uL 4.6- 6.1 [facility] Hemoglobin [Mass/volume] in Blood 15.3 g/dL 13.5-18 [facility] Hematocrit [Volume Fraction] of Blood by Automated count 45.1 % 4 1-53 [facility] Erythrocyte mean corpuscular volume [Entitic volume] by Auto mated count 97.1 fL 80-96 H [facility] Erythrocyte mean corpuscular hemoglobin [Entitic mass] by Automated count 32.9 pg 27-33 [facility] Erythrocyte mean corpuscular hemoglobin concentration [Mass/volume] by Automated count 33.9 g/dL 32.0-[facility] width [Ratio] by Automated count 13.2 % 11.5-14.5 [facility] Platelets [#/volume] in Blood by Automated count 204 10*3/uL 150-400 [facility] Differential cell count method - Blood [facility] Neutrophils/100 leukocytes in Blood by Automated count 79 % [facility] Lymphocytes/100 leukocytes in Blood by Automated count 8 % [facility] Monocytes/100 leukocytes in Blood by Automated count 10 % [facility] Eosinophils/100 leukocytes in Blood by Automated count 1 % [facility] Basophils/100 leukocytes in Blood by Automated count 2 % [facility] Neutrophils [#/volume] in Blood by Automated count 7.26 10*3/uL 1.8-7 .0 H [facility] Lymphocytes [#/volume] in Blood by Automated count 0.78 10*3/uL 1.2-4 .0 L [facility] Monocytes [#/volume] in Blood by Automated count 0.96 10*3/uL 0-0.8 H [facility] Eosinophils [#/volume] in Blood by Automated count 0.09 10*3/uL 0-0.5 [facility] Basophils [#/volume] in Blood by Automated count 0.15 10*3/uL 0-0.2 [facility] Nucleated erythrocytes/100 leukocytes [Ratio] in Blood by Automated count 0 /100{WBCs} 0-0 [facility] ID Date Data Source [id number] 08/26/2020 10:05:58 PM EDT [facility] MR BRAIN WITH AND WITHOUT CONTRAST [id number] FINAL RESULTInterpreted by:Sosa Lamar MDINDICATION: Apnea, unresponsive, [...] rce(s) Supporting Document(s) ID Date Data Source [id number] 08/26/2020 01:11:12 PM EDT [facility] Name Value Range Interpretation Code Description Data [facility] rce(s) Supporting Document(s) Consultation [facility] TLUSKg0bSwVEXfGw03/QIMjpOZRdf4PnHOedNYm3SXewPFMgF1GuPVA2aB7bBTD4MRxRMsGsOnYbNAL9 lbm [file] AgICAgICAgICAgICAgICAgICAgICAgICAgICAgICAgICAgICAgICAgICAgICAgICAgICAgICAgICAgIC NyFHKkFAHyPHXdMVElWKRqTZShCBBeLGVvQJIeNNGxBSDjCXYcCV4VVWIyLWGgXDTfYZSfUCNhSESbFI AgICAgICAgICAgICAgICAgICAgICAgICAgICAgICAg HDAgXVDwXBNsKRGoPHYbBAGoNYKjUMXoDWXqFULbKKWoGAJuHJKpHJZpTVRbKUXxEI4EEANnCDWuFJJz ICAgICAgICAgICAgICAgICAgICAgICAgICAgICAgICAgICAgICAgICAgICAgICAgICAgICAgICAgICAg ICAgICAgICAgICAgICAgICAgICAgICAgICAgICAgIA 0KICAgICAgICAgICAgICAgICAgICAgICAgICAgICAgICAgICAgICAgICAgICAgICAgICAgICAgICAgIC JpGGGbLFFaJKUzDROfHPSaRKZsAFToTLCuQKJtDEZmEFQfKLBaBLBjZS7IEUEgATMgJBOcULXdHWOxHH AgICAgICAgICAgICAgICAgICAgICAgICAgICAgICAg EEBfTIXzXJYnTSEwBCFdCSWaXDChTPVqWUDpNBDsBRJgWITbDEZaRVRjSEGtNMAlPDZqWZ3RRGDtZUJx ICAgICAgICAgICAgICAgICAgICAgICAgICAgICAgICAgICAgICAgICAgICAgICAgICAgICAgICAgICAg ICAgICAgICAgICAgICAgICAgICAgICAgICAgICAgIC VePO8VZPHzMITlTTUyENVjUXHwFIAfSXDqZUUuCHPeDSGnAGYcZEJaPEUnYCMoMPLqFNViHCDyTWUrEI UwJYVxHXQdJIWoSYOhQYOnTGYpKHAdKDDdWZKyXOMjFBStUTFxLPQbRCOmIA9RQYWuYHWtTXXrLFAsVL AgICAgICAgICAgICAgICAgICAgICAgICAgICAgICAg VWMpIYWdGISbKMKkIHGvHJDnVNBtEIJhACMgZICfQADiPXQvWSUkARDsJVKjDIIcSHByQYBrSF6QEKLo ICAgICAgICAgICAgICAgICAgICAgICAgICAgICAgICAgICAgICAgICAgICAgICAgICAgICAgICAgICAg ICAgICAgICAgICAgICAgICAgICAgICAgICAgICAgIC IaLTZkWC5CNKKiIUDrGCJdQBQiWIHlSOGgFPWwPVWqVFJoFNKvHUHsZGHzJJMqKRFfOGGtVDXqGVHoNF CyETFrXBMeLDLrDUHyGVNqKIFaZMZoNZIcSEOlMJYqFESrHJQoFPHxZRJrGNTjVA8EVA08eGFcw5B2NI XiVN5iedf/Hu0JLOvbniHfqJRyTM8WFnHpFF0xav1U MkLyWR6nzt3FSTxFEdNmN3S8bIReDYBjZTPACbOjH68cEWlpIh26PNteXPSiSuSgMZd9Zd4PKvXgJ2fo CCSdHoR0MBOwFqPzLVsiKP0Xs0EauAGaGKj+Am0OSD8dt3WuWZjlGHEsAD4mvz0THCtUJkSzI6SyorD4 VDS3HQIjOw9IANCjXROpgSTrKXWnFCDTHySfT7BxjB 85NBUZEm1+VKrupcHpOawWFdX8UQYuo7LcDAz3FR5IAYJuZJn5zEMcA59ux1JynZUtZtfuOnNpwxUbLE IZzNEbbqIgIS8HFUF0NTJuSu4bKXXfKNJtRyM3HKVKHJ7LSBMeVRFqoMDpGGHqUYRSPA0OEIliPXY0HN TrgpShtJFlEBhxYN3ACHXbaoJiSRHpIAAMPEz+Pg0K OC7xr4FqKRslBfDvEK0hyg7EYOoQMvAqU5I8hJOoK5V7NDjiEl5SCDVzPALaLLOgQCHTXTbaTE4KJN9h ixQ9ZS7KuIYaWWZiPHXppZUlYVc6Z67ntFKsMKygXV6VPRL+Sameer+Jr0OWVQyUOZnNLIaEbFdNUYEEsOa I8TbA2ELn3IiB6EoJZ73hHdnmiOgHLvjTF9ITV5eOT CoCYTDBC2DxZQlzJ4ppsOkTXZxTVBUXpRlV71ofJJnIRGqABHbOQLdRx6GIXVnY3JqzvUzyHcdajSvML EsBTAYEW8FTVytucKtiSCzbAgtPP58zNxkXF8OYv4JOjKpKF9rru4PkEZwXk2MUOQtJx0XVWDsGNDdEA IzIBC8NPLuPvPiKMyxKLLhDOFjPWI6LAHaKYKjPP1U GnGgGFJbNID3UBIwDKNwQROnav8FVWNeFMAaHlK5OySfOPNwCWMzKBxuAGAdMTNgTVG2YDBtLJJnIU1I IjSiDLBySZZtHsZdFQIyBENuen1EEWPjTFGxJfV8LUMyIXLxVNMuDWlkTGTpGKUjXEe2PLFcFBJbLA8R SvHlQWTlQRByIEJbVKBoMDVoiv2EHRYsYJMbDlP8MH VmPFYwAJXnXNarHDStNCK8WPMfPGSiSHFoAP4KZmOmFJWeQHJ2WgRyACQvZLHpxk0BDBYdGQBkTJojEz ViBYOuYIPnXUeyJDBpMWM2CyK0GBSkHQJyXJ3STlRgRCIfBFU1QeDfRSFqBOUkxk0OCJDnMCLjDmqdFY ZxNZSgWOAdIKieIRZuPZI0IXa1XEDcBZGxCN9NEhVn BBktCZNHUqk6FEhxS4i0YJQyOo5BI7Wed3TqNJZxXBHNRLxgRP2dnmVhKXYyRt0CK9vZGkk8RiMdEomy GIx0EqhcTmL3DyVcMXZ4VnNkP1J7TMN7Kf1kZQUpTJZoK4V9EcJzS7Z4TlIbDJS0PGUrStLrJixiWhp4 ZxMoCB9KQh6XSwS5FRQ2nJCcZr1UUoNzJN8ORKYBA5WYTq== ID Date Data Source [id number] 08/26/2020 05:14:47 AM EDT [facility] Name Value Range Interpretation Code Description Data Aylin rce(s) Supporting Document(s) Leukocytes [#/volume] in Blood by Automated count 7.2 10*3/uL 4-10 [facility] Erythrocytes [#/volume] in Blood by Automated count 4.18 10*6/uL 4.6- 6.1 L [facility] Hemoglobin [Mass/volume] in Blood 13.8 g/dL 13.5-18 [facility] Hematocrit [Volume Fraction] of Blood by Automated count 40.9 % 4 1-53 L [facility] Erythrocyte mean corpuscular volume [Entitic volume] by Auto mated count 97.9 fL 80-96 H [facility] Erythrocyte mean corpuscular hemoglobin [Entitic mass] by Automated count 33.0 pg 27-33 [facility] Erythrocyte mean corpuscular hemoglobin concentration [Mass/volume] by Autom[facility] 33.7 g/[facility] width [Ratio] by Automated count 13.4 % 11.5-14.5 [facility] Platelets [#/volume] in Blood by Automated count 190 10*3/uL 150-400 [facility] Differential cell count method - Blood [facility] Neutrophils/100 leukocytes in Blood by Automated count 75 % [facility] Lymphocytes/100 leukocytes in Blood by Automated count 13 % [facility] Monocytes/100 leukocytes in Blood by Automated count 10 % [facility] Eosinophils/100 leukocytes in Blood by Automated count 2 % [facility] Basophils/100 leukocytes in Blood by Automated count 0 % [facility] Neutrophils [#/volume] in Blood by Automated count 5.47 10*3/uL 1.8-7 .0 [facility] Lymphocytes [#/volume] in Blood by Automated count 0.92 10*3/uL 1.2-4 .0 L [facility] Monocytes [#/volume] in Blood by Automated count 0.69 10*3/uL 0-0.8 [facility] Eosinophils [#/volume] in Blood by Automated count 0.12 10*3/uL 0-0.5 [facility] Basophils [#/volume] in Blood by Automated count 0.03 10*3/uL 0-0.2 [facility] Nucleated erythrocytes/100 leukocytes [Ratio] in Blood by Automated count 0 /100{WBCs} 0-0 [facility] ID Date Data Source [id number] 08/26/2020 05:29:53 AM EDT [facility] Name Value Range Interpretation Code Description Data Aylin rce(s) Supporting Document(s) Bicarbonate [Moles/volume] in Serum 23 mmol/L -29 [facility] Chloride [Moles/volume] in Serum or Plasma 103 mmol/L 98-107 [facility] Creatinine [Mass/volume] in Serum or Plasma 0.68 mg/dL 0.70-1.20 [facility] Glucose [Mass/volume] in Serum or Plasma 91 mg/dL 70-140 [facility] Potassium [Moles/volume] in Serum or Plasma 3.5 mmol/L 3.4-5.1 [facility] Sodium [Moles/volume] in Serum or Plasma 136 mmol/L 136-145 [facility] Urea nitrogen [Mass/volume] in Serum or Plasma 8 mg/dL 8-23 [facility] Anion gap 3 in Serum or Plasma 10 mmol/L 8-15 [facility] Osmolality of Serum or Plasma by calculation 281 mosm/kg 275-300 [facility] Creatinine/Urea nitrogen [Mass Ratio] in Serum or Plasma 12 [facility] Calcium [Mass/volume] in Serum or Plasma 8.6 mg/dL 8.8-10.2 [facility] Glomerular filtration rate/1.73 sq M pre dicted among non-blacks [Volume Rate/Area] in Serum or Plasma by Creatinine-based formula (MDRD) >6 0 [facility] Glomerular filtration rate/1.73 sq M pre dicted among blacks [Volume Rate/Area] in Serum or Plasma by Creatinine-based formula (MDRD) >60 [facility] ID Date Data Source [id number] 08/25/2020 06:37:02 PM EDT [facility] Name Value Range Interpretation Code Description Data Aylin rce(s) Supporting Document(s) Consultation [facility] NAAOKj2vXyOCIeYy66/AQRuoTUVdj1RvMOxtBIl3LHucQHKlS9CxKNL2lO6mAKT3KZvDZiIvAbMnYLD6 lbm FfWnyDAoRxSWYxBlcFVtUpSWnhOwrdxNOtWB8BbKN8QFKiY57jQRPxQXHzL3CaJUFrAew+Vx2SGEBkbF KwKS8XCriC2C7wU+NIEv9+4c3YKa54v4tbfI492mcfDuMVAuBH3NUi8T+FWGwvFhzD6Oedvu8/E6rW/E ut3tBuUsjgVEf0N6A9l7mhVwM/85cY6FqREVI91+JAKE [file] SFCYAeZ3TkW6UIynLRJMMa1J ID Date Data Source [id number] 08/25/2020 02:46:05 PM EDT [facility] Name Value Range Interpretation Code Description Data Aylin rce(s) Supporting Document(s) Consultation [facility] XQCQOk8sNjRMCaSz63/HPEcfHCZfe1IpHOsfYNh4NPdzZJDcH9YhNJY1pB6bDCS5JYbPZqEnUmYpENJ1 lbm [file] carter+U6+/9N2/J+2y3/keN1G9pN3j/Upjyg5kNjDhrVF+CmUvVqhUdT8ETOnCbP7Q/sd3M/FCXasz3izNH Snqeq+Yl2a8/fAHopTFY0ccI1nvbBuHOb5JYO4Pomv2AO160sl3j7ZT6mt7Y8a9/b6HO/YfIptB38IeT 5eQvMpzz2GC+qXaOo7rbtlG9C6j08+j4amS5uhLG8o 6K0yjMWP+br1W+Jw6KLD9e+O05DUXFcvRwr4HAk8gW2ek0KJ9iO3xFvP6+OF5qJDk4ywjgR7vzS81I32 vdepHJg8sRjf7vX+zxo0ZNbwfyoFkk4Z5KEmsl7StzwScZa6qXmQ3eBml7PAxakzU96oz5F6B8m2Wy+B 3ekJcwaoiLtq59h/hu/PXNiVOoiNe1jZyW86tp7a64 dT+0uzoMc/IJ+6+9S4askXnaJuA6cJIJzbfEWcCfQIH9W8m1BpbTEIidIKMG5wQVNsWA93tWjSvcg4Dd 7o1rEa3N0OqUXCfTkA89ueEi+FfvIT+AFNh/4IOMKkozFrIi4tgPTcjp71yaqnJ5lzJ3zymXxdd5Cj4V ibr9tLHL1uq9yqjqKltUuYcVX+MdLtstfvvK/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 [file] AgICAgICAgICAgICAgICAgICAgICAgICAgICAgICAg ICAgICAgICAgICAgICAgICAgDQogICAgICAgICAgICAgICAgICAgICAgICAgICAgICAgICAgICAgICAg ICAgICAgICAgICAgICAgICAgICAgICAgICAgICAgICAgICAgICAgICAgICAgICAgICAgICAgICAgICAg DQogICAgICAgICAgICAgICAgICAgICAgICAgICAgIC AgICAgICAgICAgICAgICAgICAgICAgICAgICAgICAgICAgICAgICAgICAgICAgICAgICAgICAgICAgIC AgICAgICAgICAgDQogICAgICAgICAgICAgICAgICAgICAgICAgICAgICAgICAgICAgICAgICAgICAgIC AgICAgICAgICAgICAgICAgICAgICAgICAgICAgICAg ICAgICAgICAgICAgICAgICAgICAgDQogICAgICAgICAgICAgICAgICAgICAgICAgICAgICAgICAgICAg ICAgICAgICAgICAgICAgICAgICAgICAgICAgICAgICAgICAgICAgICAgICAgICAgICAgICAgICAgICAg ICAgDQogICAgICAgICAgICAgICAgICAgICAgICAgIC AgICAgICAgICAgICAgICAgICAgICAgICAgICAgICAgICAgICAgICAgICAgICAgICAgICAgICAgICAgIC AgICAgICAgICAgICAgDQogICAgICAgICAgICAgICAgICAgICAgICAgICAgICAgICAgICAgICAgICAgIC AgICAgICAgICAgICAgICAgICAgICAgICAgICAgICAg ICAgICAgICAgICAgICAgICAgICAgICAgDQogICAgICAgICAgICAgICAgICAgICAgICAgICAgICAgICAg ICAgICAgICAgICAgICAgICAgICAgICAgICAgICAgICAgICAgICAgICAgICAgICAgICAgICAgICAgICAg ICAgICAgDQogICAgICAgICAgICAgICAgICAgICAgIC AgICAgICAgICAgICAgICAgICAgICAgICAgICAgICAgICAgICAgICAgICAgICAgICAgICAgICAgICAgIC AgICAgICAgICAgICAgICAgDQogICAgICAgICAgICAgICAgICAgICAgICAgICAgICAgICAgICAgICAgIC AgICAgICAgICAgICAgICAgICAgICAgICAgICAgICAg UMChDLHfZVGbQOKeRMIiXHViGATpFVQqIHSzPUc9Z1zqOCXnMOXbDG4dQVj7Zo6+RFcBEtCnGUE5pnSx hU2ZAC0qa0WiXPrzILDub8FoJPf9GT9GYXGpQEgdSF3HRGrzki4FQNQyEWSdgTDVr3laUuOeSVR5AKTn KngjUK4OZOSdW1ltrhMsFGLtTQVBDKneXDVUVTrlDB KAIEEaPTWzQlItSsQpABJxJM3NVWIkQ882irNwXZ3CPe1AAuNiKT4bzw8DIjRpTSLyKfjFGxa2ULgqFT 1DfKDnfWNiDNOiSIVFOrXuG9axr0GeOgVcGLZJTCtlCL4Df8AtbQUvXQz+Hy6JDC3uc5FdVFmxTZBqNI 2rgj1UHSnNXzQnR8EnkDvwOPJkjiE3tXWyASO0JGKa zP2bvJTaNVYEcCMnZLJFXLEUITA1MWPfWO5gFGTqVLUgFaK8XFZIFD6BCUOiGPKspEScYQDjSSFZYC9G VYimFCY9JFJfhkZeoXQbWLqrZE8FJJVrofQgJaVsOCMXOUq+Sx4JIJ2hq3KlOYfpZtHxCD7czj5SLHrC GmMhP5O6lQLzU5H0BZnmYc8YTOPxMWTqYhpfRJVGWQ buMH3TCK5rzpG2UI8FfAKxNEPnZZGqcLStINl5Z61lhYIaEJnbAT1MSCF+Sameer+Se7PAKRdRPWoMUAkMi LgOBWFWgOkF6IvQ8YTk7BoT3LdYQ15rWmtldUsXNhvTM4XZF2xGINmDPAUWT6HdBIshN8wsjJkMKAqDR PRHuOaA16hbXXaRXDhJEO2AXElBp3NQWWzR4RwhtXp zMczqsJsDQSnIAVCZM2TDKkjelRazYWgbCpiFG16fAwsAZ5TIm4SCqQeWX8jwb5BjNMoAl4MHTKcZt6D MLIcSXUtKHLpKRQ6IZSpCdAsKLiuCOLrGIMjLYK9DXRpVPDtNH1NAjOsTJGmTmXrXBTsGERwPRXkuk2F NOWpZDSzWii6SsAfMNBoQXQtMScbDJWyUJYyADN1ZR BqEOYmJJ3EHvPfVQFfKUTqGCRsBOUbBSWljt7EEGAyPYHuGQKlHCAjLPLbOSCjBVecJXAzCTL3LAFrVQ QqDLVvOH3VZiBfOPMlKSeoDTMwJEWqGBHrni2RGOIpXYRwRUxaDXReDGToJAYxJLcdHXNvHQIkORH1CG AhUYApRR3PWdMxGHBiYHIbPWgdDTJlUIZbld7VRCFy LVBfQhAaXGMfJKRkMHQlZYfwMMEhCRT1RpojLACzPKOjRZ4YAmSwLIUlXOf5SQEtCKUtWTFotc9QSCQc UBOfJCa5TrMmRWZrQDXhVOoeTEPxAFFmSZYtKAOlWVRgQA5QYgExBWJhQuGlTlUlDRAnZGSese9PQULu JCTuOeK7YUAhUEJfYDBgLYbvONFxCRKbDkv3ZHErNW VcKE4KQwYcDUPkEfC6ZUPqJWAwFBDvvm1YNSDaGIWqDtn5MDWxFLFhDXTlLXumAKSwYDU2Uus5BKDcBU ZwDE1XYdNmYWKcFnQ9JSlbJKViHZRgfp3DSWToMLQrEFdwHlWcSUQuLSQqZDigYYAuRZY2AQahGOBxOR XoXU5MLdKsEVHoVuN4ZqQoMARnKUDkgr1VKOMfOJYy TaTyGVYrUSObYCWeBTegVONeBWM4UMy6CQCuGBXqOZ1PMcJzGZOtEzI2SKBzTIZhODOsdl4TVFZwJVTe VZL3MXYkOHAwPEYeCHooMXPzUXC0AQQySRDeOTScNI9PYgRgXYGyHtniKMCtPSPsHITvkt5CtLHvlPef xy1CSZuTWd7BmHfqTCCaOMhuXx2yiHIuSjSvKOEVZx 7GwcMnLODrJLKPFAalYFCsFXJ7EszcPBb4LnVtVDjdQ5CkWCTbFtOqSuNxLKLxKzYfOjQ0PmDlPUNrLp HvMJFuUJK6UUS2WRTcV6VyMKY7OAL8V7D+YP6lINy+Yt1Jw7LcbdO4wwViBNxmMCPpGP2FIFJOE4RFHp == ID Date Data Source [id number] 08/25/2020 01:45:12 PM EDT [facility] Name Value Range Interpretation Code Description Data Aylin rce(s) Supporting Document(s) Consultation [facility] AKDIIk0vCcCSRsSm46/ZHOurUNPqd6SoXBupEHj7GUrkCUFpG9AhHMA6hY5rJJP0FMvOQuLzTuAbMHS8 lbm [file] lbSXY3AaT2QQXdTOJwO1PsCkX3HM7rOSDTDs5+PGvhjVAxeTozDKIJLvR4TYV0UTkiETBGHm4E ID Date Data Source [id number] 08/25/2020 09:09:53 AM EDT [facility] Name Value Range Interpretation Code Description Data Aylin rce(s) Supporting Document(s) [facility] TBRDOu6hSoJXCcTkm4LtAsNzXXVrPK8fzin9M7P0tPBdU9BdfTYov7czR6IhJ7UzSVNkOPOZSA2CwTJd jb2 [file] gvLOQ9Sj3YloEzIPVlCOPWPb3Id393ZZKxYYFZLsw+ZayosMJrxLhlMZJKGpVhDkNYRTHQR5V= ID Date Data Source [id number] 08/25/2020 09:09:43 AM EDT [facility] Name Value Range Interpretation Code Description Data Aylin rce(s) Supporting Document(s) [facility] AFSHPn9rHdCUEkSsk2KeYbTpNMEsVX8jnnx5V4T7yDNkV9ZggEYzx2iaN0GhV4VkXZSsXBSYRY1StCLg jb2 [file] B/7+++e/fwv/17/+2//413/zH//TP0Off/7j//zXf/cf/5K/zSTp81/Sandie//2677n//5v/+X+/OPxN8/ /+mfU/T59++///lf/zEDNPHcpaxJbuU7NH8kEa5FtE ZpZfRAMaVxIW9N86feipJqQS7X94rebjD/VR3b69iwn5j/LD0v57jfr5j/HT0y26cqt9u/HN5b89ilo7 a/Qive6u4Mh9c2c6Ip8f7n6If2qfy9Pa0qWz6P95zUi4S4BzDadX3Axnw9y+JWlt9Qefn4j+CJlq2Sbo n3y+KFpg7Vhui4p+CZcg0iehc0z+FZb38hcpi0r+GX d7+8DRgdwS/qqqu96g6Pqc/bawQ0nm8PsN/hneA2ua0RxM/jcvZ3sp+KjATb0wrbM7K/Sj2Q57bOf9t5 rlProm1v/Jrdrwm/Zvdrwq/Z/Zrwa/7B5Polq77Odn2l38Hji/d89Elbez53gekuG81p6aeOM9o7vqDD 6n4t+LV+In9AQ54sKu6256gZm3218jKbp380/Nrdrw 2//d/drwa3e/Nvzav/Nym5h/ZuaHU/PzMzc/kAitd0k83fL9/GpRGroo20fZkhjXVh0v3SBP+v vRbN6N78+Pn02A/GcKpEmQHz+jTQoDGV4S/OqQJkR+iXyOSc3hrCpZQqZJ4GaHTlLEYtoSJBJCMwqyrS rY+vGTskR+dIlQmMiPMhFKE/nRJkJxIj/nUHuY6Dca CAWK/OjWsOFYK79fPHfxlfUid7B/drTteO5MZIzI+bZxErTxR0cGTIcyV43BUDr3LAtlZSZjiDANXkTl DaXfSF88o9L4fN5lKWwI+dEuQvEiP+pFKF/uH28DPLx5SVvwaPTtTFFCZmJqBlWjEof/u08g/PGTUkZ+ rPfAkCdXaoHAFbbTO2OLCl+VRwqs8OqTVCYV/Kgaoa oZJ47bBNQBi1zJ4JFU3hdMvddgJ5I1gY03XxG00wEltAEUnzKXCEDQm5qGkxk69ZcDuYQ/ShulpuRM8s jFjvyoHaHckR+0AaW27wZ4iSJDesDRACHGq+fFon920S7N4UG/ykcofeRH+wjFj/nuA6U9xN/8HuJW3b MByDAVeuQBKAJGfmaOloD20CKMBZA/SkgoheRHCwnF zEekMvXsyu88rFYR+qOHlHpIf/SQUg/zop0U7bT34UPOGpM/ekiph/TVMxf9gK2vOpTm0y61bQTW+qOH lHpIf/SQUg/buf1F2xS38FPDDgB/ekiph/RGUzb0cD1gOrOq4g/8TEvQ/JBgFrnpA1jQoFNRp42kPuXc k8fPvf8UJMzC/LQnCcCgL0uV1fA/ekiph/LZFlj7bA 1gNcLu1o75wWTM+qOHlHpIf/SQUg/rmm2M7xZ54ZPPCyC/ekiph/PBEsd4jE0wIyOm6j62qBKG+qOHlH pIf/SQUg/rdb6N8sG92YNGUvU/ekiph/ZBSge0vV7iFpGp8w16nKVY+qOHlHpIf/SQUg/fbt8J9rH33D NKPaQ/ekiph/DEOlg8tA1wJwOw9w42mSDI+qOHlHpI f/SQUg/bte5G2hT38ZQRGjV/ekiph/BLCgd0lJ1eJrwJi6H+xpcskkWySTbIGQVfcowvURIlGSSDxEiM cZmelK3n/VH6o/RH6Y/Sn0F/Io7O7YzFc3E/Vt0H4MxTd3I/Ko6A9OhRy4H/Cq6Y7NzVM5Z/Rn+M/hj9 Hdod2Aeio3Kmnt7Hm1y+GP0x+mP0x+iP0R+nP05/it trainee 44/XH64/TH6Y/TH6c/Tn+c/vOh5tST3U/TH6c/QX+C/wR7WomE7FnnV2SqcP8Xs2C+BP0J+hP0J+hP0J +gP5P+TPoz6c+kP5P+TPoz6c+kP5P+TPoz6c+kP5P+TPoz6c+kP4v+LPqz6M+iP4v+LPqz6M+iP4v+LP qz6M+iP4v+LPqz6M+iP5v+bPqz6c+mP5v+bPqz6c+m P5v+bPqz6c+mP5v+bPqz6c+mP5lm/l5Yu1MHAefLmiYDC0wOFzlPeTBjqu8c5Iv1smAeu+vTpten+SfN P2n+SfNPmn/S/JPmnzT/xZoyyN6x/gWv8PORNx7wHGE28NWGWWNtSLQNarUOYSZ6MOQWCKeZCzC8hPFh DW2QBWIT6cQTTZAlVT7KmwAI4IV2NUZTPFiRKJO8nO QZFW2HWSPS5vBWETDiSBkZgujTjZL5rIHJEJyBY8M3sXGQDU1ePTSF1rGYTIXmXMVOnziPsUX7oQNMzD [file] /2u4+nsxu65qK3c3/63BAe2b2//+Bj17681lrR//ir dx++/vTz79/n3u860/3HL9+/e/kk1fXLZ3/24lRzieId4620V/dac1wuP4B25SQ5+l27728+fPGPH7/4 +i/14N9Lu9/ff/bN199+9e51SR++/UmsDt923dw5j9/89f69Uw29/9kXb7/56pvP/vPbt59+/Pjuw/u/ cJiWffvNNx8+f/fhq/ig891663/8odflun/8A9330/ 4nBlSuC697/yZkvuq4ow2Za0/+1l1S1yBoLh/mVc6qQil8Yh5f++++/RBM3HW6//rlf3gI4h5rd/P21T fv//5xk1xkD1u13c34c0/hALftfh/gsz/99K+///Mff/yXt3/+P2+//f0f/vDDn//84w9/+Ju3z3/46f c//uHtn/5TW//0129/+ult/Fp/3Jj0A0a5L7+5/unX /+F+eFrSfVDRP/7x1//Gs+8AFu4AD/0ic1F33CrTGz9eN/7bQY19YqJ+2+eySnxi7cOf1lswKO/nto7r Oi9ih72Aw1kk+uw13d+xPk3R04/cP/jw47/++Bqee6w+eXv7x0+/++Lt/ea7409T2z2ck2Ne/ub+Sw5q jTP/6onrNXF/4j3Q97uoMSo0O3m9uPr/9sef/v1v3/ 78w7//+QTtc58fe5WJ3/6UL3b1GZoN0/XLox/w2w9vv//p33/88//8Drdtwg3Z+ZcOX7d//PLwB/yHD9 +9/cv/fF387//00y+F61PyudY4IOYF/cPHX//Dx9/jNu0WbNh6gy5j/ezoPrpeJvL+xRy/BChCL2hBjY RZYWa/vKqDffurD7/6+PbD//7x3/7jU/PcuN5+9en3 f/+ru+3A12r9ssz/58//9Ne/+PW5EV//7Gdm2hG0N/SzH/2a9025l2//8NMv/w2Q9f7v//TL/z83ya4/ /PN//O8zhB/+9Kc/brKhl2Hvqe25x517znsC/N4NBw/BjX/88Xf//aff/+51eZ+8tTuaY//pk275Cq/9 t39/Tbl/+eTDu2/xsfwIh9zc2K3+2krqU6kkw7/wdX a/I///E3p2IFUejZp/+8N/+/Pztm8eM89ip7xGdbSkfDXw5aaHrvil6w7Wm0Gb8hERa4IgSmjcNe0Y8B 0Lg6hPpuwbmas3+tln33z//sHaDosx4kycdVQ/H/VYtR1VGO4md8EeBPQsGtKmXD8ufhzfSZWxLM3ene a4Y5QafEwvOTnHPTPmZl2osVYsYW1YOOI9PRomYQDw XUWpF2HukN6dY84opNLdRzBfBUGIIC0RemC1OTT4ZOV7HBSqHxEzRIBmZD80NIFoUXIONp1ckrWrDflE QjVjKN8idlm0D0E4uKFeP628lVlpmgJiHB8Tp5EgrETaLI6YjGUdqJYaBVIjCIAnF0mbq0GqBSweCKUV Ds6jyoYpRthWKfEeMC2digl9D4Z3yMqwmhZhNVXXAG amQfxxKN3yhKorolxmW3KchQXpLLPpA3WfLRHid95GNADnCBiDCjGaUmElJBZ1AIjhVUulPtGdAHOvKU YaCBJdJE7WgWPhTSZtJGLMJCkbLtyiOTPryA2pzLHXq3MfCCLIOvIERYBCLL3CBNEBLYO7OLK5HLlnMZ 7NkWYwVEE6AFeDITDTVRwHWYjgJxBnv6S8PXBfC0Fy DGCnxdIxXWYETCtxElckVX2dxSgqiuwtZ4PzyOMvRIPDQSCaZUDwMGBxNQOnZ9Nfo3T0Y1NyYRpCLKGE NMoEVXjuRvB3h72ojlRJSSJcRWOrUP3+TI4qx6ClMx9OBMHkKZ6xlty2NO3GxTBhJV0TZIcoejKfT5oe riVfEuEqFTIMZY1iO6QxxV67BRL+UgBbRE5bzdw1ur GhWvWbUNFoCXOgWYQrQTgtRGSdETUtGKWfTNE5AFI1JJYjVgKqBUZrDpocVSnpAHUqXYIolyUQAQMcWC S0PrIgZtVbNAAxARAzLQvaMLMbSAP3TAwqHLEsVEYnGT3kAeNmSCCyCULiHSXbHtX3BvJfRgAAKMNqWE FaGOXlWjTmTLKpDLDmOJixSSDzZWOeDNt4SLQcXBAa GO6gBiFeWWBfORScJEWrERCaCZHicgOBHHNfDSTpHKV1PKLcAZZvUILmZIrwKWHtKOJrFGY6QKQjARZy US7cBdYbCDQoOEJ3NyYhHRVnCQQdrbOWYNGyRWYgRJY3CQXhZVZtRDViFNznGLIxLTIdLeG1EZKcGKMf RR6rQfAoXPHlSXO8CGIfBQFwBDGgdwKBQLNqAQDkSW s4FjQqUKHdYRYiVNzxOIEnKBPaVCppMKKnFCZpEP4wNgUmCKUiZLGsYVRdZHLrUQNtkuZPRJTyHGNeNF N5PjVqJRNyJQJfMVmqIKBrPPXlZME0SEPkGKCxQY5iBdMaDWZrOiP1YhLiWTDlBAQnnlSVIJIpOHXaSX XqRQReRXXcAOSjVKysDZTdIVEsPwD5JDUtEFDiEP9j ZdTsTRDcDTF0ONFhPGWrKLRgmeHADBDpLJBiWMPdWTI7WLVsATJmFYk0dlOgnOZkFin2Ug2AiMeeWXD5 Mt7WupJmBFNaRWCZEj8Zr913BEEyFDSFYrz+AobqvJHsvLolWDEEXhb2TQXXZVHCI6C= ID Date Data Source [id number] 08/25/2020 09:09:29 AM EDT [facility] Name Value Range Interpretation Code Description Data Aylin rce(s) Supporting Document(s) [facility] IUQJFd4iVoAXBhPzl3LjLyGmNLYpIY6eutj3C9C6lTUrR9WknLFxp3teD4LiV5AwGDYlKWDQWX7WcYGv jb2 [file] AN/W3DtbuV1zaF4pLv8USdCBRkb8SNpcKqYrH9bClrgn8jO3HEV+8LtPpp4w2Iia28C13S8eNeYU+Annamaira ZLj4c7pYpJjuMjHU9iq5tIFn622HRjFzxapgxEx7LcmFWeVARvyql8dMs6AECnXOfOCjIhYBeXA7fapV Lm5Yjo6KqHGFGMgkHw9dyYx6j+cxB+PVnmTYMewYdg 8CpzZN2sWEogGG+z3uqq12q+8LzBAE00nmF59J2ydQQZs8xi8r5C1HcaAmnYFSIDvNbS5YizQoQhDClk Vndzc6qqLiPQ+vJge9c7mcoTi/v6KwZ839yYpro0l5oJI2O1sBvPKutvekd8wX2/7PVi0h8yZj/9/Xuy iukdhTxgE3tA8nrSXOCL17AibGNQGV0YKEFZZUwTcl REefbrkAylf4sy235ifDF/72VMvgIgfipQUJjwNTJy9vqq+ox/7dR+J5sX+4KyUXmtwkwzku1E6R98C4 HfbOLkb/xv5u/3971evm5TjRUo6XsUwcpnPqEQ3kQ523JD3WfjzsPiBnHM3y2+2V+2918NhHC866Qb0P 518U0+Kg6OZLk9fmg0wm2ozZ5+0vi/K15h0ZzFSa14 lLFfZ0gjvhKV2eLG2I9M/uUlsEUcG5G4oqb/0D7v+7tN9dz+8vhYHAyfqukjA5JVF1wju+Kf+AqOXiu8 ezXXz3+ZkF965QQaJ0I7xLjUaDWhL++8OnAjRK5zyRvhR2y6RAVrhOH1eMuY1/d/HdmDlRTI+X4QPz+n I8zc9+phv40dokgjpemcrrzqmapiNjyqMRu3DePBtA 2HpM1zPt+O6JTiO++9g8QprxOmQvkv6YOPyvA0ZPoid8MAlr8dIh8+mnpokzInUcr1t0Ah9nzgNB1qGw 7p8v1fZ9y6d9mC1BUGhXfnE+G/A8cezUMd+M1IoneYfwssoUy++w+z251v4K5j28+x6OouHX5ErSuS/s Mt/CYKv1TD/hPsfxlQYbis8M64Mtr4PnNi76oM3ynb /rYm58WHS5v125r75wy/juU+Z6dy/46J0sdgkeY2BCOttQAhG4OGY+123t9ls6fE3+/7ymbldmhc3t7M cx0a240zywtJOVa/t610+vd/00dw7X9BmK8zbT71ElnKeI5rFBgQV6ljKAe8q2zgg1+zu+29/x3f6O7/ I4pDyP327+stove carriage operator/kAhtByC23pT9/C4X0Gs9la/jdZv+ [file] AfKwkUiw9tB0jS9qfSvJXdXKKUFTWvGwXk3bhX/Juan [place] g7lxA3dKOtzmADlFv2vYqZ6aip4cCN1aBjuDR6HSsjX5zbx/PzqEb5vHymSePrU4lL1FWolPrFtzCaMM /SAy3E7giEPxp/YB0OcXE5TxiWCnJsVYxs50BtHGpBKsXMj8IzziLusBfh+Cy34c6iNDwCCOfFm2M28D dhwrgQJ8h5Gp8QiVHZheH8ZVR3k5h0G1Ncje01DE7b EVlENhHMKysfS/NjCx7X1qFafN4+kpvh07vmSj+MzeTkj162mfRMt8vZkqQozpvcC1jcF+xcd1Y+luje O+BkGDBpeXSeAlX7HGN7s0mjyr9329nT+SqtBcM9TPAfKWqHMa9H+CwcuTpqUeX7YETwjXnlLcoZxZmw JCZhMdnYbikG56O0zensD5o9ySa5AJxuh35gfuwbhw CNu9FcmKliGi0tVU943gkmtYzchiJo0MspjBz4qylaMzsN1noGzTYVuWyom+SQCXbidKy0HG3aU/F+NJ 2XJ5Y5Igmc2ssVLQJfyAFUk5UqL6vPJYalq4tpevMtLP2Q+HgBeT1u83iSWbiLvMxkfX39nWMzXoUcoG Uk4vYMRLt1XP8z2McwPx1DMZE5neKdK+XuGJ2ibNqz W+bEz6J5IArFRCgKbvwCu/D2ItOD3QU5Y+KKVlnaxnLEsJrQKsdEIK9O42SKpAOwF0wADpKORHHBeZvt RlNAQgCf8vuH6wcpsVQ460EtO1nemE3rOJ8kTA1b8bKXaGBcGjcC8hYWKlJzWL4Fh8SE01qupymhMBaK GDtEiOEoQ5cMlVnc1wdI00vtZ3C7VSmJaQNcoDarMh uFRxTLOIEBENcRBTXQ8KX4tO7jGOqUSzBBEM7LcdSCA0axtJsyf9BRRRDwG6Q+llMpNvxcO/Y5OTrxNr zZ55eGa+VD9K8il6EqT5GDXwuH6JzOeCNyxDrvUYESwZFu7x9SEhIOARjVrQxzDuWw5xKsukxlaJN6F3 U+lkd4kO//1kcu04rOaryIxt0Sq//0m/L292+f/++3 u53g0Q6Z0AZ9Z0/+4fOnD7/6z2//3oHkBs6//xL/8win+cevv/og0thOaR43a/h28/zTVX/24dff/ex2 Cn57K+MLsy/n9a2x64AQ/7//4dM/v/3w6+8/f/e66i0PD4/6+emE79f56Zwn64h39jaaP//zzz5+96sP X/3f6og66sn/lA3911f63j5+/u7rj7/85R2VXctih7 eR7+7urlwKeeBX+/rTD9+/ff7w5S//+teZ67096Ta9//b151++/Zcfvv/3862mM919a10/8/G/f/z+Py jr3b2rZL/3s7qlfdh6E/9i49peoot06Xsv820w3ZrMU/9p1UxnaToay8533LsCki6+9+k/KKbEY3/69t P3v/745df/8nre153//Gwm29kyc2/+11luyGj40AvC 376e+ZvXw//0fI/k5S/tu2+/+zpJA6249f9nIq/5H/ye1hw3zqmjc/v4m6+/fT32xy//8fu3D7/58PU3 C21ilrh/4KS7+twnffnnP/3b7//yxx//9e1//K+33/z+D3/47V/+8uNv//Ou59269X2+/+Xa1r9zF3X4 L3//9uc/vbWf95/3f77hSWnJN6U90Ej/xW9ewVYThd 2Pf/h5K3aHtUgX3GbJi/dE9RbcXUkQ6/XL/w+nZ58yrV/K2Q1MpGwXykLx+29Y/fzcIqtFaeazqhI5Ws /zm5dxb6a+aizPgnP/4bsf/+7Xs2qwV86h3duOG74/5dunj5/emdcj/bCScl2v4FrNTdGCMWP353W+/u OKsK6Lplus9LfeuY8t+b/58U///g9vf/ntv//4rvhX H/lwwHa7y/7415+SuwOZ809PH+Cvv3v7/Z/+/ce//D9/c/cq/pdzvgA5xQqbx2+WfrB/+u77t3/9n697 //2f//FT9b4m4I+FEkRU9m+ff/5Pn3/Wx3aeB12x+PlXI23p7T/Qo0Xe/5j9Jzf/AE9J05gY261n4gFC wt7j8573+e23/++Pf/3br+F1n3A88TJF//izO/zP67 sb7e1//eVf/v4n/z7v4Ve//lV830ycqD/+9n/+7rd//f1v//ST84+l5/X7P/30/OdDmtcf/svsrhcX9H s///iVS4hfy+DnYb/58+++2TAzi4RNAaQc//zj7/6vP/3+d6/b++Bkg4kLt79lC1/9of/+2p1qFu6gu/ j+49f/xw/xnshobsbd8Cz+9le/+vjp8/dfsFu7+8r/ /V/sjMY5fcPD/vb//AWpiH06347Kk34uKgM+PrL7m5FM/bYgb1acOjO7/Orzq/Y792b0n0l/+F39D301 9mBtG61PG0612B+fXv+8m3ozOpW2PpE/P12qHjEFXD1qg9CcYJGgImBgSS2esksgZZLhVL8nzmd8Y3Bo eWnjMTwMXWStIw6eaTDiSV1TOTY3FMgpQHZyPIEyT0 YgsC7iI10jiZJeRkSvQXNALH0UktR8OCV4PCO6ZODlVoYgYZBxZF87XJMkWKZVDy1wozOiWweIOlYhIB 6xlmu8X3H5vZWuH950lOgeftLeJL1Gv7WhgUSwNQ3WyLZweNCjYBSvQEYtK1xpq8JyAGdvOEJZNj3rkh NyNcnVFxQhEH6sulm4K1Y2sGoyquQvBTIUZRcgMtls LS5cmCxrmdjhQ7PjtDNqKMHkD7VbXUHfb64NKZRyKBbUJiZuYoCiEOE0PHbrSQujPyAcGZQnJSUyUWIk BB3RsEFtGSNfSDXSCGnaFhmdPFUxsF6unGQOl2VkGDQVNlSCTWSJZH4ADGNCVSI0UVN6DPjwBY0LsTTr WYC4AHsFCFIGZTbJMAqzCpLam0U7JMDnP6XbEDFzuv HqQCKWCWxmDnpqYR4kqNlhqndlF8RbwKXdUSNJNVEjPMBkHMCqBXZcX6Olo4C8K5TvZDlPAWAGJDiGKJ fqRoC9h22trhEBUQLeBXGqSI2+KG1ga1IwGs4UMDRjAT8hdql6RW6DhOKwVI7MEJzmkqTzA8fwiyDvVh FfAWBKSJ3jD5OriM68GCZ+CxTqRI5xjcl5cwKpMfVd HNLxFWNeAVKnGSeiZLBrIUFoUWQvBXO3RWA9IPAtJyJfTYJxGxKxBMJaGPIfSZPeupAZCFYvVKA2FFkg QuBaCTBjJEVgBOzsBFIiTThuKHr5DWJzVVZiSJ7oZxBuGCJaDWTnCBOgNtG2EiKhCvRMTZRfFOIxMGGj FcWcEHPfTZVuFLzsOTVvCGUvUYc0VQRoERYlYK5aSn VtVTFcONDqBIClDXLdLLWqdkXPPOTyVDVzPSA2HUKiCWEnHFHxUIqxERZvUXRxOXK4WKNhEQSjED3cWr EjDGKoPWN1DyHxRZBkOPDragQRNNIxQYGpIQS3XPVxRZNtVCOxHInjTZUzPDHzCsL2BSLzDNXaWS2cQr AvGPWyTCS5PBMmOIUqFLUbcrJHRCLjGATeDHr5AzHp PQQuYGFhWFrlAWQuLCTkSDnzLCFbFQRuOS3qAtTkBUMtDOLmZWHdYQMhHGStsuMAGNSgDLKxMFO1JeRy MAYePOGxIDkaQSZoDMBgGCQ7SOKxOYVoKF6qYxWjHQEhRbR2ZYPfLEBbNOKiwoOQTWWdVLXxEDLvCVTr DUUaVSBqMMrqAUYtPYWvXvL9YJMeRGCgUO6gOyIgYF OoAVD8YJHtWYYrQLWjheJBDOZmIVIzKWCxOVD9ZSVkWMCrVWb8fzKvxVUvJyn2Qi1JjAtdXKK2Fo1Syx VmZJNvEGBBNq8Fw681VTCvBEGDGve+ScmcrAGdiXppTHAAAlZvTEdEJPOGG9R= ID Date Data Source [id number] 08/25/2020 04:05:00 AM EDT [facility] Name Value Range Interpretation Code Description Data Aylin rce(s) Supporting Document(s) Leukocytes [#/volume] in Blood by Automated count 6.8 10*3/uL 4-10 [facility] Erythrocytes [#/volume] in Blood by Automated count 4.14 10*6/uL 4.6- 6.1 L [facility] Hemoglobin [Mass/volume] in Blood 13.7 g/dL 13.5-18 [facility] Hematocrit [Volume Fraction] of Blood by Automated count 40.8 % 4 1-53 L [facility] Erythrocyte mean corpuscular volume [Entitic volume] by Auto mated count 98.4 fL 80-96 H [facility] Erythrocyte mean corpuscular hemoglobin [Entitic mass] by Automated count 33.0 pg 27-33 [facility] Erythrocyte mean corpuscular hemoglobin concentration [Mass/volume] by Autom[facility] 33.6 g/[facility]0-[facility] width [Ratio] by Automated count 13.5 % 11.5-14.5 [facility] Platelets [#/volume] in Blood by Automated count 194 10*3/uL 150-400 [facility] Differential cell count method - Blood [facility] Neutrophils/100 leukocytes in Blood by Automated count 70 % [facility] Lymphocytes/100 leukocytes in Blood by Automated count 19 % [facility] Monocytes/100 leukocytes in Blood by Automated count 9 % [facility] Eosinophils/100 leukocytes in Blood by Automated count 1 % [facility] Basophils/100 leukocytes in Blood by Automated count 1 % [facility] Neutrophils [#/volume] in Blood by Automated count 4.80 10*3/uL 1.8-7 .0 [facility] Lymphocytes [#/volume] in Blood by Automated count 1.29 10*3/uL 1.2-4 .0 [facility] Monocytes [#/volume] in Blood by Automated count 0.59 10*3/uL 0-0.8 [facility] Eosinophils [#/volume] in Blood by Automated count 0.09 10*3/uL 0-0.5 [facility] Basophils [#/volume] in Blood by Automated count 0.04 10*3/uL 0-0.2 [facility] Nucleated erythrocytes/100 leukocytes [Ratio] in Blood by Automated count 0 /100{WBCs} 0-0 [facility] ID Date Data Source [id number] 08/25/2020 04:23:43 AM [facility] Name Value Range Interpretation Code Description Data Aylin rce(s) Supporting Document(s) Magnesium [Mass/volume] in Serum or Plasma 2.3 mg/dL 1.6-2.4 [facility] ID Date Data Source [id number] 08/25/2020 04:23:43 AM [facility] Name Value Range Interpretation Code Description Data Aylin rce(s) Supporting Document(s) Phosphate [Mass/volume] in Serum or Plasma 2.7 mg/dL 2.5-4.5 [facility] ID Date Data Source [id number] 08/25/2020 05:07:43 AM [facility] Name Value Range Interpretation Code Description Data Aylin rce(s) Supporting Document(s) Bicarbonate [Moles/volume] in Serum 22 mmol/L 22-29 [facility] Chloride [Moles/volume] in Serum or Plasma 106 mmol/L 98-107 [facility] Confirmed Creatinine [Mass/volume] in Serum or Plasma 0.73 mg/dL 0.70-1.20 [facility] Glucose [Mass/volume] in Serum or Plasma 82 mg/dL 70-140 [facility] Potassium [Moles/volume] in Serum or Plasma 3.5 mmol/L 3.4-5.1 [facility] Confirmed Sodium [Moles/volume] in Serum or Plasma 136 mmol/L 136-145 [facility] Confirmed Urea nitrogen [Mass/volume] in Serum or Plasma 7 mg/dL 8-23 L [facility] Anion gap 3 in Serum or Plasma 9 mmol/L 8-15 [facility] Confirmed Osmolality of Serum or Plasma by calculation 279 mosm/kg 275-300 [facility] Confirmed Creatinine/Urea nitrogen [Mass Ratio] in Serum or Plasma 9 [facility] Calcium [Mass/volume] in Serum or Plasma 8.3 mg/dL 8.8-10.2 L [facility] Glomerular filtration rate/1.73 sq M pre dicted among non-blacks [Volume Rate/Area] in Serum or Plasma by Creatinine-based formula (MDRD) >6 0 [facility] Glomerular filtration rate/1.73 sq M pre dicted among blacks [Volume Rate/Area] in Serum or Plasma by Creatinine-based formula (MDRD) >60 [facility] ID Date Data Source [id number] 08/25/2020 07:02:34 AM EDT [facility] Name Value Range Interpretation Code Description Data Aylin rce(s) Supporting Document(s) Cobalamin (Vitamin B12) [Mass/volume] in Serum or Plasma 190 pg/ml 2 11-946 L [facility] ID Date Data Source [id number] 08/30/2020 05:05:56 PM EDT [facility] Name Value Range Interpretation Code Description Data Aylin rce(s) Supporting Document(s) Thiamine [Moles/volume] in Blood 125.9 nmol/L 66.5-200.0 [facility] (NOTE)This test was developed and its pe rformance characteristicsdetermined by [facility]. It has not been cleared or approvedby the Food and Drug Administration.Performed At: [address] [id number] Nicole MD Ph:[phone] ID Date Data Source [id number] 08/24/2020 03:35:09 PM EDT [facility] Name Value Range Interpretation Code Description Data Aylin rce(s) Supporting Document(s) Glucose [Mass/volume] in Capillary blood by Glucometer 94 mg/dL 70- 140 [facility] ID Date Data Source [id number] 08/24/2020 03:08:19 PM EDT [facility] Value Range Interpretation Code Description Data Aylin rce(s) Supporting Document(s) ED Provider Note [facility] XCQMNx2lMgRFYzXf31/AZHzpGVCde6XnXBmlDXy1OEfgWWJaV2BfBIS9hO2cNUB0FEyBBbYuYaBqTCS5 lbm [file] Sameer+Pp1OPYXrLPQeYXQwPdZzDKEQIrHbA9SlQ7GLp7OjZ4YnEH49tIrmonJdNNnwPQ3UFO3cPIPoXMAN YF0TqDSwgN4tkyLgQmYtZWRHNxGxX00ujXNzKQGwJMS6FDRxVd7VBTRwT1PusaZzqMtgpxVdVEEiZQYL VR1ADFptlvXniFKqmEqmLM82jSgbOR3JVp8UWnJoOU 4aoq8JeCNsBv2UOTX5FV7ZKNPkVLVeZDIgJWD1CXDgXlHbVJexDUPpHNYzFOT0VFJsYJEgAN3BRpBdQS OyYIA4MQQpAQZqZXVbwq6EMXKxDDP5AmMsBKYaRYReRHAnTSonWBJxKZXpMMY0SNAnAVKdAS4GLjHjVG JrBOZwXOEjRPCuALSkxw0ZXWSpUZMfSyErIvZlCHXc EINeLZhuSMKdUCB6JEXtCIChULGbEF1YKdAgSTFnGSTsREXeILSxLMPzda4NCCEjQXTjCJE4CBVzWBLc DJUkNHgiVIDcVCD6Edr8QXBuUTYeMP6SZtTiVDBrJYS2ClalHWSzZRHiyh7EKDUjDYHxUwY6QIVxQECp PQMwGAjiCFOnTTG0ShJgFRTfVSQcDZ2XOzKnILFqDA P9ONebDPLkGJXsru5VZZRjZCFfRKa8BSXsSFXzMTIfJHxhDSWnLOR0DNkwGCSlKJTbKJ3CAjNqCPTrCx X3PdWtXNQqIJQvbm6TLYCjFJYmNBe2LwDrGLNbESCbCYooBKEgCZCdEul6BVRgWHXzAS5OKnZkKLLwVu G5BICoHTMlRYRdfm9KNPRmKORwFIi6NfArREFlQWMs HQmpKUDlKMZ9CMKzKWRtKRFmKV4GMzYyUEUzEmRgTvTwRSMeAATjst0NTIUnPOThUoK7OdGeAHPrNVHw EMamFRSvPVI9QZj9NJLwUYKpYB4PPmNgVZEwRdT1PVOoTLXjVFGszq5LNMIeRGIoVhG3WzIjKVPzRDGc HWtbOVDyPDT9LTW8EPMbWEMdHQ7PNcOiSRTuZzoyLh QkDFViPCHhti8JTXNkGJRcVET5RsSdEAJhWCTfOGbwZFAnGZJ2Kqo6FDSvWQXlOV0IEjNrKTVxAgp5PZ PeNIVaVIOclm8IIRHrVJV7YBIqAoLpTVDeNWNbAKziXDYqXQEzQqdpBKAwTKZcBU9QWcZwCYViJSI0RA wiDDLbSJFvtx4IROMgLYQ4EfG0OAPjTGIdTFVyVOks HGBgBYHzAyF5APMjKREaEO4DGyNpPQLxMYQ6PzHzCVBhUWPvoc9QEOQvWKD1PkxrVDGpOMOpIYOwCIld VMBhPJNqIEv4GPWgSPQpFU3IJuGxHVUxJWCfTcDjSOHvFHBpmz7VJKHgFWR9DyI3YNOzPIIkIHRwENcn RRZdFYIuKLO3NCJjWPGzOE7EZaHuZTSsDLJ9SkFmXX HqQWJghs0IUGBpXNA6HdehWqCxOLTsMKGvMWkhHMMvZNYgOMgbICUwTJUaHW4WNwBjUPGmVUGkVKYuQN AcVTAqqx3RlFVydDdwiu6EPVwQDh7UtSfbSHY3VMrzYn0ebLY5RpYuXWUATw9KlyTuWIJoSVMGHQwxQS ZeBLPpPsFjULItBPB9VLo6ExOqHeSwIQOoYFZ1XKLp JuD6RoS3ZTEnGUS4VUR0VhSaKOCoPIRvEiNeWiO2SZCfKqI4POb+TH2zTMe+Bw1Gr1XuzgG5erLpEVg9 ULT8VU6GTATYH5GHLn== ID Date Data Source [id number] 08/24/2020 06:02:16 AM EDT [facility] Name Value Range Interpretation Code Description Data Aylin rce(s) Supporting Document(s) Bicarbonate [Moles/volume] in Serum 24 mmol/L 22-29 [facility] Confirmed Chloride [Moles/volume] in Serum or Plasma 98 mmol/L 98-107 [facility] Creatinine [Mass/volume] in Serum or Plasma 0.89 mg/dL 0.70-1.20 [facility] Glucose [Mass/volume] in Serum or Plasma 96 mg/dL 70-140 [facility] Potassium [Moles/volume] in Serum or Plasma 3.0 mmol/L 3.4-5.1 L [facility] Sodium [Moles/volume] in Serum or Plasma 137 mmol/L 136-145 [facility] Urea nitrogen [Mass/volume] in Serum or Plasma 11 mg/dL 8-23 [facility] Anion gap 3 in Serum or Plasma 16 mmol/L 8-15 H [facility] Confirmed Osmolality of Serum or Plasma by calculation 284 mosm/kg 275-300 [facility] Creatinine/Urea nitrogen [Mass Ratio] in Serum or Plasma 12 [facility] Calcium [Mass/volume] in Serum or Plasma 8.8 mg/dL 8.8-10.2 [facility] QA FLAGS AND/OR RANGES MODIFIED BY DEMOG RAPHIC UPDATE ON 08/24 AT 1503 Glomerular filtration rate/1.73 sq M pre dicted among non-blacks [Volume Rate/Area] in Serum or Plasma by Creatinine-based formula (MDRD) >6 0 [facility] Glomerular filtration rate/1.73 sq M pre dicted among blacks [Volume Rate/Area] in Serum or Plasma by Creatinine-based formula (MDRD) >60 [facility] ID Date Data Source [id number] 08/24/2020 05:03:52 AM EDT [facility] Name Value Range Interpretation Code Description Data Aylin rce(s) Supporting Document(s) Leukocytes [#/volume] in Blood by Automated count 11.9 10*3/uL 4-10 H [facility] Erythrocytes [#/volume] in Blood by Automated count 4.47 10*6/uL 4.6- 6.1 L [facility] Hemoglobin [Mass/volume] in Blood 14.5 g/dL 13.5-18 [facility] Hematocrit [Volume Fraction] of Blood by Automated count 43.0 % 4 1-53 [facility] Erythrocyte mean corpuscular volume [Entitic volume] by Auto mated count 96.3 fL 80-96 H [facility] Erythrocyte mean corpuscular hemoglobin [Entitic mass] by Automated count 32.4 pg 27-33 [facility] Erythrocyte mean corpuscular hemoglobin concentration [Mass/volume] by Automated count 33.6 g/dL 32.0-[facility].0 [facility] width [Ratio] by Automated count 13.6 % 11.5-14.5 [facility] Platelets [#/volume] in Blood by Automated count 219 10*3/uL 150-400 [facility] Differential cell count method - Blood [facility] Neutrophils/100 leukocytes in Blood by Automated count 78 % [facility] Lymphocytes/100 leukocytes in Blood by Automated count 11 % [facility] Monocytes/100 leukocytes in Blood by Automated count 10 % [facility] Eosinophils/100 leukocytes in Blood by Automated count 1 % [facility] Basophils/100 leukocytes in Blood by Automated count 0 % [facility] Neutrophils [#/volume] in Blood by Automated count 9.28 10*3/uL 1.8-7 .0 H [facility] Lymphocytes [#/volume] in Blood by Automated count 1.34 10*3/uL 1.2-4 .0 [facility] Monocytes [#/volume] in Blood by Automated count 1.21 10*3/uL 0-0.8 H [facility] Eosinophils [#/volume] in Blood by Automated count 0.06 10*3/uL 0-0.5 [facility] Basophils [#/volume] in Blood by Automated count 0.03 10*3/uL 0-0.2 [facility] Nucleated erythrocytes/100 leukocytes [Ratio] in Blood by Automated count 0 /100{WBCs} 0-0 [facility] ID Date Data Source [id number] 08/24/2020 08:07:47 AM [facility] Name Value Range Interpretation Code Description Data Aylin rce(s) Supporting Document(s) Magnesium [Mass/volume] in Serum or Plasma 2.8 mg/dL 1.6-2.4 H [facility] QA FLAGS AND/OR RANGES MODIFIED BY DEMNext Jump RAPHIC UPDATE ON 08/24 AT 1503 ID Date Data Source [id number] 08/24/2020 08:07:47 AM [facility] Value Range Interpretation Code Description Data Aylin rce(s) Supporting Document(s) Phosphate [Mass/volume] in Serum or Plasma 3.3 mg/dL 2.5-4.5 [facility] ID Date Data Source [id number] 08/23/2020 05:21:12 PM [facility] Value Range Interpretation Code Description Data Aylin rce(s) Supporting Document(s) Acetaminophen [Mass/volume] in Serum or Plasma 5.7 ug/mL 10.0-30.0 L [facility] ID Date Data Source [id number] 08/23/2020 05:21:12 PM [facility] Value Range Interpretation Code Description Data Aylin rce(s) Supporting Document(s) Bicarbonate [Moles/volume] in Serum 16 mmol/L 22-29 L [facility] Chloride [Moles/volume] in Serum or Plasma 95 mmol/L 98-107 L [facility] Creatinine [Mass/volume] in Serum or Plasma 1.17 mg/dL 0.70-1.20 [facility] Glucose [Mass/volume] in Serum or Plasma 211 mg/dL 70-140 H [facility] Potassium [Moles/volume] in Serum or Plasma 4.7 mmol/L 3.4-5.1 [facility] Hemolyzed Sodium [Moles/volume] in Serum or Plasma 136 mmol/L 136-145 [facility] Urea nitrogen [Mass/volume] in Serum or Plasma 12 mg/dL 8-23 [facility] Anion gap 3 in Serum or Plasma 25 mmol/L 8-15 H [facility] Osmolality of Serum or Plasma by calculation 288 mosm/kg 275-300 [facility] Creatinine/Urea nitrogen [Mass Ratio] in Serum or Plasma 10 [facility] Calcium [Mass/volume] in Serum or Plasma 9.3 mg/dL 8.8-10.2 [facility] QA FLAGS AND/OR RANGES MODIFIED BY Ibetor UPDATE ON 08/24 AT 1503 Glomerular filtration rate/1.73 sq M pre dicted among non-blacks [Volume Rate/Area] in Serum or Plasma by Creatinine-based formula (MDRD) >6 0 [facility] Glomerular filtration rate/1.73 sq M pre dicted among blacks [Volume Rate/Area] in Serum or Plasma by Creatinine-based formula (MDRD) >60 [facility] ID Date Data Source [id number] 08/23/2020 05:21:12 PM T [facility] Value Range Interpretation Code Description Data Aylin rce(s) Supporting Document(s) Ethanol [Mass/volume] in Serum or Plasma Negative [facility] ID Date Data Source [id number] 08/23/2020 05:21:12 PM [facility] Value Range Interpretation Code Description Data Aylin rce(s) Supporting Document(s) Magnesium [Mass/volume] in Serum or Plasma 2.5 mg/dL 1.6-2.4 H [facility] QA FLAGS AND/OR RANGES MODIFIED BY Ibetor UPDATE ON 08/24 AT 1503 ID Date Data Source [id number] 08/23/2020 05:10:52 PM [facility] Value Range Interpretation Code Description Data Aylin rce(s) Supporting Document(s) Prothrombin time (PT) 12.5 s 12.5-14.9 [facility] INR in Platelet poor plasma by Coagulation assay 0.93 [facility] Routine intensity oral anticoagulation I NR is typically 2.0-3.0. Target INR must be clinically individualized. ID Date Data Source [id number] 08/23/2020 05:10:52 PM EDT [facility] Value Range Interpretation Code Description Data Aylin rce(s) Supporting Document(s) aPTT in Platelet poor plasma by Coagulation assay 23.4 s 24.0-33. 0 L [facility] ID Date Data Source [id number] 08/23/2020 05:21:12 PM [facility] Value Range Interpretation Code Description Data Yalin rce(s) Supporting Document(s) Salicylates [Mass/volume] in Serum or Plasma 3.0-30.0 L [facility] ID Date Data Source [id number] 08/23/2020 05:21:12 PM [facility] Value Range Interpretation Code Description Data Aylin rce(s) Supporting Document(s) Albumin [Mass/volume] in Serum or Plasma by Bromocresol green (BCG) dye binding method 4.8 g/dL 3.5-5.2 [facility] Bilirubin.total [Mass/volume] in Serum or Plasma 0.9 mg/dL <1.2 [facility] Bilirubin.direct [Mass/volume] in Serum or Plasma <0.3 [facility] Hemolyzed Alkaline phosphatase [Enzymatic activity/volume] in Serum or Plasma 67 U/L 40-129 [facility] Aspartate aminotransferase [Enzymatic activity/volume] in Serum or Plasma 43 U/L <40 H [facility] Hemolyzed Alanine aminotransferase [Enzymatic activity/volume] in Seru m or Plasma 27 U/L <41 [facility] Hemolyzed Protein [Mass/volume] in Serum or Plasma 7.4 g/dL 6.4-8.3 [facility] ID Date Data Source [id number] 08/23/2020 05:21:12 PM T [facility] Value Range Interpretation Code Description Data Aylin rce(s) Supporting Document(s) Thyroxine (T4) [Mass/volume] in Serum or Plasma 6.9 ug/dl 4.5-11.7 [facility] ID Date Data Source [id number] 08/23/2020 05:41:44 PM [facility] Value Range Interpretation Code Description Data Aylin rce(s) Supporting Document(s) Troponin T.cardiac [Mass/volume] in Serum or Plasma <0.01 [facility] ID Date Data Source [id number] 08/23/2020 05:21:12 PM EDT [facility] Name Value Range Interpretation Code Description Data Aylin rce(s) Supporting Document(s) Thyrotropin [Units/volume] in Serum or Plasma 0.949 u[IU]/mL 0.270-4. 200 [facility] ID Date Data Source [id number] 08/23/2020 05:04:31 PM [facility] Name Value Range Interpretation Code Description Data Aylin rce(s) Supporting Document(s) Leukocytes [#/volume] in Blood by Automated count 12.0 10*3/uL 4-10 H [facility] Erythrocytes [#/volume] in Blood by Automated count 4.86 10*6/uL 4.6- 6.1 [facility] Hemoglobin [Mass/volume] in Blood 15.8 g/dL 13.5-18 [facility] Hematocrit [Volume Fraction] of Blood by Automated count 48.3 % 4 1-53 [facility] Erythrocyte mean corpuscular volume [Entitic volume] by Auto mated count 99.4 fL 80-96 [facility] Erythrocyte mean corpuscular hemoglobin [Entitic mass] by Automated count 32.5 pg 27-33 [facility] Erythrocyte mean corpuscular hemoglobin concentration [Mass/volume] by Automated count 32.7 g/dL 32.0-36.0 [facility] E[facility]throcyte distribution width [Ratio] by Automated count 13.4 % 11.5-14.5 [facility] Platelets [#/volume] in Blood by Automated count 258 10*3/uL 150-400 [facility] Differential cell count method - Blood [facility] Neutrophils/100 leukocytes in Blood by Automated count 92 % [facility] Lymphocytes/100 leukocytes in Blood by Automated count 4 % [facility] Monocytes/100 leukocytes in Blood by Automated count 3 % [facility] Eosinophils/100 leukocytes in Blood by Automated count 0 % [facility] Basophils/100 leukocytes in Blood by Automated count 1 % [facility] Neutrophils [#/volume] in Blood by Automated count 11.05 10*3/uL 1.8- 7.0 H [facility] Lymphocytes [#/volume] in Blood by Automated count 0.42 10*3/uL 1.2-4 .0 L [facility] Monocytes [#/volume] in Blood by Automated count 0.41 10*3/uL 0-0.8 [facility] Eosinophils [#/volume] in Blood by Automated count 0.01 10*3/uL 0-0.5 [facility] Basophils [#/volume] in Blood by Automated count 0.06 10*3/uL 0-0.2 [facility] Nucleated erythrocytes/100 leukocytes [Ratio] in Blood by Automated count 0 /100{WBCs} 0-0 [facility] ID Date Data Source Basic Metabolic Profile (BMP) 04/14/2020 12:00:00 AM EST eCW 1 ([facility]) Name Value Range Interpretation Code Description Data Aylin rce(s) Supporting Document(s) 10 7-18 BLOOD UREA NITROGEN eCW1 ([facility]) 99 70-100 GLUCOSE, FASTING eCW1 (Critical access hospital) 0.90 0.70-1.30 CREATININE FOR GFR eCW1 ([facility]) > 60.0 >49 GLOMERULAR FILTRATION RATE eCW 1 ([facility]) 137 136-145 SODIUM LEVEL eCW1 ([facility]) 31 21-32 CARBON DIOXIDE LEVEL eCW1 ([facility]) 100 98-107 CHLORIDE LEVEL eCW1 ([facility]) 3.9 3.5-5.1 POTASSIUM SERUM eCW1 ([facility]) 9.7 8.8-10.2 CALCIUM LEVEL eCW1 ([facility]) ID Date Data Source LIPID PANEL (CARDIAC RISK) 04/14/2020 12:00:00 AM EST eCW1 ( [facility]) Name Value Range Interpretation Code Description Data Aylin rce(s) Supporting Document(s) Cholesterol [Moles/volume] in Serum or Plasma 169 <200 CHOLESTEROL LEVEL eCW1 ([facility]) Cholesterol in HDL [Moles/volume] in Serum or Plasma 74 >40 HDL CHOLESTEROL eCW1 ([facility]) Triglyceride [Mass/volume] in Serum or Plasma by calculation 79 <150 TRIGLYCERIDES LEVEL eCW1 ([facility]) 2.283 <5 CHOLESTEROL RISK RATIO eCW1 ([facility]) Cholesterol in LDL [Mass/volume] in Serum or Plasma by calculation 79 <100 LDL CHOLESTEROL eCW1 ([facility]) 95 NON-HDL-C eCW1 ([facility] ID Date Data Source [id number] 04/14/2020 12:00:00 AM EST eCW1 ([facility]) Name Value Range Interpretation Code Description Data Aylin rce(s) Supporting Document(s) Hemoglobin A1c/Hemoglobin.total in Blood 5.5 HEMOGLOBIN A1c eCW1 ([facility]) Procedure Social History Code Duration Value Status Description Data Source(s ) Smoking 02/16/2021 12:00:00 AM EDT Never Smoker completed Never S moker eCW1 ([facility]) Smoking 12/02/2020 12:00:00 AM EDT Never Smoker completed Never S moker eCW1 ([facility]) Smoking 12/02/2020 12:00:00 AM EDT Never Smoker completed Never S moker eCW1 ([facility]) Smoking 12/02/2020 12:00:00 AM EDT Never Smoker completed Never S moker eCW1 ([facility]) Smoking 12/02/2020 12:00:00 AM EDT Never Smoker completed Never S moker eCW1 ([facility]) Smoking 12/02/2020 12:00:00 AM EDT Never Smoker completed Never S moker eCW1 ([facility]) Smoking 09/29/2020 12:00:00 AM EDT Never Smoker completed Never S moker eCW1 ([facility]) Smoking 09/29/2020 12:00:00 AM EDT Never Smoker completed Never S moker eCW1 ([facility]) Smoking 09/04/2020 12:00:00 AM EDT Never Smoker completed Never S moker eCW1 ([facility]) Smoking 09/04/2020 12:00:00 AM EDT Never Smoker completed Never S moker eCW1 ([facility]) Smoking 08/23/2020 12:00:00 AM EDT Unknown if ever smoked comp leted Unknown if ever smoked [facility] Smoking 06/16/2020 12:00:00 AM EST Never Smoker completed Never S moker eCW1 ([facility]) Smoking 06/16/2020 12:00:00 AM EST Never Smoker completed Never S moker eCW1 ([facility]) Smoking 06/16/2020 12:00:00 AM EST Never Smoker completed Never S moker eCW1 ([facility]) Smoking 04/14/2020 12:00:00 AM EST Never Smoker completed Never S moker eCW1 ([facility]) Vital Signs ID Date Data Source UNK Name Value Range Interpretation Code Description Data Source(s) Systolic blood pressure 126 mm[Hg] 126 mm[Hg] M EDENT ([facility]) [place] body weight 172 [lb_av] 172 [lb_av] MEDEN T ([facility]) Diastolic blood pressure 75 mm[Hg] 75 mm[Hg] [facility] ([facility]) Heart rate 47 /min 47 /min [facility] ([facility]) Body temperature 97.4 [degF] 97.4 [degF] [facility] ([facility]) Body height 71 [in_i] 71 [in_i] MEDENT ([facility]) 5'11" Body weight 168.12 [lb_av] 168.12 [lb_av] MEDEN T ([facility]) Body mass index (BMI) [Ratio] 23.4 kg/m2 23.4 k g/m2 [facility] ([facility]) Body weight 76.261 kg 76.261 kg [facility] ([facility]) Body surface area Derived from formula 1.96 m2 1.96 m2 [facility] ([facility]) Body weight 162.8 [lb_av] 162.8 [lb_av] eCW1 ([facility]) Heart rate 46 /min 46 /min eCW1 ([facility]) Body height 71 [in_i] 71 [in_i] eCW1 ([facility]) Body mass index (BMI) [Ratio] 22.70 kg/m2 22.70 kg/m2 eCW1 ([facility]) Diastolic blood pressure 83 mm[Hg] 83 mm[Hg] eCW1 ([facility]) Respiratory rate 17 /min 17 /min eCW1 ([facility]) Body temperature 98.0 [degF] 98.0 [degF] eCW1 ( [facility]) Systolic blood pressure 132 mm[Hg] 132 mm[Hg] e CW1 ([facility]) Body temperature 98.3 [degF] 98.3 [degF] MEDENT ([facility]) Body mass index (BMI) [Ratio] 22.2 kg/m2 22.2 k g/m2 [facility] ([facility]) [place] body weight 172 [lb_av] 172 [lb_av] MEDEN T ([facility]) Body weight 72.293 kg 72.293 kg [facility] ([facility]) Body surface area Derived from formula 1.91 m2 1.91 m2 [facility] ([facility]) Heart rate 79 /min 79 /min [facility] ([facility]) Body height 71 [in_i] 71 [in_i] MEDENT ([facility]) 5'11" Body weight 159.38 [lb_av] 159.38 [lb_av] MEDEN T ([facility]) Systolic blood pressure 137 mm[Hg] 137 mm[Hg] M EDENT ([facility]) Diastolic blood pressure 82 mm[Hg] 82 mm[Hg] [facility] ([facility]) Body weight 160.2 [lb_av] 160.2 [lb_av] eCW1 ([facility]) Body height 71 [in_i] 71 [in_i] eCW1 ([facility]) Body mass index (BMI) [Ratio] 22.34 kg/m2 22.34 kg/m2 eCW1 ([facility]) Heart rate 75 /min 75 /min eCW1 ([facility]) Respiratory rate 17 /min 17 /min eCW1 ([facility]) Body temperature 98.8 [degF] 98.8 [degF] eCW1 ( [facility]) Systolic blood pressure 154 mm[Hg] 154 mm[Hg] e CW1 ([facility]) Diastolic blood pressure 93 mm[Hg] 93 mm[Hg] eCW1 ([facility]) Body height 71 [in_i] 71 [in_i] eCW1 ([facility]) Body mass index (BMI) [Ratio] 23.65 kg/m2 23.65 kg/m2 eCW1 ([facility]) Heart rate 57 /min 57 /min eCW1 ([facility]) Respiratory rate 17 /min 17 /min eCW1 ([facility]) Body temperature 98.1 [degF] 98.1 [degF] eCW1 ( [facility]) Systolic blood pressure 129 mm[Hg] 129 mm[Hg] e CW1 ([facility]) Diastolic blood pressure 81 mm[Hg] 81 mm[Hg] eCW1 ([facility]) Body weight 169.6 [lb_av] 169.6 [lb_av] eCW1 ([facility]) Body weight 175 [lb_av] 175 [lb_av] eCW1 ([facility]) Body height 71 [in_i] 71 [in_i] eCW1 ([facility]) Body mass index (BMI) [Ratio] 24.40 kg/m2 24.40 kg/m2 eCW1 ([facility]) Heart rate 61 /min 61 /min eCW1 ([facility]) Respiratory rate 16 /min 16 /min eCW1 ([facility]) Body temperature 97.9 [degF] 97.9 [degF] eCW1 ( [facility]) Systolic blood pressure 151 mm[Hg] 151 mm[Hg] e CW1 ([facility]) Diastolic blood pressure 81 mm[Hg] 81 mm[Hg] eCW1 ([facility]) Body weight 184 [lb_av] 184 [lb_av] eCW1 ([facility]) Heart rate 58 /min 58 /min eCW1 ([facility]) Body height 71 [in_i] 71 [in_i] eCW1 ([facility] hospital) Respiratory rate 16 /min 16 /min eCW1 ([facility]) Body temperature 99.0 [degF] 99.0 [degF] eCW1 ( [facility]) Systolic blood pressure 128 mm[Hg] 128 mm[Hg] e CW1 ([facility]) Diastolic blood pressure 83 mm[Hg] 83 mm[Hg] eCW1 ([facility]) Body mass index (BMI) [Ratio] 25.66 kg/m2 25.66 kg/m2 eCW1 ([facility]) Body weight 185 [lb_av] 185 [lb_av] eCW1 ([facility]) Body height 71 [in_i] 71 [in_i] eCW1 ([facility]) Body mass index (BMI) [Ratio] 25.80 kg/m2 25.80 kg/m2 eCW1 ([facility]) Heart rate 65 /min 65 /min eCW1 ([facility]) Respiratory rate 16 /min 16 /min eCW1 ([facility]) Body temperature 97.7 [degF] 97.7 [degF] eCW1 ( [facility]) Systolic blood pressure 156 mm[Hg] 156 mm[Hg] e CW1 ([facility]) Diastolic blood pressure 93 mm[Hg] 93 mm[Hg] eCW1 ([facility]) ID Date Data Source [id number] 09/04/2020 08:50:20 AM [facility] Name Value Range Interpretation Code Description Data Source(s) WEIGHT RECORDED 174.6 lb 174.6 lb [facility] WEIGHT RECORDED 166.01 lb 166.01 lb [facility] Body height Measured 70 in 70 in [facility] Patient Treatment Plan of Care Planned Activity Planned Date Details Description Data Source (s) Vitamin B 12 1 MG Oral Tablet 08/28/2020 12:00:00 AM [facility] Folic Acid 1 MG Oral Tablet 08/28/2020 12:00:00 AM [facility] Thiamine 100 MG Oral Tablet 08/27/2020 12:00:00 AM [facility] dextrose 50 % IV solution 25 mL 08/23/2020 08:38:54 PM [facility] Glucagon 1 MG Injection 08/23/2020 08:38:54 PM [facility] Glucose 0.417 MG/MG Oral Gel 08/23/2020 08:38:54 PM [facility] sildenafil 50 MG Oral Tablet [Viagra] 06/16/2020 12:00:00 AM EST eCW1 ([facility]) sildenafil 50 MG Oral Tablet [Viagra] 06/16/2020 12:00:00 AM EST eCW1 ([facility]) sildenafil 50 MG Oral Tablet [Viagra] 06/16/2020 12:00:00 AM EST eCW1 ([facility]) sildenafil 50 MG Oral Tablet [Viagra] 06/16/2020 12:00:00 AM EST eCW1 ([facility]) sildenafil 50 MG Oral Tablet [Viagra] 06/16/2020 12:00:00 AM EST eCW1 ([facility])
[2021-03-28 08:24] LABS: ACETAMINOPHEN LEVEL < 2.0 UG/ML (10.0-30.0); ALBUMIN 4.1 GM/DL (3.2-5.2); ALT/SGPT 27 U/L (12-78); BILIRUBIN,DIRECT 0.2 MG/DL (0.0-0.2); BILIRUBIN,TOTAL 1.1 MG/DL (0.2-1.0); ETHYL ALCOHOL (ETHANOL) < 0.003 % (0.000-0.010); SALICYLATE LEVEL < 1.7 MG/DL (5.0-30.0); TOTAL PROTEIN 7.7 GM/DL (6.4-8.2)
--- NOTE | 2021-03-28 08:55 | REPVR ---
PROCEDURE INFORMATION: Exam: CT Head Without Contrast Exam date and time: 03/28/2021 7:47 AM Age: 66 years old Clinical indication: Altered mental status/memory loss TECHNIQUE: Imaging protocol: Computed tomography of the head without contrast. Radiation optimization: All CT scans at this facility use at least one of these dose optimization techniques: automated exposure control; mA and/or kV adjustment per patient size (includes targeted exams where dose is matched to clinical indication); or iterative reconstruction. COMPARISON: No relevant prior studies available. FINDINGS: Brain: There is mild ill-defined patchy hypodensity within the bilateral cerebral periventricular white matter, consistent with chronic microvascular ischemic changes. There is mild diffuse cerebral atrophy present, consistent with this patient's age. 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 The ventricular system demonstrates mild diffuse compensatory enlargement. Paranasal sinuses: Visualized sinuses are unremarkable. No fluid levels. Mastoid air cells: Visualized mastoid air cells are well aerated. Vasculature: There is atherosclerotic calcification of the bilateral cavernous carotid arteries. Bones/joints: Unremarkable. No acute fracture. Soft tissues: Unremarkable. IMPRESSION: 1. No acute infarction, masses or hemorrhage is seen. No acute intracranial abnormality is identified. 2. Diffuse age-related cerebral atrophy and mild chronic microvascular white matter ischemic changes. 3. [place] Stroke [facility] Early CT Score (ASPECTS) = 10 4. 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 Electronically signed by: Shaun Davenport On 03/28/2021 08:54:41 AM
[2021-03-28 10:46] LABS: AMPHETAMINES LEVEL URINE NEGATIVE (NEGATIVE); BARBITURATES URINE NEGATIVE (NEGATIVE); BENZODIAZEPINES URINE NEGATIVE (NEGATIVE); CANNABINOIDS URINE POSITIVE (NEGATIVE); COCAINE METABOLITE URINE NEGATIVE (NEGATIVE); METHADONE URINE NEGATIVE (NEGATIVE); OPIATES URINE NEGATIVE (NEGATIVE); PHENCYCLIDINE URINE NEGATIVE (NEGATIVE)
[2021-03-28] MEDS ORDERED: KEPP1TAB2 PO (11:34)
[2021-03-28 12:00] VITALS: BP 137/82
--- NOTE | 2021-03-28 12:49 | ECGEPIP ---
[facility] - ED Test Date: 2021-03-28 Pat Name: LAWSON VALDERRAMA Department: Room: - Gender: Male Oncology Rn: AILEEN : 1955 Requested By: Viktor Abreu Order Number: [id number] Reading MD: Viktor Abreu Measurements Intervals [place] Rate: 82 P: 74 RI: 174 QRS: 31 QRSD: 106 T: 73 QT: 396 QTc: 462 Interpretive Statements Normal sinus rhythm Possible Left atrial enlargement Incomplete right bundle branch block Nonspecific T wave abnormality Prolonged QT cw rate increased Nonspecific ST T wave changes Electronically Signed on 03-28-2021 12:49:12 EDT by Viktor Abreu
--- NOTE | 2021-04-01 09:42 | ED PDOC ---
Post-Departure Follow-Up dr toscano faxed formal report of ct head for fu Viktor Taylor MD Apr 01, 2021 09:42
== END 2021-03-28 12:40 | disposition home or self-care (01) ==
LOC: M ED 06:46
DX: R56.9 Unspecified convulsions (principal); I45.19 Other right bundle-branch block; R93.0 Abnormal findings on diagnostic imaging of skull and head, not elsewhere classified; I10 Essential (primary) hypertension; K21.9 Gastro-esophageal reflux disease without esophagitis; Z79.899 Other long term (current) drug therapy
CPT/HCPCS: 70450; 71045; 80047; 80076; 80143; 80307; 82077; 82140; 84443; 84484; 85025; 93005; 93041; 94760; 96365; 99285; J1953

== ENCOUNTER → 2022-09-09 | Outpatient (CLI) | payer OTHER, MEDICARE ==
[~2022-09-09] MED LIST changes: +KEPP1TAB2 PO
[2022-09-09 14:46] LABS: BASO # 0.1 10^3/uL (0.0-0.2); BASO % 1.2 % (0.0-1.0); EOS # 0.3 10^3/uL (0.0-0.5); EOS % 4.6 % (0.0-3.0); HEMATOCRIT 46.2 % (42.0-52.0); HEMOGLOBIN 16.3 g/dl (13.5-17.5); LYMPH # 1.6 10^3/uL (1.5-5.0); LYMPH % 27.1 % (24.0-44.0); MEAN CORPUSCULAR HEMOGLOBIN 32.8 pg (27.0-33.0); MEAN CORPUSCULAR HGB CONC 35.3 g/dl (32.0-36.5); MONO # 0.7 10^3/uL (0.0-0.8); MONO % 11.5 % (2.0-8.0); NEUTROPHILS # 3.2 10^3/uL (1.5-8.5); NEUTROPHILS % 54.6 % (36.0-66.0); PLATELET COUNT, AUTOMATED 267 10^3/uL (150-450); RED BLOOD COUNT 4.97 10^6/uL (4.30-6.10); WHITE BLOOD COUNT 5.8 10^3/uL (4.0-10.0)
[2022-09-09 15:36] LABS: ALKALINE PHOSPHATASE 65 U/L (46-116); ALT/SGPT 25 U/L (7.0-40); AST/SGOT 20 U/L (<34); BILIRUBIN,TOTAL 0.6 MG/DL (0.3-1.2); BLOOD UREA NITROGEN 9 MG/DL (9-23); CALCIUM LEVEL 9.1 MG/DL (8.3-10.6); CARBON DIOXIDE LEVEL 28 MMOL/L (20-31); CHLORIDE LEVEL 98 MMOL/L (98-107); CHOLESTEROL LEVEL 140 MG/DL (<200); CHOLESTEROL RISK RATIO 1.99 (<5); GLOMERULAR FILTRATION RATE > 60.0 (>49); GLUCOSE, FASTING 92 MG/DL (74-106); HDL CHOLESTEROL 70.3 MG/DL (>40); LDL CHOLESTEROL 57.5 MG/DL (<100); NON-HDL-C 69.7 MG/DL; POTASSIUM SERUM 4.1 MMOL/L (3.5-5.1); SODIUM LEVEL 131 MMOL/L (136-145); THYROID STIMULATING HORMONE 1.368 uIU/ML (0.55-4.78); TOTAL PROTEIN 7.3 G/DL (5.7-8.2); TRIGLYCERIDES LEVEL 61 MG/DL (<150)
== END ==
LOC: M PLALAB 11:32
PROVIDERS: ATTEND Family Medicine
DX: E78.5 Hyperlipidemia, unspecified (principal); I10 Essential (primary) hypertension; F41.1 Generalized anxiety disorder

== ENCOUNTER → 2022-11-18 | Outpatient (CLI) | payer OTHER, MEDICARE ==
[2022-11-18 14:47] LABS: APPEARANCE, URINE CLEAR (CLEAR); BACTERIA, URINE AUTO NEGATIVE (NEGATIVE); BILIRUBIN, URINE AUTO NEGATIVE (NEGATIVE); BLOOD, URINE BLOOD NEGATIVE (NEGATIVE); COLOR, URINE YELLOW (YELLOW); GLUCOSE, URINE (UA) AUTO NEGATIVE (NEGATIVE); KETONE, URINE AUTO NEGATIVE (NEGATIVE); LEUKOCYTE ESTERASE, URINE AUTO NEGATIVE (NEGATIVE); NITRITE, URINE AUTO NEGATIVE (NEGATIVE); PROTEIN, URINE AUTO NEGATIVE (NEGATIVE); RBC, URINE AUTO 0 /HPF (0-3); SPECIFIC GRAVITY URINE AUTO 1.009 (1.002-1.035); SQUAMOUS EPITHELIAL CELL UR AU 0 /HPF (0-6); UROBILINOGEN, URINE AUTO 0.2 mg/dL (0.0-2.0); WBC, URINE AUTO 2 /HPF (0-3)
[2022-11-18 15:01] LABS: BLOOD UREA NITROGEN 8 MG/DL (9-23); CALCIUM LEVEL 9.6 MG/DL (8.3-10.6); CARBON DIOXIDE LEVEL 29 MMOL/L (20-31); CHLORIDE LEVEL 100 MMOL/L (98-107); GLOMERULAR FILTRATION RATE > 60.0 (>49); GLUCOSE, FASTING 80 MG/DL (74-106); POTASSIUM SERUM 4.1 MMOL/L (3.5-5.1); SODIUM LEVEL 133 MMOL/L (136-145)
[2022-11-18 15:12] LABS: OSMOLALITY SERUM 276 MOSM/KG (280-301)
[2022-11-18 16:19] LABS: OSMOLALITY URINE 339 MOSM/KG (50-1400)
== END ==
LOC: M PLALAB 11:26
PROVIDERS: ATTEND Family Medicine
DX: E87.1 Hypo-osmolality and hyponatremia (principal)

== ENCOUNTER 2023-01-06 02:58 | Observation (INO) | payer MEDICARE, OTHER ==
[~2023-01-06] VITALS: Ht 177.8 cm; Wt 79.9 kg
[2023-01-06 03:28] LABS: IONIZED CALCIUM 4.5 MG/DL (4.5-5.3)
[2023-01-06 03:35] LABS: BASO # 0.1 10^3/uL (0.0-0.2); BASO % 1.3 % (0.0-1.0); EOS # 0.3 10^3/uL (0.0-0.5); EOS % 4.3 % (0.0-3.0); HEMATOCRIT 46.1 % (42.0-52.0); HEMOGLOBIN 16.4 g/dl (13.5-17.5); LYMPH # 1.8 10^3/uL (1.5-5.0); LYMPH % 24.6 % (24.0-44.0); MEAN CORPUSCULAR HEMOGLOBIN 33.3 pg (27.0-33.0); MEAN CORPUSCULAR HGB CONC 35.6 g/dl (32.0-36.5); MEAN CORPUSCULAR VOLUME 93.5 fl (80.0-96.0); MONO # 0.8 10^3/uL (0.0-0.8); MONO % 10.7 % (2.0-8.0); NEUTROPHILS # 4.2 10^3/uL (1.5-8.5); NEUTROPHILS % 56.2 % (36.0-66.0); PLATELET COUNT, AUTOMATED 268 10^3/uL (150-450); RED BLOOD COUNT 4.93 10^6/uL (4.30-6.10); WHITE BLOOD COUNT 7.5 10^3/uL (4.0-10.0)
[2023-01-06 03:59] LABS: ALKALINE PHOSPHATASE 73 U/L (46-116); ALT/SGPT 31 U/L (7.0-40); AST/SGOT 23 U/L (<34); BILIRUBIN,DIRECT 0.2 MG/DL (<0.4); BILIRUBIN,TOTAL 0.7 MG/DL (0.3-1.2); BLOOD UREA NITROGEN 7 MG/DL (9-23); CALCIUM LEVEL 8.9 MG/DL (8.3-10.6); CARBON DIOXIDE LEVEL 15 MMOL/L (20-31); CHLORIDE LEVEL 93 MMOL/L (98-107); CREATININE FOR GFR 0.81 MG/DL (0.70-1.30); GLOMERULAR FILTRATION RATE > 60.0 (>49); GLUCOSE, FASTING 154 MG/DL (74-106); MAGNESIUM LEVEL 2.2 MG/DL (1.8-2.4); PHOSPHORUS LEVEL 3.4 MG/DL (2.4-5.1); POTASSIUM SERUM 4.2 MMOL/L (3.5-5.1); SODIUM LEVEL 127 MMOL/L (136-145); TOTAL PROTEIN 7.3 G/DL (5.7-8.2)
[2023-01-06] MEDS ORDERED: ONDANSETRON 4MG 2ML VIAL IV ONE (04:50)
[2023-01-06] MEDS ORDERED: NS 1,000 ML IV ONE (05:10)
[2023-01-06 05:47] LABS: AMPHETAMINES LEVEL URINE NEGATIVE (NEGATIVE); BARBITURATES URINE NEGATIVE (NEGATIVE); BENZODIAZEPINES URINE NEGATIVE (NEGATIVE); COCAINE METABOLITE URINE NEGATIVE (NEGATIVE); METHADONE URINE NEGATIVE (NEGATIVE); OPIATES URINE NEGATIVE (NEGATIVE); PHENCYCLIDINE URINE NEGATIVE (NEGATIVE)
[2023-01-06 05:49] LABS: CANNABINOIDS URINE POSITIVE (NEGATIVE)
[2023-01-06 06:06] LABS: VENOUS BASE EXCESS -2.9 (-2.0-2.0); VENOUS HCO3 24.6 MMOL/L (23.0-27.0); VENOUS O2 SATURATION 84.2 % (60.0-80.0); VENOUS PARTIAL PRESSURE CO2 52.4 mmHg (38.0-50.0); VENOUS PARTIAL PRESSURE O2 53.2 mmHg (30.0-50.0); VENOUS PH 7.289 UNITS (7.330-7.430); VENOUS STANDARD HCO3 21.8 MMOL/L; VENOUS TOTAL CO2 26.2 MMOL/L (24.0-28.0)
[2023-01-06] MEDS ORDERED: D5W IV ONE (06:15)
[2023-01-06] MEDS ORDERED: VALPROATE SOD IV ONE (06:15)
[2023-01-06] MEDS ORDERED: KEPP1TAB2 PO (06:34)
[2023-01-06] MEDS ORDERED: LISI10TA22 PO (06:34)
[2023-01-06] MEDS ORDERED: VITA500T17 PO (06:34)
[2023-01-06] MEDS ORDERED: LEXA1TAB PO (06:34)
[2023-01-06] MEDS ORDERED: HOME MED LIST COMPLETE! XX SCH (06:35)
[2023-01-06 06:43] LABS: ACETONE/KETONE 0.12 MMOL/L (0.02-0.27)
[2023-01-06] MEDS ORDERED: ONDANSETRON 4MG 2ML VIAL IV PRN (08:55)
[2023-01-06 09:24] LABS: HEMATOCRIT 41.6 % (42.0-52.0); MEAN CORPUSCULAR HEMOGLOBIN 32.8 pg (27.0-33.0); MEAN CORPUSCULAR HGB CONC 36.1 g/dl (32.0-36.5); PLATELET COUNT, AUTOMATED 220 10^3/uL (150-450); RED BLOOD COUNT 4.57 10^6/uL (4.30-6.10); WHITE BLOOD COUNT 10.5 10^3/uL (4.0-10.0)
[2023-01-06 09:33] LABS: BLOOD UREA NITROGEN 8 MG/DL (9-23); CALCIUM LEVEL 8.8 MG/DL (8.3-10.6); CARBON DIOXIDE LEVEL 22 MMOL/L (20-31); CHLORIDE LEVEL 93 MMOL/L (98-107); CREATININE FOR GFR 0.79 MG/DL (0.70-1.30); GLOMERULAR FILTRATION RATE > 60.0 (>49); GLUCOSE, FASTING 124 MG/DL (74-106); POTASSIUM SERUM 4.6 MMOL/L (3.5-5.1); SODIUM LEVEL 126 MMOL/L (136-145)
[2023-01-06] MEDS: ATORVASTATIN 20 MG TAB PO SCH (10:28)
[2023-01-06] MEDS: FOLIC ACID 1MG TAB PO SCH (10:29)
[2023-01-06] MEDS: DIVALPROEX 500MG *ER* TAB PO SCH ×2 (10:29→20:43)
[2023-01-06] MEDS: CYANOCOBALAMIN 500 MCG TAB PO SCH (10:30)
[2023-01-06] MEDS: ESCITALOPRAM OXALATE 10 MG TAB (LEXAPRO) PO SCH (10:30)
[2023-01-06] MEDS: THIAMINE 100 MG TAB PO SCH (10:30)
[2023-01-06] MEDS: ENOXAPARIN 40MG/0.4ML SYRINGE (J1650 PER 10MG) SC SCH (10:32)
[2023-01-06 12:00] VITALS: BP 141/79; TEMP 99.3; O2SAT 95
[2023-01-06] MEDS ORDERED: LORazepam 2 MG TAB PO PRN (12:40)
[2023-01-06] MEDS: MULTIVITAMINS/MINERALS THERAP 1 TAB PO SCH (13:59)
[2023-01-06] MEDS: ACETAMINOPHEN TAB 650MG DOSE (2X325MG) PO PRN (13:59)
[2023-01-06 14:00] VITALS: BP 137/77; TEMP 98.5; O2SAT 92
[2023-01-06 21:10] VITALS: BP 114/69; TEMP 99.1; O2SAT 94
[2023-01-06 22:10] VITALS: BP 114/69
[2023-01-07 05:20] VITALS: BP 116/72; TEMP 99; O2SAT 95
[2023-01-07 06:03] LABS: HEMATOCRIT 42.3 % (42.0-52.0); HEMOGLOBIN 15.3 g/dl (13.5-17.5); MEAN CORPUSCULAR HEMOGLOBIN 32.8 pg (27.0-33.0); MEAN CORPUSCULAR HGB CONC 36.2 g/dl (32.0-36.5); MEAN CORPUSCULAR VOLUME 90.8 fl (80.0-96.0); PLATELET COUNT, AUTOMATED 227 10^3/uL (150-450); RED BLOOD COUNT 4.66 10^6/uL (4.30-6.10); WHITE BLOOD COUNT 9.1 10^3/uL (4.0-10.0)
[2023-01-07 06:32] LABS: BLOOD UREA NITROGEN < 5 MG/DL (9-23); CALCIUM LEVEL 8.9 MG/DL (8.3-10.6); CARBON DIOXIDE LEVEL 25 MMOL/L (20-31); CHLORIDE LEVEL 101 MMOL/L (98-107); CREATININE FOR GFR 0.75 MG/DL (0.70-1.30); GLOMERULAR FILTRATION RATE > 60.0 (>49); GLUCOSE, FASTING 114 MG/DL (74-106); SODIUM LEVEL 135 MMOL/L (136-145)
[2023-01-07] MEDS: FOLIC ACID 1MG TAB PO SCH (08:36)
[2023-01-07] MEDS: CYANOCOBALAMIN 500 MCG TAB PO SCH (08:37)
[2023-01-07] MEDS: MULTIVITAMINS/MINERALS THERAP 1 TAB PO SCH (08:37)
[2023-01-07 08:38] VITALS: BP 138/78
[2023-01-07] MEDS: THIAMINE 100 MG TAB PO SCH (08:38)
[2023-01-07] MEDS: ESCITALOPRAM OXALATE 10 MG TAB (LEXAPRO) PO SCH (08:38)
[2023-01-07] MEDS: ATORVASTATIN 20 MG TAB PO SCH (08:38)
[2023-01-07] MEDS: DIVALPROEX 500MG *ER* TAB PO SCH (08:41)
[2023-01-07] MEDS: ENOXAPARIN 40MG/0.4ML SYRINGE (J1650 PER 10MG) SC SCH (08:41)
[2023-01-07] MEDS ORDERED: DEPA500T2 PO (08:42)
[2023-01-07] MEDS: ACETAMINOPHEN TAB 650MG DOSE (2X325MG) PO PRN (11:09)
== END 2023-01-07 11:49 | disposition home or self-care (01) ==
LOC: M ED 02:58 → M ED INP 08:51 → INTOOBSV 08:51 → M MSPAV 11:41
PROVIDERS: ADMIT Family Medicine; ATTEND Family Medicine
DX: G40.89 Other seizures (principal); E87.1 Hypo-osmolality and hyponatremia; I10 Essential (primary) hypertension; Z79.899 Other long term (current) drug therapy
CPT/HCPCS: 36415; 70450; 71045; 80048; 80076; 80180; 80307; 82010; 82140; 82330; 82803; 83605; 83735; 84100; 84484; 85025; 85027; 87040; 87486; 87581; 87633; 87798; 93005; 93041; 94760; 96365; 96366; 96372; 96375; 99285; G0378; J1650; J2405

== ENCOUNTER → 2023-01-17 | Outpatient (CLI) | payer MEDICAID, MEDICARE, OTHER ==
[~2023-01-17] MED LIST changes: +DEPA500T2 PO; +LEXA1TAB PO; +LISI10TA22 PO; +VITA500T17 PO
[2023-01-17 16:05] LABS: BASO # 0.1 10^3/uL (0.0-0.2); BASO % 1.6 % (0.0-1.0); EOS # 0.4 10^3/uL (0.0-0.5); EOS % 5.3 % (0.0-3.0); HEMATOCRIT 48.2 % (42.0-52.0); HEMOGLOBIN 16.5 g/dl (13.5-17.5); LYMPH # 1.4 10^3/uL (1.5-5.0); MEAN CORPUSCULAR HEMOGLOBIN 33.1 pg (27.0-33.0); MEAN CORPUSCULAR HGB CONC 34.2 g/dl (32.0-36.5); MEAN CORPUSCULAR VOLUME 96.6 fl (80.0-96.0); MONO # 0.9 10^3/uL (0.0-0.8); MONO % 13.4 % (2.0-8.0); NEUTROPHILS # 3.8 10^3/uL (1.5-8.5); NEUTROPHILS % 56.3 % (36.0-66.0); PLATELET COUNT, AUTOMATED 266 10^3/uL (150-450); RED BLOOD COUNT 4.99 10^6/uL (4.30-6.10); WHITE BLOOD COUNT 6.7 10^3/uL (4.0-10.0)
[2023-01-17 16:43] LABS: ALBUMIN 4.1 G/DL (3.2-5.2); ALKALINE PHOSPHATASE 62 U/L (46-116); ALT/SGPT 31 U/L (7.0-40); AST/SGOT < 8 U/L (<34); BILIRUBIN,TOTAL 0.7 MG/DL (0.3-1.2); BLOOD UREA NITROGEN 7 MG/DL (9-23); CALCIUM LEVEL 9.2 MG/DL (8.3-10.6); CARBON DIOXIDE LEVEL 26 MMOL/L (20-31); CHLORIDE LEVEL 101 MMOL/L (98-107); CREATININE FOR GFR 0.78 MG/DL (0.70-1.30); GLOMERULAR FILTRATION RATE > 60.0 (>49); GLUCOSE, FASTING 85 MG/DL (74-106); POTASSIUM SERUM 4.5 MMOL/L (3.5-5.1); SODIUM LEVEL 135 MMOL/L (136-145); TOTAL PROTEIN 7.4 G/DL (5.7-8.2)
== END ==
LOC: M PLALAB 13:09
PROVIDERS: ATTEND Psychiatry & Neurology Neurology
DX: R56.9 Unspecified convulsions (principal)

== ENCOUNTER 2023-07-08 07:39 | Day surgery (SDC) | payer MEDICARE ==
[~2023-07-08] VITALS: Ht 180.3 cm; Wt 79.5 kg
[2023-07-08] MEDS: NS 1,000 ML IV ONE (06:00)
[~2023-07-08 07:39] MED LIST changes: +KEPP1TAB PO
[2023-07-08] MEDS ORDERED: ESMOLOL INJ 100MG/10ML VIAL As Ordered ONE (09:16)
[2023-07-08 09:50] VITALS: TEMP 97.7
[2023-07-08 10:08] VITALS: BP 122/59; O2SAT 99
== END 2023-07-08 10:12 | disposition home or self-care (01) ==
LOC: M OPP 07:39
PROVIDERS: ATTEND Internal Medicine Gastroenterology
DX: Z12.11 Encounter for screening for malignant neoplasm of colon (principal); D12.6 Benign neoplasm of colon, unspecified; K64.4 Residual hemorrhoidal skin tags; K64.8 Other hemorrhoids; K57.30 Diverticulosis of large intestine without perforation or abscess without bleeding; Z79.02 Long term (current) use of antithrombotics/antiplatelets; Z79.899 Other long term (current) drug therapy
CPT/HCPCS: 45385; 88305; J1805

== ENCOUNTER → 2023-11-28 | Outpatient (CLI) | payer MEDICARE ==
[2023-11-28 11:39] LABS: ALKALINE PHOSPHATASE 63 U/L (46-116); ALT/SGPT 31 U/L (7.0-40); AST/SGOT 27 U/L (<34); BILIRUBIN,TOTAL 0.8 MG/DL (0.3-1.2); BLOOD UREA NITROGEN 7 MG/DL (9-23); CARBON DIOXIDE LEVEL 29 MMOL/L (20-31); CHLORIDE LEVEL 96 MMOL/L (98-107); CHOLESTEROL LEVEL 147 MG/DL (<200); CHOLESTEROL RISK RATIO 2.02 (<5); GLOMERULAR FILTRATION RATE > 60.0 (>49); GLUCOSE, FASTING 79 MG/DL (74-106); HDL CHOLESTEROL 72.6 MG/DL (>40); LDL CHOLESTEROL 63.2 MG/DL (<100); NON-HDL-C 74.4 MG/DL; POTASSIUM SERUM 4.8 MMOL/L (3.5-5.1); SODIUM LEVEL 131 MMOL/L (136-145); TOTAL PROTEIN 7.1 G/DL (5.7-8.2); TRIGLYCERIDES LEVEL 56 MG/DL (<150)
== END ==
LOC: M PLALAB 08:59
PROVIDERS: ATTEND Family Medicine
DX: E78.5 Hyperlipidemia, unspecified (principal)

== ENCOUNTER → 2024-09-06 | Outpatient (CLI) | payer MEDICARE ==
[2024-09-06 14:37] LABS: BASO # 0.1 10^3/uL (0.0-0.2); BASO % 1.1 % (0.0-1.0); EOS # 0.1 10^3/uL (0.0-0.5); EOS % 0.9 % (0.0-3.0); HEMATOCRIT 48.3 % (42.0-52.0); HEMOGLOBIN 17.2 g/dl (13.5-17.5); LYMPH # 1.2 10^3/uL (1.5-5.0); LYMPH % 21.9 % (24.0-44.0); MEAN CORPUSCULAR HEMOGLOBIN 34.1 pg (27.0-33.0); MEAN CORPUSCULAR HGB CONC 35.6 g/dl (32.0-36.5); MEAN CORPUSCULAR VOLUME 95.6 fl (80.0-96.0); MONO % 17.8 % (2.0-8.0); NEUTROPHILS # 3.2 10^3/uL (1.5-8.5); NEUTROPHILS % 57.1 % (36.0-66.0); PLATELET COUNT, AUTOMATED 216 10^3/uL (150-450); RED BLOOD COUNT 5.05 10^6/uL (4.30-6.10); WHITE BLOOD COUNT 5.6 10^3/uL (4.0-10.0)
[2024-09-06 15:04] LABS: VALPROIC ACID (DEPAKOTE) 59.7 UG/ML (50.0-100.0)
[2024-09-06 15:09] LABS: ALBUMIN 3.7 G/DL (3.2-5.2); ALKALINE PHOSPHATASE 71 U/L (40-129); ALT/SGPT 47 U/L (7.0-40); AST/SGOT 43 U/L (<34); BILIRUBIN,TOTAL 1.2 MG/DL (0.3-1.2); BLOOD UREA NITROGEN 7 MG/DL (9-23); CALCIUM LEVEL 9.3 MG/DL (8.3-10.6); CARBON DIOXIDE LEVEL 29 MMOL/L (20-31); CHLORIDE LEVEL 92 MMOL/L (98-107); CREATININE FOR GFR 0.87 MG/DL (0.70-1.30); GLOMERULAR FILTRATION RATE > 90.0 (>49); GLUCOSE, FASTING 111 MG/DL (74-106); POTASSIUM SERUM 4.9 MMOL/L (3.5-5.1); SODIUM LEVEL 128 MMOL/L (136-145); TOTAL PROTEIN 7.2 G/DL (5.7-8.2)
== END ==
LOC: M PLALAB 09:21
PROVIDERS: ATTEND Psychiatry & Neurology Neurology
DX: R56.9 Unspecified convulsions (principal)

== ENCOUNTER → 2024-09-20 | Outpatient (CLI) | payer MEDICARE ==
[2024-09-20 14:15] LABS: HEMOGLOBIN 16.8 g/dl (13.5-17.5); MEAN CORPUSCULAR HEMOGLOBIN 33.9 pg (27.0-33.0); MEAN CORPUSCULAR VOLUME 96.8 fl (80.0-96.0); PLATELET COUNT, AUTOMATED 219 10^3/uL (150-450); RED BLOOD COUNT 4.96 10^6/uL (4.30-6.10)
[2024-09-20 14:37] LABS: HEMOGLOBIN A1c 5.2 % (4.0-6.0)
[2024-09-20 14:45] LABS: ALBUMIN 3.9 G/DL (3.2-5.2); ALKALINE PHOSPHATASE 65 U/L (40-129); ALT/SGPT 39 U/L (7.0-40); AST/SGOT 50 U/L (<34); BILIRUBIN,TOTAL 0.9 MG/DL (0.3-1.2); BLOOD UREA NITROGEN 7 MG/DL (9-23); CARBON DIOXIDE LEVEL 25 MMOL/L (20-31); CHLORIDE LEVEL 96 MMOL/L (98-107); CHOLESTEROL LEVEL 156 MG/DL (<200); CHOLESTEROL RISK RATIO 1.78 (<5); CREATININE FOR GFR 0.87 MG/DL (0.70-1.30); GLOMERULAR FILTRATION RATE > 90.0 (>49); GLUCOSE, FASTING 108 MG/DL (74-106); HDL CHOLESTEROL 87.6 MG/DL (>40); LDL CHOLESTEROL 56.8 MG/DL (<100); NON-HDL-C 68.4 MG/DL; POTASSIUM SERUM 4.5 MMOL/L (3.5-5.1); SODIUM LEVEL 131 MMOL/L (136-145); TOTAL PROTEIN 7.2 G/DL (5.7-8.2); TRIGLYCERIDES LEVEL 58 MG/DL (<150)
[2024-09-20 14:47] LABS: TOTAL 25(OH) VITAMIN D 10.8 NG/ML (20.0-100.0)
== END ==
LOC: M PLALAB 09:24
DX: Z00.00 Encounter for general adult medical examination without abnormal findings (principal); Z79.899 Other long term (current) drug therapy

== ENCOUNTER → 2025-02-14 | Outpatient (CLI) | payer MEDICARE ==
[~2025-02-14] MED LIST changes: -VITA500T17 PO; +VITA500T8 PO
== END ==
LOC: M RAD 12:47
PROVIDERS: ATTEND Family Medicine
DX: E04.1 Nontoxic single thyroid nodule (principal)